=== PATIENT | female | born 1975 | race Hispanic/Latino ===

== ENCOUNTER 2022-11-27 07:48 | Emergency (ER) | payer SELFPAY ==
--- OUTSIDE RECORDS SUMMARY | 2022-11-27 07:53 | XMS REPORT | Clinical Summary ---
:1975 Author Organization [facility] Address [address] [place] [address] Care Team Providers Name Role Phone Unavailable Primary Care Provider Unavailable Allergies Active Allergy Reactions Severity Noted Date Comments Aspirin Rash Low 06/26/2019 Vancomycin Analogues Rash Low 06/26/2019 Medications Medication Sig Dispensed Refills Start Date End Date Status metFORMIN Take 1,000 mg by 0 Act thomas (GLUCOPHAGE) 500 mg mouth daily with tablet breakfast. glipiZIDE (GLUCOTROL) Take 5 mg by mouth 0 Active 5 mg tablet every morning before breakfast. HYDROcodone-acetamino Take 1 tablet by 20 tablet 0 06/26/2019 Active phen (NORCO) 5 mg-325 mouth every 8 mg per (eight) hours as tabletIndications: needed for moderate Pain of breast pain. Active Problems Problem Noted Date Diabetes mellitus Surgical History Surgery Date Site/Laterality Comments ANKLE SURGERY Right with hardware CHOLECYSTECTOMY Laproscopic Medical History Medical History Date Comments Diabetes mellitus Family History Medical History Relation Name Comments Multiple Myeloma Brother Breast cancer Maternal Aunt 1 Breast cancer Maternal Aunt 2 Breast cancer Maternal Grandmother Cervical cancer Paternal Grandmother Relation Name Status Comments Brother Maternal Aunt 1 Maternal Aunt 2 Alive Maternal Grandmother Paternal Grandmother Social History Tobacco Use Types Packs/Day Years Used Date Smoking Tobacco: Every Day Cigarettes 2 1 Smokeless Tobacco: Never Alcohol Use Standard Drinks/Week Comments Never 0 (1 standard drink = 0.6 oz pure alcoho l) Alcohol Habits Answer Date Recorded How often do you have a drink containing alcohol? Never 06/26/2019 How many drinks containing alcohol do you have on a typical Not asked day when you are drinking? How often do you have six or more drinks on one occasion? No t asked Sex Assigned at Date Recorded Not on file Obstetrics History Last Filed Vital Signs Not on file Plan of Treatment Not on file Results Not on fileafter 11/27/2021
--- OUTSIDE RECORDS SUMMARY | 2022-11-27 08:02 | XMS REPORT | Continuity of Care Document ---
:1975 Author Organization [facility] t Address [address] [place] [address] [address] [place] [address] Care Team Providers Name Role Phone Pcp, Patient Does Not Have A Primary Care Physician [id number] MARTÍNEZ LOUIS Attending Clinician Unavailable Martínez Louis DO Attending Clinician KEELY FONTANA Attending Clinician Unavailable Keely Fontana MD Attending Clinician WANG LEYVA Attending Clinician Unavailable Wang Chi Attending Clinician Doctor Unassigned, [place] Attending Clinician Unavailable CARLOTTA GAMEZ Attending Clinician Unavailable Carlotta Gamez DO Attending Clinician VIKKI VINCENT Attending Clinician Unavailable Only, Ang Db Test Attending Clinician Unavailable Vikki Rangel Attending Clinician KODI LYONS Attending Clinician Unavailable Kodi Lyons MD Attending Clinician Devika RIZZO Attending Clinician Unavailable Devika Marshall Attending Clinician Justo CHILDS, Melyssa Casey Attending Clinician Shonda Lang MD Attending Clinician Samira Payne RN Attending Clinician Unavailable Flaco Hoang MD Attending Clinician Ludivina Colunga MD Attending Clinician LUDIVINA COLUNGA Attending Clinician Unavailable [facility] Attending Clinician Unavailable Cezar Alva Attending Clinician KEELY FONTANA Admitting Clinician Unavailable WANG LEYVA Admitting Clinician Unavailable CARLOTTA GAMEZ Admitting Clinician Unavailable Devika RIZZO Admitting Clinician Unavailable Viktor PARHAM, Flaco Admitting Clinician Payers Payer Name Policy Type Policy Number Effective Date Expiration Date Talita velasco [employer] GENERIC [id number] 2021 00:00:00 Problems Condition Condition Condition Status Onset Resolution Last Treating Co mments Source Name Details Category Date Date Treatment Clinician Date Diabetes Diabetes Disease Active Unive rs mellitus mellitus 7-04 ity of 00:00: [place] [facility] Troponin I Troponin I Disease Active U nivers above above 3-01 [place] of [place] [facility] Elevated Elevated Disease Active Unive rs brain brain 3-01 ity of natriureti natriureti 00:00[place] c peptide c peptide 00 [facility] (BNP) (BNP) Branch level level Anemia Anemia Disease Active Univers 3-01 ity of 00:00: [address] Family Family Disease Active Univers history of history of 3- it y of bicuspid bicuspid 00:00: [place] aortic aortic 00 [facility] valve valve Branch Chest pain Chest pain Disease Active U nivers 2-28 ity of 00:00: [address] Branch Obesity Obesity Disease Active Univers (BMI (BMI 9-24 ity of 30-39.9) 30-39.9) 00:00: [place] [facility] Branch Cellulitis Cellulitis Disease Active 2018- U nivers of left of left 9-23 ity of breast breast 00:00: [address] Branch Urinary Urinary Disease Active Univers tract tract 9-21 ity of infection infection 00:00[place] in mother in mother 00 Medi carmen during during Branch , , antepartum antepartum Nausea and Nausea and Disease Active 2017- U nivers vomiting vomiting 9-21 ity of during during 00:00: [place] 00 Medi carmen prior to prior to Branch 22 weeks 22 weeks gestation gestation Pre-existi Pre-existi Disease Active U nivers ng type 2 ng type 2 9-20 ity of diabetes diabetes 00:00: [place] mellitus mellitus 00 Medica l during during Branch in first in first trimester trimester UTI UTI Disease Active Overview: Univer s (urinary (urinary 17 Formatt[place] ity of tract tract 00:00: g of this [place] infection) infection) 00 note Me dical during during might be Branch different from the original. KATIE at next visit Diabetes Diabetes Disease Active Unive rs in in 06-11 [place] of 00:[place] Supervisio Supervisio Disease Active U nivers n of n of 06-11 ity of high-risk high-risk 00:00[place] Med[place] car[place] of elderly of elderly Br anch multigravi multigravi da da AMA AMA Disease Active Univers (advanced (advanced 9-13 ity of maternal maternal 00:00: [place] age) age) 00 Medical multigravi multigravi Br anch da 35+ da 35+ Type 2 Type 2 Disease Active Univers diabetes diabetes 7-12 ity of mellitus mellitus 00:00: [place] without without 00 Medical complicati complicati Br anch on, on, without without long-term long-term current current use of use of insulin insulin Dyslipidem Dyslipidem Disease Active U nivers ia ia 7-12 ity of 00:00: [place] 00 Medical Branch Breast Breast Disease Active Univers mass, mass, 5-17 ity of right right 00:00: [place] [facility] Obesity Obesity Disease Active 2015-09 Univers affecting affecting 1-16 [place] of 00:[place] Allergies, Adverse Reactions, Alerts Allergy Allergy Status Severity Reaction(s) Onset Inactive Treating Comm ents Source Name Type Date Date Clinician Vancomyc Propensi Active Rash Univer s in ty to 06-21 ity of adverse 00:00: [place] reaction 00 Medical s Branch VANCOMYC DRUG Active Rash Univers IN INGREDI 9- ity of 00:00: [place] 00 Medical Branch Aspirin Propensi Active Rash Univers ty to 8-25 ity of adverse 00:00: [place] reaction 00 Medical s to Branch drug ASPIRIN DRUG Active Rash [facility] INGRED 8-25 ity of 00:00: [place] 00 Medical Branch Social History Social Habit Start Date Stop Date Quantity Comments Source History of Current smoker [place] of tobacco use [facility] Exposure to 2022-06-09 2022-06-19 Not sure [facility] SARS-CoV-2 00:00:00 17:00:00 [facility] (event) [place] Alcohol intake 2022-01-05 2022-01-05 Current [facility] 00:00:00 00:00:00 non-drinker of [facility] alcohol (finding) [place] Tobacco use and 2018-06-11 2018-06-11 Smokeless tobacco Un iversity of exposure 00:00:00 00:00:00 non-user [facility] Sex Ass[birth year] [facility] y of 00:00:00 00:00:00 [facility] Smoking Status Start Date Stop Date Source Ex-smoker 2018-06-11 00:00:00 2018-06-11 00:00:00 [facility] Medications Ordered Filled Start Stop Current Ordering Indication Dosage Frequency Signature Comments Components Source Medication Medication Date Date Medication? Clinician (SIG) Name Name cefTRIAXone Yes 500mg 500 mg, Un khloe (ROCEPHIN) 06-20 Intramuscu ity of injection 00:00: [place] Q24H, [place] 500 mg 00 First dose Medical on Fri [place] 06/19/22 at 1900, Until Discontinu ed, DARA
Re ason for Anti-Infec tive: Empiric Therapy for Suspected Infection< br>Empiric Therapy Site: Pelvic
Duration of therapy: 72 hours azithromyci 2021- No 1000mg 1,000 mg, Univers n 06-19 Oral, ity of (ZITHROMAX) 23:00: 23:23 ONCE, 1 [place] tablet 00 :00 dose, On Medical 1,000 mg [facility] 06/19/22 at 1800, DARA
Re ason for Anti-Infec tive: Empiric Therapy for Suspected Infection< br>Empiric Therapy Site: Pelvic
Duration of therapy: 72 hours cefixime 2021- No [id number] 400mg Take 1 U nivers 400 mg 06-19 capsule by ity of capsule 00:00: 04:59 mouth in [place] 00 :00 the Medical morning Branch for 7 days. clindamycin 2021- No [id number] 300mg Take 2 Univers 150 mg 06-19 capsules ity of capsule 00:00: 04:59 by mouth 4 [place] as 00 :00 (four) Medical times Branch daily for 7 days. iopamidol 2021- No [id number] 75mL 75 mL, Univers (ISOVUE 06-07 Intravenou ity o f 370-500 mL) 16:45: 16:45 s, ONCE, 1 [place] injection 00 :00 dose, On Medica l 75 mL Fri06/07/22 Branch at 1145, Routine NaCl 0.9% No 1000mL at 999 Uni vers (NS) bolus 06-07 mL/hr, ity of infusion 16:30: 16:50 1,000 mL, [place] 1,000 mL 00 :00 IV Medical Infusion, Branch ONCE, 1 dose, On Fri06/07/22 at 1130, STAT FENTanyl PF No 25ug 25 mcg, Un khloe (SUBLIMAZE 06-07 Slow IV ity o f (PF)) 15:30: 15:31 Push, [place] injection 00 :00 ONCE, 1 Medical 25 mcg dose, On Branch Fri06/07/22 at 1030, STAT NaCl 0.9% 2021- No 1000mL at 999 Uni vers (NS) bolus 04-01 07-04 mL/hr, ity of infusion 08:00: 07:25 1,000 mL, [place] 1,000 mL 00 :00 IV Medical Infusion, Branch ONCE, 1 dose, On Fri04/01/22 at 0300, DARA NaCl 0.9% 2021- No 1000mL at 999 Uni vers (NS) bolus 7-04 07-04 mL/hr, ity of infusion 05:45: 06:00 1,000 mL, [place] 1,000 mL 00 :00 IV Medical Infusion, Branch ONCE, 1 dose, On Fri04/01/22 at 0045, DARA ondansetron 2021- No 4mg 4 mg, Slow Univers (ZOFRAN 04-01 IV Push, ity of (PF)) 04:45: 04:49 ONCE, 1 [place] injection 4 00 :00 dose, On Medi carmen mg [place] 03/31/22 Branch at 2345, DARA acetaminoph 0 2021- No 1000mg 1,000 mg, Univers en 04-01 Oral, ity of (TYLENOL) 04:45: 04:49 ONCE, 1 [place] tablet 00 :00 dose, On Medical 1,000 mg 03/31/22 Branc h at 2345, DARA ibuprofen 0 2021- No 800mg 800 mg, Uni vers (IBU) 04-01 Oral, ity of tablet 800 04:45: 04:49 ONCE, 1 [place] mg 00 :00 dose, On Medical [place] 03/31/22 Branch at 2345, DARA benzonatate 2021-0 Yes [id number] 100mg Take 1 Univers 100 mg 7-04 capsule by ity of capsule 00:00: mouth 3 [place] 00 (three) Medical times Branch daily as needed for Cough. ondansetron 2021-0 Yes [id number] 4mg Take 1 Univers 4 mg 7-04 tablet by ity of disintegrat 00:00: mouth [place] ing tablet 00 every 8 Medica l (eight) Branch hours as needed for Nausea and Vomiting (N/V). albuterol 2021-0 Yes [id number] 2{puff} Inhale 2 Univers 90 7-04 Puffs ity of mcg/actuati 00:00: every 4 [place] as on inhaler 00 (four) Medical hours as Branch needed for Wheezing or Shortness of Breath. benzonatate 2021-0 Yes [id number] 100mg Take 1 Univers 100 mg 7-04 capsule by ity of capsule 00:00: mouth 3 [place] 00 (three) Medical times Branch daily as needed for Cough. ondansetron 2021-0 Yes [id number] 4mg Take 1 Univers 4 mg 7-04 tablet by ity of disintegrat 00:00: mouth [place] ing tablet 00 every 8 Medica l (eight) Branch hours as needed for Nausea and Vomiting (N/V). albuterol 2021-0 Yes [id number] 2{puff} Inhale 2 Univers 90 7-04 Puffs ity of mcg/actuati 00:00: every 4 [place] on inhaler 00 (four) Medical hours as Branch needed for Wheezing or Shortness of Breath. benzonatate Yes [id number] 100mg Take 1 Univers 100 mg 7-04 capsule by ity of capsule 00:00: mouth 3 [place] 00 (three) Medical times Branch daily as needed for Cough. ondansetron Yes [id number] 4mg Take 1 Univers 4 mg 7-04 tablet by ity of disintegrat 00:00: mouth [place] ing tablet 00 every 8 Medica l (eight) Branch hours as needed for Nausea and Vomiting (N/V). albuterol Yes [id number] 2{puff} Inhale 2 Univers 90 7-04 Puffs ity of mcg/actuati 00:00: every 4 [place] on inhaler 00 (four) Medical hours as Branch needed for Wheezing or Shortness of Breath. amoxicillin 0 2021- No 1{tbl} 1 tablet, Univers -clavulanat 01-05 Oral, ity of e 22:30: 22:00 ONCE, 1 [place] (AUGMENTIN) 00 :00 dose, On Medi carmen 875-125 mg 01/05/22 [facility] per tablet at 1730, 1 tablet Routine
Reason for Anti-Infec tive: Empiric Therapy for Suspected Infection< br>Empiric Therapy Site: Skin / Soft tissue
Duration of therapy: 72 hours FENTanyl PF 2021-0 2021- No 50ug 50 mcg, Un khloe (SUBLIMAZE 01-05- Slow IV ity o f (PF)) 21:15: 20:27 Push, [place] injection 00 :00 ONCE, 1 Medical 50 mcg dose, On Branch 01/05/22 at 1615, Routine metFORMIN 0 Yes 1000mg Take 1,000 Univers 500 mg 4-09 mg by ity of tablet 15:07: mouth 3 [place] 20 (three) Medical times Branch daily. glipiZIDE 5 Yes 10mg Take 10 mg Univers mg tablet -09 by mouth 2 ity of 15:07: (two) [place] 20 times Medical daily Branch before breakfast and dinner. metFORMIN 2021-0 Yes 1000mg Take 1,000 Univers 500 mg 4-09 mg by ity of tablet 15:07: mouth 3 [place] 20 (three) Medical times Branch daily. glipiZIDE 5 2022-0 Yes 10mg Take 10 mg Univers mg tablet 4-09 by mouth 2 ity of 15:07: (two) [place] 20 times Medical daily Branch before breakfast and dinner. metFORMIN 2022-0 Yes 1000mg Take 1,000 Univers 500 mg 4-09 mg by ity of tablet 15:07: mouth 3 [place] 20 (three) Medical times Branch daily. glipiZIDE 5 2022-0 Yes 10mg Take 10 mg Univers mg tablet 4-09 by mouth 2 ity of 15:07: (two) [place] 20 times Medical daily Branch before breakfast and dinner. metFORMIN 2022-0 Yes 1000mg Take 1,000 Univers 500 mg 4-09 mg by ity of tablet 15:07: mouth 3 [place] 20 (three) Medical times Branch daily. glipiZIDE 5 2022-0 Yes 10mg Take 10 mg Univers mg tablet 4-09 by mouth 2 ity of 15:07: (two) [place] 20 times Medical daily Branch before breakfast and dinner. metFORMIN 2022-0 Yes 1000mg Take 1,000 Univers 500 mg 4-09 mg by ity of tablet 15:07: mouth 3 [place] 20 (three) Medical times Branch daily. glipiZIDE 5 2022-0 Yes 10mg Take 10 mg Univers mg tablet 4-09 by mouth 2 ity of 15:07: (two) [place] 20 times Medical daily Branch before breakfast and dinner. amoxicillin 2022-0 Yes [id number] 1{tbl} Take 1 Univers -clavulanat 4-09 [id number] tablet by i ty of e 875-125 00:00: mouth [place] mg per 00 every 12 Medical tablet (twelve) Branch hours. amoxicillin 2022-0 Yes [id number] 1{tbl} Take 1 Univers -clavulanat 4-09 [id number] tablet by i ty of e 875-125 00:00: mouth [place] mg per 00 every 12 Medical tablet (twelve) Branch hours. amoxicillin 2022-0 Yes [id number] 1{tbl} Take 1 Univers -clavulanat 4-09 [id number] tablet by i ty of e 875-125 00:00: mouth [place] mg per 00 every 12 Medical tablet (twelve) Branch hours. amoxicillin 2021-0 Yes [id number] 1{tbl} Take 1 Univers -clavulanat 4-09 [id number] tablet by i ty of e 875-125 00:00: mouth [place] mg per 00 every 12 Medical tablet (twelve) Branch hours. amoxicillin 2021-0 Yes [id number] 1{tbl} Take 1 Univers -clavulanat 4-09 [id number] tablet by i ty of e 875-125 00:00: mouth [place] mg per 00 every 12 Medical tablet (twelve) Branch hours. sulfamethox 2020-09 Yes [id number] 1{tbl} Take 1 Univers azole-trime 2-17 tablet by ity of thoprim 00:00: mouth [place] 800-160 mg 00 every 12 Medic al per tablet (twelve) Branc h hours. ibuprofen 2020-09 Yes [id number] 800mg Take 1 U nivers 800 mg 2-17 tablet by ity of tablet 00:00: mouth [place] 00 every 8 Medical (eight) Branch hours as needed for Pain (scale 4-6) or Temp > 38.5 C. sulfamethox 2020-09 Yes [id number] 1{tbl} Take 1 Univers azole-trime 2-17 tablet by ity of thoprim 00:00: mouth [place] 800-160 mg 00 every 12 Medic al per tablet (twelve) Branc h hours. ibuprofen 2020-09 Yes [id number] 800mg Take 1 U nivers 800 mg 2-17 tablet by ity of tablet 00:00: mouth [place] 00 every 8 Medical (eight) Branch hours as needed for Pain (scale 4-6) or Temp > 38.5 C. sulfamethox 2020-09 Yes [id number] 1{tbl} Take 1 Univers azole-trime 2-17 tablet by ity of thoprim 00:00: mouth [place] 800-160 mg 00 every 12 Medic al per tablet (twelve) Branc h hours. ibuprofen 2020-09 Yes [id number] 800mg Take 1 U nivers 800 mg 2-17 tablet by ity of tablet 00:00: mouth [place] 00 every 8 Medical (eight) Branch hours as needed for Pain (scale 4-6) or Temp > 38.5 C. sulfamethox 2020-09 Yes [id number] 1{tbl} Take 1 Univers azole-trime 2-17 tablet by ity of thoprim 00:00: mouth [place] 800-160 mg 00 every 12 Medic al per tablet (twelve) Branc h hours. ibuprofen 2020-09 Yes [id number] 800mg Take 1 U nivers 800 mg 2-17 tablet by ity of tablet 00:00: mouth [place] 00 every 8 Medical (eight) Branch hours as needed for Pain (scale 4-6) or Temp > 38.5 C. ibuprofen 2020-09 Yes [id number] 800mg Take 1 U nivers 800 mg 2-17 tablet by ity of tablet 00:00: mouth [place] 00 every 8 Medical (eight) Branch hours as needed for Pain (scale 4-6) or Temp > 38.5 C. ibuprofen 2020-09 Yes [id number] 800mg Take 1 U nivers 800 mg 2-17 tablet by ity of tablet 00:00: mouth [place] 00 every 8 Medical (eight) Branch hours as needed for Pain (scale 4-6) or Temp > 38.5 C. ibuprofen 2020-09 Yes [id number] 800mg Take 1 U nivers 800 mg 2-17 tablet by ity of tablet 00:00: mouth [place] 00 every 8 Medical (eight) Branch hours as needed for Pain (scale 4-6) or Temp > 38.5 C. ibuprofen 2020-09 Yes [id number] 800mg Take 1 U nivers 800 mg 2-17 tablet by ity of tablet 00:00: mouth [place] 00 every 8 Medical (eight) Branch hours as needed for Pain (scale 4-6) or Temp > 38.5 C. ibuprofen 2020-09 Yes [id number] 800mg Take 1 U nivers 800 mg 2-17 tablet by ity of tablet 00:00: mouth [place] 00 every 8 Medical (eight) Branch hours as needed for Pain (scale 4-6) or Temp > 38.5 C. sulfamethox 2020-09- No [id number] 1{tbl} Take 1 Univers azole-trime 2-17 - tablet by it y of thoprim 00:00: 00:00 mouth [place] 800-160 mg 00 :00 every 12 Medic al per tablet (twelve) Branc h hours. benzonatate 2020-09- No 100mg 100 mg, U nivers (TESSALON 2-06 12-06 Oral, ity of PERLES) 05:00: 04:01 ONCE, 1 [place] capsule 100 00 :00 dose, On Medi carmen mg [place] 09/02/21 at 2300, DARA magnesium 2020-09- 2g 2 g, IV Univ ers sulfate in 11-04 Piggyback, it y of water 2 03:45: 03:58 ONCE, 1 [place] gram/50 mL 00 :00 dose, On Medic al (4 %) [place] infusion 2 09/02/21 at g 2145, Routine benzonatate 2020-09 Yes [id number] 100mg Take 1 Univers 100 mg 2-05 capsule by ity of capsule 00:00: mouth 3 [place] 00 (three) Medical times Branch daily as needed for Cough. albuterol 2020-09 Yes [id number] 2{puff} Inhale 2 Univers 90 2-05 Puffs ity of mcg/actuati 00:00: every 4 [place] on inhaler 00 (four) Medical hours as Branch needed for Wheezing or Shortness of Breath. ondansetron 2020-09 Yes [id number] 4mg Take 1 Univers (ZOFRAN 2-05 tablet by ity of ODT) 4 mg 00:00: mouth [place] disintegrat 00 every 8 Medic al ing tablet (eight) Branch hours as needed for Nausea and Vomiting (N/V). ibuprofen 2020-09 Yes [id number] 600mg Take 1 Univers 600 mg 2-05 tablet by ity of tablet 00:00: mouth [place] 00 every 6 Medical (six) Branch hours as needed for Pain (scale 4-6). benzonatate 2020-09 Yes [id number] 100mg Take 1 Univers 100 mg 2-05 capsule by ity of capsule 00:00: mouth 3 [place] 00 (three) Medical times Branch daily as needed for Cough. albuterol 2020-09 Yes [id number] 2{puff} Inhale 2 Univers 90 2-05 Puffs ity of mcg/actuati 00:00: every 4 [place] on inhaler 00 (four) Medical hours as Branch needed for Wheezing or Shortness of Breath. ondansetron 2020-09 Yes [id number] 4mg Take 1 Univers (ZOFRAN 2-05 tablet by ity of ODT) 4 mg 00:00: mouth [place] disintegrat 00 every 8 Medic al ing tablet (eight) Branch hours as needed for Nausea and Vomiting (N/V). ibuprofen 2020-09 Yes [id number] 600mg Take 1 Univers 600 mg 2-05 tablet by ity of tablet 00:00: mouth [place] 00 every 6 Medical (six) Branch hours as needed for Pain (scale 4-6). benzonatate 2020-09 Yes [id number] 100mg Take 1 Univers 100 mg 2-05 capsule by ity of capsule 00:00: mouth 3 [place] 00 (three) Medical times Branch daily as needed for Cough. albuterol 2020-09 Yes [id number] 2{puff} Inhale 2 Univers 90 2-05 Puffs ity of mcg/actuati 00:00: every 4 [place] on inhaler 00 (four) Medical hours as Branch needed for Wheezing or Shortness of Breath. ondansetron 2020-09 Yes [id number] 4mg Take 1 Univers (ZOFRAN 2-05 tablet by ity of ODT) 4 mg 00:00: mouth [place] disintegrat 00 every 8 Medic al ing tablet (eight) Branch hours as needed for Nausea and Vomiting (N/V). ibuprofen 2020-09 Yes [id number] 600mg Take 1 Univers 600 mg 2-05 tablet by ity of tablet 00:00: mouth [place] 00 every 6 Medical (six) Branch hours as needed for Pain (scale 4-6). benzonatate 2020-09 Yes [id number] 100mg Take 1 Univers 100 mg 2-05 capsule by ity of capsule 00:00: mouth 3 [place] 00 (three) Medical times Branch daily as needed for Cough. albuterol 2020-09 Yes [id number] 2{puff} Inhale 2 Univers 90 2-05 Puffs ity of mcg/actuati 00:00: every 4 [place] on inhaler 00 (four) Medical hours as Branch needed for Wheezing or Shortness of Breath. ondansetron 2020-09 Yes [id number] 4mg Take 1 Univers (ZOFRAN 2-05 tablet by ity of ODT) 4 mg 00:00: mouth [place] disintegrat 00 every 8 Medic al ing tablet (eight) Branch hours as needed for Nausea and Vomiting (N/V). ibuprofen 2020-09 Yes [id number] 600mg Take 1 Univers 600 mg 2-05 tablet by ity of tablet 00:00: mouth [place] 00 every 6 Medical (six) Branch hours as needed for Pain (scale 4-6). benzonatate 2020-09 Yes [id number] 100mg Take 1 Univers 100 mg 2-05 capsule by ity of capsule 00:00: mouth 3 [place] 00 (three) Medical times Branch daily as needed for Cough. albuterol 2020-09 Yes [id number] 2{puff} Inhale 2 Univers 90 2-05 Puffs ity of mcg/actuati 00:00: every 4 [place] on inhaler 00 (four) Medical hours as Branch needed for Wheezing or Shortness of Breath. ondansetron 2020-09 Yes [id number] 4mg Take 1 Univers (ZOFRAN 2-05 tablet by ity of ODT) 4 mg 00:00: mouth [place] disintegrat 00 every 8 Medic al ing tablet (eight) Branch hours as needed for Nausea and Vomiting (N/V). ibuprofen 2020-09 Yes [id number] 600mg Take 1 Univers 600 mg 2-05 tablet by ity of tablet 00:00: mouth [place] 00 every 6 Medical (six) Branch hours as needed for Pain (scale 4-6). benzonatate 2020-09 Yes [id number] 100mg Take 1 Univers 100 mg 2-05 capsule by ity of capsule 00:00: mouth 3 [place] 00 (three) Medical times Branch daily as needed for Cough. albuterol 2020-09 Yes [id number] 2{puff} Inhale 2 Univers 90 2-05 Puffs ity of mcg/actuati 00:00: every 4 [place] on inhaler 00 (four) Medical hours as Branch needed for Wheezing or Shortness of Breath. ondansetron 2020-09 Yes [id number] 4mg Take 1 Univers (ZOFRAN 2-05 tablet by ity of ODT) 4 mg 00:00: mouth [place] disintegrat 00 every 8 Medic al ing tablet (eight) Branch hours as needed for Nausea and Vomiting (N/V). ibuprofen 2020-09 Yes [id number] 600mg Take 1 Univers 600 mg 2-05 tablet by ity of tablet 00:00: mouth [place] 00 every 6 Medical (six) Branch hours as needed for Pain (scale 4-6). ibuprofen 2020-09 Yes [id number] 600mg Take 1 Univers 600 mg 2-05 tablet by ity of tablet 00:00: mouth [place] 00 every 6 Medical (six) Branch hours as needed for Pain (scale 4-6). ibuprofen 2020-09 Yes [id number] 600mg Take 1 Univers 600 mg 2-05 tablet by ity of tablet 00:00: mouth [place] 00 every 6 Medical (six) Branch hours as needed for Pain (scale 4-6). ibuprofen 2020-09 Yes [id number] 600mg Take 1 Univers 600 mg 2-05 tablet by ity of tablet 00:00: mouth [place] 00 every 6 Medical (six) Branch hours as needed for Pain (scale 4-6). ibuprofen 2020-09 Yes [id number] 600mg Take 1 Univers 600 mg 2-05 tablet by ity of tablet 00:00: mouth [place] 00 every 6 Medical (six) Branch hours as needed for Pain (scale 4-6). ibuprofen 2020-09 Yes [id number] 600mg Take 1 Univers 600 mg 2-05 tablet by ity of tablet 00:00: mouth [place] 00 every 6 Medical (six) Branch hours as needed for Pain (scale 4-6). benzonatate 2020-09- No [id number] 100mg Take 1 Univers 100 mg 2-05 -09 capsule by ity of capsule 00:00: 00:00 mouth 3 [place] 00 :00 (three) Medical times Branch daily as needed for Cough. albuterol 2020-09- No [id number] 2{puff} Inhale 2 Univers 90 2-05 -09 Puffs ity of mcg/actuati 00:00: 00:00 every 4 [place] on inhaler 00 :00 (four) Medical hours as Branch needed for Wheezing or Shortness of Breath. ondansetron 2020-09- No [id number] 4mg Take 1 Univers (ZOFRAN 2-05 04-09 tablet by ity of ODT) 4 mg 00:00: 00:00 mouth [place] disintegrat 00 :00 every 8 Medic al ing tablet (eight) Branch hours as needed for Nausea and Vomiting (N/V). ibuprofen 2020-09- No [id number] 600mg Take 1 Univers 600 mg 2-05 12-05 tablet by ity of tablet 00:00: 00:00 mouth [place] 00 :00 every 6 Medical (six) Branch hours as needed for Pain (scale 4-6). NaCl 0.9% 2020- No 500mL at 999 Univ ers (NS) bolus 03-30 07-02 mL/hr, 500 it y of infusion 01:30: 13:29 mL, IV [place] 500 mL 00 :00 Piggyback, Medical ONCE, 1 Branch dose, [facility] 03/29/21 at 2030, STAT metFORMIN 0 Yes 1000mg Take 1,000 Univers 500 mg 7-02 mg by ity of tablet 01:00: mouth. [address] glipiZIDE 5 Yes 10mg Take 10 mg Univers mg tablet 03-30 by mouth. ity o f 01:00: [address] iopamidol 2020- No [id number] 100mL 100 mL, Univers (ISOVUE 03-29 Intravenou ity o f 370-500 mL) 22:54: 22:56 s, ONCE, 1 [place] injection 00 :00 dose, [facility] Medic al 100 mL 03/29/21 at Branch 1815, Routine ibuprofen 2020- No 600mg 600 mg, Uni vers (IBU) 03-29 Oral, ity of tablet 600 21:15: 21:03 ONCE, 1 [place] as mg 00 :00 dose, [facility] Medical 03/29/21 at Branch 1615, DARA metFORMIN 2020-0 Yes 1000mg Take 1,000 Univers 500 mg 7-01 mg by ity of tablet 20:00: mouth. [address] glipiZIDE 5 2020-0 Yes 10mg Take 10 mg Univers mg tablet 03-29 by mouth. ity o f 20:00: [address] metFORMIN 2020-0 Yes 1000mg Take 1,000 [facility] 500 mg 7-01 mg by ity of tablet 20:00: mouth. [address] glipiZIDE 5 2020-0 Yes 10mg Take 10 mg [facility] mg tablet 03-29 by mouth. ity o f 20:00: [address] metFORMIN 2020-0 Yes 1000mg Take 1,000 [facility] 500 mg 7-01 mg by ity of tablet 20:00: mouth. [address] glipiZIDE 5 Yes 10mg Take 10 mg [facility] mg tablet 7-01 by mouth. ity o f 20:00: [address] metFORMIN Yes 1000mg Take 1,000 [facility] 500 mg 7-01 mg by ity of tablet 20:00: mouth. [address] glipiZIDE 5 Yes 10mg Take 10 mg [facility] mg tablet 7-01 by mouth. ity o f 20:00: [address] metFORMIN Yes 1000mg Take 1,000 [facility] 500 mg 7-01 mg by ity of tablet 20:00: mouth. [address] glipiZIDE 5 Yes 10mg Take 10 mg [facility] mg tablet 7-01 by mouth. ity o f 20:00: [address] metFORMIN Yes 1000mg Take 1,000 [facility] 500 mg 7-01 mg by ity of tablet 20:00: mouth. [address] glipiZIDE 5 Yes 10mg Take 10 mg [facility] mg tablet 7-01 by mouth. ity o f 20:00: [address] ketorolac 2020- No 30mg 30 mg, Unive rs (TORADOL) 01-02 Slow IV ity of injection 15:30: 14:28 Push, [place] 30 mg 00 :00 ONCE, 1 Medical dose, [facility] 01/02/21 at 1030, DARA
Fa culty member approving Restricted medication : SHONDA LANG metoclopram 2020- No 10mg 10 mg, Uni vers belle HCl 01-02 Slow IV ity of (REGLAN) 15:30: 14:27 Push, [place] injection 00 :00 ONCE, 1 Medical 10 mg dose, [facility] 01/02/21 at 1030, DARA morpHINE 2020- No 4mg 4 mg, Slow Un khloe injection 01-02 IV Push, ity of mg 14:30: 13:23 ONCE, 1 [place] 00 :00 dose, [facility] 01/02/21 at Branch 0930, STAT ondansetron 2020- No 4mg 4 mg, Slow Univers (ZOFRAN 01-02 IV Push, ity of (PF)) 14:30: 13:23 ONCE, 1 [place] injection 4 00 :00 dose, Tue Med ical mg 01/02/21 at Branch 0930, DARA metoclopram 2020-0 Yes [id number] 10mg Take 1 [facility] belle HCl 10 4-06 tablet by ity of mg tablet 00:00: mouth [place] 00 every 6 Medical (six) Branch hours. polyethylen 2020-0 Yes [id number] 1{packe Take 1 Univers e glycol 4-06 t} Packet by ity of 3350 00:00: mouth 2 [place] (MIRALAX) 00 (two) Medical 17 gram times Branch powder daily as needed for Constipati on. dicyclomine 2020-0 Yes [id number] 20mg Take 1 [facility] 20 mg 4-06 tablet by ity of tablet 00:00: mouth 4 [place] 00 (four) Medical times Branch daily. metoclopram 2020-0 Yes [id number] 10mg Take 1 [facility] belle HCl 10 4-06 tablet by ity of mg tablet 00:00: mouth [place] 00 every 6 Medical (six) Branch hours. metoclopram 2020-0 2020- No [id number] 10mg Take 1 [facility] belle HCl 10 4- 07-01 tablet by ity of mg tablet 00:00: 00:00 mouth [place] 00 :00 every 6 Medical (six) Branch hours. polyethylen 2020-0 2020- No [id number] 1{packe Take 1 Univers e glycol 4-06 07-01 t} Packet by ity o f 3350 00:00: 00:00 mouth 2 [place] (MIRALAX) 00 :00 (two) Medical 17 gram times Branch powder daily as needed for Constipati on. dicyclomine 2020-0 2020- No [id number] 20mg Take 1 [facility] 20 mg 4-06 07-01 tablet by ity of tablet 00:00: 00:00 mouth 4 [place] 00 :00 (four) Medical times Branch daily. metoclopram 2020-0 2020- No [id number] 10mg Take 1 [facility] belle HCl 10 4-06 07-01 tablet by ity of mg tablet 00:00: 00:00 mouth [place] 00 :00 every 6 Medical (six) Branch hours. maalox:diph 2020-0 2020- No 15mL 15 mL, Uni vers enhydrAMINE 12-17 Oral, ity of :lidocaine 02:45: 01:46 ONCE, 1 [place] as 2 % viscous 00 :00 dose, Sat Med ical 1:1:1 12/16/20 at [place] (FIRST-MOUT 2145, HWASH BLM) Routine oral suspension 15 mL iohexol 2020- No [id number] 80mL 80 mL, Univers (OMNIPAQUE 12-17 86567 Intravenou i ty of 350 01:00: 00:50 s, ONCE, 1 [place] BULK-100 00 :00 dose, Sat Medica l mL) 12/16/20 at [place] injection 1999, 80 mL Routine ondansetron 2020- No 4mg 4 mg, Slow Univers (ZOFRAN 12-17 IV Push, ity of (PF)) 01:00: 00:12 ONCE, 1 [place] injection 4 00 :00 dose, Sat Med ical mg 12/16/20 at [place] 1999, DARA butorphanol 2020- No 1mg 1 mg, IV U nivers (STADOL) 12-17 Push, ity of injection 1 01:00: 00:12 ONCE, 1 [place] mg 00 :00 dose, Sat [facility] 12/16/20 at [place] 1999, Routine ketorolac 2020- No 30mg 30 mg, Unive rs (TORADOL) 12-17 Slow IV ity of injection 01:00: 00:12 Push, [place] 30 mg 00 :00 ONCE, 1 Medical dose, Sat [place] 12/16/20 at 1999, Routine
parole board member approving Restricted medication : MELYSSA PETERS ciprofloxac 2020- No 400mg 400 mg, IV Univers in in 5 % 12-17 Piggyback, ity of dextrose 01:00: 01:15 Administer [place] (CIPRO) 00 :00 over 60 Medical piggyback Minutes, Branch 400 mg ONCE, 1 dose, 12/16/20 at 1999, DARA
Re ason for Anti-Infec tive: Documented Infection< br>Documen wilfredo Infection Site: HEENT
D uration of Therapy: 7 days NaCl 0.9% 2020- No 1000mL at 999 Uni vers (NS) bolus 12-17-21 mL/hr, ity of infusion 00:00: 01:15 1,000 mL, [place] as 1,000 mL 00 :00 IV Medical Infusion, Branch ONCE, 1 dose, 12/16/20 at 1900, DARA ciprofloxac Yes [id number] 500mg Take 1 [facility] in HCl 500 12-16 tablet by ity of mg tablet 00:00: mouth 2 (two) Medical times Branch daily. ciprofloxac Yes [id number] 500mg Take 1 Univers in HCl 500 12-1604 tablet by ity of mg tablet 00:00: mouth 2 (two) Medical times Branch daily. ciprofloxac 2020- No [id number] 500mg Take 1 Univers in HCl 500 12-16 13266 tablet by it y of mg tablet 00:00: 00:00 mouth 2 [place] 00 :[place] (two) Medical times Branch daily. acyclovir 2020- No [id number] 800mg Take 1 Univers 800 mg 12-16 55984 tablet by ity of tablet 00:00: 04:59 mouth 5 [place] 00 :00 (five) Medical times Branch daily for 7 days. traMADoL 50 2020- No [id number] 50mg Take 1 Uni vers mg tablet 12-16 tablet by ity of 00:00: 04:59 mouth [place] 00 :00 every 6 Medical (six) Branch hours as needed for Pain (scale 7-10) for up to 7 days. Indication s: acute pain traMADoL 2020- No 50mg 50 mg, Univer s (ULTRAM) 12-15- Oral, ity of tablet 50 16:45: 16:45 ONCE, 1 [place] mg 00 :00 dose, Fri Medical 12/15/20 at Branch 1145, Routine etodolac 2020- Yes [id number] 300mg Take 1 Univers 300 mg 12-15 capsule by ity of capsule 00:00: mouth 2 [place] 00 (two) Medical times Branch daily with meals. colistin-ne Yes [id number] 5[drp] Place 5 Univers omycin-hc-t 12-15 97741 Drops in ity of honzonium 00:00: right ear Enrique as (CORTISPORI 00 3 (three) Med ical N-TC) times Branch 3.3-3-10-0. daily. 5 mg/mL otic drops etodolac Yes [id number] 300mg Take 1 Univers 300 mg 12-15 32771 capsule by ity of capsule 00:00: mouth 2 [place] 00 (two) Medical times Branch daily with meals. colistin-ne Yes [id number] 5[drp] Place 5 Univers omycin-hc-t 12-15 45849 Drops in ity of honzonium 00:00: right ear [place] as (CORTISPORI 00 3 (three) Med ical N-TC) times Branch 3.3-3-10-0. daily. 5 mg/mL otic drops etodolac 2020- No [id number] 300mg Take 1 Univers 300 mg 12-15 [id number] capsule by ity o f capsule 00:00: 00:00 mouth 2 [place] 00 :00 (two) Medical times Branch daily with meals. colistin-ne 2020-2020- No [id number] 5[drp] Place 5 Univers omycin-hc-t 12-15 51809 Drops in it y of honzonium 00:00: 00:00 right ear [place] (CORTISPORI 00 :00 3 (three) Med ical N-TC) times Branch 3.3-3-10-0. daily. 5 mg/mL otic drops colistin-ne 2020-0 2020- No [id number] 5[drp] Place 5 Univers omycin-hc-t 12-15 11242 Drops in it y of honzonium 00:00: 04:59 right ear [place] (CORTISPORI 00 :00 3 (three) Med ical N-TC) times Branch 3.3-3-10-0. daily for 5 mg/mL 7 days. otic drops etodolac 2020-0 2020- No [id number] 300mg Take 1 Univers 300 mg 12-15 [id number] capsule by ity o f capsule 00:00: 04:59 mouth 2 [place] 00 :00 (two) Medical times Branch daily with meals for 5 days. tc No 42.3mCi 42.3 Univers 99m-tetrofo 11-28 [facility] 19:15: 19:05 , [place] ([facility]) 00 :00 Intravenou Medi carmen injection s, ONCE, 1 Bran ch 42.3 dose, Tue millicurie 11/28/20 at 1315, Routine Regadenoson 2020- No .4mg 0.4 mg, IV Univers (LEXISCAN) 11-28 Push, ity of injection 19:10: 19:10 ONCE, 1 [place] 0.4 mg 00 :00 dose, [facility] 11/28/20 at Branch 1315, Routine
parole board member approving Restricted medication : RENY PRESTON tc 2020- No 15.7mCi 15.7 Univers 99m-tetrofo 11-28 millicurie i ty of smin 17:45: 17:35 , [place] ([facility]) 00 :00 Intravenou Medi carmen injection s, ONCE, 1 Bran ch 15.7 dose, [facility] millicurie 11/28/20 at 1145, Routine hydrOXYzine Yes 10mg 10 mg, Univ ers (ATARAX) 11-28 Oral, ity of tablet 10 01:38: Q6HPRN, [place] mg [address] [facility] 11/27/20 Branch at 1938, Until Discontinu ed, Routine, Anxiety metFORMIN 2020- No [id number] 850mg Take 1 Univers 850 mg 11-28 tablet by ity of tablet 00:00: 04:59 mouth 3 [place] 00 :00 (three) Medical times Branch daily with meals for 30 days. glipiZIDE 2020- No [id number] 10mg Take 1 Univers XL 10 mg 24 11-28 tablet by it y of hr tablet 00:00: 04:59 mouth 2 [place] 00 :00 (two) Medical times Branch daily for 30 days. hydrOXYzine 2020- No [id number] 10mg Take 1 Univers 10 mg 3-11 02-02 tablet by ity of tablet 00:00: 04:59 mouth [place] 00 :00 every 8 Medical (eight) Branch hours as needed for Anxiety for up to 30 days. metFORMIN 2020- No [id number] 850mg Take 1 Univers 850 mg 3-02 04-02 tablet by ity of tablet 00:00: 04:59 mouth 3 [place] 00 :00 (three) Medical times Branch daily with meals for 30 days. glipiZIDE 2020- No [id number] 10mg Take 1 Univers XL 10 mg 24 11-28-02 tablet by it y of hr tablet 00:00: 04:59 mouth 2 [place] 00 :00 (two) Medical times Branch daily for 30 days. hydrOXYzine 2020- No [id number] 10mg Take 1 Univers 10 mg 3-11 02-02 tablet by ity of tablet 00:00: 04:59 mouth [place] 00 :00 every 8 Medical (eight) Branch hours as needed for Anxiety for up to 30 days. metFORMIN 2020- No [id number] 850mg Take 1 Univers 850 mg 3-11 02-02 tablet by ity of tablet 00:00: 04:59 mouth 3 [place] 00 :00 (three) Medical times Branch daily with meals for 30 days. glipiZIDE 2020- No [id number] 10mg Take 1 [facility] XL 10 mg 24 -11 02-02 tablet by it y of hr tablet 00:00: 04:59 mouth 2 [place] 00 :00 (two) Medical times Branch daily for 30 days. hydrOXYzine 2020- No [id number] 10mg Take 1 Univers 10 mg 3-02 04-02 tablet by ity of tablet 00:00: 04:59 mouth [place] 00 :00 every 8 Medical (eight) Branch hours as needed for Anxiety for up to 30 days. metFORMIN 2020- No [id number] 850mg Take 1 [facility] 850 mg 3-02 04-02 tablet by ity of tablet 00:00: 04:59 mouth 3 [place] 00 :00 (three) Medical times Branch daily with meals for 30 days. glipiZIDE 2020- No [id number] 10mg Take 1 [facility] XL 10 mg 24 11-28- tablet by it y of hr tablet 00:00: 04:59 mouth 2 [place] 00 :00 (two) Medical times Branch daily for 30 days. hydrOXYzine 2020- No [id number] 10mg Take 1 Univers 10 mg 11-28-02 tablet by ity of tablet 00:00: 04:59 mouth [place] 00 :00 every 8 Medical (eight) Branch hours as needed for Anxiety for up to 30 days. metFORMIN 2020- No [id number] 850mg Take 1 Univers 850 mg 11-28- tablet by ity of tablet 00:00: 04:59 mouth 3 [place] 00 :00 (three) Medical times Branch daily with meals for 30 days. glipiZIDE 2020- No [id number] 10mg Take 1 [facility] XL 10 mg 24 11-28 tablet by it y of hr tablet 00:00: 04:59 mouth 2 [place] 00 :00 (two) Medical times Branch daily for 30 days. hydrOXYzine 2020- No [id number] 10mg Take 1 Univers 10 mg 11-28 tablet by ity of tablet 00:00: 04:59 mouth [place] 00 :00 every 8 Medical (eight) Branch hours as needed for Anxiety for up to 30 days. KCL Yes 40meq 40 mEq, Univers (KLOR-CON 11-27 Oral, ity of M20) tablet 15:00: DAILY, [place] 40 mEq 00 First dose Medical on Fri11/27/20 at 0900, Until Discontinu ed, Routine glipiZIDE Yes 5mg 5 mg, Univers (GLUCOTROL) 3 Oral, ity of tablet 5 mg 13:30: BIDAC, [place] 00 First dose Medical on Fri11/27/20 at 0730, Until Discontinu ed, Routine Sliding Yes Subcutaneo Univ ers Scale 3- us, AC, ity of Insulin-Reg 13:30: First dose [place] ular + Fsbg 00 (after Medica l Testing last Branch modificati on) on Fri11/27/20 at 0730, Until Discontinu ed, Routine magnesium 2020- No 2000mg 2,000 mg, Univers sulfate 11-27 IV ity of 2,000 mg in 10:30: 10:30 Infusion, [place] D5W 00 :00 ONCE, 1 Medical piggyback dose, Mon Branc h 11/27/20 at 0430, 100 mL magnesium Yes 400mg 400 mg, Univ ers oxide 11-27 Oral, BID, ity of (MAG-OX 09:30: First dose [place] 400) tablet 00 on Mon Medica l 400 mg 11/27/20 at Branch 0330, Until Discontinu ed, Routine Sliding 2020- No Subcutaneo Uni vers Scale 11-27 , AC+HS, ity of Insulin-Reg 03:00: 09:21 First dose [place] ular + Fsbg 00 :58 on [facility]ica l Testing 11/26/20 at Branch 2100, Until Discontinu ed, Routine KCL No 60meq 60 mEq, Univers (KLOR-CON 11-26 Oral, ity of M20) tablet 23:15: 23:39 ONCE, 1 [place] 60 mEq 00 :00 dose, [facility] 11/26/20 at Branch 1715, Routine enoxaparin Yes 40mg 40 mg, Unive rs (LOVENOX) 11-26 Subcutaneo ity of injection 23:00: us, DAILY, [place] 40 mg 00 First dose Medical on [facility] 11/26/20 at 1700, Until Discontinu ed, Routine HYDROcodone 2020- No 1{tbl} 1 tablet, Univers -acetaminop 11-26 Oral, ity of hen (NORCO 22:10: 22:09 Q6HPRN, [place] as 5) 5-325 mg 37 :37 Starting Medi carmen tablet 1 [facility] tablet 11/26/20 at 1610, Until 11/28/20 at 1609, Routine, Pain (scale 4-6) acetaminoph Yes 650mg 650 mg, Un khloe en 11-26 Oral, ity of (TYLENOL) 22:10: Q6HPRN, [place] tablet 650 32 Starting Medic al mg [facility] 11/26/20 at 1610, Until Discontinu ed, Routine, Pain (scale 1-3) iohexol 2020- No 80mL 80 mL, Univers (OMNIPAQUE 11-26 Intravenou it y of 350 21:00: 20:50 s, ONCE, 1 [place] BULK-100 00 :00 dose, [place] [facility] l mL) 11/26/20 at [place] injection 1500, 80 mL Routine HYDROcodone 2020- No 1{tbl} 1 tablet, Univers -acetaminop 11-20 Oral, ONCE i ty of hen (NORCO) 07:45: 06:48 NOW, 1 [place] as 10-325 mg 00 :00 dose, Mon Medic al tablet 1 11/20/20 at [facility] h tablet 0145, Routine dicloxacill Yes [id number] 250mg Take 1 Univers in 250 mg 11-20 [id number] capsule by it y of capsule 00:00: mouth 4 [place] 00 (four) Medical times Branch daily. naproxen Yes [id number] 550mg Take 1 Univers sodium 550 11-20 [id number] tablet by it y of mg tablet 00:00: mouth 2 [place] 00 (two) Medical times Branch daily with meals. dicloxacill Yes [id number] 250mg Take 1 Univers in 250 mg 11-20 [id number] capsule by it y of capsule 00:00: mouth 4 [place] 00 (four) Medical times Branch daily. naproxen Yes [id number] 550mg Take 1 Univers sodium 550 11-20 [id number] tablet by it y of mg tablet 00:00: mouth 2 [place] 00 (two) Medical times Branch daily with meals. dicloxacill 2020- No [id number] 250mg Take 1 Univers in 250 mg 11-20 [id number] capsule by i ty of capsule 00:00: 00:00 mouth 4 [place] 00 :00 (four) Medical times Branch daily. naproxen 2020- No [id number] 550mg Take 1 Univers sodium 550 11-20- 120104 tablet by i ty of mg tablet 00:00: 00:00 mouth 2 [place] 00 :00 (two) Medical times Branch daily with meals. methylPREDN 2019- No 40mg Unive rs ISolone 03-28 ity of acetate 22:15: 17:48 [place] (DEPO-MEDRO 00 :00 Medical L) 80 mg/mL Branch 40 mg, lidocaine 1% (PF) (XYLOCAINE) 3 mL, bupivacaine (preserv free) 0.5% (SENSORCAIN E MPF) 0.5 % (5 mg/mL) 6 mL 9.5 mL injection methylPREDN 2020-0 2020- No 40mg Intra-devin Univers ISolone 03-28 cular, ity of acetate 22:15: 17:48 ONCE, 1 [place] (DEPO-MEDRO 00 :00 dose, Tue Med ical L) 80 mg/mL 03/28/20 at Br anch 40 mg, 1715, 9.5 lidocaine mL 1% (PF) (XYLOCAINE) 3 mL, bupivacaine (preserv free) 0.5% (SENSORCAIN E MPF) 0.5 % (5 mg/mL) 6 mL 9.5 mL injection methylPREDN 2020-0 2020- No 40mg Unive rs ISolone 03-28 ity of acetate 22:15: 18:50 [place] (DEPO-MEDRO 00 :00 Medical L) 80 mg/mL Branch 40 mg, lidocaine 1% (PF) (XYLOCAINE) 3 mL, bupivacaine (preserv free) 0.5% (SENSORCAIN E MPF) 0.5 % (5 mg/mL) 6 mL 9.5 mL injection methylPREDN 2020-0 2020- No 40mg Intra-devin Univers ISolone 03-28 cular, ity of acetate 22:15: 18:50 ONCE, 1 [place] (DEPO-MEDRO 00 :00 dose, Tue Med ical L) 80 mg/mL 03/28/20 at Br anch 40 mg, 1715, 9.5 lidocaine mL 1% (PF) (XYLOCAINE) 3 mL, bupivacaine (preserv free) 0.5% (SENSORCAIN E MPF) 0.5 % (5 mg/mL) 6 mL 9.5 mL injection methylPREDN 2020-0 2020- No 40mg Unive rs ISolone 03-28 ity of acetate 22:15: 18:50 [place] (DEPO-MEDRO 00 :00 Medical L) 80 mg/mL Branch 40 mg, lidocaine 1% (PF) (XYLOCAINE) 3 mL, bupivacaine (preserv free) 0.5% (SENSORCAIN E MPF) 0.5 % (5 mg/mL) 6 mL 9.5 mL injection methylPREDN 2020-0 2020- No 40mg Intra-devin Univers [facility] 03-28 cular, ity of acetate 22:15: 18:50 ONCE, 1 [place] (DEPO-MEDRO 00 :00 dose, Tue Med ical L) 80 mg/mL 03/28/20 at Br anch 40 mg, 1715, 9.5 lidocaine mL 1% (PF) (XYLOCAINE) 3 mL, bupivacaine (preserv free) 0.5% (SENSORCAIN E MPF) 0.5 % (5 mg/mL) 6 mL 9.5 mL injection methylPREDN 2020-0 2020- No 40mg [facility] 03-28 ity of acetate 22:15: 10:14 [place] (DEPO-MEDRO 00 :00 Medical L) 80 mg/mL Branch 40 mg, lidocaine 1% (PF) (XYLOCAINE) 3 mL, bupivacaine (preserv free) 0.5% (SENSORCAIN E MPF) 0.5 % (5 mg/mL) 6 mL 9.5 mL injection methylPREDN 2020-0 2020- No 40mg [facility] 03-28 ity of acetate 22:15: 10:14 [place] (DEPO-MEDRO 00 :00 Medical L) 80 mg/mL Branch 40 mg, lidocaine 1% (PF) (XYLOCAINE) 3 mL, bupivacaine (preserv free) 0.5% (SENSORCAIN E MPF) 0.5 % (5 mg/mL) 6 mL 9.5 mL injection methylPREDN 2020-0 2020- No 40mg [facility] ISolone 03-28 ity of acetate 22:15: 10:14 [place] (DEPO-MEDRO 00 :00 Medical L) 80 mg/mL Branch 40 mg, lidocaine 1% (PF) (XYLOCAINE) 3 mL, bupivacaine (preserv free) 0.5% (SENSORCAIN E MPF) 0.5 % (5 mg/mL) 6 mL 9.5 mL injection methylPREDN 2020-0 2020- No 40mg Unive rs ISolone 03-28 ity of acetate 22:15: 10:14 [place] (DEPO-MEDRO 00 :00 Medical L) 80 mg/mL Branch 40 mg, lidocaine 1% (PF) (XYLOCAINE) 3 mL, bupivacaine (preserv free) 0.5% (SENSORCAIN E MPF) 0.5 % (5 mg/mL) 6 mL 9.5 mL injection methylPREDN 2019- No 40mg Unive rs ISolone 03-28 ity of acetate 22:15: 10:14 [place] (DEPO-MEDRO 00 :00 Medical L) 80 mg/mL Branch 40 mg, lidocaine 1% (PF) (XYLOCAINE) 3 mL, bupivacaine (preserv free) 0.5% (SENSORCAIN E MPF) 0.5 % (5 mg/mL) 6 mL 9.5 mL injection HYDROcodone 2019- No 1{tbl} 1 tablet, Univers -acetaminop 03-28 Oral, ity of hen (NORCO 01:45: 00:52 ONCE, 1 [place] as 5) 5-325 mg 00 :00 dose, [facility] ical tablet 1 03/27/20 at [facility] h tablet 2044, DARA sulfamethox No 1{tbl} 1 tablet, [facility] azole-trime 03-28 Oral, ONCE i ty of thoprim 01:45: 00:52 NOW, 1 [place] (BACTRIM 00 :00 dose, Mon Medica l DS) 800-160 03/27/20 at Br anch mg per 2044, tablet 1 DARA
Re tablet ason for Anti-Infec tive: Documented Infection< br>Documen wilfredo Infection Site: Skin / Soft Tissue
Duration of Therapy: 7 days rifAMPin 2019- No 600mg 600 mg, Univ ers (RIFADIN) 03-28 Oral, ONCE ity of capsule 600 01:45: 00:52 NOW, 1 [place] as mg 00 :00 dose, [facility] Medical 03/27/20 at Branch 2044, DARA
Re ason for Anti-Infec tive: Documented Infection< br>Documen wilfredo Infection Site: Skin / Soft Tissue
Duration of Therapy: 7 days lidocaine 2020-0 2020- No 5mL 5 mL, Univer s 1% 6-30 Infiltrati ity of (XYLOCAINE) 01:00: 01:00 on, ONCE, [place] 10 mg/mL (1 00 :00 1 dose, Medic al %) Lennox Miller injection 5 03/27/20 at mL 2000, DARA rifAMPin 2020-0 2020- No [id number] 600mg Take 2 U nivers 300 mg 6-30 07-15 capsules ity of capsule 00:00: 04:59 by mouth [place] 00 :00 daily for Medical 14 days. Branch rifAMPin 2019-0 2020- No [id number] 600mg Take 2 U nivers 300 mg 6-30 07-15 capsules ity of capsule 00:00: 04:59 by mouth [place] 00 :00 daily for Medical 14 days. Branch rifAMPin 2019-0 2020- No [id number] 600mg Take 2 U nivers 300 mg 6-30 07-15 capsules ity of capsule 00:00: 04:59 by mouth [place] 00 :00 daily for Medical 14 days. Branch rifAMPin 2019-0 2020- No [id number] 600mg Take 2 U nivers 300 mg 6-30 07-15 capsules ity of capsule 00:00: 04:59 by mouth [place] 00 :00 daily for Medical 14 days. Branch rifAMPin 2019-0 2020- No [id number] 600mg Take 2 U nivers 300 mg 6-30 07-15 capsules ity of capsule 00:00: 04:59 by mouth [place] 00 :00 daily for Medical 14 days. Branch rifAMPin 2019-0 2020- No [id number] 600mg Take 2 U nivers 300 mg 6-30 07-15 capsules ity of capsule 00:00: 04:59 by mouth [place] 00 :00 daily for Medical 14 days. Branch rifAMPin 2020-0 2020- No [id number] 600mg Take 2 U nivers 300 mg 6-30 07-15 capsules ity of capsule 00:00: 04:59 by mouth [place] 00 :00 daily for Medical 14 days. Branch rifAMPin 2019-0 2020- No [id number] 600mg Take 2 U nivers 300 mg 6-30 07-15 capsules ity of capsule 00:00: 04:59 by mouth [place] 00 :00 daily for Medical 14 days. Branch rifAMPin 2019-0 2020- No [id number] 600mg Take 2 U nivers 300 mg 6-30 07-15 capsules ity of capsule 00:00: 04:59 by mouth [place] 00 :00 daily for Medical 14 days. [place] rifAMPin 2020-0 2020- No [id number] 600mg Take 2 U nivers 300 mg -30 07-15 capsules ity of capsule 00:00: 04:59 by mouth [place] 00 :00 daily for Medical 14 days. Branch rifAMPin 2020-0 2020- No [id number] 600mg Take 2 U nivers 300 mg 6-30 07-15 capsules ity of capsule 00:00: 04:59 by mouth [place] 00 :00 daily for Medical 14 days. [place] rifAMPin 2019-0 2020- No [id number] 600mg Take 2 U nivers 300 mg 6-30 -15 capsules ity of capsule 00:00: 04:59 by mouth [place] 00 :00 daily for Medical 14 days. [place] rifAMPin 2019-0 2020- No [id number] 600mg Take 2 U nivers 300 mg -27 04-15 capsules ity of capsule 00:00: 04:59 by mouth [place] 00 :00 daily for Medical 14 days. Branch lidocaine-p 2020- No 2.5g Topical, U nivers rilocaine 03-27 ONCE, 1 ity of (EMLA) 23:45: 22:35 dose, Mon [place] 2.5-2.5 % 00 :00 03/27/20 at [facility] carmen cream 2.5 g 1845, DARA Br anch ondansetron 2019- 2020- No 4mg 4 mg, Slow Univers (ZOFRAN 03-27 IV Push, ity of (PF)) 22:30: 21:40 ONCE, 1 [place] injection 4 00 :00 dose, Mon Med ical mg 03/27/20 at Branch 1730, DARA morpHINE 2019- 2020- No 4mg 4 mg, Slow Un khloe injection 4 03-27 IV Push, ity of mg 22:30: 21:42 ONCE, 1 [place] 00 :00 dose, Mon Medical 03/27/20 at Branch 1730, STAT ketorolac 2019- 2020- No 30mg 30 mg, Unive rs (TORADOL) 03-27 Slow IV ity of injection 22:30: 21:41 Push, [place] 30 mg 00 :00 ONCE, 1 Medical dose, Mon Branch 03/27/20 at 1730, DARA
Fa culty member approving Restricted medication : WANG LEYVA piperacilli 2020-0 2020- No 3.375g 3.375 g, Univers n-tazobacta 03-2729 IV ity of m (ZOSYN) 22:30: 22:14 Piggyback, [place] 3.375 00 :00 ONCE, 1 Medical gram/50 mL dose, [facility] Piggyback 03/27/20 at [facility] 3.375 g 1730, 50 mL
Reas on for Anti-Infec tive: Documented Infection< br>Documen wilfredo Infection Site: Skin / Soft Tissue
Duration of Therapy: 7 days NaCl 0.9% 2019-0 2020- No 1000mL at 999 Uni vers (NS) bolus 03-27 06-30 mL/hr, ity of infusion 21:30: 00:00 1,000 mL, Enrique as 1,000 mL 00 :00 IV Medical Infusion, Branch ONCE, 1 dose, [facility] 03/27/20 at 1630, DARA sulfamethox 2020-0 2020- No [id number] 1{tbl} Take 1 Univers azole-trime 03-27-14 tablet by it y of thoprim 00:00: 04:59 mouth [place] 800-160 mg 00 :00 every 12 Medic al per tablet (twelve) Branc h hours for 14 days. sulfamethox 2020-0 2020- No [id number] 1{tbl} Take 1 Univers azole-trime 03-27-14 tablet by it y of thoprim 00:00: 04:59 mouth [place] 800-160 mg 00 :00 every 12 Medic al per tablet (twelve) Branc h hours for 14 days. sulfamethox 2020-0 2020- No [id number] 1{tbl} Take 1 [facility] azole-trime 03-27-14 tablet by [facility] y of thoprim 00:00: 04:59 mouth [place] 800-160 mg 00 :00 every 12 Medic al per tablet (twelve) Branc h hours for 14 days. sulfamethox 2020-0 2020- No [id number] 1{tbl} Take 1 [facility] azole-trime 03-27-14 tablet by [facility] y of thoprim 00:00: 04:59 mouth [place] 800-160 mg 00 :00 every 12 Medic al per tablet (twelve) Branc h hours for 14 days. sulfamethox 2020-0 2020- No [id number] 1{tbl} Take 1 [facility] azole-trime 6-29 07-14 tablet by it y of thoprim 00:00: 04:59 mouth [place] 800-160 mg 00 :00 every 12 Medic al per tablet (twelve) Branc h hours for 14 days. sulfamethox 2020-0 2020- No [id number] 1{tbl} Take 1 [facility] azole-trime 6-29 07-14 tablet by it y of thoprim 00:00: 04:59 mouth [place] 800-160 mg 00 :00 every 12 Medic al per tablet (twelve) Branc h hours for 14 days. sulfamethox 2020-0 2020- No [id number] 1{tbl} Take 1 [facility] azole-trime 6-29 07-14 tablet by it y of thoprim 00:00: 04:59 mouth [place] 800-160 mg 00 :00 every 12 Medic al per tablet (twelve) Branc h hours for 14 days. sulfamethox 2020-0 2020- No [id number] 1{tbl} Take 1 [facility] azole-trime 6-29 07-14 tablet by it y of thoprim 00:00: 04:59 mouth [place] 800-160 mg 00 :00 every 12 Medic al per tablet (twelve) Branc h hours for 14 days. sulfamethox 2020-0 2020- No [id number] 1{tbl} Take 1 [facility] azole-trime 6-29 07-14 tablet by it y of thoprim 00:00: 04:59 mouth [place] 800-160 mg 00 :00 every 12 Medic al per tablet (twelve) Branc h hours for 14 days. sulfamethox 2020-0 2020- No [id number] 1{tbl} Take 1 [facility] azole-trime 6-29 07-14 tablet by it y of thoprim 00:00: 04:59 mouth [place] 800-160 mg 00 :00 every 12 Medic al per tablet (twelve) Branc h hours for 14 days. sulfamethox 2020-0 2020- No [id number] 1{tbl} Take 1 [facility] azole-trime 6-29 07-14 tablet by it y of thoprim 00:00: 04:59 mouth [place] 800-160 mg 00 :00 every 12 Medic al per tablet (twelve) Branc h hours for 14 days. sulfamethox 2019- 2020- No [id number] 1{tbl} Take 1 [facility] azole-trime -26 04-14 tablet by it y of thoprim 00:00: 04:59 mouth [place] 800-160 mg 00 :00 every 12 Medic al per tablet (twelve) Branc h hours for 14 days. sulfamethox 2019-2019- No [id number] 1{tbl} Take 1 [facility] azole-trime 03-27-14 tablet by it y of thoprim 00:00: 04:59 mouth [place] 800-160 mg 00 :00 every 12 Medic al per tablet (twelve) Branc h hours for 14 days. insulin 2019- No 5U 5 Units, Unive rs regular 03-25 Slow IV ity of human 21:30: 20:46 Push, [place] (HUMULIN R) 00 :00 ONCE, 1 Medic al injection 5 dose, Sat Bra nch Units 03/25/20 at 1630, DARA clindamycin 2019- No 600mg 600 mg, IV [facility] in 5 % 03-25 Piggyback, ity of dextrose 20:15: 19:47 ONCE, 1 [place] (CLEOCIN) 00 :00 dose, Sat Medic al 600 mg/50 03/25/20 at Bran ch mL IV 1515, 50 piggyback mL
Reas RTU 600 mg on for Anti-Infec tive: Documented Infection< br>Documen wilfredo Infection Site: Skin / Soft Tissue
Duration of Therapy: 7 days
Re stricted use approved by: ED PROVIDER<b r>Indicati on for Clindamyci n use: breast cellulitis HYDROcodone 2020- No 1{tbl} 1 tablet, [facility] -acetaminop 03-25 Oral, ity of hen (NORCO 20:00: 19:07 ONCE, 1 [place] 5) 5-325 mg 00 :00 dose, Sat Med ical tablet 1 03/25/20 at Branc h tablet 1500, DARA amoxicillin 2019- Yes [id number] 500mg Take 1 [facility] -pot 03-25 tablet by ity of clavulanate 00:00: mouth 3 [place] 500 mg 00 (three) Medical 500-125 mg times Branch tablet daily. clindamycin 2020-0 Yes [id number] 300mg Take 1 [facility] 300 mg 6-27 capsule by ity of capsule 00:00: mouth [place] 00 every 8 Medical (eight) Branch hours. acetaminoph 2020-0 Yes [id number] 1{tbl} Take 1 [facility] en-codeine 6-27 tablet by ity of (TYLENOL-CO 00:00: mouth [place] DEINE #3) 00 every 4 Medical 300-30 mg (four) Branch tablet hours as needed for Pain (scale 7-10). amoxicillin 2020-0 Yes [id number] 500mg Take 1 [facility] -pot 6-27 tablet by ity of clavulanate 00:00: mouth 3 [place] 500 mg 00 (three) Medical 500-125 mg times Branch tablet daily. clindamycin 2020-0 Yes [id number] 300mg Take 1 [facility] 300 mg 6-27 capsule by ity of capsule 00:00: mouth [place] 00 every 8 Medical (eight) Branch hours. acetaminoph 2020-0 Yes [id number] 1{tbl} Take 1 [facility] en-codeine 6-27 tablet by ity of (TYLENOL-CO 00:00: mouth [place] DEINE #3) 00 every 4 Medical 300-30 mg (four) Branch tablet hours as needed for Pain (scale 7-10). amoxicillin 2020-0 Yes [id number] 500mg Take 1 [facility] -pot 6-27 tablet by ity of clavulanate 00:00: mouth 3 [place] 500 mg 00 (three) Medical 500-125 mg times Branch tablet daily. clindamycin 2020-0 Yes [id number] 300mg Take 1 [facility] 300 mg 6-27 capsule by ity of capsule 00:00: mouth [place] 00 every 8 Medical (eight) Branch hours. acetaminoph 2020-0 Yes [id number] 1{tbl} Take 1 [facility] en-codeine 6-27 tablet by ity of (TYLENOL-CO 00:00: mouth [place] DEINE #3) 00 every 4 Medical 300-30 mg (four) Branch tablet hours as needed for Pain (scale 7-10). amoxicillin 2020-0 Yes [id number] 500mg Take 1 [facility] -pot 6-27 tablet by ity of clavulanate 00:00: mouth 3 [place] 500 mg 00 (three) Medical 500-125 mg times Branch tablet daily. clindamycin 2020-0 Yes [id number] 300mg Take 1 [facility] 300 mg 6-27 capsule by ity of capsule 00:00: mouth [place] 00 every 8 Medical (eight) Branch hours. acetaminoph 2020-0 Yes [id number] 1{tbl} Take 1 [facility] en-codeine 6-27 tablet by ity of (TYLENOL-CO 00:00: mouth [place] DEINE #3) 00 every 4 Medical 300-30 mg (four) Branch tablet hours as needed for Pain (scale 7-10). amoxicillin 2020-0 Yes [id number] 500mg Take 1 [facility] -pot 6-27 tablet by ity of clavulanate 00:00: mouth 3 [place] 500 mg 00 (three) Medical 500-125 mg times Branch tablet daily. clindamycin 2020-0 Yes [id number] 300mg Take 1 [facility] 300 mg 6-27 capsule by ity of capsule 00:00: mouth [place] 00 every 8 Medical (eight) Branch hours. acetaminoph 2020-0 Yes [id number] 1{tbl} Take 1 [facility] en-codeine 6-27 tablet by ity of (TYLENOL-CO 00:00: mouth [place] DEINE #3) 00 every 4 Medical 300-30 mg (four) Branch tablet hours as needed for Pain (scale 7-10). amoxicillin 2020-0 Yes [id number] 500mg Take 1 [facility] -pot 6-27 tablet by ity of clavulanate 00:00: mouth 3 [place] 500 mg 00 (three) Medical 500-125 mg times Branch tablet daily. clindamycin 2020-0 Yes [id number] 300mg Take 1 [facility] 300 mg 6-27 capsule by ity of capsule 00:00: mouth [place] 00 every 8 Medical (eight) Branch hours. acetaminoph 2020-0 Yes [id number] 1{tbl} Take 1 [facility] en-codeine 6-27 tablet by ity of (TYLENOL-CO 00:00: mouth [place] DEINE #3) 00 every 4 Medical 300-30 mg (four) Branch tablet hours as needed for Pain (scale 7-10). amoxicillin 2020-0 Yes [id number] 500mg Take 1 [facility] -pot 6-27 tablet by ity of clavulanate 00:00: mouth 3 [place] 500 mg 00 (three) Medical 500-125 mg times Branch tablet daily. clindamycin 2020-0 Yes [id number] 300mg Take 1 [facility] 300 mg 6-27 capsule by ity of capsule 00:00: mouth [place] 00 every 8 Medical (eight) Branch hours. acetaminoph 2020-0 Yes [id number] 1{tbl} Take 1 [facility] en-codeine 6-27 tablet by ity of (TYLENOL-CO 00:00: mouth [place] DEINE #3) 00 every 4 Medical 300-30 mg (four) Branch tablet hours as needed for Pain (scale 7-10). amoxicillin 2020-0 Yes [id number] 500mg Take 1 [facility] -pot 6-27 tablet by ity of clavulanate 00:00: mouth 3 [place] 500 mg 00 (three) Medical 500-125 mg times Branch tablet daily. clindamycin 2020-0 Yes [id number] 300mg Take 1 [facility] 300 mg 6-27 capsule by ity of capsule 00:00: mouth [place] 00 every 8 Medical (eight) Branch hours. acetaminoph 2020-0 Yes [id number] 1{tbl} Take 1 [facility] en-codeine 6-27 tablet by ity of (TYLENOL-CO 00:00: mouth [place] DEINE #3) 00 every 4 Medical 300-30 mg (four) Branch tablet hours as needed for Pain (scale 7-10). amoxicillin 2020-0 Yes [id number] 500mg Take 1 [facility] -pot 6-27 tablet by ity of clavulanate 00:00: mouth 3 [place] 500 mg 00 (three) Medical 500-125 mg times Branch tablet daily. clindamycin 2020-0 Yes [id number] 300mg Take 1 [facility] 300 mg 6-27 capsule by ity of capsule 00:00: mouth [place] 00 every 8 Medical (eight) Branch hours. acetaminoph 2020-0 Yes [id number] 1{tbl} Take 1 [facility] en-codeine 6-27 tablet by ity of (TYLENOL-CO 00:00: mouth [place] DEINE #3) 00 every 4 Medical 300-30 mg (four) Branch tablet hours as needed for Pain (scale 7-10). amoxicillin 2020-0 Yes [id number] 500mg Take 1 [facility] -pot 6-27 tablet by ity of clavulanate 00:00: mouth 3 [place] 500 mg 00 (three) Medical 500-125 mg times Branch tablet daily. clindamycin 2020-0 Yes [id number] 300mg Take 1 [facility] 300 mg 6-27 capsule by ity of capsule 00:00: mouth [place] 00 every 8 Medical (eight) Branch hours. acetaminoph 2020-0 Yes [id number] 1{tbl} Take 1 [facility] en-codeine 6-27 tablet by ity of (TYLENOL-CO 00:00: mouth [place] DEINE #3) 00 every 4 Medical 300-30 mg (four) Branch tablet hours as needed for Pain (scale 7-10). amoxicillin 2020-0 Yes [id number] 500mg Take 1 [facility] -pot 6-27 tablet by ity of clavulanate 00:00: mouth 3 [place] 500 mg 00 (three) Medical 500-125 mg times Branch tablet daily. clindamycin 2020-0 Yes [id number] 300mg Take 1 [facility] 300 mg 6-27 capsule by ity of capsule 00:00: mouth [place] 00 every 8 Medical (eight) Branch hours. acetaminoph 2020-0 Yes [id number] 1{tbl} Take 1 [facility] en-codeine 6-27 tablet by ity of (TYLENOL-CO 00:00: mouth [place] DEINE #3) 00 every 4 Medical 300-30 mg (four) Branch tablet hours as needed for Pain (scale 7-10). amoxicillin 2020-0 Yes [id number] 500mg Take 1 [facility] -pot 6-27 tablet by ity of clavulanate 00:00: mouth 3 [place] 500 mg 00 (three) Medical 500-125 mg times Branch tablet daily. clindamycin 2020-0 Yes [id number] 300mg Take 1 [facility] 300 mg 6-27 capsule by ity of capsule 00:00: mouth [place] 00 every 8 Medical (eight) Branch hours. acetaminoph 2020-0 Yes [id number] 1{tbl} Take 1 [facility] en-codeine 6-27 tablet by ity of (TYLENOL-CO 00:00: mouth [place] DEINE #3) 00 every 4 Medical 300-30 mg (four) Branch tablet hours as needed for Pain (scale 7-10). amoxicillin 2020-0 Yes [id number] 500mg Take 1 [facility] -pot 6-27 tablet by ity of clavulanate 00:00: mouth 3 [place] 500 mg 00 (three) Medical 500-125 mg times Branch tablet daily. clindamycin 2020-0 Yes [id number] 300mg Take 1 [facility] 300 mg 6-27 capsule by ity of capsule 00:00: mouth [place] 00 every 8 Medical (eight) Branch hours. acetaminoph 2020-0 Yes [id number] 1{tbl} Take 1 [facility] en-codeine 6-27 tablet by ity of (TYLENOL-CO 00:00: mouth [place] DEINE #3) 00 every 4 Medical 300-30 mg (four) Branch tablet hours as needed for Pain (scale 7-10). amoxicillin 2020-0 Yes [id number] 500mg Take 1 [facility] -pot 6-27 tablet by ity of clavulanate 00:00: mouth 3 [place] 500 mg 00 (three) Medical 500-125 mg times Branch tablet daily. clindamycin 2020-0 Yes [id number] 300mg Take 1 [facility] 300 mg 6-27 capsule by ity of capsule 00:00: mouth [place] 00 every 8 Medical (eight) Branch hours. acetaminoph 2020-0 Yes [id number] 1{tbl} Take 1 [facility] en-codeine 6-27 tablet by ity of (TYLENOL-CO 00:00: mouth [place] DEINE #3) 00 every 4 Medical 300-30 mg (four) Branch tablet hours as needed for Pain (scale 7-10). amoxicillin 2020-0 Yes [id number] 500mg Take 1 [facility] -pot 6-27 tablet by ity of clavulanate 00:00: mouth 3 [place] 500 mg 00 (three) Medical 500-125 mg times Branch tablet daily. clindamycin 2020-0 Yes [id number] 300mg Take 1 [facility] 300 mg 6-27 capsule by ity of capsule 00:00: mouth [place] 00 every 8 Medical (eight) Branch hours. acetaminoph 2020-0 Yes [id number] 1{tbl} Take 1 [facility] en-codeine 6-27 tablet by ity of (TYLENOL-CO 00:00: mouth [place] DEINE #3) 00 every 4 Medical 300-30 mg (four) Branch tablet hours as needed for Pain (scale 7-10). amoxicillin 2020-0 Yes [id number] 500mg Take 1 [facility] -pot 6-27 tablet by ity of clavulanate 00:00: mouth 3 [place] 500 mg 00 (three) Medical 500-125 mg times Branch tablet daily. clindamycin 2020-0 Yes [id number] 300mg Take 1 [facility] 300 mg 6-27 capsule by ity of capsule 00:00: mouth [place] 00 every 8 Medical (eight) Branch hours. acetaminoph 2020-0 Yes [id number] 1{tbl} Take 1 [facility] en-codeine 6-27 tablet by ity of (TYLENOL-CO 00:00: mouth [place] DEINE #3) 00 every 4 Medical 300-30 mg (four) Branch tablet hours as needed for Pain (scale 7-10). amoxicillin 2020-0 Yes [id number] 500mg Take 1 [facility] -pot 6-27 tablet by ity of clavulanate 00:00: mouth 3 [place] 500 mg 00 (three) Medical 500-125 mg times Branch tablet daily. clindamycin 2020-0 Yes [id number] 300mg Take 1 [facility] 300 mg 6-27 capsule by ity of capsule 00:00: mouth [place] 00 every 8 Medical (eight) Branch hours. acetaminoph 2020-0 Yes [id number] 1{tbl} Take 1 [facility] en-codeine 6-27 tablet by ity of (TYLENOL-CO 00:00: mouth [place] DEINE #3) 00 every 4 Medical 300-30 mg (four) Branch tablet hours as needed for Pain (scale 7-10). amoxicillin 2020-0 Yes [id number] 500mg Take 1 [facility] -pot 6-27 tablet by ity of clavulanate 00:00: mouth 3 [place] 500 mg 00 (three) Medical 500-125 mg times Branch tablet daily. clindamycin 2020-0 Yes [id number] 300mg Take 1 [facility] 300 mg 6-27 capsule by ity of capsule 00:00: mouth [place] 00 every 8 Medical (eight) Branch hours. acetaminoph 2020-0 Yes [id number] 1{tbl} Take 1 [facility] en-codeine 6-27 tablet by ity of (TYLENOL-CO 00:00: mouth [place] DEINE #3) 00 every 4 Medical 300-30 mg (four) Branch tablet hours as needed for Pain (scale 7-10). amoxicillin 2020-0 Yes [id number] 500mg Take 1 [facility] -pot 6-27 tablet by ity of clavulanate 00:00: mouth 3 [place] 500 mg 00 (three) Medical 500-125 mg times Branch tablet daily. clindamycin 2020-0 Yes [id number] 300mg Take 1 [facility] 300 mg 6-27 capsule by ity of capsule 00:00: mouth [place] 00 every 8 Medical (eight) Branch hours. acetaminoph 2020-0 Yes [id number] 1{tbl} Take 1 [facility] en-codeine 6-27 tablet by ity of (TYLENOL-CO 00:00: mouth [place] DEINE #3) 00 every 4 Medical 300-30 mg (four) Branch tablet hours as needed for Pain (scale 7-10). amoxicillin 2020- Yes [id number] 500mg Take 1 [facility] -pot 6-27 tablet by ity of clavulanate 00:00: mouth 3 [place] 500 mg 00 (three) Medical 500-125 mg times Branch tablet daily. clindamycin 2019-0 Yes [id number] 300mg Take 1 [facility] 300 mg 6-27 capsule by ity of capsule 00:00: mouth [place] 00 every 8 Medical (eight) Branch hours. acetaminoph Yes [id number] 1{tbl} Take 1 [facility] en-codeine 6-27 tablet by ity of (TYLENOL-CO 00:00: mouth [place] DEINE #3) 00 every 4 Medical 300-30 mg (four) Branch tablet hours as needed for Pain (scale 7-10). amoxicillin 2020- No [id number] 500mg Take 1 [facility] -pot 6-27 03-02 tablet by ity of clavulanate 00:00: 00:00 mouth 3 [place] 500 mg 00 :00 (three) Medical 500-125 mg times Branch tablet daily. clindamycin 2020- No [id number] 300mg Take 1 [facility] 300 mg 6-27 03-02 capsule by ity of capsule 00:00: 00:00 mouth [place] 00 :00 every 8 Medical (eight) Branch hours. acetaminoph 2020- No [id number] 1{tbl} Take 1 [facility] en-codeine 6-27 03-02 tablet by ity of (TYLENOL-CO 00:00: 00:00 [place] DEINE #3) 00 :00 every 4 Medical 300-30 mg (four) Branch tablet hours as needed for Pain (scale 7-10). traMADol 50 2018- Yes [id number] 50mg Take 1 [facility] mg tablet 2-27 tablet by ity o f 00:00: mouth [place] 00 every 6 Medical (six) Branch hours as needed (pain). proMETHazin 2018- Yes [id number] 25mg Take 1 [facility] e 25 mg 2-27 tablet by ity of tablet 00:00: mouth [place] 00 every 6 Medical (six) Branch hours as needed for Nausea and Vomiting (N/V). silver 2018-09 Yes [id number] Apply to [facility] vers sulfADIAZIN 2-27 area(s) 2 ity of E 1 % cream 00:00: (two) [place] 00 times Medical daily. Branch traMADol 50 2018-09 Yes [id number] 50mg Take 1 [facility] mg tablet 2-27 tablet by ity o f 00:00: mouth [place] 00 every 6 Medical (six) Branch hours as needed (pain). proMETHazin 2018-09 Yes [id number] 25mg Take 1 [facility] e 25 mg 2-27 tablet by ity of tablet 00:00: mouth [place] 00 every 6 Medical (six) Branch hours as needed for Nausea and Vomiting (N/V). silver 2018-09 Yes [id number] Apply to [facility] vers sulfADIAZIN 2-27 area(s) 2 ity of E 1 % cream 00:00: (two) [place] 00 times Medical daily. Branch traMADol 50 2018-09 Yes [id number] 50mg Take 1 [facility] mg tablet 2-27 tablet by ity o f 00:00: mouth [place] 00 every 6 Medical (six) Branch hours as needed (pain). proMETHazin 2018-09 Yes [id number] 25mg Take 1 [facility] e 25 mg 2-27 tablet by ity of tablet 00:00: mouth [place] 00 every 6 Medical (six) Branch hours as needed for Nausea and Vomiting (N/V). silver 2018-09 Yes [id number] Apply to [facility] vers sulfADIAZIN 2-27 area(s) 2 ity of E 1 % cream 00:00: (two) [place] 00 times Medical daily. Branch traMADol 50 2018-09 Yes [id number] 50mg Take 1 [facility] mg tablet 2-27 tablet by ity o f 00:00: mouth [place] 00 every 6 Medical (six) Branch hours as needed (pain). proMETHazin 2018- Yes [id number] 25mg Take 1 [facility] e 25 mg 2-27 tablet by ity of tablet 00:00: mouth [place] 00 every 6 Medical (six) Branch hours as needed for Nausea and Vomiting (N/V). silver 2018-09 Yes [id number] Apply to [facility] vers sulfADIAZIN 2-27 area(s) 2 ity of E 1 % cream 00:00: (two) [place] 00 times Medical daily. Branch traMADol 50 2018-09 Yes [id number] 50mg Take 1 [facility] mg tablet 2-27 tablet by ity o f 00:00: mouth [place] 00 every 6 Medical (six) Branch hours as needed (pain). proMETHazin 2018-09 Yes [id number] 25mg Take 1 [facility] e 25 mg 2-27 tablet by ity of tablet 00:00: mouth [place] 00 every 6 Medical (six) Branch hours as needed for Nausea and Vomiting (N/V). silver 2018-09 Yes [id number] Apply to [facility] vers sulfADIAZIN 2-27 area(s) 2 ity of E 1 % cream 00:00: (two) [place] 00 times Medical daily. Branch traMADol 50 2018-09 Yes [id number] 50mg Take 1 [facility] mg tablet 2-27 tablet by ity o f 00:00: mouth [place] 00 every 6 Medical (six) Branch hours as needed (pain). proMETHazin 2018-09 Yes [id number] 25mg Take 1 [facility] e 25 mg 2-27 tablet by ity of tablet 00:00: mouth [place] 00 every 6 Medical (six) Branch hours as needed for Nausea and Vomiting (N/V). silver 2018-09 Yes [id number] Apply to [facility] vers sulfADIAZIN 2-27 area(s) 2 ity of E 1 % cream 00:00: (two) [place] 00 times Medical daily. Branch traMADol 50 2018-09 Yes [id number] 50mg Take 1 [facility] mg tablet 2-27 tablet by ity o f 00:00: mouth [place] 00 every 6 Medical (six) Branch hours as needed (pain). proMETHazin 2018- Yes [id number] 25mg Take 1 [facility] e 25 mg 2-27 tablet by ity of tablet 00:00: mouth [place] 00 every 6 Medical (six) Branch hours as needed for Nausea and Vomiting (N/V). silver 2018- Yes [id number] Apply to [facility] vers sulfADIAZIN 2-27 area(s) 2 ity of E 1 % cream 00:00: (two) [place] 00 times Medical daily. Branch traMADol 50 2018-09 Yes [id number] 50mg Take 1 [facility] mg tablet 2-27 tablet by ity o f 00:00: mouth [place] 00 every 6 Medical (six) Branch hours as needed (pain). proMETHazin 2018-09 Yes [id number] 25mg Take 1 [facility] e 25 mg 2-27 tablet by ity of tablet 00:00: mouth [place] 00 every 6 Medical (six) Branch hours as needed for Nausea and Vomiting (N/V). silver 2018-09 Yes [id number] Apply to [facility] vers sulfADIAZIN 2-27 area(s) 2 ity of E 1 % cream 00:00: (two) [place] 00 times Medical daily. Branch traMADol 50 2018-09 Yes [id number] 50mg Take 1 [facility] mg tablet 2-27 tablet by ity o f 00:00: mouth [place] 00 every 6 Medical (six) Branch hours as needed (pain). proMETHazin 2018-09 Yes [id number] 25mg Take 1 [facility] e 25 mg 2-27 tablet by ity of tablet 00:00: mouth [place] 00 every 6 Medical (six) Branch hours as needed for Nausea and Vomiting (N/V). silver 2018-09 Yes [id number] Apply to [facility] vers sulfADIAZIN 2-27 area(s) 2 ity of E 1 % cream 00:00: (two) [place] 00 times Medical daily. Branch traMADol 50 2018-09 Yes [id number] 50mg Take 1 [facility] mg tablet 2-27 tablet by ity o f 00:00: mouth [place] 00 every 6 Medical (six) Branch hours as needed (pain). proMETHazin 2018-09 Yes [id number] 25mg Take 1 [facility] e 25 mg 2-27 tablet by ity of tablet 00:00: mouth [place] 00 every 6 Medical (six) Branch hours as needed for Nausea and Vomiting (N/V). silver 2018-09 Yes [id number] Apply to [facility] vers sulfADIAZIN 2-27 area(s) 2 ity of E 1 % cream 00:00: (two) [place] 00 times Medical daily. Branch traMADol 50 2018-09 Yes [id number] 50mg Take 1 [facility] mg tablet 2-27 tablet by ity o f 00:00: mouth [place] 00 every 6 Medical (six) Branch hours as needed (pain). proMETHazin 2019- Yes [id number] 25mg Take 1 [facility] e 25 mg 2-27 tablet by ity of tablet 00:00: mouth [place] 00 every 6 Medical (six) Branch hours as needed for Nausea and Vomiting (N/V). silver 2018-09 Yes [id number] Apply to [facility] vers sulfADIAZIN 2-27 area(s) 2 ity of E 1 % cream 00:00: (two) [place] 00 times Medical daily. Branch traMADol 50 2018-09 Yes [id number] 50mg Take 1 [facility] mg tablet 2-27 tablet by ity o f 00:00: mouth [place] 00 every 6 Medical (six) Branch hours as needed (pain). proMETHazin 2018- Yes [id number] 25mg Take 1 [facility] e 25 mg 2-27 tablet by ity of tablet 00:00: mouth [place] 00 every 6 Medical (six) Branch hours as needed for Nausea and Vomiting (N/V). silver 2018-09 Yes [id number] Apply to [facility] vers sulfADIAZIN 2-27 area(s) 2 ity of E 1 % cream 00:00: (two) [place] 00 times Medical daily. Branch traMADol 50 2018-09 Yes [id number] 50mg Take 1 [facility] mg tablet 2-27 tablet by ity o f 00:00: mouth [place] 00 every 6 Medical (six) Branch hours as needed (pain). proMETHazin 2018-09 Yes [id number] 25mg Take 1 [facility] e 25 mg 2-27 tablet by ity of tablet 00:00: mouth [place] 00 every 6 Medical (six) Branch hours as needed for Nausea and Vomiting (N/V). silver 2018-09 Yes [id number] Apply to [facility] vers sulfADIAZIN 2-27 area(s) 2 ity of E 1 % cream 00:00: (two) [place] 00 times Medical daily. Branch traMADol 50 2018-09 Yes [id number] 50mg Take 1 [facility] mg tablet 2-27 tablet by ity o f 00:00: mouth [place] 00 every 6 Medical (six) Branch hours as needed (pain). proMETHazin 2018- Yes [id number] 25mg Take 1 [facility] e 25 mg 2-27 tablet by ity of tablet 00:00: mouth [place] 00 every 6 Medical (six) Branch hours as needed for Nausea and Vomiting (N/V). silver 2018- Yes [id number] Apply to [facility] vers sulfADIAZIN 2-27 area(s) 2 ity of E 1 % cream 00:00: (two) [place] 00 times Medical daily. Branch traMADol 50 2018-09 Yes [id number] 50mg Take 1 [facility] mg tablet 2-27 tablet by ity o f 00:00: mouth [place] 00 every 6 Medical (six) Branch hours as needed (pain). proMETHazin 2018- Yes [id number] 25mg Take 1 [facility] e 25 mg 2-27 tablet by ity of tablet 00:00: mouth [place] 00 every 6 Medical (six) Branch hours as needed for Nausea and Vomiting (N/V). silver 2018-09 Yes [id number] Apply to [facility] vers sulfADIAZIN 2-27 area(s) 2 ity of E 1 % cream 00:00: (two) [place] 00 times Medical daily. Branch traMADol 50 2018-09 Yes [id number] 50mg Take 1 [facility] mg tablet 2-27 tablet by ity o f 00:00: mouth [place] 00 every 6 Medical (six) Branch hours as needed (pain). proMETHazin 2018- Yes [id number] 25mg Take 1 [facility] e 25 mg 2-27 tablet by ity of tablet 00:00: mouth [place] 00 every 6 Medical (six) Branch hours as needed for Nausea and Vomiting (N/V). silver 2018-09 Yes [id number] Apply to [facility] vers sulfADIAZIN 2-27 area(s) 2 ity of E 1 % cream 00:00: (two) [place] 00 times Medical daily. Branch traMADol 50 2018-09 Yes [id number] 50mg Take 1 [facility] mg tablet 2-27 tablet by ity o f 00:00: mouth [place] 00 every 6 Medical (six) Branch hours as needed (pain). proMETHazin 2018- Yes [id number] 25mg Take 1 [facility] e 25 mg 2-27 tablet by ity of tablet 00:00: mouth [place] 00 every 6 Medical (six) Branch hours as needed for Nausea and Vomiting (N/V). silver 2018- Yes [id number] Apply to [facility] vers sulfADIAZIN 2-27 area(s) 2 ity of E 1 % cream 00:00: (two) [place] 00 times Medical daily. Branch traMADol 50 2018-09 Yes [id number] 50mg Take 1 [facility] mg tablet 2-27 tablet by ity o f 00:00: mouth [place] 00 every 6 Medical (six) Branch hours as needed (pain). proMETHazin 2018- Yes [id number] 25mg Take 1 [facility] e 25 mg 2-27 tablet by ity of tablet 00:00: mouth [place] 00 every 6 Medical (six) Branch hours as needed for Nausea and Vomiting (N/V). silver 2018- Yes [id number] Apply to [facility] vers sulfADIAZIN 2-27 area(s) 2 ity of E 1 % cream 00:00: (two) [place] 00 times Medical daily. Branch traMADol 50 2018-09 Yes [id number] 50mg Take 1 [facility] mg tablet 2-27 [id number] tablet by ity of 00:00: mouth [place] 00 every 6 Medical (six) Branch hours as needed (pain). proMETHazin 2018-09 Yes [id number] 25mg Take 1 [facility] e 25 mg 2-27 [id number] tablet by ity o f tablet 00:00: mouth [place] 00 every 6 Medical (six) Branch hours as needed for Nausea and Vomiting (N/V). silver 2018-09 Yes [id number] Apply to [facility] sulfADIAZIN 2-27 [id number] area(s) 2 i ty of E 1 % cream 00:00: (two) [place] 00 times Medical daily. Branch traMADol 50 2018-09 Yes [id number] 50mg Take 1 [facility] mg tablet 2-27 [id number] tablet by ity of 00:00: mouth [place] 00 every 6 Medical (six) Branch hours as needed (pain). proMETHazin 2018-09 Yes [id number] 25mg Take 1 [facility] e 25 mg 2-27 [id number] tablet by ity o f tablet 00:00: mouth [place] 00 every 6 Medical (six) Branch hours as needed for Nausea and Vomiting (N/V). silver 2018- Yes [id number] Apply to [facility] sulfADIAZIN 2-27 [id number] area(s) 2 i ty of E 1 % cream 00:00: (two) [place] 00 times Medical daily. Branch traMADol 50 2018-09 Yes [id number] 50mg Take 1 [facility] mg tablet 2-27 [id number] tablet by ity of 00:00: mouth [place] 00 every 6 Medical (six) Branch hours as needed (pain). proMETHazin 2018- Yes [id number] 25mg Take 1 [facility] e 25 mg 2-27 [id number] tablet by ity o f tablet 00:00: mouth [place] 00 every 6 Medical (six) Branch hours as needed for Nausea and Vomiting (N/V). silver 2018-09 Yes [id number] Apply to [facility] sulfADIAZIN 2-27 [id number] area(s) 2 i ty of E 1 % cream 00:00: (two) [place] 00 times Medical daily. Branch proMETHazin 2018-09 Yes [id number] 25mg Take 1 [facility] e 25 mg 2-27 [id number] tablet by ity o f tablet 00:00: mouth [place] 00 every 6 Medical (six) Branch hours as needed for Nausea and Vomiting (N/V). proMETHazin 2018-09 Yes [id number] 25mg Take 1 [facility] e 25 mg 2-27 [id number] tablet by ity o f tablet 00:00: mouth [place] 00 every 6 Medical (six) Branch hours as needed for Nausea and Vomiting (N/V). proMETHazin 2018-09 Yes [id number] 25mg Take 1 [facility] e 25 mg 2-27 [id number] tablet by ity o f tablet 00:00: mouth [place] 00 every 6 Medical (six) Branch hours as needed for Nausea and Vomiting (N/V). proMETHazin 2018-09 Yes [id number] 25mg Take 1 [facility] e 25 mg 2-27 [id number] tablet by ity o f tablet 00:00: mouth [place] 00 every 6 Medical (six) Branch hours as needed for Nausea and Vomiting (N/V). proMETHazin 2018-09 Yes [id number] 25mg Take 1 [facility] e 25 mg 2-27 [id number] tablet by ity o f tablet 00:00: mouth [place] 00 every 6 Medical (six) Branch hours as needed for Nausea and Vomiting (N/V). proMETHazin 2018-09 Yes [id number] 25mg Take 1 [facility] e 25 mg 2-27 [id number] tablet by ity o f tablet 00:00: mouth [place] 00 every 6 Medical (six) Branch hours as needed for Nausea and Vomiting (N/V). proMETHazin 2018-09- No [id number] 25mg Take 1 [facility] e 25 mg 2-27 07-01 [id number] tablet by ity of tablet 00:00: 00:00 mouth [place] 00 :00 every 6 Medical (six) Branch hours as needed for Nausea and Vomiting (N/V). traMADol 50 2018-09- No [id number] 50mg Take 1 [facility] mg tablet 11-25 [id number] tablet by it y of 00:00: 00:00 mouth [place] 00 :00 every 6 Medical (six) Branch hours as needed (pain). silver 2018-09- No [id number] Apply to [facility] sulfADIAZIN 11-25 [id number] area(s) 2 ity of E 1 % cream 00:00: 00:[place] (two[place] [facility] daily. Branch [place] 2018-09 Yes [id number] Apply to [facility] vers sulfADIAZIN 2-22 area(s) 2 ity of E 1 % cream 00:00: (two) [place] 00 times Medical daily. Branch traMADol 2018-09 Yes [id number] 50mg Take 1 [facility] vers (ULTRAM) 50 2-22 tablet by ity of mg tablet 00:00: mouth [place] 00 every 8 Medical (eight) Branch hours as needed for Pain (scale 4-6). [place] 2018-09 Yes [id number] Apply to [facility] vers sulfADIAZIN 2-22 area(s) 2 ity of E 1 % cream 00:00: (two) [place] 00 times Medical daily. Branch traMADol 2018-09 Yes [id number] 50mg Take 1 [facility] vers (ULTRAM) 50 2-22 tablet by ity of mg tablet 00:00: mouth [place] 00 every 8 Medical (eight) Branch hours as needed for Pain (scale 4-6). [place] 2018-09 Yes [id number] Apply to [facility] vers sulfADIAZIN 2-22 area(s) 2 ity of E 1 % cream 00:00: (two) [place] 00 times Medical daily. Branch traMADol 2018-09 Yes [id number] 50mg Take 1 [facility] vers (ULTRAM) 50 2-22 tablet by ity of mg tablet 00:00: mouth [place] 00 every 8 Medical (eight) Branch hours as needed for Pain (scale 4-6). [place] 2018-09 Yes [id number] Apply to [facility] vers sulfADIAZIN 2-22 area(s) 2 ity of E 1 % cream 00:00: (two) [place] 00 times Medical daily. [place] traMADol 2018-09 Yes [id number] 50mg Take 1 [facility] vers (ULTRAM) 50 2-22 tablet by ity of mg tablet 00:00: mouth [place] 00 every 8 Medical (eight) Branch hours as needed for Pain (scale 4-6). silver 2018- Yes [id number] Apply to [facility] vers sulfADIAZIN 2-22 area(s) 2 ity of E 1 % cream 00:00: (two) [place] 00 times Medical daily. Branch traMADol 2018-09 Yes [id number] 50mg Take 1 [facility] vers (ULTRAM) 50 2-22 tablet by ity of mg tablet 00:00: mouth [place] 00 every 8 Medical (eight) Branch hours as needed for Pain (scale 4-6). silver 2018-09 Yes [id number] Apply to [facility] vers sulfADIAZIN 2-22 area(s) 2 ity of E 1 % cream 00:00: (two) [place] 00 times Medical daily. Branch traMADol 2018-09 Yes [id number] 50mg Take 1 [facility] vers (ULTRAM) 50 2-22 tablet by ity of mg tablet 00:00: mouth [place] 00 every 8 Medical (eight) Branch hours as needed for Pain (scale 4-6). silver 2018- Yes [id number] Apply to [facility] vers sulfADIAZIN 2-22 area(s) 2 ity of E 1 % cream 00:00: (two) [place] 00 times Medical daily. Branch traMADol 2018-09 Yes [id number] 50mg Take 1 [facility] vers (ULTRAM) 50 2-22 tablet by ity of mg tablet 00:00: mouth [place] 00 every 8 Medical (eight) Branch hours as needed for Pain (scale 4-6). silver 2018- Yes [id number] Apply to [facility] vers sulfADIAZIN 2-22 area(s) 2 ity of E 1 % cream 00:00: (two) [place] 00 times Medical daily. Branch traMADol 2018-09 Yes [id number] 50mg Take 1 [facility] vers (ULTRAM) 50 2-22 tablet by ity of mg tablet 00:00: mouth [place] 00 every 8 Medical (eight) Branch hours as needed for Pain (scale 4-6). silver 2018- Yes [id number] Apply to [facility] vers sulfADIAZIN 2-22 area(s) 2 ity of E 1 % cream 00:00: (two) [place] 00 times Medical daily. Branch traMADol 2018-09 Yes [id number] 50mg Take 1 [facility] vers (ULTRAM) 50 2-22 tablet by ity of mg tablet 00:00: mouth [place] 00 every 8 Medical (eight) Branch hours as needed for Pain (scale 4-6). silver 2018- Yes [id number] Apply to [facility] vers sulfADIAZIN 2-22 area(s) 2 ity of E 1 % cream 00:00: (two) [place] 00 times Medical daily. Branch traMADol 2018-09 Yes [id number] 50mg Take 1 [facility] vers (ULTRAM) 50 2-22 tablet by ity of mg tablet 00:00: mouth [place] 00 every 8 Medical (eight) Branch hours as needed for Pain (scale 4-6). silver 2018-09 Yes [id number] Apply to [facility] vers sulfADIAZIN 2-22 area(s) 2 ity of E 1 % cream 00:00: (two) [place] 00 times Medical daily. Branch traMADol 2018-09 Yes [id number] 50mg Take 1 [facility] vers (ULTRAM) 50 2-22 tablet by ity of mg tablet 00:00: mouth [place] 00 every 8 Medical (eight) Branch hours as needed for Pain (scale 4-6). silver 2018- Yes [id number] Apply to [facility] vers sulfADIAZIN 2-22 area(s) 2 ity of E 1 % cream 00:00: (two) [place] 00 times Medical daily. Branch traMADol 2018-09 Yes [id number] 50mg Take 1 [facility] vers (ULTRAM) 50 2-22 tablet by ity of mg tablet 00:00: mouth [place] 00 every 8 Medical (eight) Branch hours as needed for Pain (scale 4-6). silver 2018- Yes [id number] Apply to [facility] vers sulfADIAZIN 2-22 area(s) 2 ity of E 1 % cream 00:00: (two) [place] 00 times Medical daily. Branch traMADol 2018-09 Yes [id number] 50mg Take 1 [facility] vers (ULTRAM) 50 2-22 tablet by ity of mg tablet 00:00: mouth [place] 00 every 8 Medical (eight) Branch hours as needed for Pain (scale 4-6). silver 2018- Yes [id number] Apply to [facility] vers sulfADIAZIN 2-22 area(s) 2 ity of E 1 % cream 00:00: (two) [place] 00 times Medical daily. Branch traMADol 2018-09 Yes [id number] 50mg Take 1 [facility] vers (ULTRAM) 50 2-22 tablet by ity of mg tablet 00:00: mouth [place] 00 every 8 Medical (eight) Branch hours as needed for Pain (scale 4-6). silver 2018- Yes [id number] Apply to [facility] vers sulfADIAZIN 2-22 area(s) 2 ity of E 1 % cream 00:00: (two) [place] 00 times Medical daily. Branch traMADol 2018-09 Yes [id number] 50mg Take 1 [facility] vers (ULTRAM) 50 2-22 tablet by ity of mg tablet 00:00: mouth [place] 00 every 8 Medical (eight) Branch hours as needed for Pain (scale 4-6). silver 2018-09 Yes [id number] Apply to [facility] vers sulfADIAZIN 2-22 area(s) 2 ity of E 1 % cream 00:00: (two) [place] 00 times Medical daily. Branch traMADol 2018-09 Yes [id number] 50mg Take 1 [facility] vers (ULTRAM) 50 2-22 tablet by ity of mg tablet 00:00: mouth [place] 00 every 8 Medical (eight) Branch hours as needed for Pain (scale 4-6). silver 2018- Yes [id number] Apply to [facility] vers sulfADIAZIN 2-22 area(s) 2 ity of E 1 % cream 00:00: (two) [place] 00 times Medical daily. Branch traMADol 2018-09 Yes [id number] 50mg Take 1 [facility] vers (ULTRAM) 50 2-22 tablet by ity of mg tablet 00:00: mouth [place] 00 every 8 Medical (eight) Branch hours as needed for Pain (scale 4-6). silver 2018- Yes [id number] Apply to [facility] vers sulfADIAZIN 2-22 area(s) 2 ity of E 1 % cream 00:00: (two) [place] 00 times Medical daily. Branch traMADol 2018-09 Yes [id number] 50mg Take 1 [facility] vers (ULTRAM) 50 2-22 tablet by ity of mg tablet 00:00: mouth [place] 00 every 8 Medical (eight) Branch hours as needed for Pain (scale 4-6). silver 2018- Yes [id number] Apply to [facility] vers sulfADIAZIN 2-22 area(s) 2 ity of E 1 % cream 00:00: (two) [place] 00 times Medical daily. Branch traMADol 2018-09 Yes [id number] 50mg Take 1 [facility] vers (ULTRAM) 50 2-22 tablet by ity of mg tablet 00:00: mouth [place] 00 every 8 Medical (eight) Branch hours as needed for Pain (scale 4-6). silver 2018-09 Yes [id number] Apply to [facility] vers sulfADIAZIN 2-22 area(s) 2 ity of E 1 % cream 00:00: (two) [place] 00 times Medical daily. Branch traMADol 2018-09 Yes [id number] 50mg Take 1 [facility] vers (ULTRAM) 50 2-22 tablet by ity of mg tablet 00:00: mouth [place] 00 every 8 Medical (eight) Branch hours as needed for Pain (scale 4-6). silver 2018-09 Yes [id number] Apply to [facility] vers sulfADIAZIN 2-22 area(s) 2 ity of E 1 % cream 00:00: (two) [place] 00 times Medical daily. Branch traMADol 2018-09 Yes [id number] 50mg Take 1 [facility] vers (ULTRAM) 50 2-22 tablet by ity of mg tablet 00:00: mouth [place] 00 every 8 Medical (eight) Branch hours as needed for Pain (scale 4-6). silver 2018-09- No [id number] Apply to [facility] sulfADIAZIN 2-22 03-02 area(s) 2 it y of E 1 % cream 00:00: 00:00 (two) [place] :[place] times Medical daily. Branch traMADol 2018-09- No [id number] 50mg Take 1 [facility] (ULTRAM) 50 2-22 03-02 tablet by it y of mg tablet 00:00: 00:00 mouth [place] 00 :00 every 8 Medical (eight) Branch hours as needed for Pain (scale 4-6). ondansetron 2018-09 Yes [id number] 4mg Take 1 [facility] 4 mg 1-22 tablet by ity of disintegrat 00:00: mouth [place] ing tablet 00 every 8 Medica l (eight) Branch hours as needed for Nausea and Vomiting (N/V). ondansetron 2018-09 Yes [id number] 4mg Take 1 [facility] 4 mg 1-22 tablet by ity of disintegrat 00:00: mouth [place] ing tablet 00 every 8 Medica l (eight) Branch hours as needed for Nausea and Vomiting (N/V). ondansetron 2018-09 Yes [id number] 4mg Take 1 [facility] 4 mg 1-22 tablet by ity of disintegrat 00:00: mouth [place] ing tablet 00 every 8 Medica l (eight) Branch hours as needed for Nausea and Vomiting (N/V). ondansetron 2018-09 Yes [id number] 4mg Take 1 [facility] 4 mg 1-22 tablet by ity of disintegrat 00:00: mouth [place] ing tablet 00 every 8 Medica l (eight) Branch hours as needed for Nausea and Vomiting (N/V). ondansetron 2018-09 Yes [id number] 4mg Take 1 [facility] 4 mg 1-22 tablet by ity of disintegrat 00:00: mouth [place] ing tablet 00 every 8 Medica l (eight) Branch hours as needed for Nausea and Vomiting (N/V). ondansetron 2018-09 Yes [id number] 4mg Take 1 [facility] 4 mg 1-22 tablet by ity of disintegrat 00:00: mouth [place] ing tablet 00 every 8 Medica l (eight) Branch hours as needed for Nausea and Vomiting (N/V). ondansetron 2018-09 Yes [id number] 4mg Take 1 [facility] 4 mg 1-22 tablet by ity of disintegrat 00:00: mouth [place] ing tablet 00 every 8 Medica l (eight) Branch hours as needed for Nausea and Vomiting (N/V). ondansetron 2018-09 Yes [id number] 4mg Take 1 [facility] 4 mg 1-22 tablet by ity of disintegrat 00:00: mouth [place] ing tablet 00 every 8 Medica l (eight) Branch hours as needed for Nausea and Vomiting (N/V). ondansetron 2018-09 Yes [id number] 4mg Take 1 [facility] 4 mg 1-22 tablet by ity of disintegrat 00:00: mouth [place] ing tablet 00 every 8 Medica l (eight) Branch hours as needed for Nausea and Vomiting (N/V). ondansetron 2018-09 Yes [id number] 4mg Take 1 [facility] 4 mg 1-22 tablet by ity of disintegrat 00:00: mouth [place] ing tablet 00 every 8 Medica l (eight) Branch hours as needed for Nausea and Vomiting (N/V). ondansetron 2018-09 Yes [id number] 4mg Take 1 [facility] 4 mg 1-22 tablet by ity of disintegrat 00:00: mouth [place] ing tablet 00 every 8 Medica l (eight) Branch hours as needed for Nausea and Vomiting (N/V). ondansetron 2018-09 Yes [id number] 4mg Take 1 [facility] 4 mg 1-22 tablet by ity of disintegrat 00:00: mouth [place] ing tablet 00 every 8 Medica l (eight) Branch hours as needed for Nausea and Vomiting (N/V). ondansetron 2018-09 Yes [id number] 4mg Take 1 [facility] 4 mg 1-22 tablet by ity of disintegrat 00:00: mouth [place] ing tablet 00 every 8 Medica l (eight) Branch hours as needed for Nausea and Vomiting (N/V). ondansetron 2018-09 Yes [id number] 4mg Take 1 [facility] 4 mg 1-22 tablet by ity of disintegrat 00:00: mouth [place] ing tablet 00 every 8 Medica l (eight) Branch hours as needed for Nausea and Vomiting (N/V). ondansetron 2018-09 Yes [id number] 4mg Take 1 [facility] 4 mg 1-22 tablet by ity of disintegrat 00:00: mouth [place] ing tablet 00 every 8 Medica l (eight) Branch hours as needed for Nausea and Vomiting (N/V). ondansetron 2018-09 Yes [id number] 4mg Take 1 [facility] 4 mg 1-22 tablet by ity of disintegrat 00:00: mouth [place] ing tablet 00 every 8 Medica l (eight) Branch hours as needed for Nausea and Vomiting (N/V). ondansetron 2018-09 Yes [id number] 4mg Take 1 [facility] 4 mg 1-22 tablet by ity of disintegrat 00:00: mouth [place] ing tablet 00 every 8 Medica l (eight) Branch hours as needed for Nausea and Vomiting (N/V). ondansetron 2018-09 Yes [id number] 4mg Take 1 [facility] 4 mg 1-22 tablet by ity of disintegrat 00:00: mouth [place] ing tablet 00 every 8 Medica l (eight) Branch hours as needed for Nausea and Vomiting (N/V). ondansetron 2018-09 Yes [id number] 4mg Take 1 [facility] 4 mg 1-22 tablet by ity of disintegrat 00:00: mouth [place] ing tablet 00 every 8 Medica l (eight) Branch hours as needed for Nausea and Vomiting (N/V). ondansetron 2018-09 Yes [id number] 4mg Take 1 [facility] 4 mg 1-22 tablet by ity of disintegrat 00:00: mouth [place] ing tablet 00 every 8 Medica l (eight) Branch hours as needed for Nausea and Vomiting (N/V). acetaminoph 2018-09 Yes [id number] 1{tbl} Take 1 [facility] en-codeine 1-22 tablet by ity of (TYLENOL-CO 00:00: mouth [place] DEINE #3) 00 every 4 Medical 300-30 mg (four) Branch tablet hours as needed for Pain (scale 7-10). ondansetron 2018-09 Yes [id number] 4mg Take 1 [facility] 4 mg 1-22 tablet by ity of disintegrat 00:00: mouth [place] ing tablet 00 every 8 Medica l (eight) Branch hours as needed for Nausea and Vomiting (N/V). ondansetron 2018-09- No [id number] 4mg Take 1 [facility] 4 mg 1-22 03-02 tablet by ity of disintegrat 00:00: 00:00 mouth [place] tablet 00 :00 every 8 Medica l (eight) Branch hours as needed for Nausea and Vomiting (N/V). acetaminoph 2018-09 2020- No [id number] 1{tbl} Take 1 [facility] en-codeine 1-22 06-27 tablet by ity of (TYLENOL-CO 00:00: 00:00 mouth [place] DEINE #3[place] 00 :00 every 4 Medical 300-30 mg (four) Branch tablet hours as needed for Pain (scale 7-10). lactobacill Yes [id number] 1{tbl} Take 1 [facility] us 9-27 tablet by ity of acidophilus 00:00: mouth [place] 25 million 00 daily. Medical cell -100 Branch mg captab lactobacill 2018- Yes [id number] 1{tbl} Take 1 [facility] us 9-27 tablet by ity of acidophilus 00:00: mouth [place] 25 million 00 daily. Medical cell -100 Branch mg captab lactobacill 2019- Yes [id number] 1{tbl} Take 1 [facility] us 9-27 tablet by ity of acidophilus 00:00: mouth [place] 25 million 00 daily. Medical cell -100 Branch mg captab lactobacill 2018- Yes [id number] 1{tbl} Take 1 [facility] us 9-27 tablet by ity of acidophilus 00:00: mouth [place] 25 million 00 daily. Medical cell -100 Branch mg captab lactobacill Yes [id number] 1{tbl} Take 1 [facility] us 9-27 tablet by ity of acidophilus 00:00: mouth [place] 25 million 00 daily. Medical cell -100 Branch mg captab lactobacill 2019- Yes [id number] 1{tbl} Take 1 [facility] us 9-27 tablet by ity of acidophilus 00:00: mouth [place] 25 million 00 daily. Medical cell -100 Branch mg captab lactobacill 2019- Yes [id number] 1{tbl} Take 1 [facility] us 9-27 tablet by ity of acidophilus 00:00: mouth [place] 25 million 00 daily. Medical cell -100 Branch mg captab lactobacill 2018- Yes [id number] 1{tbl} Take 1 [facility] us 9-27 tablet by ity of acidophilus 00:00: mouth [place] 25 million 00 daily. Medical cell -100 Branch mg captab lactobacill 2018- Yes [id number] 1{tbl} Take 1 [facility] us 9-27 tablet by ity of acidophilus 00:00: mouth [place] 25 million 00 daily. Medical cell -100 Branch mg captab lactobacill 2018- Yes [id number] 1{tbl} Take 1 [facility] us 9-27 tablet by ity of acidophilus 00:00: mouth [place] 25 million 00 daily. Medical cell -100 Branch mg captab lactobacill 2018- Yes [id number] 1{tbl} Take 1 [facility] us 9-27 tablet by ity of acidophilus 00:00: mouth [place] 25 million 00 daily. Medical cell -100 Branch mg captab lactobacill 2019-0 Yes [id number] 1{tbl} Take 1 [facility] us 9-27 tablet by ity of acidophilus 00:00: mouth [place] 25 million 00 daily. Medical cell -100 Branch mg captab lactobacill 2019- Yes [id number] 1{tbl} Take 1 [facility] us 9-27 tablet by ity of acidophilus 00:00: mouth [place] 25 million 00 daily. Medical cell -100 Branch mg captab lactobacill 2019- Yes [id number] 1{tbl} Take 1 [facility] us 9-27 tablet by ity of acidophilus 00:00: mouth [place] 25 million 00 daily. Medical cell -100 Branch mg captab lactobacill 2019-0 Yes [id number] 1{tbl} Take 1 [facility] us 9-27 tablet by ity of acidophilus 00:00: mouth [place] 25 million 00 daily. Medical cell -100 Branch mg captab lactobacill 2019-0 Yes [id number] 1{tbl} Take 1 [facility] us 9-27 tablet by ity of acidophilus 00:00: mouth [place] 25 million 00 daily. Medical cell -100 Branch mg captab lactobacill 2018-0 Yes [id number] 1{tbl} Take 1 [facility] us 9-27 tablet by ity of acidophilus 00:00: mouth [place] 25 million 00 daily. Medical cell -100 Branch mg captab lactobacill 2018-0 Yes [id number] 1{tbl} Take 1 [facility] us 9-27 tablet by ity of acidophilus 00:00: mouth [place] 25 million 00 daily. Medical cell -100 Branch mg captab lactobacill 2018- Yes [id number] 1{tbl} Take 1 [facility] us 9-27 tablet by ity of acidophilus 00:00: mouth [place] 25 million 00 daily. Medical cell -100 Branch mg captab lactobacill 2018- Yes [id number] 1{tbl} Take 1 [facility] us 9-27 tablet by ity of acidophilus 00:00: mouth [place] 25 million 00 daily. Medical cell -100 Branch mg captab lactobacill 2018-0 Yes [id number] 1{tbl} Take 1 [facility] us 9-27 tablet by ity of acidophilus 00:00: mouth [place] 25 million 00 daily. Medical cell -100 Branch mg captab lactobacill 2018-1- No [id number] 1{tbl} Take 1 [facility] us 9-27 03-02 tablet by ity of acidophilus 00:00: 00:00 mouth [place] 25 [place] 00 :00 daily. Medical cell -100 Branch mg captab clindamycin 2018- Yes [id number] 300mg Take 1 [facility] 300 mg 9-26 capsule by ity of capsule 00:00: mouth [place] 00 every 8 Medical (eight) Branch hours. amoxicillin 2018-0 Yes [id number] 500mg Take 1 [facility] -pot 9-26 tablet by ity of clavulanate 00:00: mouth 3 [place] as 500 mg 00 (three) Medical 500-125 mg times Branch tablet daily. famotidine 2018- Yes [id number] 20mg Take 1 [facility] n[facility] 20 mg 9-26 tablet by ity of tablet 00:00: mouth (two) Medical times Branch daily. ondansetron 2019-0 Yes [id number] 4mg Take 1 [facility] (ZOFRAN) 4 9-26 tablet by ity of mg tablet 00:00: mouth [place] 00 every 8 Medical (eight) Branch hours as needed for Nausea and Vomiting (N/V). famotidine 2019-0 Yes [id number] 20mg Take 1 [facility] nivers 20 mg 9-26 tablet by ity of tablet 00:00: mouth (two) Medical times Branch daily. ondansetron 2019-0 Yes [id number] 4mg Take 1 [facility] (ZOFRAN) 4 9-26 tablet by ity of mg tablet 00:00: mouth [place] 00 every 8 Medical (eight) Branch hours as needed for Nausea and Vomiting (N/V). famotidine 2019-0 Yes [id number] 20mg Take 1 [facility] nivers 20 mg 9-26 tablet by ity of tablet 00:00: mouth (two) Medical times Branch daily. ondansetron 2019-0 Yes [id number] 4mg Take 1 [facility] (ZOFRAN) 4 9-26 tablet by ity of mg tablet 00:00: mouth [place] 00 every 8 Medical (eight) Branch hours as needed for Nausea and Vomiting (N/V). famotidine 2019-0 Yes [id number] 20mg Take 1 [facility] nivers 20 mg 9-26 tablet by ity of tablet 00:00: mouth (two) Medical times Branch daily. ondansetron 2019-0 Yes [id number] 4mg Take 1 [facility] (ZOFRAN) 4 9-26 tablet by ity of mg tablet 00:00: mouth [place] 00 every 8 Medical (eight) Branch hours as needed for Nausea and Vomiting (N/V). famotidine 2019-0 Yes [id number] 20mg Take 1 [facility] nivers 20 mg 9-26 tablet by ity of tablet 00:00: mouth (two) Medical times Branch daily. ondansetron 2019-0 Yes [id number] 4mg Take 1 [facility] (ZOFRAN) 4 9-26 tablet by ity of mg tablet 00:00: mouth [place] 00 every 8 Medical (eight) Branch hours as needed for Nausea and Vomiting (N/V). famotidine 2019-0 Yes [id number] 20mg Take 1 [facility] nivers 20 mg 9-26 tablet by ity of tablet 00:00: mouth 2 (two) Medical times Branch daily. ondansetron 2019-0 Yes [id number] 4mg Take 1 [facility] (ZOFRAN) 4 9-26 tablet by ity of mg tablet 00:00: mouth [place] 00 every 8 Medical (eight) Branch hours as needed for Nausea and Vomiting (N/V). famotidine 2019-0 Yes [id number] 20mg Take 1 [facility] nivers 20 mg 9-26 tablet by ity of tablet 00:00: mouth (two) Medical times Branch daily. ondansetron 2019-0 Yes [id number] 4mg Take 1 [facility] (ZOFRAN) 4 9-26 tablet by ity of mg tablet 00:00: mouth [place] 00 every 8 Medical (eight) Branch hours as needed for Nausea and Vomiting (N/V). famotidine 2019-0 Yes [id number] 20mg Take 1 [facility] nivers 20 mg 9-26 tablet by ity of tablet 00:00: mouth (two) Medical times Branch daily. ondansetron 2019-0 Yes [id number] 4mg Take 1 [facility] (ZOFRAN) 4 9-26 tablet by ity of mg tablet 00:00: mouth [place] 00 every 8 Medical (eight) Branch hours as needed for Nausea and Vomiting (N/V). famotidine 2019-0 Yes [id number] 20mg Take 1 [facility] nivers 20 mg 9-26 tablet by ity of tablet 00:00: mouth (two) Medical times Branch daily. ondansetron 2019-0 Yes [id number] 4mg Take 1 [facility] (ZOFRAN) 4 9-26 tablet by ity of mg tablet 00:00: mouth [place] 00 every 8 Medical (eight) Branch hours as needed for Nausea and Vomiting (N/V). famotidine 2019-0 Yes [id number] 20mg Take 1 [facility] nivers 20 mg 9-26 tablet by ity of tablet 00:00: mouth 2 (two) Medical times Branch daily. ondansetron 2019-0 Yes [id number] 4mg Take 1 [facility] (ZOFRAN) 4 9-26 tablet by ity of mg tablet 00:00: mouth [place] 00 every 8 Medical (eight) Branch hours as needed for Nausea and Vomiting (N/V). famotidine 2019-0 Yes [id number] 20mg Take 1 [facility] nivers 20 mg 9-26 tablet by ity of tablet 00:00: mouth 2 (two) Medical times Branch daily. ondansetron 2019-0 Yes [id number] 4mg Take 1 [facility] (ZOFRAN) 4 9-26 tablet by ity of mg tablet 00:00: mouth [place] 00 every 8 Medical (eight) Branch hours as needed for Nausea and Vomiting (N/V). famotidine 2019-0 Yes [id number] 20mg Take 1 [facility] nivers 20 mg 9-26 tablet by ity of tablet 00:00: mouth (two) Medical times Branch daily. ondansetron 2019-0 Yes [id number] 4mg Take 1 [facility] (ZOFRAN) 4 9-26 tablet by ity of mg tablet 00:00: mouth 00 every 8 Medical (eight) Branch hours as needed for Nausea and Vomiting (N/V). famotidine 2019-0 Yes [id number] 20mg Take 1 [facility] nivers 20 mg 9-26 tablet by ity of tablet 00:00: mouth (two) Medical times Branch daily. ondansetron 2019-0 Yes [id number] 4mg Take 1 [facility] (ZOFRAN) 4 9-26 tablet by ity of mg tablet 00:00: mouth [place] 00 every 8 Medical (eight) Branch hours as needed for Nausea and Vomiting (N/V). famotidine 2019-0 Yes [id number] 20mg Take 1 [facility] nivers 20 mg 9-26 tablet by ity of tablet 00:00: mouth (two) Medical times Branch daily. ondansetron 2019-0 Yes [id number] 4mg Take 1 [facility] (ZOFRAN) 4 9-26 tablet by ity of mg tablet 00:00: mouth [place] 00 every 8 Medical (eight) Branch hours as needed for Nausea and Vomiting (N/V). famotidine 2019-0 Yes [id number] 20mg Take 1 [facility] nivers 20 mg 9-26 tablet by ity of tablet 00:00: mouth 2 (two) Medical times Branch daily. ondansetron 2019-0 Yes [id number] 4mg Take 1 [facility] (ZOFRAN) 4 9-26 tablet by ity of mg tablet 00:00: mouth [place] 00 every 8 Medical (eight) Branch hours as needed for Nausea and Vomiting (N/V). famotidine 2019-0 Yes [id number] 20mg Take 1 [facility] nivers 20 mg 9-26 tablet by ity of tablet 00:00: mouth 2 [place] 00 (two) Medical times Branch daily. ondansetron 2019-0 Yes [id number] 4mg Take 1 [facility] (ZOFRAN) 4 9-26 tablet by ity of mg tablet 00:00: mouth [place] 00 every 8 Medical (eight) Branch hours as needed for Nausea and Vomiting (N/V). famotidine 2019-0 Yes [id number] 20mg Take 1 [facility] nivers 20 mg 9-26 tablet by ity of tablet 00:00: mouth 2 (two) Medical times Branch daily. ondansetron 2019-0 Yes [id number] 4mg Take 1 Univers (ZOFRAN) 4 9-26 tablet by ity of mg tablet 00:00: mouth [place] 00 every 8 Medical (eight) Branch hours as needed for Nausea and Vomiting (N/V). famotidine 2019-0 Yes [id number] 20mg Take 1 U nivers 20 mg 9-26 tablet by ity of tablet 00:00: mouth (two) Medical times Branch daily. ondansetron 2019-0 Yes [id number] 4mg Take 1 [facility] (ZOFRAN) 4 9-26 tablet by ity of mg tablet 00:00: mouth [place] 00 every 8 Medical (eight) Branch hours as needed for Nausea and Vomiting (N/V). famotidine 2019-0 Yes [id number] 20mg Take 1 U nivers 20 mg 9-26 tablet by ity of tablet 00:00: mouth 2 00 (two) Medical times Branch daily. ondansetron 2019-0 Yes [id number] 4mg Take 1 [facility] (ZOFRAN) 4 9-26 tablet by ity of mg tablet 00:00: mouth [place] 00 every 8 Medical (eight) Branch hours as needed for Nausea and Vomiting (N/V). famotidine 2019-0 Yes [id number] 20mg Take 1 U nivers 20 mg 9-26 tablet by ity of tablet 00:00: mouth 2 [place] 00 (two) Medical times Branch daily. ondansetron Yes [id number] 4mg Take 1 [facility] (ZOFRAN) 4 - tablet by ity of mg tablet 00:00: mouth [place] 00 every 8 Medical (eight) Branch hours as needed for Nausea and Vomiting (N/V). famotidine Yes [id number] 20mg Take 1 U nivers 20 mg 9- tablet by ity of tablet 00:00: mouth 2 [place] 00 (two) Medical times Branch daily. ondansetron Yes [id number] 4mg Take 1 [facility] (ZOFRAN) 4 9- tablet by ity of mg tablet 00:00: mouth [place] 00 every 8 Medical (eight) Branch hours as needed for Nausea and Vomiting (N/V). famotidine 2020- No [id number] 20mg Take 1 [facility] 20 mg 06-24 03- tablet by ity of tablet 00:00: 00:00 mouth 2 [place] 00 :00 (two) Medical times Branch daily. ondansetron 2020- No [id number] 4mg Take 1 [facility] (ZOFRAN) 4 - 03- tablet by ity of mg tablet 00:00: 00:00 mouth [place] 00 :00 every 8 Medical (eight) Branch hours as needed for Nausea and Vomiting (N/V). clindamycin 2019- No [id number] 300mg Take 1 [facility] 300 mg 06-24 capsule by ity of capsule 00:00: 00:00 mouth [place] 00 :00 every 8 Medical (eight) Branch hours. amoxicillin 2020- No [id number] 500mg Take 1 [facility] -pot 06-24 tablet by ity of clavulanate 00:00: 00:00 mouth 3 [place] 500 mg 00 :00 (three) Medical 500-125 mg times Branch tablet daily. ibuprofen Yes [id number] 600mg Take 1 U nivers 600 mg 9-21 tablet by ity of tablet 00:00: mouth [place] 00 every 6 Medical (six) Branch hours as needed for Pain (scale 4-6). ibuprofen Yes [id number] 600mg Take 1 U nivers 600 mg 9-21 tablet by ity of tablet 00:00: mouth [place] 00 every 6 Medical (six) Branch hours as needed for Pain (scale 4-6). ibuprofen 2019-0 Yes [id number] 600mg Take 1 U nivers 600 mg 9-21 tablet by ity of tablet 00:00: mouth [place] 00 every 6 Medical (six) Branch hours as needed for Pain (scale 4-6). ibuprofen 2019-0 Yes [id number] 600mg Take 1 U nivers 600 mg 9-21 tablet by ity of tablet 00:00: mouth [place] 00 every 6 Medical (six) Branch hours as needed for Pain (scale 4-6). ibuprofen 2019-0 Yes [id number] 600mg Take 1 U nivers 600 mg 9-21 tablet by ity of tablet 00:00: mouth [place] 00 every 6 Medical (six) Branch hours as needed for Pain (scale 4-6). ibuprofen 2019-0 Yes [id number] 600mg Take 1 [facility] nivers 600 mg 9-21 tablet by ity of tablet 00:00: mouth [place] 00 every 6 Medical (six) Branch hours as needed for Pain (scale 4-6). ibuprofen 2019-0 Yes [id number] 600mg Take 1 U nivers 600 mg 9-21 tablet by ity of tablet 00:00: mouth [place] 00 every 6 Medical (six) Branch hours as needed for Pain (scale 4-6). ibuprofen 2019-0 Yes [id number] 600mg Take 1 U nivers 600 mg 9-21 tablet by ity of tablet 00:00: mouth [place] 00 every 6 Medical (six) Branch hours as needed for Pain (scale 4-6). ibuprofen 2019-0 Yes [id number] 600mg Take 1 U nivers 600 mg 9-21 tablet by ity of tablet 00:00: mouth [place] 00 every 6 Medical (six) Branch hours as needed for Pain (scale 4-6). ibuprofen 2019-0 Yes [id number] 600mg Take 1 U nivers 600 mg 9-21 tablet by ity of tablet 00:00: mouth [place] 00 every 6 Medical (six) Branch hours as needed for Pain (scale 4-6). ibuprofen 2019-0 Yes [id number] 600mg Take 1 U nivers 600 mg 9-21 tablet by ity of tablet 00:00: mouth [place] 00 every 6 Medical (six) Branch hours as needed for Pain (scale 4-6). ibuprofen 2019-0 Yes [id number] 600mg Take 1 U nivers 600 mg 9-21 tablet by ity of tablet 00:00: mouth [place] 00 every 6 Medical (six) Branch hours as needed for Pain (scale 4-6). ibuprofen 2019-0 Yes [id number] 600mg Take 1 U nivers 600 mg 9-21 tablet by ity of tablet 00:00: mouth [place] 00 every 6 Medical (six) Branch hours as needed for Pain (scale 4-6). ibuprofen 2019-0 Yes [id number] 600mg Take 1 U nivers 600 mg 9-21 tablet by ity of tablet 00:00: mouth [place] 00 every 6 Medical (six) Branch hours as needed for Pain (scale 4-6). ibuprofen 2019-0 Yes [id number] 600mg Take 1 U nivers 600 mg 9-21 tablet by ity of tablet 00:00: mouth [place] 00 every 6 Medical (six) Branch hours as needed for Pain (scale 4-6). ibuprofen 2019-0 Yes [id number] 600mg Take 1 U nivers 600 mg 9-21 tablet by ity of tablet 00:00: mouth [place] 00 every 6 Medical (six) Branch hours as needed for Pain (scale 4-6). ibuprofen 2019-0 Yes [id number] 600mg Take 1 U nivers 600 mg 9-21 tablet by ity of tablet 00:00: mouth [place] 00 every 6 Medical (six) Branch hours as needed for Pain (scale 4-6). ibuprofen 2019-0 Yes [id number] 600mg Take 1 U nivers 600 mg 9-21 tablet by ity of tablet 00:00: mouth [place] 00 every 6 Medical (six) Branch hours as needed for Pain (scale 4-6). ibuprofen 2019-0 Yes [id number] 600mg Take 1 U nivers 600 mg 9-21 tablet by ity of tablet 00:00: mouth [place] 00 every 6 Medical (six) Branch hours as needed for Pain (scale 4-6). ibuprofen 2019-0 Yes [id number] 600mg Take 1 U nivers 600 mg 9-21 tablet by ity of tablet 00:00: mouth [place] 00 every 6 Medical (six) Branch hours as needed for Pain (scale 4-6). ibuprofen 2019-0 Yes [id number] 600mg Take 1 U nivers 600 mg 9-21 tablet by ity of tablet 00:00: mouth [place] 00 every 6 Medical (six) Branch hours as needed for Pain (scale 4-6). ibuprofen 2019-0 Yes [id number] 600mg Take 1 U nivers 600 mg 9-21 tablet by ity of tablet 00:00: mouth [place] 00 every 6 Medical (six) Branch hours as needed for Pain (scale 4-6). ibuprofen 2019-0 Yes [id number] 600mg Take 1 U nivers 600 mg 9-21 tablet by ity of tablet 00:00: mouth [place] 00 every 6 Medical (six) Branch hours as needed for Pain (scale 4-6). ibuprofen 2019-0 Yes [id number] 600mg Take 1 U nivers 600 mg 9-21 tablet by ity of tablet 00:00: mouth [place] 00 every 6 Medical (six) Branch hours as needed for Pain (scale 4-6). ibuprofen 2018-0 Yes [id number] 600mg Take 1 U nivers 600 mg 9-21 tablet by ity of tablet 00:00: mouth [place] 00 every 6 Medical (six) Branch hours as needed for Pain (scale 4-6). ibuprofen 2018-0 Yes [id number] 600mg Take 1 U nivers 600 mg 9-21 tablet by ity of tablet 00:00: mouth [place] 00 every 6 Medical (six) Branch hours as needed for Pain (scale 4-6). ibuprofen 2018-0 Yes [id number] 600mg Take 1 U nivers 600 mg 9-21 tablet by ity of tablet 00:00: mouth [place] 00 every 6 Medical (six) Branch hours as needed for Pain (scale 4-6). ibuprofen 2018-2020- No [id number] 600mg Take 1 [facility] 600 mg 9-21 - tablet by ity of tablet 00:00: 00:00 mouth [place] 00 :00 every 6 Medical (six) Branch hours as needed for Pain (scale 4-6). metFORMIN 2018-0 Yes [id number] 850mg Take 1 [facility] 850 mg 9-20 tablet by ity of tablet 00:00: mouth 3 [place] 00 (three) Medical times Branch daily with meals. metFORMIN 2018-0 Yes [id number] 850mg Take 1 [facility] 850 mg 9-20 tablet by ity of tablet 00:00: mouth 3 [place] 00 (three) Medical times Branch daily with meals. metFORMIN 2017-0 Yes [id number] 850mg Take 1 [facility] 850 mg 9-20 tablet by ity of tablet 00:00: mouth () Medical times Branch daily with meals. metFORMIN 2018-0 Yes [id number] 850mg Take 1 [facility] 850 mg 9-20 tablet by ity of tablet 00:00: mouth () Medical times Branch daily with meals. metFORMIN 2018-0 Yes [id number] 850mg Take 1 [facility] 850 mg 9-20 tablet by ity of tablet 00:00: mouth () Medical times Branch daily with meals. metFORMIN 2018-0 Yes [id number] 850mg Take 1 [facility] 850 mg 9-20 tablet by ity of tablet 00:00: mouth () Medical times Branch daily with meals. metFORMIN 2018-0 Yes [id number] 850mg Take 1 [facility] 850 mg 9-20 tablet by ity of tablet 00:00: mouth () Medical times Branch daily with meals. metFORMIN 2018-0 Yes [id number] 850mg Take 1 [facility] 850 mg 9-20 tablet by ity of tablet 00:00: mouth () Medical times Branch daily with meals. metFORMIN 2018-0 Yes [id number] 850mg Take 1 [facility] 850 mg 9-20 tablet by ity of tablet 00:00: mouth () Medical times Branch daily with meals. metFORMIN 2018-0 Yes [id number] 850mg Take 1 [facility] 850 mg 9-20 tablet by ity of tablet 00:00: mouth () Medical times Branch daily with meals. metFORMIN 2018-0 Yes [id number] 850mg Take 1 [facility] 850 mg 9-20 tablet by ity of tablet 00:00: mouth () Medical times Branch daily with meals. metFORMIN 2018-0 Yes [id number] 850mg Take 1 [facility] 850 mg 9-20 tablet by ity of tablet 00:00: mouth () Medical times Branch daily with meals. metFORMIN 2018-0 Yes [id number] 850mg Take 1 [facility] 850 mg 9-20 tablet by ity of tablet 00:00: mouth () Medical times Branch daily with meals. metFORMIN 2018-0 Yes [id number] 850mg Take 1 [facility] 850 mg 9-20 tablet by ity of tablet 00:00: mouth (three) Medical times Branch daily with meals. metFORMIN 2018-0 Yes [id number] 850mg Take 1 [facility] 850 mg 9-20 tablet by ity of tablet 00:00: mouth (three) Medical times Branch daily with meals. metFORMIN 2018-0 Yes [id number] 850mg Take 1 [facility] 850 mg 9-20 tablet by ity of tablet 00:00: mouth (three) Medical times Branch daily with meals. metFORMIN 2017-0 Yes [id number] 850mg Take 1 [facility] 850 mg 9-20 tablet by ity of tablet 00:00: mouth (three) Medical times Branch daily with meals. metFORMIN 2017-0 Yes [id number] 850mg Take 1 [facility] 850 mg 9-20 tablet by ity of tablet 00:00: [facility] (three) Medical times Branch daily with meals. metFORMIN 2017-0 Yes [id number] 850mg Take 1 [facility] 850 mg 9-20 tablet by ity of tablet 00:00: mouth (three) Medical times Branch daily with meals. metFORMIN 2017-0 Yes [id number] 850mg Take 1 [facility] 850 mg 9-20 tablet by ity of tablet 00:00: mouth (three) Medical times Branch daily with meals. metFORMIN 2017-0 Yes [id number] 850mg Take 1 [facility] 850 mg 9-20 tablet by ity of tablet 00:00: [facility] (three) Medical times Branch daily with meals. metFORMIN 2017-2020- No [id number] 850mg Take 1 [facility] 850 mg 9-20 03-02 tablet by ity of tablet 00:00: 00:00 [facility] 3 [place] 00 :00 (three) Medical times Branch daily with meals. glipiZIDE 2017- Yes [id number] 10mg Take 1 U nivers XL 10 mg 24 9-19 tablet by ity of hr tablet 00:00: mouth 2 (two) Medical times Branch daily. glipiZIDE 2018-0 Yes [id number] 10mg Take 1 U nivers XL 10 mg 24 9-19 tablet by ity of hr tablet 00:00: mouth 2 00 (two) Medical times Branch daily. glipiZIDE 2017-0 Yes [id number] 10mg Take 1 U nivers XL 10 mg 24 9-19 tablet by ity of hr tablet 00:00: mouth (two) Medical times Branch daily. glipiZIDE 2018-0 Yes [id number] 10mg Take 1 U nivers XL 10 mg 24 9-19 tablet by ity of hr tablet 00:00: mouth (two) Medical times Branch daily. glipiZIDE 2018-0 Yes [id number] 10mg Take 1 U nivers XL 10 mg 24 9-19 tablet by ity of hr tablet 00:00: mouth (two) Medical times Branch daily. glipiZIDE 2018-0 Yes [id number] 10mg Take 1 U nivers XL 10 mg 24 9-19 tablet by ity of hr tablet 00:00: mouth (two) Medical times Branch daily. glipiZIDE 2018-0 Yes [id number] 10mg Take 1 U nivers XL 10 mg 24 9-19 tablet by ity of hr tablet 00:00: mouth (two) Medical times Branch daily. glipiZIDE 2017-0 Yes [id number] 10mg Take 1 U nivers XL 10 mg 24 9-19 tablet by ity of hr tablet 00:00: mouth (two) Medical times Branch daily. glipiZIDE 2017-0 Yes [id number] 10mg Take 1 U nivers XL 10 mg 24 9-19 tablet by ity of hr tablet 00:00: mouth (two) Medical times Branch daily. glipiZIDE 2017-0 Yes [id number] 10mg Take 1 U nivers XL 10 mg 24 9-19 tablet by ity of hr tablet 00:00: mouth (two) Medical times Branch daily. glipiZIDE 2018-0 Yes [id number] 10mg Take 1 U nivers XL 10 mg 24 9-19 tablet by ity of hr tablet 00:00: mouth (two) Medical times Branch daily. glipiZIDE 2018-0 Yes [id number] 10mg Take 1 U nivers XL 10 mg 24 9-19 tablet by ity of hr tablet 00:00: mouth (two) Medical times Branch daily. glipiZIDE 2018-0 Yes [id number] 10mg Take 1 U nivers XL 10 mg 24 9-19 tablet by ity of hr tablet 00:00: mouth (two) Medical times Branch daily. glipiZIDE 2017- Yes [id number] 10mg Take 1 U nivers XL 10 mg 24 9-19 tablet by ity of hr tablet 00:00: mouth (two) Medical times Branch daily. glipiZIDE 2017- Yes [id number] 10mg Take 1 U nivers XL 10 mg 24 9-19 tablet by ity of hr tablet 00:00: mouth (two) Medical times Branch daily. glipiZIDE 2017- Yes [id number] 10mg Take 1 U nivers XL 10 mg 24 9-19 tablet by ity of hr tablet 00:00: mouth (two) Medical times Branch daily. glipiZIDE 2017- Yes [id number] 10mg Take 1 U nivers XL 10 mg 24 9-19 tablet by ity of hr tablet 00:00: mouth (two) Medical times Branch daily. glipiZIDE 2017- Yes [id number] 10mg Take 1 U nivers XL 10 mg 24 9-19 tablet by ity of hr tablet 00:00: mouth (two) Medical times Branch daily. glipiZIDE Yes [id number] 10mg Take 1 U nivers XL 10 mg 24 9-19 tablet by ity of hr tablet 00:00: mouth (two) Medical times Branch daily. glipiZIDE 2017- Yes [id number] 10mg Take 1 U nivers XL 10 mg 24 9-19 tablet by ity of hr tablet 00:00: mouth [place] (two) Medical times Branch daily. glipiZIDE Yes [id number] 10mg Take 1 U nivers XL 10 mg 24 9-19 tablet by ity of hr tablet 00:00: mouth (two) Medical times Branch daily. glipiZIDE 2020- No [id number] 10mg Take 1 [facility] XL 10 mg 24 9-19 03-02 tablet by it y of hr tablet 00:00: 00:00 mouth 2 [place] 00 :00 (two) Medical times Branch daily. Vital Signs Vital Name Observation Time Observation Value Comments Source Systolic blood 2022-06-19 22:02:00 127 mm[Hg] [facility] sity of pressure [place] [facility] Diastolic blood 2022-06-19 22:02:00 66 mm[Hg] Unive rsity of pressure [place] [facility] Heart rate 2022-06-19 22:02:00 100 /min [facility] [place] [facility] Body temperature 2022-06-19 22:02:00 37.83 [facility] [place] [facility] Respiratory rate 2022-06-19 22:02:00 20 /min [facility] [place] [facility] Body height 2022-06-19 22:02:00 149.9 cm [facility] [place] [facility] Body weight 2022-06-19 22:02:00 68.04 kg [facility] [place] [facility] BMI 2022-06-19 22:02:00 30.30 kg/m2 [facility] [place] [facility] Oxygen saturation in 2022-06-19 22:02:00 99 /min [facility] of Arterial blood by [place] [employer] Pulse oximetry Branch Systolic blood 2022-06-07 15:13:32 117 mm[Hg] Univer sity of pressure [place] [facility] Diastolic blood 2022-06-07 15:13:32 79 mm[Hg] Unive rsity of pressure [place] [facility] Heart rate 2022-06-07 15:13:32 78 /min [facility] [place] [facility] Respiratory rate 2022-06-07 15:13:32 16 /min [facility] ers[facility] [place] [facility] Oxygen saturation in 2022-06-07 15:13:32 99 /min [facility] of Arterial blood by [place] [employer] Pulse oximetry Branch Body temperature 2022-06-07 12:37:00 37 [facility] [place] [facility] Body weight 2022-06-07 12:37:00 68.04 kg [facility] [place] [facility] BMI 2022-06-07 12:37:00 30.30 kg/m2 [facility] [place] [facility] Systolic blood 2022-04-01 07:00:00 101 mm[Hg] [facility] sity of pressure [place] [facility] Diastolic blood 2022-04-01 07:00:00 61 mm[Hg] Unive rsity of pressure [place] [facility] Heart rate 2022-04-01 07:00:00 83 /min [facility] [place] [facility] Respiratory rate 2022-04-01 07:00:00 21 /min [facility] [place] [facility] Oxygen saturation in 2022-04-01 07:00:00 100 /min [facility] of Arterial blood by [facility] Pulse oximetry Branch Body temperature 2022-04-01 05:44:00 38 Shahana [facility] [place] [facility] Body height 2022-04-01 04:37:00 149.9 cm [facility] [place] [facility] Body weight 2022-04-01 04:37:00 68.04 kg [facility] [place] [facility] BMI 2022-04-01 04:37:00 30.30 kg/m2 [facility] [place] [facility] Systolic blood 2022-01-05 22:00:00 106 mm[Hg] Univer sity of pressure [place] [facility] Diastolic blood 2022-01-05 22:00:00 62 mm[Hg] Unive rsity of pressure [place] [facility] Heart rate 2022-01-05 22:00:00 77 /min [facility] [place] [facility] Respiratory rate 2022-01-05 22:00:00 16 /min [facility] [place] [facility] Oxygen saturation in 2022-01-05 22:00:00 99 /min [facility] of Arterial blood by [facility] Pulse oximetry Branch Body temperature 2022-01-05 20:01:00 37.39 Shahana [facility] [place] [facility] Body weight 2022-01-05 20:01:00 74.844 kg [facility] [place] [facility] BMI 2022-01-05 20:01:00 33.33 kg/m2 [facility] [place] [facility] Systolic blood 2021-09-14 21:00:00 122 mm[Hg] [facility] sity of pressure [place] [facility] Diastolic blood 2021-09-14 21:00:00 74 mm[Hg] Unive rsity of pressure [place] [facility] Heart rate 2021-09-14 21:00:00 98 /min [facility] [place] [facility] Body temperature 2021-09-14 21:00:00 37.61 [facility] [place] [facility] Respiratory rate 2021-09-14 21:00:00 21 /min [facility] [place] [facility] Oxygen saturation in 2021-09-14 21:00:00 97 /min [facility] Arterial blood by [facility] Pulse oximetry Branch Body weight 2021-09-14 17:11:00 66.679 kg [facility] [place] [facility] BMI 2021-09-14 17:11:00 29.69 kg/m2 [facility] [place] [facility] Systolic blood 2021-09-03 03:55:00 111 mm[Hg] Univer sity of pressure [place] [facility] Diastolic blood 2021-09-03 03:55:00 72 mm[Hg] Unive rsity of pressure [place] [facility] Heart rate 2021-09-03 03:55:00 81 /min [facility] [place] [facility] Respiratory rate 2021-09-03 03:55:00 17 /min [facility] [place] [facility] Oxygen saturation in 2021-09-03 03:55:00 98 /min [facility] of Arterial blood by [employer] Pulse oximetry Branch Body temperature 2021-09-03 02:09:20 37.22 Shahana [facility] [place] [facility] Body height 2021-09-02 23:49:00 149.9 cm [facility] [place] [facility] Body weight 2021-09-02 23:49:00 66.679 kg [facility] [place] [facility] BMI 2021-09-02 23:49:00 29.69 kg/m2 [facility] [place] [facility] Systolic blood 2021-03-30 01:00:00 121 mm[Hg] Univer sity of pressure [place] [facility] Diastolic blood 2021-03-30 01:00:00 73 mm[Hg] Unive rsity of pressure [place] [facility] Heart rate 2021-03-30 01:00:00 77 /min [facility] [place] [facility] Respiratory rate 2021-03-30 00:00:00 24 /min [facility] [place] [facility] Oxygen saturation in 2021-03-30 00:00:00 100 /min [facility] of Arterial blood by [employer] Pulse oximetry Branch Body temperature 2021-03-29 19:12:00 37.56 Shahana [facility] [place] [facility] Body height 2021-03-29 19:12:00 149.9 cm [facility] [place] [facility] Body weight 2021-03-29 19:12:00 61.236 kg [facility] [place] [facility] BMI 2021-03-29 19:12:00 27.27 kg/m2 [facility] [place] [facility] Systolic blood 2021-01-02 14:30:00 119 mm[Hg] Univer sity of pressure [place] [facility] Diastolic blood 2021-01-02 14:30:00 63 mm[Hg] Unive rsity of pressure [place] [facility] Heart rate 2021-01-02 14:30:00 79 /min [facility] [place] [facility] Respiratory rate 2021-01-02 14:30:00 17 /min [facility] ers[facility] [place] [facility] Oxygen saturation in 2021-01-02 14:30:00 98 /min [facility] of Arterial blood by [facility] carmen Pulse oximetry Branch Body temperature 2021-01-02 13:12:00 36.44 Shahana [facility] [place] [facility] Body height 2021-01-02 13:12:00 149.9 cm [facility] [place] [facility] Body weight 2021-01-02 13:12:00 64.411 kg [facility] [place] [facility] BMI 2021-01-02 13:12:00 28.68 kg/m2 [facility] [place] [facility] Systolic blood 2020-12-17 01:35:00 107 mm[Hg] Univer sity of pressure [place] [facility] Diastolic blood 2020-12-17 01:35:00 67 mm[Hg] Unive rsity of pressure [place] [facility] Heart rate 2020-12-17 01:35:00 89 /min [facility] [place] [facility] Respiratory rate 2020-12-17 01:35:00 16 /min [facility] [place] [facility] Oxygen saturation in 2020-12-17 01:35:00 100 /min [facility] of Arterial blood by [facility] Pulse oximetry Branch Body temperature 2020-12-16 23:22:01 37.72 Shahana [facility] [place] [facility] Body height 2020-12-16 23:19:00 149.9 cm [facility] [place] [facility] Body weight 2020-12-16 23:19:00 65.772 kg [facility] [place] [facility] BMI 2020-12-16 23:19:00 29.29 kg/m2 [facility] [place] [facility] Systolic blood 2020-12-15 15:11:00 129 mm[Hg] Univer sity of pressure [place] [facility] Diastolic blood 2020-12-15 15:11:00 62 mm[Hg] Unive rsity of pressure [place] [facility] Heart rate 2020-12-15 15:11:00 83 /min [facility] [place] [facility] Body temperature 2020-12-15 15:11:00 36.56 [facility] [place] [facility] Respiratory rate 2020-12-15 15:11:00 18 /min [facility] [place] [facility] Body weight 2020-12-15 15:11:00 66.225 kg [facility] [place] [facility] BMI 2020-12-15 15:11:00 29.49 kg/m2 [facility] [place] [facility] Oxygen saturation in 2020-12-15 15:11:00 100 /min [facility] Arterial blood by [facility] Pulse oximetry Branch Systolic blood 2020-11-28 22:47:00 102 mm[Hg] Univer sity of pressure [place] [facility] Diastolic blood 2020-11-28 22:47:00 85 mm[Hg] Unive rsity of pressure [place] [facility] Heart rate 2020-11-28 22:47:00 77 /min [facility] [place] [facility] Body temperature 2020-11-28 22:47:00 37.11 [facility] [place] [facility] Respiratory rate 2020-11-28 22:47:00 18 /min [facility] [place] [facility] Oxygen saturation in 2020-11-28 22:47:00 100 /min [facility] Arterial blood by [place] [employer] [facility] Pulse oximetry Branch Body weight 2020-11-27 09:27:00 66.497 kg [facility] [place] [facility] BMI 2020-11-27 09:27:00 29.61 kg/m2 [facility] [place] [facility] Body height 2020-11-27 00:19:00 149.9 cm [facility] [place] [facility] Systolic blood 2020-11-20 06:00:00 133 mm[Hg] Univer sity of pressure [place] [facility] Diastolic blood 2020-11-20 06:00:00 88 mm[Hg] Unive rsity of pressure [place] [facility] Heart rate 2020-11-20 06:00:00 85 /min [facility] [place] [facility] Respiratory rate 2020-11-20 06:00:00 17 /min [facility] [place] [facility] Oxygen saturation in 2020-11-20 06:00:00 100 /min [facility] Arterial blood by [facility] Pulse oximetry Branch Body temperature 2020-11-20 05:18:00 37.28 Shahana [facility] ersity of [facility] Body height 2020-11-20 05:18:00 149.9 cm [facility] [place] [facility] Body weight 2020-11-20 05:18:00 68.04 kg [facility] [place] [facility] BMI 2020-11-20 05:18:00 30.30 kg/m2 [facility] ty of [facility] Systolic blood 2020-03-28 18:20:00 106 mm[Hg] Univer sity of pressure [place] [facility] Diastolic blood 2020-03-28 18:20:00 64 mm[Hg] Unive rsity of pressure [facility] Heart rate 2020-03-28 18:20:00 83 /min Universi ty of [facility] Body temperature 2020-03-28 18:20:00 36.56 Shahana [facility] ersity of [facility] Respiratory rate 2020-03-28 18:20:00 18 /min Univ ersity of [facility] Body weight 2020-03-28 18:20:00 67.223 kg [facility]i [facility] of [facility] BMI 2020-03-28 18:20:00 29.93 kg/m2 [facility] [place] [facility] Systolic blood 2020-03-28 00:00:00 103 mm[Hg] [facility] [facility] Diastolic blood 2020-03-28 00:00:00 75 mm[Hg] Unive rsity of pressure [facility] Heart rate 2020-03-28 00:00:00 67 /min Universi ty of [facility] Oxygen saturation in 2020-03-28 00:00:00 100 /min University Arterial blood by [facility] Pulse oximetry Branch Respiratory rate 2020-03-27 22:00:00 18 /min Univ ersity of [facility] Body temperature 2020-03-27 20:22:00 37.5 Shahana Univ ersity of [facility] Body weight 2020-03-27 20:22:00 65.772 kg [facility] BMI 2020-03-27 20:22:00 29.29 kg/m2 Universi ty of [facility] Systolic blood 2020-03-25 20:00:00 109 mm[Hg] Univer sity of pressure [facility] Diastolic blood 2020-03-25 20:00:00 65 mm[Hg] Unive rsity of pressure [facility] Heart rate 2020-03-25 20:00:00 75 /min [facility] Respiratory rate 2020-03-25 20:00:00 18 /min [facility] Oxygen saturation in 2020-03-25 20:00:00 99 /min [facility] Arterial blood by [facility] Pulse oximetry Branch Body temperature 2020-03-25 18:38:00 37.39 Shahana [facility] Body height 2020-03-25 18:38:00 149.9 cm [facility] Body weight 2020-03-25 18:38:00 68.04 kg [facility] BMI 2020-03-25 18:38:00 30.30 kg/m2 [facility] Procedures Procedure Date / Time Performing Clinician Source Performed [place] I&D BARTHOLIN GLAND 2022-06-19 23:09:13 Martínez Louis [facility] CONSENT/REFUSAL FOR 2022-06-19 21:55:57 Doctor Unajimbo, [facility] DIAGNOSIS AND TREATMENT [facility] ABDOMEN PELVIS W 2022-06-07 15:47:47 Keely Fontana [facility] CONTRAST [facility] Branch LIPASE 2022-06-07 14:19:00 Keely Fontana [facility] HEPATIC FUNCTION PANEL 2022-06-07 14:19:00 Keely Fontana [facility] ([id number]) (ALB,T.PRO,BILI Medical Branch T,BU/BC,ALT,AST,ALK PHOS) BASIC METABOLIC PANEL 2022-06-07 14:19:00 Keely Fontana [facility] (NA, K, CL, CO2, GLUCOSE, Medica l Branch BUN, CREATININE, CA) CBC WITH DIFF 2022-06-07 14:19:00 Keely Fontana [facility] URINALYSIS 2022-06-07 14:19:00 Keely Fontana [facility] POCT TEST 2022-06-07 14:19:00 Keely Fontana [facility] CONSENT/REFUSAL FOR 2022-06-07 12:34:29 Doctor Unajimbo [facility] DIAGNOSIS AND TREAT[facility] E[facility]-12 LEAD 2022-04-01 07:27:37 Wang Leyva [facility] RAPID INFLUENZA A/B 2022-04-01 05:47:00 Wang Leyva [facility] XR CHEST 1 VW 2022-04-01 04:59:17 Wang Leyva [facility] TROPONIN I 2022-04-01 04:50:00 Wnag Leyva [facility] COMP. METABOLIC PANEL 2022-04-01 04:50:00 Wang Leyva [facility] ([id number]) [facility] CBC WITH DIFF 2022-04-01 04:50:00 [facility]INALYSIS 2022-04-01 04:50:00 [facility] N-TERMINAL PRO-BNP 2022-04-01 04:50:00 Wang Leyva [facility] COVID-19 (ID NOW RAPID 2022-04-01 04:50:00 Wang Leyva [facility] TESTING) [facility] CONSENT/REFUSAL FOR 2022-04-01 04:25:39 Doctor Leticia [facility] DIAGNOSIS AND TREATMENT [facility] INSURANCE CORRESPONDENCE 2022-01-21 05:01:00 Doctor Leticia, [facility] XR FOOT <3 VW LEFT 2022-01-05 20:28:03 Carlotta Gamez [facility] POCT GLUCOSE (AUTOMATED) 2022-01-05 20:28:00 Carlotta Gamez [facility] COMP. METABOLIC PANEL 2022-01-05 20:21:00 Carlotta Gamez [facility] ([id number]) [facility] SEDIMENTATION RATE 2022-01-05 20:21:00 Carlotta Gamez [facility] CBC WITH DIFF 2022-01-05 20:21:00 Carlotta Gamez [facility] CONSENT/REFUSAL FOR 2022-01-05 19:52:57 Doctor Leticia [facility] DIAGNOSIS AND TREATMENT [facility] URINALYSIS 2021-09-14 18:21:00 Kodi Lyons [facility] POCT TEST 2021-09-14 18:21:00 Kodi Lyons [facility] CONSENT/REFUSAL FOR 2021-09-14 17:00:07 Doctor Leticia [facility] DIAGNOSIS AND TREATMENT [facility] XR CHEST 1 VW 2021-09-03 03:31:22 Devika Rizzo Gudelia [facility] POCT TEST 2021-09-03 02:11:00 Devika Rizzo [facility] [place] LIPASE 2021-09-03 01:51:00 Devika iRzzo Gudelia [facility] MAGNESIUM 2021-09-03 01:51:00 Devika Rizzo [facility] TROPONIN I 2021-09-03 01:51:00 Devika Rizzo [facility] COMP. METABOLIC PANEL 2021-09-03 01:51:00 Devika Rizzo [facility] ([id number]) Medical Branch CBC WITH DIFF 2021-09-03 01:51:00 Devika Rizzo [facility] COVID-19 (ID NOW RAPID 2021-09-03 01:51:00 Devika Rizzo [facility] TESTING) Medical Branch URINALYSIS 2021-09-03 01:50:00 Devika Rizzo [facility] NOTICE OF PRIVACY 2021-09-02 23:35:44 Doctor Leticia [facility] CONSENT/REFUSAL FOR 2021-09-02 23:35:29 Doctor Leticia [facility] DIAGNOSIS AND TREATMENT [facility] CHEST PULMONARY 2021-03-29 23:01:57 Melyssa Peters [facility] ANGIOGRAM Medical Branch LIPASE 2021-03-29 21:06:00 Melyssa Peters [facility] TROPONIN I 2021-03-29 21:06:00 Melyssa Peters [facility] HEPATIC FUNCTION PANEL 2021-03-29 21:06:00 Melyssa Peters [facility] ([id number]) (ALB,T.PRO,BILI Medical Branch T,BU/BC,ALT,AST,ALK PHOS) BASIC METABOLIC PANEL 2021-03-29 21:06:00 Melyssa Peters [facility] (NA, K, CL, CO2, GLUCOSE, Medica l Branch BUN, CREATININE, CA) CBC WITH DIFF 2021-03-29 21:06:00 Melyssa Peters [facility] D-DIMER 2021-03-29 21:06:00 Melyssa Peters [facility] XR CHEST 2 VW 2021-03-29 20:54:38 Melyssa Peters [facility] POCT TEST 2021-03-29 20:19:00 Melyssa Peters [facility] HB ECG ROUTINE & RHYTHM 2021-03-29 19:32:20 Shonda Lang [facility] CONSENT/REFUSAL FOR 2021-03-29 19:05:27 Doctor Unajimbo, [facility] DIAGNOSIS AND TREATMENT [facility] US OVARY TORSION 2021-01-02 15:20:44 Shonda Lang [facility] CT ABDOMEN PELVIS WO 2021-01-02 14:03:26 Shonda Lang [facility] CONTRAST Medical Branch LIPASE 2021-01-02 13:18:00 Rickey Shonda [facility] COMP. METABOLIC PANEL 2021-01-02 13:18:00 Shonda Lang [facility] ([id number]) Medical Branch CBC WITH DIFF 2021-01-02 13:18:00 Shonda Lang [facility] URINALYSIS 2021-01-02 13:18:00 Shonda Lang [facility] POCT TEST 2021-01-02 13:17:00 Shonda Lang [facility] NOTICE OF PRIVACY 2021-01-02 13:01:00 Doctor Leticia [facility] CONSENT/REFUSAL FOR 2021-01-02 13:00:45 Doctor Leticia [facility] DIAGNOSIS AND TREATMENT [facility] TEMPORAL BONES W 2020-12-17 00:56:58 Melyssa Peters [facility] CONTRAST [facility] HEPATIC FUNCTION PANEL 2020-12-17 00:01:00 Melyssa Peters [facility] ([id number]) (ALB,T.PRO,BILI Medical Branch T,BU/BC,ALT,AST,ALK PHOS) BASIC METABOLIC PANEL 2020-12-17 00:01:00 Melyssa Peters [facility] (NA, K, CL, CO2, GLUCOSE, Medica l Branch BUN, CREATININE, CA) SEDIMENTATION RATE 2020-12-17 00:01:00 Melyssa Peters [facility] CBC WITH DIFF 2020-12-17 00:01:00 Melyssa Peters [facility] CONSENT/REFUSAL FOR 2020-12-16 23:16:15 Doctor Unassigned, [facility] DIAGNOSIS AND TREATMENT [facility] CONSENT/REFUSAL FOR 2020-12-15 15:06:54 Doctor Unassigned, [facility] DIAGNOSIS AND TREATMENT [facility] POCT GLUCOSE (AUTOMATED) 2020-11-28 22:46:00 Flaco Hoang [facility] NM MYOCARDIUM PERFUSION 2020-11-28 20:03:49 Preston Kerns [facility] STRESS AND REST [facility] POCT GLUCOSE (AUTOMATED) 2020-11-28 17:40:00 Flaco Hoang [facility] POCT GLUCOSE (AUTOMATED) 2020-11-28 13:36:00 Flaco Hoang [facility] POCT GLUCOSE (AUTOMATED) 2020-11-27 22:20:00 Flaco Hoang [facility] POCT GLUCOSE (AUTOMATED) 2020-11-27 17:31:00 Flaco Hoang [facility] ECHO ROUTINE W/DOPPLER 2020-11-27 16:58:05 [facility] COLOR [facility] POCT GLUCOSE (AUTOMATED) 2020-11-27 13:29:00 Flaco Hoang [facility] MAGNESIUM 2020-11-27 09:33:00 Israel Nino [place] [facility] TROPONIN I 2020-11-27 09:33:00 Trung mariel [facility] BASIC METABOLIC PANEL 2020-11-27 09:33:00 Flaco Hoang [facility] (NA, K, CL, CO2, GLUCOSE, Medica l Branch BUN, CREATININE, CA) CBC WITH DIFF 2020-11-27 09:33:00 Viktor [facility] N-TERMINAL PRO-BNP 2020-11-27 09:33:00 Trung [facility] TROPONIN I 2020-11-27 04:27:00 Viktor [facility] THYROID STIMULATING 2020-11-27 04:27:00 Trung [facility] HORMONE [facility] LIPID PANEL ([id number])(TOTAL 2020-11-27 04:27:00 Israel Nino [facility] CHOLESTEROL, [facility] TRIGLYCERIDES, HDL) GLYCOSYLATED HEMOGLOBIN 2020-11-27 04:27:00 Prem Agosto [facility] (A1C) [facility] POCT GLUCOSE (AUTOMATED) 2020-11-27 02:09:00 Flaco Hoang [facility] TROPONIN I 2020-11-27 00:06:00 Viktor [facility] CT CHEST PULMONARY 2020-11-26 20:59:00 Rickey Shonda [facility] ANGIOGRAM [facility] XR NECK SOFT TISSUE 2020-11-26 20:33:05 Rickey Shonda [facility] POCT TEST 2020-11-26 19:51:00 Shonda Lang [facility] PHOSPHORUS 2020-11-26 19:44:00 [facility] 2020-11-26 19:44:00 Viktor [facility] TROPONIN I 2020-11-26 19:44:00 Rickey [facility] HEPATIC FUNCTION PANEL 2020-11-26 19:44:00 Shonda Lang [facility] ([id number]) (ALB,T.PRO,BILI Medical Branch T,BU/BC,ALT,AST,ALK PHOS) BASIC METABOLIC PANEL 2020-11-26 19:44:00 Shonda Lang [facility] (NA, K, CL, CO2, GLUCOSE, Medica l Branch BUN, CREATININE, CA) CBC WITH DIFF 2020-11-26 19:44:00 Shonda Lang [facility] PROTHROMBIN TIME / INR 2020-11-26 19:44:00 Shonda Lang [facility] D-DIMER 2020-11-26 19:44:00 Shonda Lang [facility] ACTIVATED PARTIAL 2020-11-26 19:44:00 [facility] TH[facility] CAM [facility] N-TERMINAL PRO-BNP 2020-11-26 19:44:00 Shonda Lang [facility] COVID-19 (ID NOW RAPID 2020-11-26 19:44:00 Shonda Lang [facility] TESTING) Medical Branch HB ECG ROUTINE & RHYTHM 2020-11-26 19:23:27 Shonda Lang [facility] STRIP [facility] NOTICE OF PRIVACY 2020-11-26 19:15:00 Doctor Unabhavya, [facility] CONSENT/REFUSAL FOR 2020-11-26 19:10:31 Doctor Anjanacounts include [facility] beds [facility] DIAGNOSIS AND TREATMENT [facility] POCT TEST 2020-11-20 05:40:00 Kodi Lyons [facility] NOTICE OF PRIVACY 2020-11-20 05:04:44 Doctor Anjanabhavya [facility] CONSENT/REFUSAL FOR 2020-11-20 05:04:30 Doctor Leticia [facility] DIAGNOSIS AND TREATMENT [facility] BI ULTRASOUND BREAST 2020-04-18 14:38:[address] [facility] LEFT Medical Branch BI DIAGNOSTIC MAMMOGRAM 2020-04-18 14:10:00 Ludivina Colunga [facility] BILATERAL Medical Branch BI ULTRASOUND BREAST 2020-03-27 21:42:26 Wang Leyva [facility] LEFT Medical Branch XR CHEST 2 VW 2020-03-27 21:15:38 Wang Leyva [facility] POCT TEST 2020-03-27 20:58:00 Wang Leyva [facility] BLOOD CULTURE SCREEN 2020-03-27 20:57:00 Wang Leyva [facility] COVID-19 (ID NOW RAPID 2020-03-27 20:56:00 Wang Leyva [facility] TESTING) [facility] [place] URINALYSIS 2020-03-27 20:54:00 Wang Leyva [facility] TROPONIN I 2020-03-27 20:53:00 [facility]. METABOLIC PANEL 2020-03-27 20:53:00 Wang Leyva [facility] ([id number]) [facility] N-TERMINAL PRO-BNP 2020-03-27 20:53:00 Wang Leyva [facility] BLOOD CULTURE SCREEN 2020-03-27 20:51:00 Wang Leyva [facility] CBC WITH DIFFERENTIAL 2020-03-27 20:50:00 Wang Leyva [facility] LACTIC ACID WHOLE BLOOD 2020-03-27 20:49:00 Wang Leyva [facility] BASIC METABOLIC PANEL 2020-03-25 19:12:00 Cezar Tovar [facility] (NA, K, CL, CO2, GLUCOSE, Medica l Branch BUN, CREATININE, CA) CBC WITH DIFFERENTIAL 2020-03-25 19:12:00 Cezar Tovar [facility] NOTICE OF PRIVACY 2020-03-25 18:19:19 Doctor Unajimbo, [facility] [place] [facility] CONSENT/REFUSAL FOR 2020-03-25 18:19:02 Doctor Unajimbo, [facility] DIAGNOSIS AND TREATMENT [place] [facility] Encounters Start End Encounter Admission Attending Care Care Encounter Source Date/Time Date/Time Type Type Clinicians Facility Department ID 2021-07-30 Emergency [facility] [id number] Univers 05:23:34 [facility] 2021-07-29 Emergency [facility] [id number] Univers 10:54:29 [facility] 2021-07-29 Emergency [facility] [id number] Univers 07:21:50 ity of [facility] 2021-07-29 Emergency [facility] [id number] Univers 07:07:25 ity of [facility] 2021-07-29 Emergency [facility] [id number] Univers 01:56:02 ity of [facility] 2021-07-29 Emergency [facility] [id number] Univers 00:20:57 ity of [facility] 2021-07-27 Emergency [facility] [id number] Univers 03:31:32 ity of [facility] 2021-07-27 Emergency [facility] [id number] Univers 03:15:24 ity of [facility] 2022-06-19 2022-06-19 Emergency X [facility] ERT [id number] Univers 17:03:00 18:34:[address] [facility] 2022-06-19 2022-06-19 Emergency [facility] [id number] Univers 17:03:00 18:34:00 Martínez BLANK [id number] i ty of [place] [id number] [facility] [id number] [place] 038[place] 2022-06-07 2022-06-07 Emergency X [facility] ERT [id number] Univers 07:39:00 11:51:[address] [facility] 2022-06-07 2022-06-07 Emergency [facility] [id number] Univers 07:39:00 11:51:00 Keely BLANK [id number] i ty of [place] [id number] [facility] [id number] [facility] 084 Branch 2022-03-31 2022-04-01 Emergency [facility] [id number] Univers 23:43:00 02:34:[address] [facility] 2022-03-31 2022-04-01 Emergency [facility] [id number] Univers 23:43:00 02:34:00 Wang BLANK [id number] i ty of [place] [id number] [facility] [id number] [address] 2022-01-21 2022-01-21 Orders Doctor KYRA 1.2.840.114 [id number] Univers 00:00:00 00:00:00 Only Unassigned, LONNIE [id number] ity of [place] [facility] 4.2.7.2.686 Enrique as [id number] [address] 2022-01-05 2022-01-05 Emergency X [facility] ERT [id number] Univers 15:09:00 17:27:[address] [facility] 2022-01-05 2022-01-05 Emergency [facility] 1.2.840.114 [id number] Univers 15:09:00 17:27:00 Carlotta BLANK [id number] ity of [place] 4.2.7.2.686 [id number] [address] 2022-01-05 2022-01-05 Orders Doctor KYRA 1.2.840.114 [id number] Univers 00:00:00 00:00:00 Only Unassigned, LONNIE [id number] ity of [place] [facility] 4.2.7.2.686 Enrique as [id number] [address] 2021-09-28 2021-09-28 Outpatient R RAMON [facility] [id number] Univers 10:30:00 11:36:[address] [facility] 2021-09-28 2021-09-28 Laboratory Only, Ang Db Test [facility] 1.2.8 [id number] Univers 10:30:00 10:45:00 Only Ramon [facility] [id number] ity of [place] 4.2.7.2.686 Enrique as EMELYN?BLEA [phone] [address] MEDICAL OFFICE BUILDING 2021-09-28 2021-09-28 Letter Doctor KYRA 1.2.840.114 [id number] Univers 00:00:00 00:00:00 (Out) Unassigned, LONNIE [id number] ity of [place] [facility] 4.2.7.2.686 Enrique as [phone] [facility] 044 Branch 2021-09-14 2021-09-14 Emergency X ASHLEY, [facility] ERT [id number] Univers 11:13:00 15:21:00 WAKILI ity of [facility] 2021-09-14 2021-09-14 Emergency [facility] [id number] Univers 11:13:00 15:21:00 Kodi Sanon ROSAMARIA [id number] ity of [place] 4.2.7.2.686 [facility] [id number] [facility] 084 Branch 2021-09-14 2021-09-14 Orders Doctor KYRA 1.2.840.114 [id number] Univers 00:00:00 00:00:00 Only Unassigned, LONNIE [id number] ity of [place] [facility] 4.2.7.2.686 Enrique as [id number] [facility] 009 Branch 2021-09-02 2021-09-02 Emergency X SO, K [facility] ERT [id number] Univers 17:52:00 22:13:00 ity of [facility] 2021-09-02 2021-09-02 Emergency Devika Rizzo [facility] 1.2.840.114 [id number] Univers 17:52:00 22:13:00 Gudelia BLANK [id number] i ty of [facility] 4.2.7.2.686 [facility] [id number] [facility] 084 Branch 2021-03-29 2021-03-29 Emergency [facility] [id number] Univers 14:53:00 20:06:00 Melyssa Blank [id number] ity of [place] 4.2.7.2.686 [facility] [id number] [facility] 084 Branch 2021-01-02 2021-01-02 Emergency [facility] [id number] Univers 08:04:00 11:04:00 Shonda Blank [id number] i ty of [place] 4.2.7.2.686 [facility] [id number] [facility] 084 Branch 2020-12-16 2020-12-16 Emergency [facility] [id number] Univers 18:20:00 21:05:00 Melyssa Blank [id number] ity of [place] 4.2.7.2.686 [facility] [id number] [place] [address] Branch 2020-12-15 2020-12-15 Emergency [facility] [id number] [id number] Univers 10:13:00 10:45:00 Melyssa Blank [id number] ity of [place] 4.2.7.2.686 [facility] [id number] [place] [address]38[address] Branch 2020-12-15 2020-12-15 Orders Doctor RAE 1.2.840.114 [id number] Univers 00:00:00 00:00:00 Only Unassigned, LONNIE 350.1.13.10 ity of [place] [facility] 4.2.7.2.686 Enrique as [phone] [facility] 009 Branch 2020-12-08 2020-12-08 Nurse KYRA Payne 1.2.840.114 [id number] Univers 00:00:00 00:00:00 Triage Samira FLEMING 350.1.13.10 i ty of HOSPITAL 4.2.7.2.686 Enrique as [id number] [facility] 019 Branch 2020-11-26 2020-11-28 Emergency Shonda Lang [facility] 1.2.840. 114 [id number] Univers 13:22:00 18:14:00 Flaco Hoang 350.1.13.10 ity of [place] 4.2.7.2.686 [facility] [id number] [facility] 081 Branch 2020-11-26 2020-11-26 Orders Doctor RAE 1.2.840.114 [id number] Univers 00:00:00 00:00:00 Only Unassigned, LONNIE 350.1.13.10 ity of [place] [facility] 4.2.7.2.686 Enrique as [phone] [facility] 009 [place] 2020-11-19 2020-11-20 Emergency [facility] [id number] Univers 23:22:00 01:48:00 Kodi Blank [id number] ity of [place] [address].[address] [id number] [facility] 084 [place] 2020-11-19 2020-11-19 Orders Doctor KYRA 1.2.840.114 [id number] Univers 00:00:00 00:00:00 Only Unassigned, LONNIE 350.1.13.10 ity of [place] [facility] 4.2.7.2.686 Enrique as [id number] [facility] 009 [place] 2020-03-28 2020-05-15 Office [facility] 1.2.350.238 [id number] Univers 13:15:03 12:49:17 Visit Ludivina Blank 350.1.13.10 i ty of [place] 4.2.7.2.686 [facility] Professio [id number] Tn dical [facility] [address] [facility] 2020-04-25 2020-04-25 Outpatient [facility] [id number] Univers 14:30:00 14:30:00 LUDIVINA ity of [facility] 2020-04-18 2020-04-18 [facility] 1.2.840.114 [id number] Univers 07:58:00 23:59:00 Encounter Ludivina Blank 350.1.13.10 ity of [place] 4.2.7.2.686 [facility] [address] [id number] [facility] 806 [place] 2020-04-18 2020-04-18 [facility] 1.2.840.114 [id number] Univers 07:56:00 07:57:00 Encounter Ludivina Blank 350.1.13.10 ity of [place] [address]7.2.[address] [phone] [facility] 800 [place] 2020-04-18 2020-04-18 Outpatient R [facility] [id number] Univers 00:00:00 00:00:[address] [facility] 2020-04-13 2020-04-13 Telephone Cristine [facility] 1.2.840.114 [id number] Univers 00:00:00 00:00:00 Ludivina Blank 350.1.13.10 i ty [place] [phone] [facility] [address] [facility] 2020-04-06 2020-04-06 Telephone Pob1, Acute [facility] 1.2.840.114 [id number] Univers 00:00:00 00:00:00 [facility] [id number] ity of [place] 4.2.7.2.686 Enrique as Professio [phone] [facility] 044 [facility] 2020-04-04 2020-04-04 Telephone Pob1, Acute [facility] 1.2.840.114 [id number] Univers 00:00:00 00:00:00 [facility] [id number] ity of [place] 4.2.7.2.686 Enrique as Professio [phone] [facility] 044 [facility] 2020-03-28 2020-03-28 Outpatient R [facility] [id number] Univers 13:00:00 13:00:00 LUDIVINA [facility] 2020-03-27 2020-03-27 Emergency Leyva, [facility] 1.2.840.114 [id number] Univers 15:24:34 20:17:00 Wang Blank 350.1.13.10 i ty of [place] 4.2.7.2.686 [facility] [facility] [id number] [address] 2020-03-25 2020-03-25 Emergency [place], [facility] [id number] Univers 13:39:44 16:05:00 Cezar Blank 350.1.13.10 i ty of [place] 4.2.7.2.686 [place] [facility] [phone] [address] 2020-03-25 2020-03-25 Orders Doctor RAE [id number] Univers 00:00:00 00:00:00 Only Unassigned, LONNIE 350.1.13.10 ity of [place] [facility] 4.2.7.2.686 Enrique as [phone] [address] Results Test Description Test Time Test Comments Results Result Comments Source HEPATIC FUNCTION PANEL (64029) (ALB,T.PRO,BILI 2022-06-07 14 :47:26 T,BU/BC,ALT,AST,ALK PHOS) Test Item Value Reference Range Interpretation Comme nts TOTAL BILI (test code = 2874824225) 0.5 mg/dL 0.1-1.1 BILI UNCON (test code = 8563509376) 0.4 mg/dL 0.1-1.1 BILI CONJ (test code = 1481695615) 0.0 mg/dL 0-0.3 T PROTEIN (test code = 3962508471) 7.7 g/dL 6.3-8.2 ALBUMIN (test code = 9897372559) 4.8 g/dL 3.5-5 ALK PHOS (test code = 3316234434) 81 U/L 34-122 ALTv (test code = 1742-6) 16 U/L 5-35 AST(SGOT) (test code = 3223103008) 22 U/L 13-40 Lab Interpretation (test code = 02907-9) Normal [facility] (NA, K, CL, CO2, GLUCOSE, BUN, CREATININE, CA)2022-06-07 14:47:06 Test Item Value Reference Range Interpretation Comments NA (test code = 137 mmol/L 135-145 4170012914) K (test code = 4.4 mmol/L 3.5-5 1694040073) CL (test code = 104 mmol/L 98-108 9551465873) CO2 TOTAL (test code = 25 mmol/L 23-31 8850561362) AGAP (test code = 2-16 0804504122) BUN (test code = 11 mg/dL 7-23 5462991450) GLUCOSE (test code = 312 mg/dL 70-110 H 5404462408) CREATININE (test code = 0.58 mg/dL 0.5-1.04 9631340396) CALCIUM (test code = 9.1 mg/dL 8.6-10.6 8482326981) eGFR (test code = mL/min/1.73m2 3519168267) MARLIN (test code = MARLIN) Association of Glomerular Filtration Rate (GFR) and Staging of Kidney Disease* + --+ --+ ------+| GFR (mL/min/1.73 m2) ?| With Kidney Damage ?| ?Without Kidney Damage+ --------+ --------+ +| ?>90 ?| ?Stage one ?| ? Normal ?+ ---+ ---+ -------+| ?60-89 ?| ?Stage two ?| ? Decreased GFR ? + --+ --+ ------+| ?30-59 ?| ?Stage three ?| ? Stage three ? + --+ --+ ------+| ?15-29 ?| ?Stage four ? | ? Stage four ?+ ---+ ---+ -------+| ?<15 (or dialysis) ? ?| ?Stage five ? | ? Stage five ?+ ---+ ---+ -------+ *Each stage assumes the associated GFR level has been in effect for at least three months. ?Stages 1 to 5, with or without kidney disease, indicate chronic kidney disease. Notes: Determination of stages one and two (with eGFR >59mL/min/1.73 m2) requires estimation of kidney damage for at least three months as defined by structural or functional abnormalities of the kidney, manifested by either:Pathological abnormalities or Markers of kidney damage (including abnormalities in the composition of the blood or urine or abnormalities in imaging tests). Lab Interpretation Abnormal (test code = 26453-4) [facility] 14:47:06 Test Item Value Reference Range Interpretation Comments LIPASE (test code = 5305115507) 117 U/L 0-220 Lab Interpretation (test code = Normal 31505-4) [facility] WITH [id number] 14:31:02 Test Item Value Reference Range Interpretation Comments WBC (test code = See_Comment [Automated 3311-2) message] The sy stem which generated this result transmitted reference range : 4.30 - 11.10 10*3/?L. The reference range was not used to interpret this result as normal/abnormal . RBC (test code = See_Comment [Automated 789-8) message] The sy stem which generated this result transmitted reference range : 3.93 - 5.25 10*6/?L. The reference range was not used to interpret this result as normal/abnormal . HGB (test code = 12.7 g/dL 11.6-15 718-7) HCT (test code = 39.5 % 35.7-45.2 4544-3) MCV (test code = 84.9 fL 80.6-95.5 787-2) MCH (test code = 27.3 pg 25.9-32.8 785-6) MCHC (test code = 32.2 g/dL 31.6-35.1 786-4) RDW-SD (test code = 45.3 fL 39-49.9 13157-9) RDW-CV (test code = 14.8 % 12-15.5 788-0) PLT (test code = See_Comment L [Automated 777-3) message] The sy stem which generated this result transmitted reference range : 166 - 358 10*3/ ?L. The reference r charity was not used to interpret this result as normal/abnormal . MPV (test code = 11.9 fL 9.5-12.9 85212-6) NRBC/100 WBC (test See_Comment [Automat ed code = 0752412390) message] The system which generated this result transmitted reference range : 0.0 - 10.0 /100 WBCs. The refer ence range was not u sed to interpret th is result as normal/abnormal . NRBC x10^3 (test code See_Comment [Auto mated = 4654621055) message] The s ystem which generated this result transmitted reference range : 10*3/?L. The reference range was not used to interpret this result as normal/abnormal . GRAN MAT (NEUT) % 84.9 % (test code = 770-8) IMM GRAN % (test code 0.40 % = 8885593179) LYMPH % (test code = 12.1 % 736-9) MONO % (test code = 2.2 % 5905-5) EOS % (test code = 0.0 % 713-8) BASO % (test code = 0.4 % 706-2) GRAN MAT x10^3(ANC) 6.65 10*3/uL 1.88-7.09 (test code = 7839794572) IMM GRAN x10^3 (test 0.03 10*3/uL 0-0.06 code = 3242346918) LYMPH x10^3 (test code 0.95 10*3/uL 1.32-3.29 L = 731-0) MONO x10^3 (test code 0.17 10*3/uL 0.33-0.92 L = 742-7) EOS x10^3 (test code = 0.03-0.39 L 711-2) BASO x10^3 (test code 0.03 10*3/uL 0.01-0.07 = 704-7) Lab Interpretation Abnormal (test code = 61271-8) [facility] [id number] 14:19:00 Test Item Value Reference Range Interpretation Comments POCT PREG (test code = 1605) negative On board controls acceptable with present C Line (test code = 3574) POCT PREG LOT # (test code = 3575) [id number] POCT PREG TEST DATE (test code = 3576) Lab Interpretation (test code = Normal 30793-3) [facility] [id number] 05:28:05 Test Item Value Reference Interpretation Comments Range TROPONIN I (test 0.023 ng/mL See_Comment [Automated code = 3128737791) message] The system which generated this result transmitted reference range : <=0.034. The reference range was not used to interpret this result as normal/abnormal . MARLIN (test code = Reference (Normal) MARLIN) Range (defined by the 99th percentile reference limit): <= 0.034 ng/mL Note: Cardiac troponin begins to rise 3-4 hours after the onset of ischemia. Repeat in 4-6 hours if the sample was drawn within 3-4 hours of the onset of the symptom and found normal. Diagnosis of myocardial injury is made with acute changes in cTn concentrations with at least one serial sample above the 99th percentile upper reference limit (URL), taken together with the patient's clinical presentation. Biotin has been reported to cause a negative bias, interpret results relative to patient's use of biotin. Lab Interpretation Normal (test code = 74328-2) [facility]-TERMINAL [id number] 05:25:04 Test Item Value Reference Range Interpretation Comments NT-proBNP (test code 36 pg/mL See_Comment [Autom ated = 6254535667) message] The system which generated this result transmitted reference range : <=125. The reference range was not used to interpret this result as normal/abnormal . MARLIN (test code = MARLIN) Biotin has been reported to cause a negative bias, interpret results relative to patient's use of biotin. Lab Interpretation Normal (test code = 57715-6) [facility]. METABOLIC PANEL (25469)2022-04-01 05:16:43 Test Item Value Reference Range Interpretation Comments NA (test code = 137 mmol/L 135-145 5482638610) K (test code = 3.7 mmol/L 3.5-5.0 2073888626) CL (test code = 104 mmol/L 98-108 9048140014) CO2 TOTAL (test code = 19 mmol/L 23-31 L 5140165626) AGAP (test code = 2-16 8504457716) BUN (test code = 8 mg/dL 7-23 2258095755) GLUCOSE (test code = 308 mg/dL 70-110 H 4005633804) CREATININE (test code = 0.54 mg/dL 0.50-1.04 8300138244) TOTAL BILI (test code = 0.8 mg/dL 0.1-1.0 9877884583) CALCIUM (test code = 9.0 mg/dL 8.6-10.6 0701154804) T PROTEIN (test code = 7.5 g/dL 6.3-8.2 3734965137) ALBUMIN (test code = 4.4 g/dL 3.5-5.0 7602849526) ALK PHOS (test code = 78 U/L 34-122 3875080667) ALTv (test code = 10 U/L 5-35 1742-6) AST(SGOT) (test code = 14 U/L 13-40 3432912199) eGFR (test code = mL/min/1.73m2 9231057310) MARLIN (test code = MARLIN) Association of Glomerular Filtration Rate (GFR) and Staging of Kidney Disease* + --+ --+ ------+| GFR (mL/min/1.73 m2) ?| With Kidney Damage ?| ?Without Kidney Damage+ --------+ --------+ +| ?>90 ?| ?Stage one ?| ? Normal ?+ ---+ ---+ -------+| ?60-89 ?| ?Stage two ?| ? Decreased GFR ? + --+ --+ ------+| ?30-59 ?| ?Stage three ?| ? Stage three ? + --+ --+ ------+| ?15-29 ?| ?Stage four ? | ? Stage four ?+ ---+ ---+ -------+| ?<15 (or dialysis) ? ?| ?Stage five ? | ? Stage five ?+ ---+ ---+ -------+ *Each stage assumes the associated GFR level has been in effect for at least three months. ?Stages 1 to 5, with or without kidney disease, indicate chronic kidney disease. Notes: Determination of stages one and two (with eGFR >59mL/min/1.73 m2) requires estimation of kidney damage for at least three months as defined by structural or functional abnormalities of the kidney, manifested by either:Pathological abnormalities or Markers of kidney damage (including abnormalities in the composition of the blood or urine or abnormalities in imaging tests). Lab Interpretation Abnormal (test code = 33926-2) [facility] acute [facility] WITH [id number] 05:07:57 Test Item Value Reference Range Interpretation Comments WBC (test code = See_Comment [Automated 6272-2) message] The sy stem which generated this result transmitted reference range : 4.30 - 11.10 10*3/?L. The reference range was not used to interpret this result as normal/abnormal . RBC (test code = See_Comment [Automated 841-8) message] The sy stem which generated this result transmitted reference range : 3.93 - 5.25 10*6/?L. The reference range was not used to interpret this result as normal/abnormal . HGB (test code = 11.2 g/dL 11.6-15.0 L 718-7) HCT (test code = 34.8 % 35.7-45.2 L 4544-3) MCV (test code = 83.7 fL 80.6-95.5 787-2) MCH (test code = 26.9 pg 25.9-32.8 785-6) MCHC (test code = 32.2 g/dL 31.6-35.1 786-4) RDW-SD (test code = 52.1 fL 39.0-49.9 H 40720-3) RDW-CV (test code = 17.1 % 12.0-15.5 H 788-0) PLT (test code = See_Comment L [Automated 777-3) message] The sy stem which generated this result transmitted reference range : 166 - 358 10*3/ ?L. The reference r charity was not used to interpret this result as normal/abnormal . MPV (test code = 13.1 fL 9.5-12.9 H 34962-1) IPF % (test code = 10.5 % 1.3-7.7 H Platelet count 3544390006) measured by fluorescence method. NRBC/100 WBC (test See_Comment [Automat ed code = 6548252925) message] The system which generated this result transmitted reference range : 0.0 - 10.0 /100 WBCs. The refer ence range was not u sed to interpret th is result as normal/abnormal . NRBC x10^3 (test code <0.01 See_Comment [Auto mated = 6523965343) message] The s ystem which generated this result transmitted reference range : 10*3/?L. The reference range was not used to interpret this result as normal/abnormal . GRAN MAT (NEUT) % 81.8 % (test code = 770-8) IMM GRAN % (test code 0.40 % = 7958140454) LYMPH % (test code = 10.4 % 736-9) MONO % (test code = 7.1 % 5905-5) EOS % (test code = 0.1 % 713-8) BASO % (test code = 0.2 % 706-2) GRAN MAT x10^3(ANC) 7.88 10*3/uL 1.88-7.09 H (test code = 9543255864) IMM GRAN x10^3 (test 0.04 10*3/uL 0.00-0.06 code = 6844584446) LYMPH x10^3 (test code 1.00 10*3/uL 1.32-3.29 L = 731-0) MONO x10^3 (test code 0.68 10*3/uL 0.33-0.92 = 742-7) EOS x10^3 (test code = <0.03 0.03-0.39 L 711-2) BASO x10^3 (test code <0.03 0.01-0.07 = 704-7) Lab Interpretation Abnormal (test code = 73413-6) [facility]ED[facility] [id number] 21:28:36 Test Item Value Reference Range Interpretation Comments ESR (test code = See_Comment H [Automated message] 7349759042) The system [employer] generated this result transmitted ref erence range: 0 - 20 m m/HR. The reference r charity was not used to interpret this result as normal/abnor mal. Lab Interpretation (test Abnormal code = 72304-3) [facility]. METABOLIC PANEL (30386)2022-01-05 20:59:10 Test Item Value Reference Range Interpretation Comments NA (test code = 139 mmol/L 135-145 3365229639) K (test code = 3.6 mmol/L 3.5-5.0 1713652999) CL (test code = 105 mmol/L 98-108 0300773162) CO2 TOTAL (test code = 21 mmol/L 23-31 L 7902778866) AGAP (test code = 2-16 4363553116) BUN (test code = 9 mg/dL 7-23 2963136344) GLUCOSE (test code = 247 mg/dL 70-110 H 4429884757) CREATININE (test code = 0.47 mg/dL 0.50-1.04 L 5037931315) TOTAL BILI (test code = 0.6 mg/dL 0.1-1.0 3401525499) CALCIUM (test code = 9.1 mg/dL 8.6-10.6 6667583890) T PROTEIN (test code = 8.0 g/dL 6.3-8.2 4205238603) ALBUMIN (test code = 4.7 g/dL 3.5-5.0 4075771674) ALK PHOS (test code = 79 U/L 34-122 2133752396) ALTv (test code = 10 U/L 5-35 1742-6) AST(SGOT) (test code = 17 U/L 13-40 0733568050) eGFR (test code = mL/min/1.73m2 4295312154) MARLIN (test code = MARLIN) Association of Glomerular Filtration Rate (GFR) and Staging of Kidney Disease* + --+ --+ ------+| GFR (mL/min/1.73 m2) ?| With Kidney Damage ?| ?Without Kidney Damage+ --------+ --------+ +| ?>90 ?| ?Stage one ?| ? Normal ?+ ---+ ---+ -------+| ?60-89 ?| ?Stage two ?| ? Decreased GFR ? + --+ --+ ------+| ?30-59 ?| ?Stage three ?| ? Stage three ? + --+ --+ ------+| ?15-29 ?| ?Stage four ? | ? Stage four ?+ ---+ ---+ -------+| ?<15 (or dialysis) ? ?| ?Stage five ? | ? Stage five ?+ ---+ ---+ -------+ *Each stage assumes the associated GFR level has been in effect for at least three months. ?Stages 1 to 5, with or without kidney disease, indicate chronic kidney disease. Notes: Determination of stages one and two (with eGFR >59mL/min/1.73 m2) requires estimation of kidney damage for at least three months as defined by structural or functional abnormalities of the kidney, manifested by either:Pathological abnormalities or Markers of kidney damage (including abnormalities in the composition of the blood or urine or abnormalities in imaging tests). Lab Interpretation Abnormal (test code = 49349-6) [facility] acute hospital WITH [id number] 20:52:29 Test Item Value Reference Range Interpretation Comments WBC (test code = See_Comment [Automated 6986-2) message] The sy stem which generated this result transmitted reference range : 4.30 - 11.10 10*3/?L. The reference range was not used to interpret this result as normal/abnormal . RBC (test code = See_Comment [Automated 385-8) message] The sy stem which generated this result transmitted reference range : 3.93 - 5.25 10*6/?L. The reference range was not used to interpret this result as normal/abnormal . HGB (test code = 11.4 g/dL 11.6-15.0 L 718-7) HCT (test code = 36.4 % 35.7-45.2 4544-3) MCV (test code = 80.2 fL 80.6-95.5 L 787-2) MCH (test code = 25.1 pg 25.9-32.8 L 785-6) MCHC (test code = 31.3 g/dL 31.6-35.1 L 786-4) RDW-SD (test code = 45.4 fL 39.0-49.9 29402-7) RDW-CV (test code = 15.9 % 12.0-15.5 H 788-0) PLT (test code = See_Comment L [Automated 777-3) message] The sy stem which generated this result transmitted reference range : 166 - 358 10*3/ ?L. The reference r charity was not used to interpret this result as normal/abnormal . MPV (test code = 12.5 fL 9.5-12.9 97198-0) NRBC/100 WBC (test See_Comment [Automat ed code = 8778914184) message] The system which generated this result transmitted reference range : 0.0 - 10.0 /100 WBCs. The refer ence range was not u sed to interpret th is result as normal/abnormal . NRBC x10^3 (test code <0.01 See_Comment [Auto mated = 1238565529) message] The s ystem which generated this result transmitted reference range : 10*3/?L. The reference range was not used to interpret this result as normal/abnormal . GRAN MAT (NEUT) % 63.8 % (test code = 770-8) IMM GRAN % (test code 0.30 % = 6464300754) LYMPH % (test code = 28.1 % 736-9) MONO % (test code = 6.5 % 5905-5) EOS % (test code = 0.8 % 713-8) BASO % (test code = 0.5 % 706-2) GRAN MAT x10^3(ANC) 4.11 10*3/uL 1.88-7.09 (test code = 0758782494) IMM GRAN x10^3 (test <0.03 0.00-0.06 code = 6981792150) LYMPH x10^3 (test code 1.81 10*3/uL 1.32-3.29 = 731-0) MONO x10^3 (test code 0.42 10*3/uL 0.33-0.92 = 742-7) EOS x10^3 (test code = 0.05 10*3/uL 0.03-0.39 711-2) BASO x10^3 (test code 0.03 10*3/uL 0.01-0.07 = 704-7) Lab Interpretation Abnormal (test code = 50824-2) [facility] GLUCOSE (AUTOMATED)2022-01-05 20:33:46 Test Item Value Reference Range Interpretation Comments POCT GLU (test code = 6519471647) 250 mg/dL 70-110 H Lab Interpretation (test code = Abnormal 80280-0) [facility] [id number] 18:21:00 Test Item Value Reference Range Interpretation Comments POCT PREG (test code = 1605) negative On board controls acceptable with present C Line (test code = 3574) POCT PREG LOT # (test code = 3575) [id number] POCT PREG TEST DATE (test code = 3576) Lab Interpretation (test code = Normal 68767-3) [facility] [id number] 02:31:10 Test Item Value Reference Interpretation Comments Range TROPONIN I (test 0.048 ng/mL See_Comment H [Automated code = 2044354144) message] The system which generated this result transmitted reference range : <=0.034. The reference range was not used to interpret this result as normal/abnormal . MARLIN (test code = Reference (Normal) MARLIN) Range (defined by the 99th percentile reference limit): <= 0.034 ng/mL Note: Cardiac troponin begins to rise 3-4 hours after the onset of ischemia. Repeat in 4-6 hours if the sample was drawn within 3-4 hours of the onset of the symptom and found normal. Diagnosis of myocardial injury is made with acute changes in cTn concentrations with at least one serial sample above the 99th percentile upper reference limit (URL), taken together with the patient's clinical presentation. Biotin has been reported to cause a negative bias, interpret results relative to patient's use of biotin. Lab Interpretation Abnormal (test code = 07961-5) [facility] acute hospital WITH [id number] 02:21:47 Test Item Value Reference Range Interpretation Comments WBC (test code = See_Comment L [Automated 6690-2) message] The sy stem which generated this result transmitted reference range : 4.30 - 11.10 10*3/?L. The reference range was not used to interpret this result as normal/abnormal . RBC (test code = See_Comment [Automated 789-8) message] The sy stem which generated this result transmitted reference range : 3.93 - 5.25 10*6/?L. The reference range was not used to interpret this result as normal/abnormal . HGB (test code = 10.2 g/dL 11.6-15.0 L 718-7) HCT (test code = 34.3 % 35.7-45.2 L 4544-3) MCV (test code = 77.8 fL 80.6-95.5 L 787-2) MCH (test code = 23.1 pg 25.9-32.8 L 785-6) MCHC (test code = 29.7 g/dL 31.6-35.1 L 786-4) RDW-SD (test code = 45.1 fL 39.0-49.9 83368-1) RDW-CV (test code = 15.9 % 12.0-15.5 H 788-0) PLT (test code = See_Comment L [Automated 777-3) message] The sy stem which generated this result transmitted reference range : 166 - 358 10*3/ ?L. The reference r charity was not used to interpret this result as normal/abnormal . MPV (test code = 13.3 fL 9.5-12.9 H 51988-9) NRBC/100 WBC (test See_Comment [Automat ed code = 1031770998) message] The system which generated this result transmitted reference range : 0.0 - 10.0 /100 WBCs. The refer ence range was not u sed to interpret th is result as normal/abnormal . NRBC x10^3 (test code <0.01 See_Comment [Auto mated = 8502234124) message] The s ystem which generated this result transmitted reference range : 10*3/?L. The reference range was not used to interpret this result as normal/abnormal . GRAN MAT (NEUT) % 40.9 % (test code = 770-8) IMM GRAN % (test code 0.30 % = 6897617293) LYMPH % (test code = 47.0 % 736-9) MONO % (test code = 10.5 % 5905-5) EOS % (test code = 1.0 % 713-8) BASO % (test code = 0.3 % 706-2) GRAN MAT x10^3(ANC) 1.29 10*3/uL 1.88-7.09 L (test code = 0120331949) IMM GRAN x10^3 (test <0.03 0.00-0.06 code = 1238372897) LYMPH x10^3 (test code 1.48 10*3/uL 1.32-3.29 = 731-0) MONO x10^3 (test code 0.33 10*3/uL 0.33-0.92 = 742-7) EOS x10^3 (test code = 0.03 10*3/uL 0.03-0.39 711-2) BASO x10^3 (test code <0.03 0.01-0.07 = 704-7) Lab Interpretation Abnormal (test code = 93170-3) [facility]21[facility] 02:20:06 Test Item Value Reference Range Interpretation Comments MAGNESIUM (test code = 4028469227) 1.5 mg/dL 1.7-2.4 L Lab Interpretation (test code = Abnormal 64228-7) [facility] METABOLIC PANEL (16866)2021-09-03 02:19:46 Test Item Value Reference Range Interpretation Comments NA (test code = 136 mmol/L 135-145 6768668844) K (test code = 3.6 mmol/L 3.5-5.0 6293784646) CL (test code = 101 mmol/L 98-108 8881374833) CO2 TOTAL (test code = 25 mmol/L 23-31 8955266973) AGAP (test code = 2-16 5780231161) BUN (test code = 7 mg/dL 7-23 1025895629) GLUCOSE (test code = 241 mg/dL 70-110 H 9495095403) CREATININE (test code = 0.51 mg/dL 0.50-1.04 5522980733) TOTAL BILI (test code = 0.2 mg/dL 0.1-1.6 2762165342) CALCIUM (test code = 9.1 mg/dL 8.6-10.6 9747531826) T PROTEIN (test code = 7.3 g/dL 6.3-8.2 1346669977) ALBUMIN (test code = 4.1 g/dL 3.5-5.0 2358429472) ALK PHOS (test code = 82 U/L 34-122 1670155366) ALTv (test code = 13 U/L 5-35 2-6) AST(SGOT) (test code = 20 U/L 13-40 0651447303) eGFR (test code = mL/min/1.73m2 3001190358) MARLIN (test code = MARLIN) Association of Glomerular Filtration Rate (GFR) and Staging of Kidney Disease* + --+ --+ ------+| GFR (mL/min/1.73 m2) ?| With Kidney Damage ?| ?Without Kidney Damage+ --------+ --------+ +| ?>90 ?| ?Stage one ?| ? Normal ?+ ---+ ---+ -------+| ?60-89 ?| ?Stage two ?| ? Decreased GFR ? + --+ --+ ------+| ?30-59 ?| ?Stage three ?| ? Stage three ? + --+ --+ ------+| ?15-29 ?| ?Stage four ? | ? Stage four ?+ ---+ ---+ -------+| ?<15 (or dialysis) ? ?| ?Stage five ? | ? Stage five ?+ ---+ ---+ -------+ *Each stage assumes the associated GFR level has been in effect for at least three months. ?Stages 1 to 5, with or without kidney disease, indicate chronic kidney disease. Notes: Determination of stages one and two (with eGFR >59mL/min/1.73 m2) requires estimation of kidney damage for at least three months as defined by structural or functional abnormalities of the kidney, manifested by either:Pathological abnormalities or Markers of kidney damage (including abnormalities in the composition of the blood or urine or abnormalities in imaging tests). Lab Interpretation Abnormal (test code = 66612-7) [facility] 02:19:46 Test Item Value Reference Range Interpretation Comments LIPASE (test code = 6723269900) 80 U/L 0-220 Lab Interpretation (test code = Normal 59313-6) [facility] [id number] 02:11:00 Test Item Value Reference Range Interpretation Comments POCT PREG (test code = 1605) negative On board controls acceptable with yes C Line (test code = 3574) POCT PREG LOT # (test code = 3575) [id number] POCT PREG TEST DATE (test 10/29/2022 code = 3576) Lab Interpretation (test code = Normal 19841-3) [facility] CHE[facility] PULMON[facility] [id number] 23:58:06Impression: 1. No acute abnormalities evident. Specifically, negative for pulmonaryembolus.2. Small pulmonary nodules are stable from a October study. Per [facility] guidelines, no follow-up isrequired if this patient is at low riskfor malignancy. If the patient is at high risk for malignancy, considerfollow-up CT in 12 months.3. Cholecystectomy. RL: 460 End of Report Ordering Physician: EMLYSSA PETERS Clinical history: Pulmonary embolus suspected, with high pretestprobability. Technique: CT angiography of the chest was performed with intravenouscontrast. Axial source images, MPRS, and MIPS were reviewed. Thisexamination was performed according to ALARA principles. Technical quality: Adequate Comparison: November 26, 2020 Findings: No filling defects are seen within the pulmonary arterial tree to suggestpulmonary embolus. There is no thoracic aortic aneurysm or dissection.Heart size is normal. No pericardial effusion is evident. Subsegmental atelectasis is seen within the dependent portions of bothlungs. A small noncalcified nodule within the right upper lobe on [id number], image 29 is unchanged. An additional small nodulewithin the left upperlobe on image 46 is unchanged as well. No pleural effusions are present. Nointrathoracic lymphadenopathy is noted. The patient is status post cholecystectomy. There are calcified granulomasof the spleen. No acute abnormalities are seen within the included upperabdomen. There are degenerative changes of the spine. No acute bonyabnormalities are evident. [facility], Radiant Results Inft User - 03/29/2021 6:59 PM CDT Ordering Physician: MELYSSA Garrettinical history: Pulmonary embolus suspected, with high pretestprobability.Technique: CT angiography of the chest was performed with intravenouscontrast. Axial source images, MPRS, and MIPS were reviewed. Thisexamination was performed according to ALARA principles.Technical quality: AdequateComparison: November 26, 2020Findings:No filling defects are seen within the pulmonary arterial tree to suggestpulmonary embolus. There is no thoracic aortic aneurysm or dissection.Heart size is normal. No pericardial effusion is evident.Subsegmental atelectasis is seen within the dependent portions of bothlungs. A small noncalcified nodule within the right upper lobe on [id number], image 29 is unchanged. An additional small nodule within the left upperlobe on image 46 is unchanged as well. No pleural effusions are present. Nointrathoracic lymphadenopathy is noted.The patient is status post cholecystectomy. There are calcified granulomasof the spleen. No acute abnormalities are seen within the included upperabdomen. There are degenerative changes of the spine. No acute bonyabnormalities are evident.IMPRESSIONImpression:1. No acute abnormalities evident. Specifically, negative for pulmonaryembolus.2. Small pulmonary nodules are stable from a October study. [facility] guidelines, no follow-up is required if this patient is at low riskfor malignancy. If the patient is at high risk for malignancy, considerfollow-up CT in 12 months.3. Cholecystectomy.RL: 460End of Report UnCH[facility]D-[id number] 22:29:07 Test Item Value Reference Interpretation Comments Range D-DIMER (test code = See_Comment H [Autom ated 0459460342) message] The system which generated this result transmitted reference range : <0.41 ?g/mL (FEU). The reference range was not used to interpret this result as normal/abnormal . MARLIN (test code = This test may be MARLIN) used in conjunction with a clinical pretest probability (PTP) assessment model to exclude venous thromboembolism (VTE) in patients suspected of deep venous thrombosis (DVT) and pulmonary embolism (PE) A D-Dimer value less than 0.50 ?g/ml (FEU) has a negative predicative value of 96 to 100% (95% CI)and 97 to 100% (95% CI) as an aid in the diagnosis of deep vein thrombosis (DVT) and pulmonary embolism when there is low or moderate pretest probability of PE or DVT. D-Dimer values are expressed in initial fibrinogen equivalent units (FEU)" The assay results should be used with other information, including the clinical context, in forming a diagnosis. Lab Interpretation Abnormal (test code = 69470-4) [facility] acute hospital with Ldfvbehqmcbk1797-36-46 22:16:28 Test Item Value Reference Range Interpretation Comments WBC (test code = See_Comment [Automated 1622-2) message] The sy stem which generated this result transmitted reference range : 4.30 - 11.10 10*3/?L. The reference range was not used to interpret this result as normal/abnormal . RBC (test code = See_Comment [Automated 329-8) message] The sy stem which generated this result transmitted reference range : 3.93 - 5.25 10*6/?L. The reference range was not used to interpret this result as normal/abnormal . HGB (test code = 11.9 g/dL 11.6-15.0 718-7) HCT (test code = 38.2 % 35.7-45.2 4544-3) MCV (test code = 80.9 fL 80.6-95.5 787-2) MCH (test code = 25.2 pg 25.9-32.8 L 785-6) MCHC (test code = 31.2 g/dL 31.6-35.1 L 786-4) RDW-SD (test code = 46.3 fL 39.0-49.9 37758-4) RDW-CV (test code = 15.9 % 12.0-15.5 H 788-0) PLT (test code = See_Comment L [Automated 777-3) message] The sy stem which generated this result transmitted reference range : 166 - 358 10*3/ ?L. The reference r charity was not used to interpret this result as normal/abnormal . MPV (test code = 13.5 fL 9.5-12.9 H 10096-4) IPF % (test code = 10.4 % 1.3-7.7 H Platelet count 4300767407) measured by fluorescence method. NRBC/100 WBC (test See_Comment [Automat ed code = 6489473917) message] The system which generated this result transmitted reference range : 0.0 - 10.0 /100 WBCs. The refer ence range was not u sed to interpret th is result as normal/abnormal . NRBC x10^3 (test code <0.01 See_Comment [Auto mated = 1119831945) message] The s ystem which generated this result transmitted reference range : 10*3/?L. The reference range was not used to interpret this result as normal/abnormal . GRAN MAT (NEUT) % 64.7 % (test code = 770-8) IMM GRAN % (test code 0.20 % = 9525712644) LYMPH % (test code = 27.1 % 736-9) MONO % (test code = 6.3 % 5905-5) EOS % (test code = 1.1 % 713-8) BASO % (test code = 0.6 % 706-2) GRAN MAT x10^3(ANC) 5.20 10*3/uL 1.88-7.09 (test code = 0563437018) IMM GRAN x10^3 (test <0.03 0.00-0.06 code = 6170865544) LYMPH x10^3 (test code 2.18 10*3/uL 1.32-3.29 = 731-0) MONO x10^3 (test code 0.51 10*3/uL 0.33-0.92 = 742-7) EOS x10^3 (test code = 0.09 10*3/uL 0.03-0.39 711-2) BASO x10^3 (test code 0.05 10*3/uL 0.01-0.07 = 704-7) Lab Interpretation Abnormal (test code = 90508-6) [id number] 21:48:40 Test Item Value Reference Interpretation Comments Range TROPONIN I (test 0.026 ng/mL See_Comment [Automated code = 5112274733) message] The system which generated this result transmitted reference range : <=0.034. The reference range was not used to interpret this result as normal/abnormal . MARLIN (test code = Reference (Normal) MARLIN) Range (defined by the 99th percentile reference limit): <= 0.034 ng/mL Note: Cardiac troponin begins to rise 3-4 hours after the onset of ischemia. Repeat in 4-6 hours if the sample was drawn within 3-4 hours of the onset of the symptom and found normal. Diagnosis of myocardial injury is made with acute changes in cTn concentrations with at least one serial sample above the 99th percentile upper reference limit (URL), taken together with the patient's clinical presentation. Biotin has been reported to cause a negative bias, interpret results relative to patient's use of biotin. Lab Interpretation Normal (test code = 09954-7) [facility] 2 [id number] 21:39:28 No acute cardiopulmonary process. Preliminary Report Dictated by Resident: Sammy Ortiz MD., have reviewed this study and agree with the abovereport.EXAM: XR CHEST 2 VW COMPARISON: Chest radiograph dated 03/27/2020. HISTORY: chest pain ? TECHNIQUE: PA and lateral views of the chest were obtained. FINDINGS: No focal consolidation is identified. No pleural effusion or pneumothoraxis seen. The cardiomediastinal silhouette is unremarkable.No acute osseous abnormality. [facility], Radiant Results Inft User - 03/29/2021 4:40 PM CDT EXAM: XR CHEST 2 VWCOMPARISON: Chest radiograph dated 03/27/2020.HISTORY: chest pain TECHNIQUE: PA and lateral views of the chest were obtained.FINDINGS:No focal consolidation is identified. No pleural effusion or pneumothoraxis seen. The cardiomediastinal silhouette is unremarkable.No acute osseous abnormality.IMPRESSIONNo acute cardiopulmonary process.Preliminary Report Dictated by Resident: Sammy Aguilar MD., have reviewed this study and agree with the abovereport.[facility] Met[facility] Panel (NA, K, CL, CO2, GLUCOSE, BUN, CREATININE, CA)2021-03-29 21:37:37 Test Item Value Reference Range Interpretation Comments NA (test code = 136 mmol/L 135-145 1384576503) K (test code = 3.7 mmol/L 3.5-5.0 8305929959) CL (test code = 103 mmol/L 98-108 1875390820) CO2 TOTAL (test code = 20 mmol/L 23-31 L 8481772321) AGAP (test code = 2-16 8331143371) BUN (test code = 12 mg/dL 7-23 2605574810) GLUCOSE (test code = 283 mg/dL 70-110 H 5691106720) CREATININE (test code = 0.59 mg/dL 0.50-1.04 3694422179) CALCIUM (test code = 9.7 mg/dL 8.6-10.6 2892719708) eGFR (test code = mL/min/1.73m2 2012650023) MARLIN (test code = MARLIN) Association of Glomerular Filtration Rate (GFR) and Staging of Kidney Disease* + --+ --+ ------+| GFR (mL/min/1.73 m2) ?| With Kidney Damage ?| ?Without Kidney Damage+ --------+ --------+ +| ?>90 ?| ?Stage one ?| ? Normal ?+ ---+ ---+ -------+| ?60-89 ?| ?Stage two ?| ? Decreased GFR ? + --+ --+ ------+| ?30-59 ?| ?Stage three ?| ? Stage three ? + --+ --+ ------+| ?15-29 ?| ?Stage four ? | ? Stage four ?+ ---+ ---+ -------+| ?<15 (or dialysis) ? ?| ?Stage five ? | ? Stage five ?+ ---+ ---+ -------+ *Each stage assumes the associated GFR level has been in effect for at least three months. ?Stages 1 to 5, with or without kidney disease, indicate chronic kidney disease. Notes: Determination of stages one and two (with eGFR >59mL/min/1.73 m2) requires estimation of kidney damage for at least three months as defined by structural or functional abnormalities of the kidney, manifested by either:Pathological abnormalities or Markers of kidney damage (including abnormalities in the composition of the blood or urine or abnormalities in imaging tests). Lab Interpretation Abnormal (test code = 29805-7) [facility]line[facility] Function Panel (ALB, T.PRO, BILI T, BU/BC, ALT, AST, ALK PHOS)2021-03-29 21:37:37 Test Item Value Reference Range Interpretation Comments TOTAL BILI (test code = 4643102170) 0.5 mg/dL 0.1-1.1 BILI UNCON (test code = 3510672399) 0.3 mg/dL 0.1-1.1 BILI CONJ (test code = 4514600888) 0.0 mg/dL 0.0-0.3 T PROTEIN (test code = 0229891534) 8.8 g/dL 6.3-8.2 H ALBUMIN (test code = 5526408762) 4.9 g/dL 3.5-5.0 ALK PHOS (test code = 5681801864) 88 U/L 34-122 ALTv (test code = 1742-6) 16 U/L 5-35 AST(SGOT) (test code = 2231092026) 20 U/L 13-40 Lab Interpretation (test code = Abnormal 39604-1) [facility]lineLipase [id number] 21:37:17 Test Item Value Reference Range Interpretation Comments LIPASE (test code = 3890606984) 125 U/L 0-220 Lab Interpretation (test code = Normal 27187-0) [facility]linePOCT [id number] 20:19:00 Test Item Value Reference Range Interpretation Comments POCT PREG (test code = 1605) negative On board controls acceptable with present C Line (test code = 3574) POCT PREG LOT # (test code = 3575) [id number] POCT PREG TEST DATE (test 09/28/2022 code = 3576) Lab Interpretation (test code = Normal 52448-7) [facility]lineUS OVARY [id number] 15:39:00HISTORY: Rule out ovarian torsion. TECHNIQUE: Both transabdominal and transvaginal pelvic ultrasoundstudieswere completed by the technologist. FINDINGS: Comparison has been made with CT studies done today as well aswith ultrasound study of 06/06/2018. Uterus is enlarged, lying in the retroflexed position in the pelvis,measures approximately 11.9 x 4.2 x 6.0 cm in size with homogeneous echotexture of the myometrium. Endometrial cavity is distended with fluid.Endometrium is 4.4 mm in thickness and inside the distended uterine cavity,several echogenic densities are seen, ranging from 13 x 4 mm or smaller insize, concerning for endometrial polyps. Minimal free fluid noted in oatwrj-im-egb. Right ovary is 2.2 x 2.6 x 1.0 cm (3.07 ml) and left ovary is 3.4 x 2.8 x2.4 cm (12.23 ml). Multiple anechoic lesions are detected in the leftovary, largest is 18 mm in size, consistent with simple ovarian cyst. Nos onographic evidence of ovarian torsion detected. CONCLUSIONS: 1. Enlarged uterus without any focal myometrial lesions.2. No endometrial hyperplasia. However, endometrial cavity is fluiddistended which could be due to cervical ostial stricture. In addition,small endometrial polyps suspected within the endometrial lining.3. Multiple left ovarian simple cyst. No sonographic evidence of ovariantorsion. [facility], Radiant Results Inft User - 01/02/2021 10:40 AM CDTHISTORY: Rule out ovarian torsion.TECHNIQUE: Both transabdominal and transvaginal pelvic ultrasound studieswere completed by the technologist.FINDI NGS: Comparison has been made with CT studies done today as well aswith ultrasound study of 06/06/2018.Uterus is enlarged, lying in the retroflexed position in the pelvis,measures approximately 11.9 x 4.2 x 6.0 cm in size with homogeneous echotexture of the myometrium. Endometrial cavity is distended with fluid.Endometrium is 4.4 mm in thickness and inside the distended uterine cavity,several echogenicdensities are seen, ranging from 13 x 4 mm or smaller insize, concerning for endometrial polyps. Minimal free fluid noted in leoiad-ud-tqu. Right ovary is 2.2 x 2.6 x 1.0 cm (3.07 ml) and left ovary is3.4 x 2.8 x2.4 cm (12.23 ml). Multiple anechoic lesions are detected in the leftovary, largest is 18mm in size, consistent with simple ovarian cyst. Nosonographic evidence of ovarian torsion detected.CONCLUSIONS: 1. Enlarged uterus without any focal myometrial lesions.2. No endometrial hyperplasia. Ho wever, endometrial cavity is fluiddistended which could be due to cervical ostial stricture. In addition,small endometrial polyps suspected within the endometrial lining.3. Multiple left ovarian simplecyst. No sonographic evidence of ovariantorsion.[facility]lineCT ABDOMEN PELVIS WO [id number] 14:10:58CT Abdomen and Pelvis without contrast. CLINICAL HISTORY: ?FLANK PAIN. R/O RENAL STONES. TECHNIQUE: Multidetector helical CT acquisition was obtained from the lungbases to the greater trochanters without oral and IV contrast. ?The imageswere reviewed in lung, bone, and soft tissue windows. FINDINGS: ?Absence of intravenous contrast limits evaluation of the solidorgans. Evaluation of the bowel is alsolimited by lack of oral contrast.Comparison is made with 02/07/2019 CT studies. Lower lungs: Clear. No pleural effusion or pericardial effusion. Nodefinite signs of hiatal hernia. Liver, Gallbladder andSpleen: S/P cholecystectomy. Grossly unremarkableunenhanced images of the liver and spleen, except for calcified granulomasnoted in the spleen. Biliary ducts and the pancreatic duct appear of normalsize. Peritoneum: ?No free air or free fluid. No lymphadenopathy. Pancreas and Adrenals: ?Unremarkable pancreas and right adrenal gland. Mildhypertrophy of the left adrenal gland noted. Kidneys and Ureters: ?No visible calculi in the renal collecting systems. No hydroureter or hydronephrosis. Several calci fications are seen in theboth sides of the pelvis, mostly phleboliths, however, a small 2 mmnonobstructing stone is difficult to exclude on the left side. Vessels: Unremarkable. Retroperitoneum: No abnormal fluid or lymphadenopathy. Bowel: No acute findings. Normal appendix is visualized. Mild constipationnoted. Bladder ?and Reproductive Organs: Uterus is anteflexed with possible scartissue between the anterior uterus and abdominal wall. Bilaterallow-density lesions in the ovaries, more on the left side, largest of 21 mmsize causing mild enlargement of the left ovary. Grossly unremarkable underdistended urinary bladder. Bones: Mild lumbar levoscoliosis, prominent bulging disc with diffusebulging disc as well as possible small broad-based right posterior discherniation at L5-S1. Soft tissues: Unremarkable. CONCLUSION:1. No kidney stones or hydronephrosis. Several calcifications are seen inboth sides of the pelvis, likely phleboliths but it is difficult to excludea small 2 mm nonobstructing stonein the ureters, particularly on the leftside. Please correlate with clinical evaluation.2. Enlarged left ovary due to multiple cystic lesions.3. Constipation. [facility], Radiant Results Inft User - 01/02/2021 9:12 AM CDTCT Abdomen and Pelvis without contrast.CLINICAL HISTORY: FLANK PAIN. R/O RENAL STONES.TECHNIQUE: Multidetector helical CT acquisition was obtained from the lungbases to the greater trochanters without oral and IV contrast. The imageswere reviewed in lung, bone, and soft tissue windows.FINDINGS: Absence of intravenous contrast limits evaluation of the solidorgans. Evaluation of the bowel is also limited by lack of oral contrast.Comparison is made with 02/07/2019 CT studies. Lower lungs: Clear. No pleural effusion or pericardial effusion. Nodefinite signs of hiatal hernia.Liver, Gallbladder and Spleen: S/P cholecystectomy. Grossly unremarkableunenhanced images of the liver and spleen, except for calcified granulomasnoted in the spleen. Biliary ducts and the pancreatic duct appear of normalsize.Peritoneum: No free air or free fluid. No lymphadenopathy.Pancreas and Adrenals: Unremarkablepancreas and right adrenal gland. Mildhypertrophy of the left adrenal gland noted.Kidneys and Ureters: No visible calculi in the renal collecting systems. No hydroureter or hydronephrosis. Several calcifications are seen in theboth sides of the pelvis, mostly phleboliths, however, a small 2 mmnonobstructing stone is difficult to exclude on the left side.Vessels: Unremarkable.Retroperitoneum: No abnormal fluid or lymphadenopathy.Bowel: No acute findings. Normal appendix is visualized. Mild constipationnoted.Bladder and Reproductive Organs: Uterus is anteflexed with possible scartissue between the anterior uterus and abdominal wall. Bilaterallow-density lesions in the ovaries, more on the left side,largest of 21 mmsize causing mild enlargement of the left ovary. Grossly unremarkable underdistendedurinary bladder. Bones: Mild lumbar levoscoliosis, prominent bulging disc with diffusebulging disc as well as possible small broad-based right posterior discherniation at L5-S1.Soft tissues: Unremarkable.CONCLUSION:1. No kidney stones or hydronephrosis. Several calcifications are seen inboth sides of the pelvis, likely phleboliths but it is difficult to excludea small 2 mm nonobstructing stone in theureters, particularly on the leftside. Please correlate with clinical evaluation.2. Enlarged left ovary due to multiple cystic lesions.3. Constipation.[facility] ShorelineUrinalysis2021-04-06 13:41:55 Test Item Value Reference Range Interpretation Comments APPEARANCE (test code = Hazy Clear A 7686765622) COLOR (test code = Yellow Yellow 8184421079) PH (test code = 4.8-8.0 9728296101) SP GRAVITY (test code = 1.003-1.030 4304260287) GLU U QUAL (test code = Normal Normal 9807057919) BLOOD (test code = Negative Negative 9176194787) KETONES (test code = Negative Negative 0537296288) PROTEIN (test code = Negative Negative 2887-8) UROBILIN (test code = Normal Normal 0708334597) BILIRUBIN (test code = Negative Negative 1915175008) NITRITE (test code = Negative Negative 5375943782) LEUK NESTOR (test code = Negative Negative 1371074764) RBC/HPF (test code = See_Comment H [Autom ated message] 8880885810) The system [employer] generated this result transmitted ref erence range: 0 - 3 HP F. The reference range was not used to int erpret this result as normal/abnormal . WBC/HPF (test code = See_Comment [Autom ated message] 2673659983) The system [employer] generated this result transmitted ref erence range: 0 - 5 HP F. The reference range was not used to int erpret this result as normal/abnormal . BACTERIA (test code = Few Negative A 6121410940) MUCOUS (test code = Slight Negative LPF A 1307341336) SQ EPITH (test code = HPF 0602399320) Lab Interpretation (test Abnormal code = 65722-8) [facility]lineComced[facility] Metabolic [id number] 13:40:24 Test Item Value Reference Range Interpretation Comments NA (test code = 139 mmol/L 135-145 2347790160) K (test code = 3.9 mmol/L 3.5-5.0 4902980391) CL (test code = 107 mmol/L 98-108 6629729134) CO2 TOTAL (test code = 24 mmol/L 23-31 2281787870) AGAP (test code = 2-16 7007157816) BUN (test code = 9 mg/dL 7-23 2621685611) GLUCOSE (test code = 120 mg/dL 70-110 H 3483945926) CREATININE (test code = 0.50 mg/dL 0.50-1.04 4977228873) TOTAL BILI (test code = 0.4 mg/dL 0.1-1.7 7643216454) CALCIUM (test code = 9.2 mg/dL 8.6-10.6 2075547587) T PROTEIN (test code = 7.4 g/dL 6.3-8.2 7629644032) ALBUMIN (test code = 4.4 g/dL 3.5-5.0 8250095264) ALK PHOS (test code = 61 U/L 34-122 4134053144) ALTv (test code = 10 U/L 5-35 1742-6) AST(SGOT) (test code = 19 U/L 13-40 7100913002) eGFR (test code = mL/min/1.73m2 8420319851) MARLIN (test code = MARLIN) Association of Glomerular Filtration Rate (GFR) and Staging of Kidney Disease* + --+ --+ ------+| GFR (mL/min/1.73 m2) ?| With Kidney Damage ?| ?Without Kidney Damage+ --------+ --------+ +| ?>90 ?| ?Stage one ?| ? Normal ?+ ---+ ---+ -------+| ?60-89 ?| ?Stage two ?| ? Decreased GFR ? + --+ --+ ------+| ?30-59 ?| ?Stage three ?| ? Stage three ? + --+ --+ ------+| ?15-29 ?| ?Stage four ? | ? Stage four ?+ ---+ ---+ -------+| ?<15 (or dialysis) ? ?| ?Stage five ? | ? Stage five ?+ ---+ ---+ -------+ *Each stage assumes the associated GFR level has been in effect for at least three months. ?Stages 1 to 5, with or without kidney disease, indicate chronic kidney disease. Notes: Determination of stages one and two (with eGFR >59mL/min/1.73 m2) requires estimation of kidney damage for at least three months as defined by structural or functional abnormalities of the kidney, manifested by either:Pathological abnormalities or Markers of kidney damage (including abnormalities in the composition of the blood or urine or abnormalities in imaging tests). Lab Interpretation Abnormal (test code = 03399-4) [facility]lineLipase, [id number] 13:40:04 Test Item Value Reference Range Interpretation Comments LIPASE (test code = 5644597972) 171 U/L 0-220 Lab Interpretation (test code = Normal 99404-5) [facility] ShorelineCB with [id number] 13:31:02 Test Item Value Reference Range Interpretation Comments WBC (test code = See_Comment [Automated 7690-2) message] The sy stem which generated this result transmitted reference range : 4.30 - 11.10 10*3/?L. The reference range was not used to interpret this result as normal/abnormal . RBC (test code = See_Comment [Automated 589-8) message] The sy stem which generated this result transmitted reference range : 3.93 - 5.25 10*6/?L. The reference range was not used to interpret this result as normal/abnormal . HGB (test code = 10.2 g/dL 11.6-15.0 L 718-7) HCT (test code = 33.4 % 35.7-45.2 L 4544-3) MCV (test code = 79.7 fL 80.6-95.5 L 787-2) MCH (test code = 24.3 pg 25.9-32.8 L 785-6) MCHC (test code = 30.5 g/dL 31.6-35.1 L 786-4) RDW-SD (test code = 52.9 fL 39.0-49.9 H 19073-3) RDW-CV (test code = 18.2 % 12.0-15.5 H 788-0) PLT (test code = See_Comment [Automated 777-3) message] The sy stem which generated this result transmitted reference range : 166 - 358 10*3/ ?L. The reference r charity was not used to interpret this result as normal/abnormal . MPV (test code = 12.3 fL 9.5-12.9 75446-7) NRBC/100 WBC (test See_Comment [Automat ed code = 1450704272) message] The system which generated this result transmitted reference range : 0.0 - 10.0 /100 WBCs. The refer ence range was not u sed to interpret th is result as normal/abnormal . NRBC x10^3 (test code <0.01 See_Comment [Auto mated = 1440676948) message] The s ystem which generated this result transmitted reference range : 10*3/?L. The reference range was not used to interpret this result as normal/abnormal . GRAN MAT (NEUT) % 53.9 % (test code = 770-8) IMM GRAN % (test code 0.30 % = 9655346206) LYMPH % (test code = 36.7 % 736-9) MONO % (test code = 6.6 % 5905-5) EOS % (test code = 1.6 % 713-8) BASO % (test code = 0.9 % 706-2) GRAN MAT x10^3(ANC) 3.12 10*3/uL 1.88-7.09 (test code = 3591003631) IMM GRAN x10^3 (test <0.03 0.00-0.06 code = 4012272206) LYMPH x10^3 (test code 2.12 10*3/uL 1.32-3.29 = 731-0) MONO x10^3 (test code 0.38 10*3/uL 0.33-0.92 = 742-7) EOS x10^3 (test code = 0.09 10*3/uL 0.03-0.39 711-2) BASO x10^3 (test code 0.05 10*3/uL 0.01-0.07 = 704-7) Lab Interpretation Abnormal (test code = 44692-2) [facility] [id number] 13:17:00 Test Item Value Reference Range Interpretation Comments POCT PREG (test code = 1605) negative On board controls acceptable with C present Line (test code = 3574) Lab Interpretation (test code = Normal 02236-3) [facility] TEMPORAL BONES W [id number] 01:50:01 Soft tissue thickening is noted along the cartilaginous and externalauditory canal with associated thickening and retraction of the tympanicmembrane suggestive of otitis externa. Erosion of the anterior inferiorwall of the external auditory canal communicating with the righttemporomandibular joint noted. Mild soft tissue thickening at the left cartilaginous external auditorycanal. The middle ear cavities and mastoid air cells are unremarkable. Preliminary Report Dictated by Resident: Elaina Hardwick I, Mike Ames MD., have reviewed this study and agree with the abovereport.CT TEMPORAL BONES W CONTRAST HISTORY: 45-year-old female with right ear pain, rule out mastoiditis. COMPARISON: ?None TECHNIQUE: ?Thin slice axial CT of the temporal bones was obtained withmultiplanar reformats of the administration of 80 mL Omnipaque IV contrastmaterial. FINDINGS: RIGHT TEMPORAL BONE: Circumferential soft tissue thickening is noted along the cartilaginous andosseous external auditory canal and retraction of the tympanic membraneresulting in moderate canal stenosis. Erosion of the anterior and inferiorwallof the external auditory canal communicating with thetemporomandibular joints noted. The ossicular chain is unremarkable. The scutum is intact. The tympaniccavity is clear including the epitympanum, Prussak space, sinus tympani,round window niche and facial nerve recess. The cochlea demonstrates a normal 2.5 turns. The vestibule and semicircularcanals are unremarkable. No evidence of superior semicircular canaldehiscence. The vestibular aqueduct is not dilated. The fissula antefenestrum is unremarkable. No abnormalities along the course of the facialnerve canal. The IAC is unremarkable. The mastoidair cells are clear. The jugular fossa and carotid canal are unremarkable. LEFT TEMPORAL BONE: Soft tissue thickening of the cartilaginous external auditory canal. Theosseous external auditory canal is clear. The tympanic membrane is faintlyvisualized. The ossicular chain is unremarkable. ?The scutum is intact. The tympaniccavity is clear including the epitympanum, Prussak space, sinus tympani,round window niche and facial nerve recess. The cochlea demonstrates a normal 2.5 turns. The vestibule and s emicircularcanals are unremarkable. No evidence of superior semicircular canaldehiscence. The vestibular aqueduct is not dilated. The fissula antefenestrum is unremarkable. No abnormalities along the course of the facial nerve canal. The IAC is unremarkable.Under pneumatization of right mastoid air cells noted. The mastoid aircells are clear.The jugular fossa and carotid canal are unremarkable. Atlantoaxial fusion is noted. Retention cysts are noted in the leftmaxillary sinus. [facility], Radiant Results Inft User - 12/16/2020 8:51 PM CDTCT TEMPORAL BONES W CONTRASTHISTORY: 45-year-old female with right ear pain, rule out mastoiditis.COMPARISON: NoneTECHNIQUE: Thin slice axial CT of the temporal bones was obtained withmultiplanar reformats of the administration of 80 mL Omnipaque IV contrastmaterial.FINDINGS:RIGHT TEMPORAL BONE:Circumferential soft tissue thickening is noted along the cartilaginous andosseous external auditory canal and retraction of the tympanic membraneresulting in moderate canal st enosis. Erosion of the anterior and inferiorwall of the external auditory canal communicating with thetemporomandibular joints noted.The ossicular chain is unremarkable. The scutum is intact. The tympaniccavity is clear including the epitympanum, Prussak space, sinus tympani,round window niche and facial nerve recess.The cochlea demonstrates a normal 2.5 turns. The vestibule and semicircularcanals are unremarkable. No evidence of superior semicircular canaldehiscence. The vestibular aqueduct is not dilated. The fissula antefenestrum is unremarkable. No abnormalities along the course of the facialnerve canal.The IAC is unremarkable. The mastoid air cells are clear. The jugular fossa and carotid canal are unremarkable.LEFT TEMPORAL BONE:Soft tissue thickening of the cartilaginous external auditory canal. Theosseous external auditory canal is clear. The tympanic membrane is faintlyvisualized.The oss icular chain is unremarkable. The scutum is intact. The tympaniccavity is clear including the epitympanum, Prussak space, sinus tympani,round window niche and facial nerve recess.The cochlea demonstrates a normal 2.5 turns. The vestibule and semicircularcanals are unremarkable. No evidence of superiorsemicircular canaldehiscence. The vestibular aqueduct is not dilated. The fissula antefenestrum is unremarkable. No abnormalities along the course of the facial nerve canal.The IAC is unremarkable.Under pneumatization of right mastoid air cells noted. The mastoid aircells are clear.The jugular fossa and carotid canal are unremarkable. Atlantoaxial fusion is noted. Retention cysts are noted in the leftmaxillary sinus.IMPRESSIONSoft tissue thickening is noted along the cartilaginous and externalauditory canal with associated thickening and retraction of the tympanicmembrane suggestive of otitis externa. Erosion of the anterior inferiorwall of the external auditory canal communicating with the righttemporomandibular joint noted.Mild soft tissue thickening at the left cartilaginous external auditorycanal.The middle ear cavities and mastoid air cells are unremarkable. Preliminary Report Dictated by Resident: Mike Leonard MD., have reviewed this study and agree with the abovereport. [facility]lineSEDIMENTATION [id number] 01:14:15 Test Item Value Reference Range Interpretation Comments ESR (test code = See_Comment H [Automated message] [id number]) The system [employer] generated this result transmitted ref erence range: 0 - 20 m m/HR. The reference r charity was not used to interpret this result as normal/abnor mal. Lab Interpretation (test Abnormal code = 59583-8) [facility] (NA, K, CL, CO2, GLUCOSE, BUN, CREATININE, CA)2020-12-17 00:32:58 Test Item Value Reference Range Interpretation Comments NA (test code = 136 mmol/L 135-145 4061781039) K (test code = 4.3 mmol/L 3.5-5.0 9980878314) CL (test code = 103 mmol/L 98-108 6294056261) CO2 TOTAL (test code = 23 mmol/L 23-31 2758241145) AGAP (test code = 2-16 7249608392) BUN (test code = 12 mg/dL 7-23 6331850569) GLUCOSE (test code = 210 mg/dL 70-110 H 3254871877) CREATININE (test code = 0.56 mg/dL 0.50-1.04 9456413468) CALCIUM (test code = 8.8 mg/dL 8.6-10.6 4857222990) eGFR Calculation mL/min/1.73m2 (Non-) (test code = 6141307276) eGFR Calculation mL/min/1.73m2 () (test code = 7884330055) MARLIN (test code = MARLIN) Association of Glomerular Filtration Rate (GFR) and Staging of Kidney Disease* + --+ --+ ------+| GFR (mL/min/1.73 m2) ?| With Kidney Damage ?| ?Without Kidney Damage+ --------+ --------+ +| ?>90 ?| ?Stage one ?| ? Normal ?+ ---+ ---+ -------+| ?60-89 ?| ?Stage two ?| ? Decreased GFR ? + --+ --+ ------+| ?30-59 ?| ?Stage three ?| ? Stage three ? + --+ --+ ------+| ?15-29 ?| ?Stage four ? | ? Stage four ?+ ---+ ---+ -------+| ?<15 (or dialysis) ? ?| ?Stage five ? | ? Stage five ?+ ---+ ---+ -------+ *Each stage assumes the associated GFR level has been in effect for at least three months. ?Stages 1 to 5, with or without kidney disease, indicate chronic kidney disease. Notes: Determination of stages one and two (with eGFR >59mL/min/1.73 m2) requires estimation of kidney damage for at least three months as defined by structural or functional abnormalities of the kidney, manifested by either:Pathological abnormalities or Markers of kidney damage (including abnormalities in the composition of the blood or urine or abnormalities in imaging tests). Lab Interpretation Abnormal (test code = 77898-8) [facility] Function Panel (ALB, T.PRO, BILI T, BU/BC, ALT, AST, ALK PHOS)2020-12-17 00:32:38 Test Item Value Reference Range Interpretation Comments TOTAL BILI (test code = 5980046069) 0.6 mg/dL 0.1-1.1 BILI UNCON (test code = 4074560950) 0.5 mg/dL 0.1-1.1 BILI CONJ (test code = 8278944249) 0.0 mg/dL 0.0-0.3 T PROTEIN (test code = 9961263340) 7.8 g/dL 6.3-8.2 ALBUMIN (test code = 3920301503) 4.6 g/dL 3.5-5.0 ALK PHOS (test code = 2105894783) 75 U/L 34-122 ALTv (test code = 1742-6) 11 U/L 5-35 AST(SGOT) (test code = 0981015260) 20 U/L 13-40 Lab Interpretation (test code = Normal 83128-2) [facility] with [id number] 00:31:43 Test Item Value Reference Range Interpretation Comments WBC (test code = See_Comment [Automated 5390-2) message] The sy stem which generated this result transmitted reference range : 4.30 - 11.10 10*3/?L. The reference range was not used to interpret this result as normal/abnormal . RBC (test code = See_Comment [Automated 879-8) message] The sy stem which generated this result transmitted reference range : 3.93 - 5.25 10*6/?L. The reference range was not used to interpret this result as normal/abnormal . HGB (test code = 11.3 g/dL 11.6-15.0 L 718-7) HCT (test code = 37.1 % 35.7-45.2 4544-3) MCV (test code = 80.8 fL 80.6-95.5 787-2) MCH (test code = 24.6 pg 25.9-32.8 L 785-6) MCHC (test code = 30.5 g/dL 31.6-35.1 L 786-4) RDW-SD (test code = 57.0 fL 39.0-49.9 H 96280-1) RDW-CV (test code = 19.5 % 12.0-15.5 H 788-0) PLT (test code = See_Comment L [Automated 777-3) message] The sy stem which generated this result transmitted reference range : 166 - 358 10*3/ ?L. The reference r charity was not used to interpret this result as normal/abnormal . MPV (test code = 13.0 fL 9.5-12.9 H 71055-6) NRBC/100 WBC (test See_Comment [Automat ed code = 9472382862) message] The system which generated this result transmitted reference range : 0.0 - 10.0 /100 WBCs. The refer ence range was not u sed to interpret th is result as normal/abnormal . NRBC x10^3 (test code <0.01 See_Comment [Auto mated = 0981450149) message] The s ystem which generated this result transmitted reference range : 10*3/?L. The reference range was not used to interpret this result as normal/abnormal . GRAN MAT (NEUT) % 87.6 % (test code = 770-8) IMM GRAN % (test code 0.20 % = 6632104890) LYMPH % (test code = 6.7 % 736-9) MONO % (test code = 4.9 % 5905-5) EOS % (test code = 0.4 % 713-8) BASO % (test code = 0.2 % 706-2) GRAN MAT x10^3(ANC) 7.11 10*3/uL 1.88-7.09 H (test code = 7980869944) IMM GRAN x10^3 (test <0.03 0.00-0.06 code = 6699597273) LYMPH x10^3 (test code 0.54 10*3/uL 1.32-3.29 L = 731-0) MONO x10^3 (test code 0.40 10*3/uL 0.33-0.92 = 742-7) EOS x10^3 (test code = 0.03 10*3/uL 0.03-0.39 711-2) BASO x10^3 (test code <0.03 0.01-0.07 = 704-7) Lab Interpretation Abnormal (test code = 68981-9) [facility] MYOCARDIUM PERFUSION STRESS AND REST 2020-11-28 23:21:47Impression: Normal myocardial perfusion scan with preserved ejection fraction andnormal wall thickening. TID ratio 1.05.I was present for the stress procedure.Exercise stress myocardial perfusion imaging report Type: Technetium 99 labeled Myoview rest/stress single isotope SPECTimaging with exercise stress and gated SPECT imaging. Indication: chest pain Clinical history: diabetes, troponin elevation Procedure: Exercise stress test was performed with Hiren protocol. Gated myocardialperfusion imaging was performed at rest following the injection of 15.7millicuries of technetium labeled Myoview and post stress following theinjection of 42.3 millicuries of technetium labeled tetrofosmin. Findings: Theoverall quality of the study was good. Stress EKG revealed no inducible ischemia, reported separately. SPECT images demonstrate homogeneous tracer distribution throughout themyocardium. Gated SPECT images demonstrate normal wall motion and myocardialthickening. Stress Values: ?EDV = 53 mL; ESV = 16 mL; EF = 69%.Rest Values: ?EDV = 53 mL; ESV = 17 mL; EF = 68%. [facility], Radiant Results Inft User - 11/28/2020 5:22 PM CSTExercise stress myocardial perfusion imaging reportType: Technetium 99 labeled Myoview rest/stress single isotope SPECTimaging with exercise stress and gated SPECT imaging.Indication: chest painClinical history: diabetes, troponin elevationProcedure:Exercise stress test was performed with Hiren protocol. Gated myocardialperfusion imaging was performed at rest following the injection of 15.7millicuries of technetium labeled Myoview and post stress following theinjection of 42.3 millicuries of technetium labeled tetrofosmin.Findings:The overall quality of the study was good.Stress EKG revealed no inducible ischemia, reported separately. SPECT images demonstrate homogeneous tracer distribution throughout themyocardium.Gated SPECT images demonstrate normal wall motion and myocardialthickening.Stress Values: EDV = 53 mL; ESV = 16 mL; EF = 69%.Rest Values: EDV = 53 mL; ESV = 17 mL; EF =68%.IMPRESSIONImpression: Normal myocardial perfusion scan with preserved ejection fraction andnormal wall thickening. TID ratio 1.05.I was present for the stress procedure.[facility] GLUCOSE (AUTOMATED)2020-11-28 23:04:00 Test Item Value Reference Range Interpretation Comments POCT GLU (test code = 4357305774) 292 mg/dL 70-110 H Lab Interpretation (test code = Abnormal 70239-2) [facility] GLUCOSE (AUTOMATED)2020-11-28 17:44:00 Test Item Value Reference Range Interpretation Comments POCT GLU (test code = 5993847155) 182 mg/dL 70-110 H Lab Interpretation (test code = Abnormal 82411-0) [facility] GLUCOSE (AUTOMATED)2020-11-28 13:40:00 Test Item Value Reference Range Interpretation Comments POCT GLU (test code = 5312170688) 131 mg/dL 70-110 H Lab Interpretation (test code = Abnormal 37806-6) [facility] GLUCOSE (AUTOMATED)2020-11-27 23:04:00 Test Item Value Reference Range Interpretation Comments POCT GLU (test code = 2294169370) 123 mg/dL 70-110 H Lab Interpretation (test code = Abnormal 98208-0) [facility] GLUCOSE (AUTOMATED)2020-11-27 17:42:00 Test Item Value Reference Range Interpretation Comments POCT GLU (test code = 0304032514) 97 mg/dL 70-110 Lab Interpretation (test code = Normal 89747-6) [facility] GLUCOSE (AUTOMATED)2020-11-27 13:51:00 Test Item Value Reference Range Interpretation Comments POCT GLU (test code = 0630209075) 233 mg/dL 70-110 H Lab Interpretation (test code = Abnormal 17795-8) [facility] GLUCOSE (AUTOMATED)2020-11-27 13:51:00 Test Item Value Reference Range Interpretation Comments POCT GLU (test code = 5767897186) 197 mg/dL 70-110 H Lab Interpretation (test code = Abnormal 71698-3) [facility]lineTROP[facility]IN [id number] 12:35:00 Test Item Value Reference Range Interpretation Comments TROPONIN I (test 0.042 ng/mL See_Comment H [Automated code = 7492467573) message] The system which generated this result transmitted reference range : <=0.034. The reference range was not used to interpret this result as normal/abnormal . MARLIN (test code = Equal or Less than MARLIN) 0.034 ng/ml---Normal ?Note: Cardiac troponin begins to rise 3-4 hours after the onset of ischemia. Repeat in 4-6 hours if the sample was drawn within 3-4 hours of the onset of the symptom and found normal. Between 0.035 and 0.120 ng/mL--- Borderline. Questionable myocardial injury or necrosis ? ?Note: Serial measurement may be necessary to confirm or exclude the diagnosis of myocardial injury or necrosis; Clinical correlation (symptoms, EKGs, imaging studies, and others) required; Repeat in 4-6 hours if clinically indicated. ? Equal or Higher than 0.121 ng/mL---Abnormal. Myocardial Injury or Necrosis Likely ? Biotin has been reported to cause a negative bias, interpret results relative to patient's use of biotin. ? Lab Interpretation Abnormal (test code = 99701-7) General acute hospital with [id number] 12:31:00 Test Item Value Reference Range Interpretation Comments WBC (test code = See_Comment [Automated 2490-2) message] The sy stem which generated this result transmitted reference range : 4.30 - 11.10 10*3/?L. The reference range was not used to interpret this result as normal/abnormal . RBC (test code = See_Comment [Automated 019-8) message] The sy stem which generated this result transmitted reference range : 3.93 - 5.25 10*6/?L. The reference range was not used to interpret this result as normal/abnormal . HGB (test code = 9.6 g/dL 11.6-15 L 718-7) HCT (test code = 32.1 % 35.7-45.2 L 4544-3) MCV (test code = 78.1 fL 80.6-95.5 L 787-2) MCH (test code = 23.4 pg 25.9-32.8 L 785-6) MCHC (test code = 29.9 g/dL 31.6-35.1 L 786-4) RDW-SD (test code = 50.5 fL 39-49.9 H 33874-0) RDW-CV (test code = 18.2 % 12-15.5 H 788-0) PLT (test code = See_Comment L [Automated 777-3) message] The sy stem which generated this result transmitted reference range : 166 - 358 10*3/ ?L. The reference r charity was not used to interpret this result as normal/abnormal . MPV (test code = Not Measure d 73408-5) NRBC/100 WBC (test See_Comment [Automat ed code = 9994354610) message] The system which generated this result transmitted reference range : 0.0 - 10.0 /100 WBCs. The refer ence range was not u sed to interpret th is result as normal/abnormal . NRBC x10^3 (test code <0.01 See_Comment [Auto mated = 0408394468) message] The s ystem which generated this result transmitted reference range : 10*3/?L. The reference range was not used to interpret this result as normal/abnormal . GRAN MAT (NEUT) % 40.9 % (test code = 770-8) IMM GRAN % (test code 0.20 % = 5478264421) LYMPH % (test code = 49.8 % 736-9) MONO % (test code = 6.1 % 5905-5) EOS % (test code = 2.4 % 713-8) BASO % (test code = 0.6 % 706-2) GRAN MAT x10^3(ANC) 2.09 10*3/uL 1.88-7.09 (test code = 4144190545) IMM GRAN x10^3 (test <0.03 0-0.06 code = 9023077400) LYMPH x10^3 (test code 2.54 10*3/uL 1.32-3.29 = 731-0) MONO x10^3 (test code 0.31 10*3/uL 0.33-0.92 L = 742-7) EOS x10^3 (test code = 0.12 10*3/uL 0.03-0.39 711-2) BASO x10^3 (test code 0.03 10*3/uL 0.01-0.07 = 704-7) Lab Interpretation Abnormal (test code = 02401-8) [facility]line[facility]-TERMINAL [id number] 12:31:00 Test Item Value Reference Range Interpretation Comments NT-proBNP (test code 127 pg/mL See_Comment H [Autom ated = 0691330510) message] The system which generated this result transmitted reference range : <=125. The reference range was not used to interpret this result as normal/abnormal . MARLIN (test code = MARLIN) Biotin has been reported to cause a negative bias, interpret results relative to patient's use of biotin. Lab Interpretation Abnormal (test code = 26003-9) [facility]lineMAGNESIUM2021-03-01 12:23:00 Test Item Value Reference Range Interpretation Comments MAGNESIUM (test code = 5442922287) 1.4 mg/dL 1.7-2.4 L Lab Interpretation (test code = Abnormal 13800-8) [facility] Metabolic Panel (NA, K, CL, CO2, GLUCOSE, BUN, CREATININE, CA)2020-11-27 12:22:00 Test Item Value Reference Range Interpretation Comments NA (test code = 135 mmol/L 135-145 8405001657) K (test code = 3.8 mmol/L 3.5-5 9402881115) CL (test code = 105 mmol/L 98-108 5827921191) CO2 TOTAL (test code = 24 mmol/L 23-31 2497234785) AGAP (test code = 2-16 9433121808) BUN (test code = 9 mg/dL 7-23 9772084074) GLUCOSE (test code = 169 mg/dL 70-110 H 4428062080) CREATININE (test code = 0.46 mg/dL 0.5-1.04 L 2003655709) CALCIUM (test code = 8.5 mg/dL 8.6-10.6 L 1682913287) eGFR Calculation mL/min/1.73m2 (Non-) (test code = 6298682543) eGFR Calculation mL/min/1.73m2 () (test code = 2315370948) MARLIN (test code = MARLIN) Association of Glomerular Filtration Rate (GFR) and Staging of Kidney Disease* + --+ --+ ------+| GFR (mL/min/1.73 m2) ?| With Kidney Damage ?| ?Without Kidney Damage+ --------+ --------+ +| ?>90 ?| ?Stage one ?| ? Normal ?+ ---+ ---+ -------+| ?60-89 ?| ?Stage two ?| ? Decreased GFR ? + --+ --+ ------+| ?30-59 ?| ?Stage three ?| ? Stage three ? + --+ --+ ------+| ?15-29 ?| ?Stage four ? | ? Stage four ?+ ---+ ---+ -------+| ?<15 (or dialysis) ? ?| ?Stage five ? | ? Stage five ?+ ---+ ---+ -------+ *Each stage assumes the associated GFR level has been in effect for at least three months. ?Stages 1 to 5, with or without kidney disease, indicate chronic kidney disease. Notes: Determination of stages one and two (with eGFR >59mL/min/1.73 m2) requires estimation of kidney damage for at least three months as defined by structural or functional abnormalities of the kidney, manifested by either:Pathological abnormalities or Markers of kidney damage (including abnormalities in the composition of the blood or urine or abnormalities in imaging tests). Lab Interpretation Abnormal (test code = 62291-5) [facility]lineTHYROID STIMULATING [id number] 10:32:00 Test Item Value Reference Range Interpretation Comments TSH (test code = See_Comment [Automated message] 3688199069) The system [employer] generated this result transmitted ref erence range: 0.45 - 4 .70 mIU/L. The refe rence range was not u sed to interpret this result as normal/abnor mal. Lab Interpretation (test Normal code = 45465-4) [facility] ShorelineLIPID PANEL (15225)(TOTAL CHOLESTEROL, TRIGLYCERIDES, HDL)2020-11-27 10:00:00 Test Item Value Reference Range Interpretation Comments CHOL (test code = 128 mg/dL 120-200 3839189525) HDL (test code = 34 mg/dL >50 L 9892472526) HDLC RATIO (test code = See_Comment [Au tomated message] 7443562779) The system [employer] generated this result transmit wilfredo reference range : <=4.5. The refe rence range was not u sed to interpret th is result as normal/abnormal . TRIG (test code = 154 mg/dL 30-170 3567022300) LDL CHOL (test code = 63 mg/dL See_Comment [Auto mated message] 16942-8) The system [employer] generated this result transmit wilfredo reference range : <=160. The refe rence range was not u sed to interpret th is result as normal/abnormal . VLDL (test code = 31 mg/dL 5-60 0109080243) Lab Interpretation (test Abnormal code = 18044-3) [facility]lineTROPONIN [id number] 04:59:00 Test Item Value Reference Range Interpretation Comments TROPONIN I (test 0.044 ng/mL See_Comment H [Automated code = 5642600981) message] The system which generated this result transmitted reference range : <=0.034. The reference range was not used to interpret this result as normal/abnormal . MARLIN (test code = Equal or Less than MARLIN) 0.034 ng/ml---Normal ?Note: Cardiac troponin begins to rise 3-4 hours after the onset of ischemia. Repeat in 4-6 hours if the sample was drawn within 3-4 hours of the onset of the symptom and found normal. Between 0.035 and 0.120 ng/mL--- Borderline. Questionable myocardial injury or necrosis ? ?Note: Serial measurement may be necessary to confirm or exclude the diagnosis of myocardial injury or necrosis; Clinical correlation (symptoms, EKGs, imaging studies, and others) required; Repeat in 4-6 hours if clinically indicated. ? Equal or Higher than 0.121 ng/mL---Abnormal. Myocardial Injury or Necrosis Likely ? Biotin has been reported to cause a negative bias, interpret results relative to patient's use of biotin. ? Lab Interpretation Abnormal (test code = 73069-2) [facility]YCOSYL[facility] HEMOGLOBIN (A1C)2020-11-27 04:44:00 Test Item Value Reference Range Interpretation Comments HGB A1C (test code = 8.9 % 4-6 H 4548-4) MARLIN (test code = MARLNI) %A1C (NGSP) Interpretation (ADA)4.8-5.6 ? ? Normal or (Non-Diabetic Range)5.7-6.4 ? ? Increased Risk (Pre-Diabetic)>6.5 ?Diabetes Indicated Lab Interpretation Abnormal (test code = 13329-0) [facility]lineTRKRISTINEN [id number] 00:43:00 Test Item Value Reference Range Interpretation Comments TROPONIN I (test 0.039 ng/mL See_Comment H [Automated code = 4516873753) message] The system which generated this result transmitted reference range : <=0.034. The reference range was not used to interpret this result as normal/abnormal . MARLIN (test code = Equal or Less than MARLIN) 0.034 ng/ml---Normal ?Note: Cardiac troponin begins to rise 3-4 hours after the onset of ischemia. Repeat in 4-6 hours if the sample was drawn within 3-4 hours of the onset of the symptom and found normal. Between 0.035 and 0.120 ng/mL--- Borderline. Questionable myocardial injury or necrosis ? ?Note: Serial measurement may be necessary to confirm or exclude the diagnosis of myocardial injury or necrosis; Clinical correlation (symptoms, EKGs, imaging studies, and others) required; Repeat in 4-6 hours if clinically indicated. ? Equal or Higher than 0.121 ng/mL---Abnormal. Myocardial Injury or Necrosis Likely ? Biotin has been reported to cause a negative bias, interpret results relative to patient's use of biotin. ? Lab Interpretation Abnormal (test code = 23823-7) [facility] PULMON[facility] [id number] 23:41:15 1. ?No pulmonary embolism to the level of the subsegmental branches. 2. ?Left breast skin thickening, increased attenuation and prominentasymmetric subareolar soft tissue density with a smaller right subareolarsoft tissue masslike density. Prominent left axillary lymph nodes,indeterminate. Findings ca n be seen with inflammatory process such asmastitis however, evaluation with diagnostic mammogram isessential toexclude underlying malignancy. Preliminary Report Dictated by Resident: Elias Burns MD., have reviewed this study and agree withthe above report.CT ANGIO CHEST WITH CONTRAST - PE PROTOCOL CLINICAL INDICATION: PE suspected, intermediate prob, neg D-dimer COMPARISON: 03/27/2020 D-dimer: 0.47 TECHNIQUE: Contrast enhanced spiral CT of the chest was performed withmultiplanar reformatted images provided for review per pulmonary angiogramprotocol. FINDINGS: PULMONARY ARTERIES:Enhancement is adequate, and there is no acute or chronic pulmonaryembolism. Normal caliber main pulmonary trunk CHEST:Lower neck/thyroid: Unremarkable. Lungs: Mild atelectatic changes. Central airway: Unremarkable. Pleura: No pleural effusion, thickening or pneumothorax. Thoracic aorta and great vessels: Normal in diameter. Conventionalthree-vessel aortic arch. Heart and pericardium: No detectable coronary artery calcifications.Unremarkable cardiac morphology and pericardium. Lymph nodes: Left axillary lymph node measures 2.6 x 1.1 cm (5:31). Mediastinum: Unremarkable. Thoracic spine and chest wall: No concerning lytic or sclerotic osseouslesions.Left breast skin thickening measures up to with underlyingsubareolar soft tissue density mass slightly asymmetrical compared to theright that measures 1.6 x 4.3 cm (5:52). Nodular subareolar soft tissue density measures 1.5 cm (5:54). Visualized upper abdomen: Unremarkable. [facility], Radiant Results Inft User - 11/26/2020 5:42 PM CSTCT ANGIO CHEST WITH CONTRAST - PE PROTOCOLCLINICAL INDICATION: PE suspected, intermediate prob, neg D-dimer COMPARISON: 03/27/2020D- dimer: 0.47TECHNIQUE: Contrast enhanced spiral CT of the chest was performed withmultiplanar reformatted images provided for review per pulmonary angiogramprotocol.FINDINGS:PULMONARY ARTERIES:Enhancement is adequate, and there is no acute or chronic pulmonaryembolism. Normal caliber main pulmonary trunkCHEST:Lowerneck/thyroid: Unremarkable.Lungs: Mild atelectatic changes.Central airway: Unremarkable.Pleura: No pleural effusion, thickening or pneumothorax.Thoracic aorta and great vessels: Normal in diameter. Conv entionalthree-vessel aortic arch.Heart and pericardium: No detectable coronary artery calcifications.Unremarkable cardiac morphology and pericardium.Lymph nodes: Left axillary lymph node measures 2.6 x1.1 cm (5:31).Mediastinum: Unremarkable.Thoracic spine and chest wall: No concerning lytic or sclerotic osseouslesions. Left breast skin thickening measures up to with underlyingsubareolar soft tissue density mass slightly asymmetrical compared to theright that measures 1.6 x 4.3 cm (5:52). Nodular subareolar soft tissuedensity measures 1.5 cm (5:54).Visualized upper abdomen: Unremarkable. IMPRESSION1. No pulmonary embolism to the level of the subsegmental branches.2. Left breast skin thickening, increased attenuation and prominentasymmetric subareolar soft tissue density with a smaller right subareolarsoft tissue masslike density. Prominent left axillary lymph nodes,indeterminate. Findings can be seen with inflammatory process such asmastitis however, evaluation with diagnostic mammogram is essential toexclude underlying malignancy. Pre liminary Report Dictated by Resident: Liza Wayne, Elias Bundy MD., have reviewed this study and agree withthe above report.[facility]lineMAGNESIUM2021-02-28 22:24:00 Test Item Value Reference Range Interpretation Comments MAGNESIUM (test code = 3070270187) 1.4 mg/dL 1.7-2.4 L Lab Interpretation (test code = Abnormal 39933-3) [facility]linePHOSPHORUS2021-02-28 22:24:00 Test Item Value Reference Range Interpretation Comments PHOSPHORUS (test code = 3642841229) 3.1 mg/dL 2.5-5 Lab Interpretation (test code = Normal 36261-7) [facility] with [id number] 21:05:00 Test Item Value Reference Range Interpretation Comments WBC (test code = See_Comment [Automated 6690-2) message] The sy stem which generated this result transmitted reference range : 4.30 - 11.10 10*3/?L. The reference range was not used to interpret this result as normal/abnormal . RBC (test code = See_Comment [Automated 789-8) message] The sy stem which generated this result transmitted reference range : 3.93 - 5.25 10*6/?L. The reference range was not used to interpret this result as normal/abnormal . HGB (test code = 10.6 g/dL 11.6-15 L 718-7) HCT (test code = 35.1 % 35.7-45.2 L 4544-3) MCV (test code = 77.3 fL 80.6-95.5 L 787-2) MCH (test code = 23.3 pg 25.9-32.8 L 785-6) MCHC (test code = 30.2 g/dL 31.6-35.1 L 786-4) RDW-SD (test code = 49.7 fL 39-49.9 78332-5) RDW-CV (test code = 18.3 % 12-15.5 H 788-0) PLT (test code = See_Comment L [Automated 777-3) message] The sy stem which generated this result transmitted reference range : 166 - 358 10*3/ ?L. The reference r charity was not used to interpret this result as normal/abnormal . MPV (test code = 12.2 fL 9.5-12.9 79465-4) NRBC/100 WBC (test See_Comment [Automat ed code = 0496833220) message] The system which generated this result transmitted reference range : 0.0 - 10.0 /100 WBCs. The refer ence range was not u sed to interpret th is result as normal/abnormal . NRBC x10^3 (test code <0.01 See_Comment [Auto mated = 6467420879) message] The s ystem which generated this result transmitted reference range : 10*3/?L. The reference range was not used to interpret this result as normal/abnormal . GRAN MAT (NEUT) % 49.5 % (test code = 770-8) IMM GRAN % (test code 0.50 % = 4460051422) LYMPH % (test code = 41.9 % 736-9) MONO % (test code = 5.1 % 5905-5) EOS % (test code = 2.1 % 713-8) BASO % (test code = 0.9 % 706-2) GRAN MAT x10^3(ANC) 2.13 10*3/uL 1.88-7.09 (test code = 7817218226) IMM GRAN x10^3 (test <0.03 0-0.06 code = 4417161459) LYMPH x10^3 (test code 1.80 10*3/uL 1.32-3.29 = 731-0) MONO x10^3 (test code 0.22 10*3/uL 0.33-0.92 L = 742-7) EOS x10^3 (test code = 0.09 10*3/uL 0.03-0.39 711-2) BASO x10^3 (test code 0.04 10*3/uL 0.01-0.07 = 704-7) Lab Interpretation Abnormal (test code = 35410-1) [facility]lineD-[id number] 21:01:00 Test Item Value Reference Interpretation Comments Range D-DIMER (test code = See_Comment H [Autom ated 6805701085) message] The system which generated this result transmitted reference range : <0.41 ?g/mL (FEU). The reference range was not used to interpret this result as normal/abnormal . MARLIN (test code = This test may be MARLIN) used in conjunction with a clinical pretest probability (PTP) assessment model to exclude venous thromboembolism (VTE) in patients suspected of deep venous thrombosis (DVT) and pulmonary embolism (PE) A D-Dimer value less than 0.50 ?g/ml (FEU) has a negative predicative value of 96 to 100% (95% CI)and 97 to 100% (95% CI) as an aid in the diagnosis of deep vein thrombosis (DVT) and pulmonary embolism when there is low or moderate pretest probability of PE or DVT. D-Dimer values are expressed in initial fibrinogen equivalent units (FEU)" The assay results should be used with other information, including the clinical context, in forming a diagnosis. Lab Interpretation Abnormal (test code = 89039-9) [facility] ShorelineaPTT2021-02-28 20:54:00 Test Item Value Reference Range Interpretation Comments APTT Patient (test See_Comment [Automat ed code = 3173-2) message] The system which generated this result transmitted reference range : 23 - 38 Seconds . The reference range was not used to interpr et this result as normal/abnormal . MARLIN (test code = MARLIN) The [facility] patient population mean normal value for aPTT is 30 seconds. Lab Interpretation Normal (test code = 79767-7) [facility]lineTroponin [id number] 20:53:00 Test Item Value Reference Range Interpretation Comments TROPONIN I (test 0.038 ng/mL See_Comment H [Automated code = 0715970492) message] The system which generated this result transmitted reference range : <=0.034. The reference range was not used to interpret this result as normal/abnormal . MARLIN (test code = Equal or Less than MARLIN) 0.034 ng/ml---Normal ?Note: Cardiac troponin begins to rise 3-4 hours after the onset of ischemia. Repeat in 4-6 hours if the sample was drawn within 3-4 hours of the onset of the symptom and found normal. Between 0.035 and 0.120 ng/mL--- Borderline. Questionable myocardial injury or necrosis ? ?Note: Serial measurement may be necessary to confirm or exclude the diagnosis of myocardial injury or necrosis; Clinical correlation (symptoms, EKGs, imaging studies, and others) required; Repeat in 4-6 hours if clinically indicated. ? Equal or Higher than 0.121 ng/mL---Abnormal. Myocardial Injury or Necrosis Likely ? Biotin has been reported to cause a negative bias, interpret results relative to patient's use of biotin. ? Lab Interpretation Abnormal (test code = 90983-5) [facility]lineProthrombin Time (PT) / [id number] 20:52:00 Test Item Value Reference Range Interpretation Comments PROTIME PATIENT (test See_Comment [Auto mated message] code = 5964-2) The system wh ich generated this result transmitted ref erence range: 12.0 - 1 4.7 Seconds. The re ference range was not u sed to interpret this result as normal/abnor mal. INR (test code = 6301-6) Nor mal INR <1.1; Warfarin Therap eutic range 2.0 to 3. 0 or 2.5 to 3.5, dep ending upon the indica tions. Lab Interpretation (test Normal code = 58214-1) [facility] ShorelineN-TERMINAL [id number] 20:50:00 Test Item Value Reference Range Interpretation Comments NT-proBNP (test code 163 pg/mL See_Comment H [Autom ated = 6917163059) message] The system which generated this result transmitted reference range : <=125. The reference range was not used to interpret this result as normal/abnormal . MARLIN (test code = MARLIN) Biotin has been reported to cause a negative bias, interpret results relative to patient's use of biotin. Lab Interpretation Abnormal (test code = 01164-5) [facility]lineXR NECK SOFT [id number] 20:48:14 Normal cervical soft tissues.. The upper airway as visualized isunremarkable.PROCEDURE: XR NECK SOFT TISSUE CLINICAL INDICATION: dysphagia COMPARISON: None FINDINGS: Bone structures of the skull base,facial bones and cervical spine areunremarkable.Prevertebral soft tissues are normal. The epiglottisand larynx isvisualized are unremarkable. Lung apex is partial seen are normal. [facility], Radiant Results Inft User - 11/26/2020 2:49 PM CSTPROCEDURE: XR NECK SOFT TISSUECLINICAL INDICATION: dysphagia COMPARISON: NoneFINDINGS:Bone structures of the skull base, facial bones and cervical spine areunremarkable.Prevertebral soft tissues are normal. The epiglottis and larynx isvisualized are unremarkable. Lung apex is partial seen are normal.IMPRESSIONNormal cervical soft tissues.. The upper airway as visualized isunremarkable.[facility]lineCOVID-19 (ID NOW RAPID TESTING)2020-11-26 20:43:00 Test Item Value Reference Range Interpretation Comments SARS-CoV-2 Rapid ID NOW Not Detected Not Detected (test code = 14345-8) MARLIN (test code = AMRLIN) ID NOW COVID-19 Assay is an isothermal nucleic acid amplification test intended for the qualitative detection of nucleic acid from SARS-CoV-2 viral RNA in nasopharyngeal ([employer]) specimens. It is used under Emergency Use Authorization (EUA) by FDA. The limit of detection (LOD) of the assay is 125 Genome Equivalents/mL. A positive result is indicative of the presence of SARS-CoV-2 RNA. ?Clinical correlation with patient history and other diagnostic information is necessary to determine patient infection status. A negative (Not Detected) result does not preclude SARS-CoV-2 infection. In patients with clinical symptoms and other tests that are consistent with SARS-CoV-2 infection, negative results should be treated as presumptive negative and a new specimen should be tested with alternative PCR molecular test. Invalid: Please collect a new specimen for repeat patient testing if clinically indicated. Lab Interpretation Normal (test code = 83050-0) [facility] Metabolic Panel (NA, K, CL, CO2, GLUCOSE, BUN, CREATININE, CA)2020-11-26 20:41:00 Test Item Value Reference Range Interpretation Comments NA (test code = 140 mmol/L 135-145 5535075062) K (test code = 3.3 mmol/L 3.5-5 L 5996519699) CL (test code = 106 mmol/L 98-108 9781043144) CO2 TOTAL (test code = 24 mmol/L 23-31 6535500815) AGAP (test code = 2-16 6707869147) BUN (test code = 9 mg/dL 7-23 4219715776) GLUCOSE (test code = 291 mg/dL 70-110 H 4859027655) CREATININE (test code = 0.54 mg/dL 0.5-1.04 8085338429) CALCIUM (test code = 9.1 mg/dL 8.6-10.6 2971648815) eGFR Calculation mL/min/1.73m2 (Non-) (test code = 8062252079) eGFR Calculation mL/min/1.73m2 () (test code = 3145455566) MARLIN (test code = MARLIN) Association of Glomerular Filtration Rate (GFR) and Staging of Kidney Disease* + --+ --+ ------+| GFR (mL/min/1.73 m2) ?| With Kidney Damage ?| ?Without Kidney Damage+ --------+ --------+ +| ?>90 ?| ?Stage one ?| ? Normal ?+ ---+ ---+ -------+| ?60-89 ?| ?Stage two ?| ? Decreased GFR ? + --+ --+ ------+| ?30-59 ?| ?Stage three ?| ? Stage three ? + --+ --+ ------+| ?15-29 ?| ?Stage four ? | ? Stage four ?+ ---+ ---+ -------+| ?<15 (or dialysis) ? ?| ?Stage five ? | ? Stage five ?+ ---+ ---+ -------+ *Each stage assumes the associated GFR level has been in effect for at least three months. ?Stages 1 to 5, with or without kidney disease, indicate chronic kidney disease. Notes: Determination of stages one and two (with eGFR >59mL/min/1.73 m2) requires estimation of kidney damage for at least three months as defined by structural or functional abnormalities of the kidney, manifested by either:Pathological abnormalities or Markers of kidney damage (including abnormalities in the composition of the blood or urine or abnormalities in imaging tests). Lab Interpretation Abnormal (test code = 76865-4) [facility]lineHepatic Function Panel (ALB, T.PRO, BILI T, BU/BC, ALT, AST, ALK PHOS)2020-11-26 20:41:00 Test Item Value Reference Range Interpretation Comments TOTAL BILI (test code = 6239083885) 0.4 mg/dL 0.1-1.1 BILI UNCON (test code = 7784694255) 0.3 mg/dL 0.1-1.1 BILI CONJ (test code = 2876837384) 0.0 mg/dL 0-0.3 T PROTEIN (test code = 8320967163) 7.2 g/dL 6.3-8.2 ALBUMIN (test code = 9775027888) 4.3 g/dL 3.5-5 ALK PHOS (test code = 7426825908) 75 U/L 34-122 ALTv (test code = 1742-6) 10 U/L 5-35 AST(SGOT) (test code = 3708243006) 17 U/L 13-40 Lab Interpretation (test code = Normal 59158-0) [facility]linePOCT [id number] 19:51:00 Test Item Value Reference Range Interpretation Comments POCT PREG (test code = 1605) negative POCT PREG LOT # (test code = 3575) [id number] POCT PREG TEST DATE (test 06/28/2022 code = 3576) Lab Interpretation (test code = Normal 48892-4) [facility]linePOCT [id number] 05:40:00 Test Item Value Reference Range Interpretation Comments POCT PREG (test code = 1605) negative On board controls acceptable with present C Line (test code = 3574) POCT PREG LOT # (test code = 3575) [id number] POCT PREG TEST DATE (test 05/29/22 code = 3576) Lab Interpretation (test code = Normal 26488-6) [facility] DIAGNOSTIC MAMMOGRAM [id number] 16:55:29Examination:BI DIAGNOSTIC MAMMOGRAM BILATERAL History:Patient is 44 year old and is seen for: ?Left breast mass. Computer-aided detection (CAD) utilized. Comparisons: 02/27/2017 DIGITAL DIAGNOSTIC MAMMOGRAM Findings:The breasts are heterogeneously dense, which may obscure small masses. LeftThere are 2similar equal density, irregularly shaped masses with circumscribed margins seen in the upper outer quadrant of the left breast in the middle depth. RightThere is no evidence of suspicious masses, calcifications, or other abnormal findings in the right breast. Impression:Possible two small masses in upper outer LEFT breast. We will proceed with ultrasound study today. Recommendation:Annual mammographic follow-up - RightUltrasound - Left BI-RADS Category: Left: 0 - Incomplete: Needs Additional Imaging EvaluationRight: 2 - BenignOverall: 0 - Incomplete: Needs Additional Imaging EvaluationUnKearney [facility] ULTR[facility] BREAST LIMITED [id number] 14:42:00Examination:BI ULTRASOUND BREAST LIMITED LEFT History:Patient is 44 year old and is seen for: ?Left breast mass. ? Comparisons: 02/27/2017 DIGITAL DIAGNOSTIC MAMMOGRAM HISTORY: ?Abnormal mammogram. Palpable mass in the left breast. TECHNIQUE: Upper-outer quadrant of the left breast was evaluated in radial/antiradial/sagittal/coronal planes both by the technologist and by me. Female technologist was present in the room during all imaging evaluations. FINDINGS: Dense fibroglandular breast tissue is detected throughout. Patient complained of a palpable mass in the retroareolar region at 12-1:00 location. No abnormality was seen in this region. 3.9 x 2.2 mm hypoechoic lesion was seen at 12:00 in the upper breast with benign features. CONCLUSIONS: No worrisome solid masses detected. Annual bilateral mammography evaluation is appropriate. ACR classification: Category II. Recommendation:Annual mammographic follow-up - Left ? BI-RADS Category: Left 2 - BenignUnWest [facility] 2 [id number] 00:55:46 No acute cardiopulmonary process. Preliminary Report Dictated by Resident: Nilay Presley MD., have reviewed this study and agree with the abovereport.EXAM: XR CHEST 2 VW COMPARISON: Chest x-ray 01/22/2017 HISTORY: 44-year-old female complaining of chest pressure ? TECHNIQUE: PA and lateral views of the chest were obtained. FINDINGS: Lungs/pleura: ?The lungs are clear. No focal consolidation identified. Nopleural effusion or pneumothorax is identified. Heart/Mediastinum: The cardiac silhouette is normal in size. No acute osseous abnormality. Right upper quadrant cholecystectomy clipsare noted [facility], Radiant Results Inft User - 03/27/2020 7:56 PM CDTEXAM: XR CHEST 2 VWCOMPARISON: Chest x-ray 01/22/2017HISTORY: 44-year-old female complaining of chest pressure TECHNIQUE: PA and lateralviews of the chest were obtained.FINDINGS:Lungs/pleura: The lungs are clear. No focal consolidation i dentified. Nopleural effusion or pneumothorax is identified.Heart/Mediastinum: The cardiac silhouette is normal in size.No acute osseous abnormality. Right upper quadrant cholecystectomy clipsare notedIMPRESSIONNo acute cardiopulmonary process.Preliminary Report Dictated by Resident: Nilay Leonard MD., have reviewed this study and agree with the abovereport.[facility] ULTRASOUND BREAST LIMITED [id number] 21:48:28Complex fluid collection within the left breast, likely abscess in theappropriate clinical setting. This study was performed for the emergent evaluation for abscess in thebreast. If there is concern for neoplasm, follow-up evaluation should beperformed at a dedicated women's Center. ICAL HISTORY:Breast pain. Swelling. COMPARISON:None TECHNIQUE:Ultrasound of the left breast performed. ?Images were acquired forpermanent storage in the patient's medical record. FINDINGS:Heterogeneous collection within the left breast at the 12:00 position,which could represent underlying abscess. There is some peripheral bloodflow. This measures approximat genaro 29 x 31 mm. [facility], Radiant Results Inft User - 03/27/2020 4:49 PM CDTCLINICAL HISTORY:Breast pain. Swelling.COMPARISON:NoneTECHNIQUE:Ultrasound of the left breast performed. Images were acquired forpermanent storage in the patient's medical record.FINDINGS:Heterogeneous collection within the left breast at the 12:00 position,which could represent underlying abscess. There is some peripheral bloodflow. This measures approximately 29 x 31 mm.IMPRESSIONComplex fluid collection within the left breast, likely abscess in theappropriate clinical setting.This study was performed for the emergent evaluation for abscess in thebreast. If there is concern for neoplasm, follow-up evaluation should beperformed at a dedicated women's Center. UnCH[facility]Trbaptist hospitalkimn I 2020-03-27 21:35:00 Test Item Value Reference Range Interpretation Comments TROPONIN I (test 0.016 ng/mL See_Comment [Automated code = 4602311642) message] The system which generated this result transmitted reference range : <=0.034. The reference range was not used to interpret this result as normal/abnormal . MARLIN (test code = Equal or Less than MARLIN) 0.034 ng/ml---Normal ?Note: Cardiac troponin begins to rise 3-4 hours after the onset of ischemia. Repeat in 4-6 hours if the sample was drawn within 3-4 hours of the onset of the symptom and found normal. Between 0.035 and 0.120 ng/mL--- Borderline. Questionable myocardial injury or necrosis ? ?Note: Serial measurement may be necessary to confirm or exclude the diagnosis of myocardial injury or necrosis; Clinical correlation (symptoms, EKGs, imaging studies, and others) required; Repeat in 4-6 hours if clinically indicated. ? Equal or Higher than 0.121 ng/mL---Abnormal. Myocardial Injury or Necrosis Likely ? Biotin has been reported to cause a negative bias, interpret results relative to patient's use of biotin. ? Lab Interpretation Normal (test code = 40995-4) [facility]lineN-TERMINAL [id number] 21:32:00 Test Item Value Reference Range Interpretation Comments NT-proBNP (test code 33 pg/mL See_Comment [Autom ated = [id number]) message] The system which generated this result transmitted reference range : <=125. The reference range was not used to interpret this result as normal/abnormal . MARLIN (test code = MARLIN) Biotin has been reported to cause a negative bias, interpret results relative to patient's use of biotin. Lab Interpretation Normal (test code = 16129-8) [facility] NOW RAPID TESTING)2020-03-27 21:25:00 Test Item Value Reference Range Interpretation Comments SARS-CoV-2 Rapid ID NOW Not Detected Not Detected (test code = 41409-8) MARLIN (test code = MARLIN) ID NOW COVID-19 Assay is an isothermal nucleic acid amplification test intended for the qualitative detection of nucleic acid from SARS-CoV-2 viral RNA in nasopharyngeal ([employer]) specimens. It is used under Emergency Use Authorization (EUA) by FDA. The limit of detection (LOD) of the assay is 125 Genome Equivalents/mL. A positive result is indicative of the presence of SARS-CoV-2 RNA. ?Clinical correlation with patient history and other diagnostic information is necessary to determine patient infection status. A negative (Not Detected) result does not preclude SARS-CoV-2 infection. In patients with clinical symptoms and other tests that are consistent with SARS-CoV-2 infection, negative results should be treated as presumptive negative and a new specimen should be tested with alternative PCR molecular test. Invalid: Please collect a new specimen for repeat patient testing if clinically indicated. Lab Interpretation Normal (test code = 71528-5) [facility]. METABOLIC PANEL (95596)2020-03-27 21:23:00 Test Item Value Reference Range Interpretation Comments NA (test code = 135 mmol/L 135-145 7101296942) K (test code = 3.5 mmol/L 3.5-5 9631623516) CL (test code = 103 mmol/L 98-108 1567621964) CO2 TOTAL (test code = 23 mmol/L 23-31 5168830144) AGAP (test code = 2-16 8326359190) BUN (test code = 8 mg/dL 7-23 2958806713) GLUCOSE (test code = 288 mg/dL 70-110 H 8171074659) CREATININE (test code = 0.53 mg/dL 0.5-1.04 2438557717) TOTAL BILI (test code = 0.5 mg/dL 0.1-1.0 6084163840) CALCIUM (test code = 9.2 mg/dL 8.6-10.6 2800808304) T PROTEIN (test code = 8.4 g/dL 6.3-8.2 H 4991237611) ALBUMIN (test code = 4.6 g/dL 3.5-5 4063430412) ALK PHOS (test code = 76 U/L 34-122 7517639549) ALTv (test code = 11 U/L 5-35 1742-6) AST(SGOT) (test code = 20 U/L 13-40 7414246989) eGFR Calculation mL/min/1.73m2 (Non-) (test code = 8158227436) eGFR Calculation mL/min/1.73m2 () (test code = 3728972279) MARLIN (test code = MARLIN) Association of Glomerular Filtration Rate (GFR) and Staging of Kidney Disease* + --+ --+ ------+| GFR (mL/min/1.73 m2) ?| With Kidney Damage ?| ?Without Kidney Damage+ --------+ --------+ +| ?>90 ?| ?Stage one ?| ? Normal ?+ ---+ ---+ -------+| ?60-89 ?| ?Stage two ?| ? Decreased GFR ? + --+ --+ ------+| ?30-59 ?| ?Stage three ?| ? Stage three ? + --+ --+ ------+| ?15-29 ?| ?Stage four ? | ? Stage four ?+ ---+ ---+ -------+| ?<15 (or dialysis) ? ?| ?Stage five ? | ? Stage five ?+ ---+ ---+ -------+ *Each stage assumes the associated GFR level has been in effect for at least three months. ?Stages 1 to 5, with or without kidney disease, indicate chronic kidney disease. Notes: Determination of stages one and two (with eGFR >59mL/min/1.73 m2) requires estimation of kidney damage for at least three months as defined by structural or functional abnormalities of the kidney, manifested by either:Pathological abnormalities or Markers of kidney damage (including abnormalities in the composition of the blood or urine or abnormalities in imaging tests). Lab Interpretation Abnormal (test code = 38135-5) [facility]2020[facility]29 21:20:00 Test Item Value Reference Range Interpretation Comments APPEARANCE (test code = Hazy Clear A 9014971900) COLOR (test code = Yellow Yellow 3079789190) PH (test code = 4.8-8.0 3477756384) SP GRAVITY (test code = 1.003-1.030 1599804849) GLU U QUAL (test code = 500 mg/dL Normal A 5410587030) BLOOD (test code = 1+ Negative A 6916348705) KETONES (test code = 80 mg/dL Negative A 2878469475) PROTEIN (test code = Negative Negative 2887-8) UROBILIN (test code = Normal Normal 0103618536) BILIRUBIN (test code = Negative Negative 0834232424) NITRITE (test code = Negative Negative 3799770846) LEUK NESTOR (test code = Negative Negative 2927043544) RBC/HPF (test code = See_Comment H [Autom ated message] 8198666868) The system [employer] generated this result transmit wilfredo reference range : 0 - 3 HPF. The refe rence range was not u sed to interpret th is result as normal/abnormal . WBC/HPF (test code = See_Comment [Autom ated message] 2542281146) The system whic h generated this result transmit wilfredo reference range : 0 - 5 HPF. The refe rence range was not u sed to interpret th is result as normal/abnormal . BACTERIA (test code = Few Negative A 2663940205) MUCOUS (test code = Slight Negative LPF A 3858893536) SQ EPITH (test code = HPF 7330703053) Lab Interpretation (test Abnormal code = 17826-8) [facility] WITH [id number] 21:13:00 Test Item Value Reference Range Interpretation Comments WBC (test code = See_Comment [Automated 6690-2) message] The sy stem which generated this result transmitted reference range : 4.30 - 11.10 10*3/?L. The reference range was not used to interpret this result as normal/abnormal . RBC (test code = See_Comment [Automated 789-8) message] The sy stem which generated this result transmitted reference range : 3.93 - 5.25 10*6/?L. The reference range was not used to interpret this result as normal/abnormal . HGB (test code = 9.2 g/dL 11.6-15 L 718-7) HCT (test code = 31.9 % 35.7-45.2 L 4544-3) MCV (test code = 73.3 fL 80.6-95.5 L 787-2) MCH (test code = 21.1 pg 25.9-32.8 L 785-6) MCHC (test code = 28.8 g/dL 31.6-35.1 L 786-4) RDW-SD (test code = 47.1 fL 39-49.9 76472-6) RDW-CV (test code = 17.8 % 12-15.5 H 788-0) PLT (test code = See_Comment [Automated 777-3) message] The sy stem which generated this result transmitted reference range : 166 - 358 10*3/ ?L. The reference r charity was not used to interpret this result as normal/abnormal . MPV (test code = 12.0 fL 9.5-12.9 11023-7) NRBC/100 WBC (test See_Comment [Automat ed code = 6058516655) message] The system which generated this result transmitted reference range : 0.0 - 10.0 /100 WBCs. The refer ence range was not u sed to interpret th is result as normal/abnormal . NRBC x10^3 (test code <0.01 See_Comment [Auto mated = 7984298114) message] The s ystem which generated this result transmitted reference range : 10*3/?L. The reference range was not used to interpret this result as normal/abnormal . GRAN MAT (NEUT) % 67.3 % (test code = 770-8) IMM GRAN % (test code 0.40 % = 2713380861) LYMPH % (test code = 25.0 % 736-9) MONO % (test code = 5.8 % 5905-5) EOS % (test code = 1.1 % 713-8) BASO % (test code = 0.4 % 706-2) GRAN MAT x10^3(ANC) 3.12 10*3/uL 1.88-7.09 (test code = 1095418812) IMM GRAN x10^3 (test <0.03 0-0.06 code = 0709718382) LYMPH x10^3 (test code 1.16 10*3/uL 1.32-3.29 L = 731-0) MONO x10^3 (test code 0.27 10*3/uL 0.33-0.92 L = 742-7) EOS x10^3 (test code = 0.05 10*3/uL 0.03-0.39 711-2) BASO x10^3 (test code <0.03 0.01-0.07 = 704-7) Lab Interpretation Abnormal (test code = 92173-1) [facility] [id number] 20:58:00 Test Item Value Reference Range Interpretation Comments POCT PREG (test code = 1605) negative On board controls acceptable with present C Line (test code = 3574) POCT PREG LOT # (test code = 3575) [id number] POCT PREG TEST DATE (test 04/28/2021 code = 3576) Lab Interpretation (test code = Normal 84361-8) [facility]lineLatxic Acid Whole [id number] 20:54:00 Test Item Value Reference Range Interpretation Comments LACTIC ACID (test code = 1.37 mmol/L 0.3-2.6 7846688265) General acute hospital WITH [id number] 20:02:00 Test Item Value Reference Range Interpretation Comments WBC (test code = See_Comment [Automated 6690-2) message] The sy stem which generated this result transmitted reference range : 4.30 - 11.10 10*3/?L. The reference range was not used to interpret this result as normal/abnormal . RBC (test code = See_Comment [Automated 789-8) message] The sy stem which generated this result transmitted reference range : 3.93 - 5.25 10*6/?L. The reference range was not used to interpret this result as normal/abnormal . HGB (test code = 9.5 g/dL 11.6-15 L 718-7) HCT (test code = 32.7 % 35.7-45.2 L 4544-3) MCV (test code = 74.0 fL 80.6-95.5 L 787-2) MCH (test code = 21.5 pg 25.9-32.8 L 785-6) MCHC (test code = 29.1 g/dL 31.6-35.1 L 786-4) RDW-SD (test code = 47.7 fL 39-49.9 62013-2) RDW-CV (test code = 18.0 % 12-15.5 H 788-0) PLT (test code = See_Comment [Automated 777-3) message] The sy stem which generated this result transmitted reference range : 166 - 358 10*3/ ?L. The reference r charity was not used to interpret this result as normal/abnormal . MPV (test code = Not Measure d 56092-4) NRBC/100 WBC (test See_Comment [Automat ed code = 7620185335) message] The system which generated this result transmitted reference range : 0.0 - 10.0 /100 WBCs. The refer ence range was not u sed to interpret th is result as normal/abnormal . NRBC x10^3 (test code <0.01 See_Comment [Auto mated = 5454841992) message] The s ystem which generated this result transmitted reference range : 10*3/?L. The reference range was not used to interpret this result as normal/abnormal . GRAN MAT (NEUT) % 75.7 % (test code = 770-8) IMM GRAN % (test code 0.30 % = 5855734613) LYMPH % (test code = 17.7 % 736-9) MONO % (test code = 5.0 % 5905-5) EOS % (test code = 0.9 % 713-8) BASO % (test code = 0.4 % 706-2) GRAN MAT x10^3(ANC) 5.30 10*3/uL 1.88-7.09 (test code = 9578695782) IMM GRAN x10^3 (test <0.03 0-0.06 code = 3047634235) LYMPH x10^3 (test code 1.24 10*3/uL 1.32-3.29 L = 731-0) MONO x10^3 (test code 0.35 10*3/uL 0.33-0.92 = 742-7) EOS x10^3 (test code = 0.06 10*3/uL 0.03-0.39 711-2) BASO x10^3 (test code 0.03 10*3/uL 0.01-0.07 = 704-7) Lab Interpretation Abnormal (test code = 61618-9) [facility] METABOLIC PANEL (NA, K, CL, CO2, GLUCOSE, BUN, CREATININE, CA)2020-03-25 19:56:00 Test Item Value Reference Range Interpretation Comments NA (test code = 137 mmol/L 135-145 6365529419) K (test code = 3.7 mmol/L 3.5-5 2237550044) CL (test code = 104 mmol/L 98-108 9659239289) CO2 TOTAL (test code = 24 mmol/L 23-31 0884474205) AGAP (test code = 2-16 6237520686) BUN (test code = 9 mg/dL 7-23 1450102134) GLUCOSE (test code = 329 mg/dL 70-110 H 1396185683) CREATININE (test code = 0.52 mg/dL 0.5-1.04 1181622328) CALCIUM (test code = 9.1 mg/dL 8.6-10.6 8907490987) eGFR Calculation mL/min/1.73m2 (Non-) (test code = 2154710903) eGFR Calculation mL/min/1.73m2 () (test code = 5534585250) MARLIN (test code = MARLIN) Association of Glomerular Filtration Rate (GFR) and Staging of Kidney Disease* + --+ --+ ------+| GFR (mL/min/1.73 m2) ?| With Kidney Damage ?| ?Without Kidney Damage+ --------+ --------+ +| ?>90 ?| ?Stage one ?| ? Normal ?+ ---+ ---+ -------+| ?60-89 ?| ?Stage two ?| ? Decreased GFR ? + --+ --+ ------+| ?30-59 ?| ?Stage three ?| ? Stage three ? + --+ --+ ------+| ?15-29 ?| ?Stage four ? | ? Stage four ?+ ---+ ---+ -------+| ?<15 (or dialysis) ? ?| ?Stage five ? | ? Stage five ?+ ---+ ---+ -------+ *Each stage assumes the associated GFR level has been in effect for at least three months. ?Stages 1 to 5, with or without kidney disease, indicate chronic kidney disease. Notes: Determination of stages one and two (with eGFR >59mL/min/1.73 m2) requires estimation of kidney damage for at least three months as defined by structural or functional abnormalities of the kidney, manifested by either:Pathological abnormalities or Markers of kidney damage (including abnormalities in the composition of the blood or urine or abnormalities in imaging tests). Lab Interpretation Abnormal (test code = 19203-1) [facility]
[2022-11-27] MEDS ORDERED: KETOROLAC 30 MG/ML INJ ONE (08:37)
[2022-11-27] MEDS ORDERED: NA CHLORIDE 0.9% 1,000 ML ONE (08:37)
[2022-11-27 09:07] LABS: Absolute Lymphocytes (CBC) 1.4 K/uL (0.7-4.9); Hematocrit 33.8 % (36.0-45.0); MCV 85.7 fL (80-100); MPV 10.5 fL (7.6-11.3); RBC Red Blood Cell Count 3.94 M/uL (3.86-4.86)
[2022-11-27 09:40] LABS: Magnesium 1.6 mg/dL (1.6-2.4); Potassium 3.9 mmol/L (3.5-5.1); Troponin High Sensitivity 28.4 pg/mL (<58.9)
--- NOTE | 2022-11-27 09:40 | RAD REPORT ---
EXAM DESCRIPTION: [facility] Single View11/27/2022 9:16 am CLINICAL HISTORY: Chest pain COMPARISON: none FINDINGS: The lungs appear clear of acute infiltrate. The heart is normal size IMPRESSION: No acute abnormalities displayed
[2022-11-27] MEDS ORDERED: CYCLOBENZAPRINE 10 MG TAB ONE (09:58)
--- NOTE | 2022-11-27 10:07 | ER ---
Nurse's Notes [facility] Name: Heavenly Villar Age: 47 yrs Sex: Female : 1975 Arrival Date: 11/27/2022 Time: 08:01 Bed 18 Private MD: Diagnosis: Costochondritis;Acute bronchitis, unspecified Presentation: 11/27 08:20 Chief complaint: EMS states: Pt c/o R sided chest pain x "a few weeks", became worse ph today, pain is reproducible w/ movement, deep breathing and cough, VSS, pt denies dizziness or nausea. 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 Coronavirus screen: Vaccine status: Patient reports being unvaccinated. Ebola Screen: No symptoms or risks identified at this time. Initial Sepsis Screen: Does the patient meet any 2 criteria? No. Patient's initial sepsis screen is negative. Does the patient have a suspected source of infection? No. Patient's initial sepsis screen is negative. Risk Assessment: Do you want to hurt yourself or someone else? Patient reports no desire to harm self or others. Onset of symptoms was November 27, 2022. 08:20 Method Of Arrival: EMS: [facility] 08:20 Acuity: AYAKA 3 ph Triage Assessment: 08:23 General: Appears in no apparent distress. uncomfortable, Behavior is cooperative, ph appropriate for age, anxious, Denies fever. Pain: Complains of pain in anterior aspect of right upper chest Pain radiates to right lateral anterior chest Quality of pain is described as sharp. Neuro: Level of Consciousness is awake, alert, obeys commands, Oriented to person, place, time, situation. Cardiovascular: Reports chest pain, shortness of breath, Denies lightheadedness, nausea, palpitations, vomiting. Respiratory: Reports shortness of breath pain with cough pain with movement pain with respiration Airway is patent Respiratory effort is even, unlabored, Respiratory pattern is regular, symmetrical. GI: No signs and/or symptoms were reported involving the gastrointestinal system. Derm: Skin is healthy with good turgor, Skin is pink, warm \\T\\ dry. Musculoskeletal: Circulation, motion, and sensation intact. Range of motion: intact in all extremities. Historical: - Allergies: 08:22 Aspirin; ph - Home Meds: 08:22 Metformin Oral [Active]; Glipizide Oral [Active]; ph - Immunization history:: Adult Immunizations unknown. - Social history:: Smoking status: Patient denies any tobacco usage or history of. Screenin:24 [facility] ED Fall Risk Assessment (Adult) History of falling in the last 3 months, ph including since admission No falls in past 3 months (0 pts) Confusion or Disorientation No (0 pts) Intoxicated or Sedated No (0 pts) Impaired Gait No (0 pts) Mobility Assist Device Used No (0 pt) Altered Elimination No (0 pt) Score/Fall Risk Level 0 - 2 = Low Risk Oriented to surroundings, Maintained a safe environment, Hourly rounding (assess needs \\T\\ fall precautionary measures) done. Abuse screen: Denies threats or abuse. Denies injuries from another. Nutritional screening: No deficits noted. Tuberculosis screening: No symptoms or risk factors identified. Vital Signs: 08:20 BP 121 / 52; Pulse 73; Resp 18; Temp 97.8; Pulse Ox 100% on R/A; Weight 63.5 kg; Height ph 5 ft. 2 in. (157.48 cm); 09:14 BP 107 / 66; Pulse 66; Resp 18; Pulse Ox 100% on R/A; ap3 10:37 BP 120 / 65; Pulse 68; Resp 18; Temp 97.7; Pulse Ox 98% on R/A; ph 08:20 Body Mass Index 25.61 (63.50 kg, 157.48 cm) ph ED Course: 08:01 Patient arrived in ED. 7 08:01 [facility] Saul [facility] 08:01 Mehrdad Wolff MD is Attending Physician. jh7 08:22 Triage completed. ph 08:24 Arm band placed on Patient placed in an exam room, on a stretcher, on bus monitor, ph on pulse oximetry. 08:25 Patient has correct armband on for positive identification. Placed in gown. Bed in low ph position. Call light in reach. Side rails up X 1. Client placed on continuous cardiac and pulse oximetry monitoring. NIBP monitoring applied. Door closed. Noise minimized. Warm blanket given. 08:28 Madeleine Goss RN is Primary Nurse. ap3 08:45 Maintain EMS IV. Dressing intact. Good blood return noted. Site clean \\T\\ dry. Gauge \\T\\ ph site: 20 G L wrist. 09:18 XRAY Chest (1 view) In Process Unspecified. EDMS 10:38 No provider procedures requiring assistance completed. IV discontinued, intact, ph bleeding controlled, No redness/swelling at site. Pressure dressing applied. Administered Medications: 09:02 Drug: Ketorolac 30 mg Route: IVP; Site: left wrist; ap3 10:05 Follow up: Response: No adverse reaction; Pain is decreased ap3 09:02 Drug: NS 0.9% 1000 ml Route: IV; Rate: 1 bolus; Site: left wrist; ap3 10:39 Follow up: Response: No adverse reaction; IV Status: Completed infusion; IV Intake: ph 1000ml 10:05 Drug: Flexeril (cyclobenzaprine) 10 mg Route: PO; ap3 10:39 Follow up: Response: No adverse reaction ph Medication: 08:25 VIS not applicable for this client. ph Intake: 10:39 IV: 1000ml; Total: 1000ml. ph Outcome: 10:06 Discharge ordered by MD. koch 10:38 Discharged to home ambulatory, with family. ph 10:38 Condition: good 10:38 Discharge instructions given to patient, Instructed on discharge instructions, follow up and referral plans. medication usage, Demonstrated understanding of instructions, follow-up care, medications, Prescriptions given X 4. 10:39 Patient left the ED. ph Signatures: Dispatcher [employer] EDMS Sil Laguerre RN Madeleine Bella ph, RN RN ap3 Hadash, Jennifer, FNP FNP Ch[place]
--- NOTE | 2022-11-27 10:07 | EDPHYS ---
Physician Documentation [facility] Name: Heavenly Villar Age: 47 yrs Sex: Female : 1975 Arrival Date: 11/27/2022 Time: 08:01 Bed 18 Private MD: ED Physician Mehrdad Wolff HPI: 11/27 07:55 This 47 yrs old Female presents to ER via Unassigned with complaints of chest jh7 pain. 07:55 The patient or guardian reports chest pain that is located primarily in the anterior jh7 aspect of right upper chest. Onset: acutely. The pain radiates to the right arm. Associated signs and symptoms: Pertinent positives: cough, shortness of breath, Pertinent negatives: palpitations, syncope, vomiting. The chest pain is described as sharp. Duration: The patient or guardian reports a single episode, that is still ongoing. Severity of pain: At its worst the pain was severe a 10 / 10. EMS care prior to arrival includes: IV fluids. pt reports sharp chest pain radiating to RUE, worsening upon inspiration. FSBG 347. EMS reports normal sinus rhythm en route. VSS.. Historical: - Allergies: 08:22 Aspirin; ph - Home Meds: 08:22 Metformin Oral [Active]; Glipizide Oral [Active]; ph - Immunization history:: Adult Immunizations unknown. - Social history:: Smoking status: Patient denies any tobacco usage or history of. ROS: 07:55 Constitutional: Negative for fever, chills, and weight loss, Eyes: Negative for injury, jh7 pain, redness, and discharge, ENT: Negative for injury, pain, and discharge, Neck: Negative for injury, pain, and swelling, Abdomen/GI: Negative for abdominal pain, nausea, vomiting, diarrhea, and constipation, Back: Negative for injury and pain, MS/Extremity: Negative for injury and deformity, Skin: Negative for injury, rash, and discoloration, Neuro: Negative for headache, weakness, numbness, tingling, and seizure. 07:55 Cardiovascular: Positive for chest pain, with cough, of the anterior aspect of right upper chest. 07:55 Respiratory: Positive for cough, shortness of breath, Negative for wheezing. 07:55 All other systems are negative. Exam: 07:55 Head/Face: Normocephalic, atraumatic. Eyes: Pupils equal round and reactive to light, jh7 extra-ocular motions intact. Lids and lashes normal. Conjunctiva and sclera are non-icteric and not injected. Cornea within normal limits. Periorbital areas with no swelling, redness, or edema. ENT: Nares patent. No nasal discharge, no septal abnormalities noted. Tympanic membranes are normal and external auditory canals are clear. Oropharynx with no redness, swelling, or masses, exudates, or evidence of obstruction, uvula midline. Mucous membranes moist. Neck: Trachea midline, no thyromegaly or masses palpated, and no cervical lymphadenopathy. Supple, full range of motion without nuchal rigidity, or vertebral point tenderness. No Meningismus. Cardiovascular: Regular rate and rhythm with a normal S1 and S2. No gallops, murmurs, or rubs. Normal PMI, no JVD. No pulse deficits. Respiratory: Lungs have equal breath sounds bilaterally, clear to auscultation and percussion. No rales, rhonchi or wheezes noted. No increased work of breathing, no retractions or nasal flaring. Abdomen/GI: Soft, non-tender, with normal bowel sounds. No distension or tympany. No guarding or rebound. No evidence of tenderness throughout. Back: No spinal tenderness. No costovertebral tenderness. Full range of motion. Skin: Warm, dry with normal turgor. Normal color with no rashes, no lesions, and no evidence of cellulitis. MS/ Extremity: Pulses equal, no cyanosis. Neurovascular intact. Full, normal range of motion. Neuro: Awake and alert, GCS 15, oriented to person, place, time, and situation. Motor strength 5/5 in all extremities. Sensory grossly intact. Normal gait. 07:55 Constitutional: The patient appears alert, awake, in obvious pain. 07:55 Chest/axilla: Inspection: normal, Palpation: tenderness, that is moderate, of the anterior aspect of right upper chest. Vital Signs: 08:20 BP 121 / 52; Pulse 73; Resp 18; Temp 97.8; Pulse Ox 100% on R/A; Weight 63.5 kg; Height ph 5 ft. 2 in. (157.48 cm); 09:14 BP 107 / 66; Pulse 66; Resp 18; Pulse Ox 100% on R/A; ap3 10:37 BP 120 / 65; Pulse 68; Resp 18; Temp 97.7; Pulse Ox 98% on R/A; ph 08:20 Body Mass Index 25.61 (63.50 kg, 157.48 cm) ph MDM: 08:01 Patient medically screened. [facility] 10:10 Differential diagnosis: anxiety, chest wall pain, costochondritis, pericarditis, jh7 pleurisy, pneumonia, pneumothorax, pulmonary embolus. Data reviewed: vital signs, nurses notes, lab test result(s), EKG, radiologic studies, plain films. I considered the following discharge prescriptions or medication management in the emergency department Medications were administered in the Emergency Department. See MAR. Independent interpretation of the following test(s) in the Emergency Department EKG: See my EKG interpretation above. Test considered but Not performed: CT: PERC 0, D-dimer negative. Care significantly affected by the following chronic conditions: Diabetes. Scoring Tools HEART Score: Age: Risk Factors: 1 or 2 risk factors (1). Counseling: I had a detailed discussion with the patient and/or guardian regarding: the historical points, exam findings, and any diagnostic results supporting the discharge/admit diagnosis, to return to the emergency department if symptoms worsen or persist or if there are any questions or concerns that arise at home. Medication response: Toradol markedly relieved the patient's pain. Response to treatment: the patient's symptoms have markedly improved after treatment. ED course: 47-year-old female presents with reproducible right-sided chest pain that worsened with movement, palpation, and coughing. Her symptoms significantly improved after medication administration. Reviewed all labs and imaging with the patient and informed her that there were no acute findings. Blood sugar decreased after IV fluid administration. Advised the patient that if she develops a return of symptoms or any new concerning symptoms, she may return to the ER for further eval.. 11/27 08:02 Order name: Basic Metabolic Panel; Complete Time: 09:41 [facility] 11/27 08:02 Order name: CBC with Diff; Complete Time: 09:41 [facility] 11/27 08:02 Order name: D-Dimer; Complete Time: 09:41 [facility] 11/27 08:02 Order name: Magnesium; Complete Time: 09:41 [facility] 11/27 08:02 Order name: NT PRO-BNP; Complete Time: 09:41 [facility] 11/27 08:02 Order name: Troponin HS; Complete Time: 09:41 [facility] 11/27 08:02 Order name: XRAY Chest (1 view); Complete Time: 09:41 [facility] 11/27 08:02 Order name: EKG; Complete Time: 08:52 [facility] 11/27 08:02 Order name: Cardiac monitoring; Complete Time: 08:25 [facility] 11/27 08:02 Order name: EKG - Nurse/Tech; Complete Time: 09:03 [facility] 11/27 08:02 Order name: IV Saline Lock; Complete Time: 08:25 [facility] 11/27 08:02 Order name: Labs collected and sent; Complete Time: 09:03 [facility] 11/27 08:02 Order name: O2 Per Protocol; Complete Time: 08:25 [facility] 11/27 08:02 Order name: O2 Sat Monitoring; Complete Time: 08:25 [facility] 11/27 09:42 Order name: Recheck Blood Sugar; Complete Time: 10:05 [facility] 11/27 10:22 Order name: Glucose, Ancillary Testing; Complete Time: 10:22 EDMS EC:58 Rate is 69 beats/min. Rhythm is regular. QRS [place] is Normal. ID interval is normal at [facility] 138 msec. QRS interval is normal at 80 msec. QT interval is normal at 404 msec. No Q waves. T waves are Normal. No ST changes noted. Clinical impression: Normal ECG. Administered Medications: 09:02 Drug: Ketorolac 30 mg Route: IVP; Site: left wrist; ap3 10:05 Follow up: Response: No adverse reaction; Pain is decreased ap3 09:02 Drug: NS 0.9% 1000 ml Route: IV; Rate: 1 bolus; Site: left wrist; ap3 10:39 Follow up: Response: No adverse reaction; IV Status: Completed infusion; IV Intake: ph 1000ml 10:05 Drug: Flexeril (cyclobenzaprine) 10 mg Route: PO; ap3 10:39 Follow up: Response: No adverse reaction ph Disposition Summary: 11/27/22 10:06 Discharge Ordered Location: Home [facility] Problem: new [facility] Symptoms: have improved [facility] Condition: Stable [facility] Diagnosis - Costochondritis 7 - Acute bronchitis, unspecified 7 Followup: [facility] - With: Private Physician - When: 2 - 3 days - Reason: Recheck today's complaints Discharge Instructions: - Discharge Summary Sheet 7 - Acute Bronchitis, Adult 7 - Costochondritis [facility] Forms: - Work release form ph - Medication Reconciliation Form [facility] - Thank You Letter [facility] Prescriptions: - ProAir HFA 90 mcg/actuation Inhalation HFA aerosol inhaler - inhale 2 puff by INHALATION route every 4-6 hours As needed; 1 Inhaler; [facility] Refills: 0, Product Selection Permitted - Naprosyn 500 mg Oral Tablet - take 1 tablet by ORAL route 2 times per day take with food; 30 tablet; Refills: jh 0, Product Selection Permitted - Zanaflex 4 mg Oral Tablet - take 1 tablet by ORAL route every 8 hours As needed; 20 tablet; Refills: 0, [facility] Product Selection Permitted - Tessalon Perles 100 mg Oral Capsule - take 1 capsule by ORAL route every 8 hours As needed; 15 capsule; Refills: 0, [facility] Product Selection Permitted Signatures: Dispatcher [employer] Sil Doyle RN RN Madeliene Goss RN RN ap3 Liza Saul, MEDICAL CODING INSTRUCTOR MEDICAL CODING INSTRUCTOR [facility] Corrections: (The following items were deleted from the chart) 08:17 07:55 pt reports sharp chest pain radiating to RUE, worsening upon inspiration. FSBG 7 [id number]. [facility]
--- NOTE | 2022-11-27 11:14 | EKG ---
Test Date: 2022-11-27 Test Time: 08:56:11 [employer] Driver: ALP MEASUREMENT RESULTS: Intervals: Rate: 65 WV: 100 QRSD: 80 QT: 398 QTc: 413 [place]: P: 91 WV: 100 QRS: 149 T: 178 INTERPRETIVE STATEMENTS: Suspect arm lead reversal, interpretation assumes no reversal Undetermined rhythm Lateral infarct, age undetermined T wave abnormality, consider inferior ischemia Abnormal ECG Compared to ECG 01/17/2017 22:06:42 Myocardial infarct finding now present Possible ischemia now present Sinus rhythm no longer present T-wave abnormality still present Electronically Signed On 11-27-22 11:13:28 TITLE I PARAPROFESSIONAL by Bonifacio Goode
--- NOTE | 2022-11-27 17:29 | EKG ---
Test Date: 2022-11-27 Test Time: 08:58:23 Circulation Assistant: ALP MEASUREMENT RESULTS: Intervals: Rate: 69 WV: 138 QRSD: 80 QT: 404 QTc: 432 [place]: P: 48 WV: 138 QRS: 56 T: 49 INTERPRETIVE STATEMENTS: Normal sinus rhythm Normal ECG Compared to ECG 11/27/2022 08:56:11 Myocardial infarct finding no longer present T-wave abnormality no longer present Possible ischemia no longer present Electronically Signed On 11-27-22 17:28:32 NUCLEAR ENGINEER by Bonifacio Goode
== END 2022-11-27 10:39 | disposition home or self-care (01) ==
LOC: ER 07:48
DX: M94.0 Chondrocostal junction syndrome [Tietze] (principal); J20.9 Acute bronchitis, unspecified; Z88.6 Allergy status to analgesic agent
CPT/HCPCS: 36415; 71045; 80048; 82947; 83735; 83880; 84484; 85025; 85379; 93005; J7030

== ENCOUNTER 2023-05-15 14:36 | Emergency (ER) | payer OTHER, SELFPAY ==
--- OUTSIDE RECORDS SUMMARY | 2023-05-15 14:39 | XMS REPORT | Clinical Summary ---
:1975 Author Organization [facility] Address [address] [place] [address] Care Team Providers Name Role Phone Unavailable [...] Not on file Results Not on fileafter 05/15/2022
--- OUTSIDE RECORDS SUMMARY | 2023-05-15 14:47 | XMS REPORT | Continuity of Care Document ---
:1975 Author Organization [facility] t Address [address] [place] [address] [address] [place] [address] Care Team Providers Name Role Phone PCP, PATIENT DOES NOT HAVE A Primary Care Physician Unavaila MERCEDEZ Negron Attending Clinician Unavailable Mercedez Manuel DO Attending Clinician MARTÍNEZ LOUIS Attending Clinician Unavailable Martínez Louis DO Attending Clinician KEELY FONTANA Attending Clinician Unavailable Keely Fontana MD Attending Clinician WANG LEYVA Attending Clinician Unavailable Wang Chi Attending Clinician Doctor Unassigned, [place] Attending Clinician Unavailable CARLOTTA GAMEZ Attending Clinician Unavailable Carlotta Gamez DO Attending Clinician VIKKI VINCENT Attending Clinician Unavailable Only, Ang Db Test Attending Clinician Unavailable Vikki Rangel Attending Clinician KODI LYONS Attending Clinician Unavailable Kodi Lyons MD Attending Clinician Devika RIZZO Attending Clinician Unavailable Devika Marshall Attending Clinician Justo CHILDS, Melyssa Casey Attending Clinician Shonda Lang MD Attending Clinician Elmer CASTELLANO, Samira Cordova Attending Clinician Unavailable Flaco Hoang MD Attending Clinician Ludivina Colunga MD Attending Clinician LUDIIVNA COLUNGA Attending Clinician Unavailable [facility] Attending Clinician Unavailable Tovar RADHA Cezar Attending Clinician KEELY FONTANA Admitting Clinician Unavailable WANG LEYVA Admitting Clinician Unavailable CARLOTTA GAMEZ Admitting Clinician Unavailable Devika RIZZO Admitting Clinician Unavailable Flaco Hoang MD Admitting Clinician Payers Payer Name Policy Type Policy Number Effective Date Expiration Date Pete velasco [employer] GENERIC [id number] 2021 00:00:00 Problems Condition Condition Condition Status Onset Resolution Last Treating Co mments Source Name Details Category Date Date Treatment Clinician Date Troponin I Troponin I Disease Active U nivers above above 3-01 [place] 00 [place] Elevated Elevated Disease Active Unive rs brain brain 3-01 ity of natriureti natriureti 00:[place] c peptide c peptide 00 Medi carmen (BNP) (BNP) Branch level level Anemia Anemia Disease Active Univers 3-01 ity of 00:00: [place] [facility] Family Family Disease Active Univers history of history of 3-01 it y of bicuspid bicuspid 00:00: [place] aortic aortic 00 Medical valve valve Branch Chest pain Chest pain Disease Active U nivers 2-28 ity of 00:00: [place] [facility] Obesity Obesity Disease Active Univers (BMI (BMI 9-24 ity of 30-39.9) 30-39.9) 00:00: [place] [facility] Cellulitis Cellulitis Disease Active U nivers of left of left 9-23 ity of breast breast 00:00: [place] [facility] Urinary Urinary Disease Active Univers tract tract 9-21 ity of infection [place] 00:[place] in mother in mother 00 Medi carmen during during Branch , , antepartum antepartum Nausea and Nausea and Disease Active U nivers vomiting vomiting 9-21 ity of during during 00:00: [place] 00 Medi acrmen prior to prior to Branch 22 weeks 22 weeks gestation gestation Pre-existi Pre-existi Disease Active U nivers ng type 2 ng type 2 9-20 ity of diabetes diabetes 00:00: [place] mellitus mellitus 00 Medica l during during Branch in first in first trimester trimester UTI UTI Disease Active Overview: Univer s (urinary (urinary 06-15 Formattin ity of tract tract 00:00: g of this [place] infection) infection) 00 note Me dical during during might be Branch different from the original. KATIE at next visit Diabetes Diabetes Disease Active Unive rs in in 06-11 [place] of 00[place] Supervisio Supervisio Disease Active U alfonso n of n of 06-11 ity of high-risk high-risk 00:[place] Medi carmen of elderly of elderly Br anch multigravi multigravi da da AMA AMA Disease Active Univers (advanced (advanced 06-11 ity of maternal maternal 00:00: [place] age) [...] 5-17 ity of right right 00:00: [place] 00 Medical Branch Obesity Obesity Disease Active 2015-09 Univers affecting affecting 1-16 [place] of 00[place] 00 [facility] Diabetes Diabetes Disease Active Unive rs mellitus mellitus ity of [place] [facility] Allergies, Adverse Reactions, Alerts Allergy Allergy Status Severity Reaction(s) Onset Inactive Treating Comm ents Source Name Type Date Date Clinician Aspirin Drug Active Rash Univers Allergy 06-26 ity of 00:00: [place] 00 [facility] Vancomyc Propensi Active Rash Univer s in ty to 06-26 ity of Analogue adverse 00:00: [place] reaction 00 [facility] Vancomyc Propensi Active Rash Univer s in ty to 06-21 ity of adverse 00:00: [place] reaction 00 Medical s Branch VANCOMYC DRUG Active Rash Univers IN INGREDI 06-21 ity of 00:00: [place] 00 Medical Branch Aspirin Propensi Active Rash Univers ty to 05-23 ity of adverse 00:00: [place] reaction Medical s to Branch drug ASPIRIN DRUG Active Rash Univers INGREDI 05-23 ity of 00:00: [place] 00 [facility] Family History Family Member Diagnosis Comments Start Date Stop Date Source Natural brother Multiple Myeloma Uni [facility] [place] [facility] Maternal aunt Breast cancer [facility] [place] [facility] Maternal grandmother Breast cancer [facility] [place] [facility] Paternal grandmother Cervical cancer [facility] Social History Social Habit Start Date Stop Date Quantity Comments Source Gender identity Universit y of [facility] Sexual orientation Univer sity of [facility] History SDOH University o f Alcohol Std Drinks [facility] History SDMD University o f Alcohol Binge [place] [facility] History of tobacco Smokes tobacco Un iversity of use daily [place] [facility] Exposure to 2022-06-09 2022-06-19 Not sure University of SARS-CoV-2 (event) 00:00:00 17:00:00 [facility] History of Social 2020-03-28 2020-03-28 Univers ity of function 00:00:00 00:00:00 [facility] Alcohol intake 2019-06-26 2019-06-26 Lifetime University of 00:00:00 00:00:00 non-drinker [facility] History SDOH 2019-06-26 2019-06-26 1 University o f Alcohol Frequency 00:00:00 00:00:00 [facility] Cigarettes smoked 2019-06-26 2019-06-26 Univers ity of current (pack per 00:00:00 00:00:00 [facility] day) - Reported Cancer Ce nter Cigarette 2019-06-26 2019-06-26 University of pack-years 00:00:00 00:00:00 [place] [facility] Tobacco use and 2018-06-11 2018-06-11 Smokeless Universit y of exposure 00:00:00 00:00:00 tobacco non-user [facility] Sex Ass[birth year] At [birth year] Universit y of 00:00:00 00:00:00 [place] [facility] Smoking Status Start Date Stop Date Source Smokes tobacco daily 2019-06-26 00:00:00 [facility] 2018-06-11 00:00:00 2018-06-11 00:00:00 [facility] Medications Ordered Filled Start Stop Current Ordering Indication Dosage Frequency Signature Comments Components Source Medication Medication Date Date Medication? Clinician (SIG) Name Name ondansetron Yes [id number] 4mg Take 1 Univers 4 mg 05-07 tablet by ity of disintegrat 00:00: mouth [place] ing tablet 00 every 8 Medica l (eight) Branch hours as needed for Nausea and Vomiting (N/V). benzonatate Yes [id number] 100mg Take 1 Univers 100 mg 05-07 capsule by ity of capsule 00:00: mouth 3 [place] 00 (three) Medical times Branch daily as needed for Cough. cefTRIAXone Yes 500mg 500 mg, Un khloe (ROCEPHIN) 06-20 Intramuscu ity of injection 00:00: [place], Q24H, [place] 500 mg 00 First dose Medical on Fri Branch 06/19/22 at 1900, Until Discontinu ed, DARA
Re ason for Anti-Infec tive: Empiric Therapy for Suspected Infection< br>Empiric Therapy Site: Pelvic
Duration of therapy: 72 hours azithromyci 0 2021- No 1000mg 1,000 mg, Univers n 06-19 Oral, ity of (ZITHROMAX) 23:00: 23:23 ONCE, 1 [place] tablet 00 :00 dose, On Medical 1,000 mg Fri Branch 06/19/22 at 1800, DARA
Re ason for Anti-Infec tive: Empiric Therapy for Suspected Infection< br>Empiric Therapy Site: Pelvic
Duration of therapy: 72 hours cefixime 2021- No [id number] 400mg Take 1 U nivers 400 mg 06-19 capsule by ity of capsule 00:00: 04:59 mouth in [place] 00 :00 the Medical morning Branch for 7 days. clindamycin 2021- No [id number] 300mg Take 2 Univers 150 mg 06-19 capsules ity of capsule 00:00: 04:59 by mouth 4 En[place] as 00 :00 (four) Medical times Branch daily for 7 days. iopamidol 2021- No [id number] 75mL 75 mL, Univers (ISOVUE 06-07 Intravenou ity o f 370-500 mL) 16:45: 16:45 s, ONCE, 1 [place] injection 00 :00 dose, On Medica l 75 mL Fri06/07/22 Branch at 1145, Routine NaCl 0.9% 2021- No 1000mL at 999 [...] bolus 04-01 07-04 mL/hr, ity of infusion 05:45: 06:00 1,000 mL, [place] as 1,000 mL 00 :00 IV Medical Infusion, Branch ONCE, 1 dose, On Fri04/01/22 at 0045, DARA ondansetron 2021- No 4mg 4 mg, Slow Univers (ZOFRAN 04-01 IV Push, ity of (PF)) 04:45: 04:49 ONCE, 1 [place] injection 4 00 :00 dose, On Medi carmen mg 03/31/22 Branch at 2345, DARA acetaminoph No 1000mg 1,000 mg, Univers en 04-01 Oral, ity of (TYLENOL) 04:45: 04:49 ONCE, 1 [place] tablet 00 :00 dose, On Medical 1,000 mg Fri03/31/22 Branc h at 2345, DARA ibuprofen 2021- No 800mg 800 mg, Uni vers (IBU) 04-01 Oral, ity of tablet 800 04:45: 04:49 ONCE, 1 [place] mg 00 :00 dose, On Medical 03/31/22 Branch at 2345, DARA benzonatate 2021-0 Yes [id number] 100mg Take 1 Univers 100 mg 7-04 capsule by ity of capsule 00:00: mouth 3 [place] 00 (three) Medical times Branch daily as needed for Cough. ondansetron 2021-0 Yes [id number] 4mg Take 1 Univers 4 mg 7-04 tablet by ity of disintegrat 00:00: mouth [place] ing tablet 00 every 8 Medica l (eight) Branch hours as needed for Nausea and Vomiting (N/V). albuterol 2021-0 Yes [id number] 2{puff} Inhale 2 Univers 90 7-04 Puffs ity of mcg/actuati 00:00: every 4 [place] as on inhaler 00 (four) Medical hours as Branch needed for Wheezing or Shortness of Breath. benzonatate 2021-0 Yes [id number] 100mg Take 1 Univers 100 mg 7-04 capsule by ity of capsule 00:00: mouth 3 [place] 00 (three) Medical times Branch daily as needed for Cough. ondansetron 2021-0 Yes [id number] 4mg Take 1 Univers 4 mg 7-04 tablet by ity of disintegrat 00:00: mouth [place] ing tablet 00 every 8 Medica l (eight) Branch hours as needed for Nausea and Vomiting (N/V). albuterol Yes [id number] 2{puff} Inhale 2 Univers 90 7-04 Puffs ity of mcg/actuati 00:00: every 4 [place] as on inhaler 00 (four) Medical hours as Branch needed for Wheezing or Shortness of Breath. benzonatate Yes [id number] 100mg Take 1 Univers 100 mg 7-04 capsule by ity of capsule 00:00: mouth 3 [place] 00 (three) Medical times Branch daily as needed for Cough. ondansetron 0 Yes [id number] 4mg Take 1 Univers 4 mg 7-04 tablet by ity of disintegrat 00:00: mouth [place] ing tablet 00 every 8 Medica l (eight) Branch hours as needed for Nausea and Vomiting (N/V). albuterol Yes [id number] 2{puff} Inhale 2 Univers 90 7-04 Puffs ity of mcg/actuati 00:00: every 4 [place] on inhaler 00 (four) Medical hours as Branch needed for Wheezing or Shortness of Breath. benzonatate Yes [id number] 100mg Take 1 Univers 100 mg 7-04 capsule by ity of capsule 00:00: mouth 3 [place] 00 (three) Medical times Branch daily as needed for Cough. ondansetron 0 Yes [id number] 4mg Take 1 Univers 4 mg 7-04 tablet by ity of disintegrat 00:00: mouth [place] ing tablet 00 every 8 Medica l (eight) Branch hours as needed for Nausea and Vomiting (N/V). albuterol Yes [id number] 2{puff} Inhale 2 Univers 90 7-04 Puffs ity of mcg/actuati 00:00: every 4 [place] on inhaler 00 (four) Medical hours as Branch needed for Wheezing or Shortness of Breath. amoxicillin 2021- No 1{tbl} 1 tablet, Univers -clavulanat 01-05- Oral, ity of e 22:30: 22:00 ONCE, 1 [place] (AUGMENTIN) 00 :00 dose, On Medi carmen 875-125 mg 01/05/22 [facility] per tablet at 1730, 1 tablet Routine
Reason for Anti-Infec tive: Empiric Therapy for Suspected Infection< br>Empiric Therapy Site: Skin / Soft tissue
Duration of therapy: 72 hours FENTanyl PF 2021-0 202- No 50ug 50 mcg, Un khloe (SUBLIMAZE 01-05- Slow IV ity o f (PF)) 21:15: 20:27 Push, [place] injection 00 :00 ONCE, 1 Medical 50 mcg dose, On Branch 01/05/22 at 1615, Routine metFORMIN 2-0 Yes 1000mg Take 1,000 Univers 500 mg 4-09 mg by ity of tablet 15:07: mouth 3 [place] 20 (three) Medical times Branch daily. glipiZIDE 5 2021-0 Yes 10mg Take 10 mg Univers mg tablet 4-09 by mouth 2 ity of 15:07: (two) [place] 20 times Medical daily Branch before breakfast and dinner. metFORMIN 2021-0 Yes 1000mg Take 1,000 Univers 500 mg 4-09 mg by ity of tablet 15:07: mouth 3 [place] 20 (three) Medical times Branch daily. glipiZIDE 5 2021-0 Yes 10mg Take 10 mg Univers mg tablet 4-09 by mouth 2 ity of 15:07: (two) [place] 20 times Medical daily Branch before breakfast and dinner. metFORMIN 2-0 Yes 1000mg Take 1,000 Univers 500 mg 4-09 mg by ity of tablet 15:07: mouth 3 [place] 20 (three) Medical times Branch daily. glipiZIDE 5 2021-0 Yes 10mg Take 10 mg Univers mg tablet 4-09 by mouth 2 ity of 15:07: (two) [place] 20 times Medical daily Branch before breakfast and dinner. metFORMIN 2-0 Yes 1000mg Take 1,000 Univers 500 mg 4-09 mg by ity of tablet 15:07: mouth 3 [place] 20 (three) Medical times Branch daily. glipiZIDE 5 2-0 Yes 10mg Take 10 mg Univers mg tablet 4-09 by mouth 2 ity of 15:07: (two) [place] 20 times Medical daily Branch before breakfast and dinner. metFORMIN 2022-0 Yes 1000mg Take 1,000 Univers 500 mg 4-09 mg by ity of tablet 15:07: mouth 3 [place] 20 (three) Medical times Branch daily. glipiZIDE 5 2-0 Yes 10mg Take 10 mg Univers mg tablet 4-09 by mouth 2 ity of 15:07: (two) [place] 20 times Medical daily Branch before breakfast and dinner. metFORMIN 2021-0 Yes 1000mg Take 1,000 Univers 500 mg 4-09 mg by ity of tablet 15:07: mouth 3 [place] 20 (three) Medical times Branch daily. glipiZIDE 5 2021-0 Yes 10mg Take 10 mg Univers mg tablet 4-09 by mouth 2 ity of 15:07: (two) [place] 20 times Medical daily Branch before breakfast and dinner. amoxicillin 2021-0 Yes [id number] 1{tbl} Take 1 Univers -clavulanat 4-09 [id number] tablet by i ty of e 875-125 00:00: mouth [place] mg per 00 every 12 Medical tablet (twelve) Branch hours. amoxicillin 2021-0 Yes [id number] 1{tbl} Take 1 Univers -clavulanat 4-09 [id number] tablet by i ty of e 875-125 00:00: mouth [place] mg per 00 every 12 Medical tablet (twelve) Branch hours. amoxicillin 2021-0 Yes [id number] 1{tbl} Take 1 Univers -clavulanat 4-09 [id number] tablet by i ty of e 875-125 00:00: mouth [place] mg per 00 every 12 Medical tablet (twelve) Branch hours. amoxicillin 2021-0 Yes [id number] 1{tbl} Take 1 Univers -clavulanat 4-09 [id number] tablet by i ty of e 875-125 00:00: mouth [place] mg per 00 every 12 Medical tablet (twelve) Branch hours. amoxicillin 2021-0 Yes [id number] 1{tbl} Take 1 Univers -clavulanat 4-09 [id number] tablet by i ty of e 875-125 00:00: mouth [place] mg per 00 every 12 Medical tablet (twelve) Branch hours. amoxicillin 2021-0 Yes [id number] 1{tbl} Take 1 Univers -clavulanat 4-09 [id number] tablet by i ty of e 875-125 00:00: mouth [place] mg per 00 every 12 Medical tablet (twelve) Branch hours. sulfamethox 2020-1 Yes [id number] 1{tbl} Take 1 Univers azole-trime 2-17 tablet by ity of thoprim 00:00: mouth [place] 800-160 mg 00 every 12 Medic al per tablet (twelve) Branc h hours. ibuprofen 2020-09 Yes [id number] 800mg Take 1 U nivers 800 mg 2-17 tablet by ity of tablet 00:00: mouth [place] 00 every 8 Medical (eight) Branch hours as needed for Pain (scale 4-6) or Temp > 38.5 C. sulfamethox 2020-09 Yes [id number] 1{tbl} Take 1 Univers azole-trime 2-17 tablet by ity of thoprim 00:00: mouth [place] 800-160 mg 00 every 12 Medic al per tablet (twelve) Branc h hours. ibuprofen 2020-09 Yes [id number] 800mg Take 1 U nivers 800 mg 2-17 tablet by ity of tablet 00:00: mouth [place] 00 every 8 Medical (eight) Branch hours as needed for Pain (scale 4-6) or Temp > 38.5 C. sulfamethox 2020-09 Yes [id number] 1{tbl} Take 1 Univers azole-trime 2-17 tablet by ity of thoprim 00:00: mouth [place] 800-160 mg 00 every 12 Medic al per tablet (twelve) Branc h hours. ibuprofen 2020-09 Yes [id number] 800mg Take 1 U nivers 800 mg 2-17 tablet by ity of tablet 00:00: mouth [place] 00 every 8 Medical (eight) Branch hours as needed for Pain (scale 4-6) or Temp > 38.5 C. sulfamethox 2020-09 Yes [id number] 1{tbl} Take 1 Univers azole-trime 2-17 tablet by ity of thoprim 00:00: mouth [place] 800-160 mg 00 every 12 Medic al per tablet (twelve) Branc h hours. ibuprofen 2020-09 Yes [id number] 800mg Take 1 U nivers 800 mg 2-17 tablet by ity of tablet 00:00: mouth [place] 00 every 8 Medical (eight) Branch hours as needed for Pain (scale 4-6) or Temp > 38.5 C. ibuprofen 2020-09 Yes [id number] 800mg Take 1 U nivers 800 mg 2-17 tablet by ity of tablet 00:00: mouth [place] 00 every 8 Medical (eight) Branch hours as needed for Pain (scale 4-6) or Temp > 38.5 C. ibuprofen 2020-09 Yes [id number] 800mg Take 1 U nivers 800 mg 2-17 tablet by ity of tablet 00:00: mouth [place] 00 every 8 Medical (eight) Branch hours as needed for Pain (scale 4-6) or Temp > 38.5 C. ibuprofen 2020-09 Yes [id number] 800mg Take 1 U nivers 800 mg 2-17 tablet by ity of tablet 00:00: mouth [place] 00 every 8 Medical (eight) Branch hours as needed for Pain (scale 4-6) or Temp > 38.5 C. ibuprofen 2020-09 Yes [id number] 800mg Take 1 U nivers 800 mg 2-17 tablet by ity of tablet 00:00: mouth [place] 00 every 8 Medical (eight) Branch hours as needed for Pain (scale 4-6) or Temp > 38.5 C. ibuprofen 2020-09 Yes [id number] 800mg Take 1 U nivers 800 mg 2-17 tablet by ity of tablet 00:00: mouth [place] 00 every 8 Medical (eight) Branch hours as needed for Pain (scale 4-6) or Temp > 38.5 C. ibuprofen 2020-09 Yes [id number] 800mg Take 1 Univers 800 mg 2-17 tablet by ity of tablet 00:00: mouth [place] 00 every 8 Medical (eight) Branch hours as needed for Pain (scale 4-6) or Temp > 38.5 C. sulfamethox 2020-09- No [id number] 1{tbl} Take 1 Univers azole-trime 2-17 04-09 tablet by it y of thoprim 00:00: 00:00 mouth [place] 800-160 mg 00 :00 every 12 Medic al per tablet (twelve) Branc h hours. benzonatate 2020-09- No 100mg 100 mg, U nivers (TESSALON 11-04 Oral, ity of PERLES) 05:00: 04:01 ONCE, 1 [place] capsule 100 00 :00 dose, On Medi carmen mg [place] Branch 09/02/21 at 2300, DARA magnesium 2020-09- No 2g 2 g, IV Univ ers sulfate in 11-04 12- Piggyback, it y of water 2 03:45: 03:58 ONCE, 1 [place] gram/50 mL 00 :00 dose, On Medic al (4 %) [place] infusion 2 12/5/21 at g 2145, Routine benzonatate 2020-09 Yes [id number] 100mg Take 1 Univers 100 mg 2-05 capsule by ity of capsule 00:00: mouth 3 [place] 00 (three) Medical times Branch daily as needed for Cough. albuterol 2020-09 Yes [id number] 2{puff} Inhale 2 Univers 90 2-05 Puffs ity of mcg/actuati 00:00: every 4 [place] as on inhaler 00 (four) Medical hours as Branch needed for Wheezing or Shortness of Breath. ondansetron 2020-09 Yes [id number] 4mg Take 1 Univers (ZOFRAN 2-05 tablet by ity of ODT) 4 mg 00:00: mouth [place] disintegrat 00 every 8 Medic al ing tablet (eight) Branch hours as needed for Nausea and Vomiting (N/V). ibuprofen 2020-09 Yes [id number] 600mg Take 1 Univers 600 mg 2-05 tablet by ity of tablet 00:00: mouth [place] 00 every 6 Medical (six) Branch hours as needed for Pain (scale 4-6). benzonatate 2020-09 Yes [id number] 100mg Take 1 Univers 100 mg 2-05 capsule by ity of capsule 00:00: mouth 3 [place] 00 (three) Medical times Branch daily as needed for Cough. albuterol 2020-09 Yes [id number] 2{puff} Inhale 2 Univers 90 2-05 Puffs ity of mcg/actuati 00:00: every 4 [place] as on inhaler 00 (four) Medical hours as Branch needed for Wheezing or Shortness of Breath. ondansetron 2020-09 Yes [id number] 4mg Take 1 Univers (ZOFRAN 2-05 tablet by ity of ODT) 4 mg 00:00: mouth [place] disintegrat 00 every 8 Medic al ing tablet (eight) Branch hours as needed for Nausea and Vomiting (N/V). ibuprofen 2020-09 Yes [id number] 600mg Take 1 Univers 600 mg 2-05 tablet by ity of tablet 00:00: mouth [place] 00 every 6 Medical (six) Branch hours as needed for Pain (scale 4-6). benzonatate 2020-09 Yes [id number] 100mg Take 1 Univers 100 mg 2-05 capsule by ity of capsule 00:00: mouth 3 [place] 00 (three) Medical times Branch daily as needed for Cough. albuterol 2020-09 Yes [id number] 2{puff} Inhale 2 Univers 90 2-05 Puffs ity of mcg/actuati 00:00: every 4 [place] as on inhaler 00 (four) Medical hours as Branch needed for Wheezing or Shortness of Breath. ondansetron 2020-09 Yes [id number] 4mg Take 1 Univers (ZOFRAN 2-05 tablet by ity of ODT) 4 mg 00:00: mouth [place] disintegrat 00 every 8 Medic al ing tablet (eight) Branch hours as needed for Nausea and Vomiting (N/V). ibuprofen 2020-09 Yes [id number] 600mg Take 1 Univers 600 mg 2-05 tablet by ity of tablet 00:00: mouth [place] 00 every 6 Medical (six) Branch hours as needed for Pain (scale 4-6). benzonatate 2020-09 Yes [id number] 100mg Take 1 Univers 100 mg 2-05 capsule by ity of capsule 00:00: mouth 3 [place] 00 (three) Medical times Branch daily as needed for Cough. albuterol 2020-09 Yes [id number] 2{puff} Inhale 2 Univers 90 2-05 Puffs ity of mcg/actuati 00:00: every 4 [place] as on inhaler 00 (four) Medical hours as Branch needed for Wheezing or Shortness of Breath. ondansetron 2020-09 Yes [id number] 4mg Take 1 Univers (ZOFRAN 2-05 tablet by ity of ODT) 4 mg 00:00: mouth [place] disintegrat 00 every 8 Medic al ing tablet (eight) Branch hours as needed for Nausea and Vomiting (N/V). ibuprofen 2020-09 Yes [id number] 600mg Take 1 Univers 600 mg 2-05 tablet by ity of tablet 00:00: mouth [place] 00 every 6 Medical (six) Branch hours as needed for Pain (scale 4-6). benzonatate 2020-09 Yes [id number] 100mg Take 1 Univers 100 mg 2-05 capsule by ity of capsule 00:00: mouth 3 [place] 00 (three) Medical times Branch daily as needed for Cough. albuterol 2020-09 Yes [id number] 2{puff} Inhale 2 Univers 90 2-05 Puffs ity of mcg/actuati 00:00: every 4 [place] as on inhaler 00 (four) Medical hours as Branch needed for Wheezing or Shortness of Breath. ondansetron 2020-09 Yes [id number] 4mg Take 1 Univers (ZOFRAN 2-05 tablet by ity of ODT) 4 mg 00:00: mouth [place] disintegrat 00 every 8 Medic al ing tablet (eight) Branch hours as needed for Nausea and Vomiting (N/V). ibuprofen 2020-09 Yes [id number] 600mg Take 1 Univers 600 mg 2-05 tablet by ity of tablet 00:00: mouth [place] 00 every 6 Medical (six) Branch hours as needed for Pain (scale 4-6). benzonatate 2020-09 Yes [id number] 100mg Take 1 Univers 100 mg 2-05 capsule by ity of capsule 00:00: mouth 3 [place] 00 (three) Medical times Branch daily as needed for Cough. albuterol 2020-09 Yes [id number] 2{puff} Inhale 2 Univers 90 2-05 Puffs ity of mcg/actuati 00:00: every 4 [place] as on inhaler 00 (four) Medical hours as Branch needed for Wheezing or Shortness of Breath. ondansetron 2020-09 Yes [id number] 4mg Take 1 Univers (ZOFRAN 2-05 tablet by ity of ODT) 4 mg 00:00: mouth [place] disintegrat 00 every 8 Medic al ing tablet (eight) Branch hours as needed for Nausea and Vomiting (N/V). ibuprofen 2020-09 Yes [id number] 600mg Take 1 Univers 600 mg 2-05 tablet by ity of tablet 00:00: mouth [place] 00 every 6 Medical (six) Branch hours as needed for Pain (scale 4-6). ibuprofen 2020-09 Yes [id number] 600mg Take 1 Univers 600 mg 2-05 tablet by ity of tablet 00:00: mouth [place] 00 every 6 Medical (six) Branch hours as needed for Pain (scale 4-6). ibuprofen 2020-09 Yes [id number] 600mg Take 1 Univers 600 mg 2-05 tablet by ity of tablet 00:00: mouth [place] 00 every 6 Medical (six) Branch hours as needed for Pain (scale 4-6). ibuprofen 2020-09 Yes [id number] 600mg Take 1 Univers 600 mg 2-05 tablet by ity of tablet 00:00: mouth [place] 00 every 6 Medical (six) Branch hours as needed for Pain (scale 4-6). ibuprofen 2020-09 Yes [id number] 600mg Take 1 [facility] 600 mg 2-05 tablet by ity of tablet 00:00: mouth [place] 00 every 6 Medical (six) Branch hours as needed for Pain (scale 4-6). ibuprofen 2020-09 Yes [id number] 600mg Take 1 [facility] 600 mg 2-05 tablet by ity of tablet 00:00: mouth [place] 00 every 6 Medical (six) Branch hours as needed for Pain (scale 4-6). ibuprofen 2020-09 Yes [id number] 600mg Take 1 [facility] 600 mg 2-05 tablet by ity of tablet 00:00: mouth [place] 00 every 6 Medical (six) Branch hours as needed for Pain (scale 4-6). benzonatate 2020-09 No [id number] 100mg Take 1 [facility] 100 mg -01 30- capsule by ity of capsule 00:00: 00:00 mouth 3 [place] 00 :00 (three) Medical times Branch daily as needed for Cough. albuterol 2020-09- No [id number] 2{puff} Inhale 2 Univers 90 2-05 -09 Puffs ity of mcg/actuati 00:00: 00:00 every 4 [place] on inhaler 00 :00 (four) Medical hours as Branch needed for Wheezing or Shortness of Breath. ondansetron 2020-09- No [id number] 4mg Take 1 Univers (ZOFRAN 2-05 -09 tablet by ity of ODT) 4 mg 00:00: 00:00 mouth [place] disintegrat 00 :00 every 8 Medic al ing tablet (eight) Branch hours as needed for Nausea and Vomiting (N/V). ibuprofen 2020-09- No [id number] 600mg Take 1 [facility] 600 mg 2-05 [...] :00 Piggyback, Medical ONCE, 1 Branch dose, [facility] 03/29/21 at 2030, STAT metFORMIN 2020-0 Yes 1000mg Take 1,000 [facility] 500 mg 7-02 mg by ity of tablet 01:00: mouth. [address] glipiZIDE 5 Yes 10mg Take 10 mg Univers mg tablet 03-30 by mouth. ity o f 01:00: [address] iopamidol 2020- No [id number] 100mL 100 mL, Univers (ISOVUE 03-29 Intravenou ity o f 370-500 mL) 22:54: 22:56 s, ONCE, 1 [place] injection 00 :00 dose, [facility] Medic al 100 mL 03/29/21 at Branch 1815, Routine ibuprofen 2020- No 600mg 600 mg, Uni vers (IBU) 03-29 Oral, ity of tablet 600 21:15: 21:03 ONCE, 1 [place] mg 00 :00 dose, [facility] Medical 03/29/21 at Branch 1615, DARA metFORMIN 2020- Yes 1000mg Take 1,000 [facility] 500 mg 7-01 mg by ity of tablet 20:00: mouth. [address] glipiZIDE 5 Yes 10mg Take 10 mg Univers mg tablet 7-01 by mouth. ity o f 20:00: [address] metFORMIN 2020-0 Yes 1000mg Take 1,000 [facility] 500 mg 7-01 mg by ity of tablet 20:00: mouth. [address] glipiZIDE 5 0 Yes 10mg Take 10 mg Univers mg tablet 7-01 by mouth. ity o f 20:00: [address] metFORMIN 2020-0 Yes 1000mg Take 1,000 [facility] 500 mg 7-01 mg by ity of tablet 20:00: mouth. [address] glipiZIDE 5 Yes 10mg Take 10 mg Univers mg tablet 7-01 by mouth. ity o f 20:00: [address] metFORMIN 2020-0 Yes 1000mg Take 1,000 [facility] 500 mg 7-01 mg by ity of tablet 20:00: mouth. [address] glipiZIDE 5 Yes 10mg Take 10 mg Univers mg tablet 7-01 by mouth. ity o f 20:00: [address] metFORMIN Yes 1000mg Take 1,000 [facility] 500 mg 7-01 mg by ity of tablet 20:00: mouth. [address] glipiZIDE 5 Yes 10mg Take 10 mg Univers mg tablet 7-01 by mouth. ity o f 20:00: [address] metFORMIN Yes 1000mg Take 1,000 [facility] 500 mg 7-01 mg by ity of tablet 20:00: mouth. [address] glipiZIDE 5 Yes 10mg Take 10 mg Univers mg tablet 7-01 by mouth. ity o f 20:00: [address] ketorolac 2020- No 30mg 30 mg, Unive rs (TORADOL) 01-02 Slow IV ity of injection 15:30: 14:28 Push, [place] 30 mg 00 :00 ONCE, 1 Medical dose, [facility] 01/02/21 at 1030, DARA
Fa culty member approving Restricted medication : SHONDA LANG metoclopram 2020- No 10mg 10 mg, Uni vers belle HCl 01-02 Slow IV ity of (REGLAN) 15:30: 14:27 Push, [place] injection 00 :00 ONCE, 1 Medical 10 mg dose, [facility] 01/02/21 at 1030, DARA morpHINE 2020- No 4mg 4 mg, Slow Un khloe injection 4 01-02 IV Push, ity of mg 14:30: 13:23 ONCE, 1 [place] 00 :00 dose, [facility] Medical 01/02/21 at Branch 0930, STAT ondansetron 2020- No 4mg 4 mg, Slow Univers (ZOFRAN 01-02 IV Push, ity of (PF)) 14:30: 13:23 ONCE, 1 [place] injection 4 00 :00 dose, [facility] Med ical mg 01/02/21 at Branch 0930, DARA metoclopram Yes [id number] 10mg Take 1 [facility] belle HCl 10 4-06 tablet by ity of mg tablet 00:00: mouth [place] 00 every 6 Medical (six) Branch hours. polyethylen 2020-0 Yes [id number] 1{packe Take 1 Univers e glycol 4-06 t} Packet by ity of 3350 00:00: mouth 2 [place] (MIRALAX) 00 (two) Medical 17 gram times [place] powder daily as needed for Constipati on. dicyclomine 0 Yes [id number] 20mg Take 1 [facility] 20 mg 4-06 tablet by ity of tablet 00:00: mouth 4 [place] 00 (four) Medical times Branch daily. metoclopram 0 Yes [id number] 10mg Take 1 [facility] belle HCl 10 4-06 tablet by ity of mg tablet 00:00: mouth [place] 00 every 6 Medical (six) Branch hours. metoclopram 0 2020- No [id number] 10mg Take 1 [facility] belle HCl 10 - 07-01 tablet by ity of mg tablet 00:00: 00:00 mouth [place] 00 :00 every 6 Medical (six) Branch hours. polyethylen 2020- No [id number] 1{packe Take 1 Univers e glycol 4-06 07-01 t} Packet by ity o f 3350 00:00: 00:00 mouth 2 [place] (MIRALAX) 00 :00 (two) Medical 17 gram times [place] powder daily as needed for Constipati on. dicyclomine 2020- No [id number] 20mg Take 1 Univers 20 mg - 07-01 tablet by ity of tablet 00:00: 00:00 mouth 4 [place] 00 :00 (four) Medical times Branch daily. metoclopram 0 2020- No [id number] 10mg Take 1 [facility] belle HCl 10 4- 07-01 tablet by ity of mg tablet 00:00: 00:00 mouth [place] 00 :00 every 6 Medical (six) Branch hours. maalox:diph 2020-0 2020- No 15mL 15 mL, Uni vers enhydrAMINE 12-17 Oral, ity of :lidocaine 02:45: 01:46 ONCE, 1 [place] as 2 % viscous 00 :00 dose, Sat Med ical 1:1:1 12/16/20 at [place] ([facility] 2145, [facility]) Routine oral suspension 15 mL iohexol 2020- No [id number] 80mL 80 mL, Univers (OMNIPAQUE 12-17 [id number] Intravenou i ty of 350 01:00: 00:50 s, ONCE, 1 [place] BULK-100 00 :00 dose, Sat Medica l mL) 12/16/20 at [place] injection 1999, 80 mL Routine ondansetron 2020- No 4mg 4 mg, Slow Univers (ZOFRAN 12-17 IV Push, ity of (PF)) 01:00: 00:12 ONCE, 1 [place] injection 4 00 :00 dose, Sat Med ical mg 12/16/20 at [place] 1999, DARA butorphanol 2020- No 1mg 1 mg, IV U nivers (STADOL) 12-17 Push, ity of injection 1 01:00: 00:12 ONCE, 1 [place] mg 00 :00 dose, [facility] 12/16/20 at [place] 1999, Routine ketorolac No 30mg 30 mg, Unive rs (TORADOL) 12-17 Slow IV ity of injection 01:00: 00:12 Push, [place] 30 mg 00 :00 ONCE, 1 Medical dose, [facility] 12/16/20 at 1999, Routine
retail team member approving Restricted medication : MELYSSA PETERS ciprofloxac 2020- No 400mg 400 mg, IV Univers in in 5 % 12-17 Piggyback, ity of dextrose 01:00: 01:15 Administer [place] (CIPRO) 00 :00 over 60 Medical piggyback Minutes, [place] 400 mg ONCE, 1 dose, [facility] 12/16/20 at 1999, DARA
Re ason for Anti-Infec tive: Documented Infection< br>Documen wilfredo Infection Site: HEENT
D uration of Therapy: 7 days NaCl 0.9% 2020- No 1000mL at 999 Uni vers (NS) bolus 12-17 mL/hr, ity of infusion 00:00: 01:15 1,000 mL, [place] as 1,000 mL 00 :00 IV Medical Infusion, Branch ONCE, 1 dose, 12/16/20 at 1900, DARA ciprofloxac Yes [id number] 500mg Take 1 Univers in HCl 500 12-16 tablet by ity of mg tablet 00:00: mouth 2 [place] 00 (two) Medical times Branch daily. ciprofloxac 0 Yes [id number] 500mg Take 1 Univers in HCl 500 12-16 tablet by ity of mg tablet 00:00: mouth 2 [place] 00 (two) Medical times Branch daily. ciprofloxac 2020- No [id number] 500mg Take 1 [facility] in HCl 500 12-16 [id number] tablet by it y of mg tablet 00:00: 00:00 mouth 2 [place] 00 :00 (two) Medical times Branch daily. acyclovir 2020- No [id number] 800mg Take 1 [facility] 800 mg 12-16 tablet by ity of tablet 00:00: 04:59 [...] No 50mg 50 mg, Univer s (ULTRAM) 12-15 Oral, ity of tablet 50 16:45: 16:45 ONCE, 1 [place] mg 00 :00 dose, Fri Medical 12/15/20 at Branch 1145, Routine etodolac Yes [id number] 300mg Take 1 [facility] 300 mg 12-15 capsule by ity of capsule 00:00: mouth 2 [place] 00 (two) Medical times Branch daily with meals. colistin-ne 0 Yes [id number] 5[drp] Place 5 Univers omycin-hc-t 12-15 Drops in ity of honzonium 00:00: right ear [place] as (CORTISPORI 00 3 (three) Med ical N-TC) times Branch 3.3-3-10-0. daily. 5 mg/mL otic drops etodolac 2020-0 Yes [id number] 300mg Take 1 [facility] 300 mg 12-1504 capsule by ity of capsule 00:00: mouth 2 [place] 00 (two) Medical times Branch daily with meals. colistin-ne 2020-0 Yes [id number] 5[drp] Place 5 Univers omycin-hc-t 12-15 [id number] Drops in ity of honzonium 00:00: right ear [place] (CORTISPORI 00 3 (three) Med ical N-TC) times Branch 3.3-3-10-0. daily. 5 mg/mL otic drops etodolac 2020-2020- No [id number] 300mg Take 1 [facility] 300 mg 12-15 [id number] capsule by ity o f capsule 00:00: 00:00 mouth 2 [place] 00 :00 (two) Medical times Branch daily with meals. colistin-ne 2020-2020- No [id number] 5[drp] Place 5 Univers omycin-hc-t 12-15 [id number] Drops in it y of honzonium 00:00: 00:00 right ear [place] (CORTISPORI 00 :00 3 (three) Med ical N-TC) times Branch 3.3-3-10-0. daily. 5 mg/mL otic drops colistin-ne 2020-2020- No [id number] 5[drp] Place 5 Univers omycin-hc-t 12-15 11698 Drops in it y of honzonium 00:00: 04:59 right ear [place] (CORTISPORI 00 :00 3 (three) Med ical N-TC) times Branch 3.3-3-10-0. daily for 5 mg/mL 7 days. otic drops etodolac 2020-2020- No [id number] 300mg Take 1 Univers 300 mg 12-15 [id number] capsule by ity o f capsule 00:00: 04:59 mouth 2 [place] 00 :00 (two) Medical times Branch daily with meals for 5 days. tc 20202020- No 42.3mCi 42.3 Univers 99m-tetrofo 11-28 millicurie i ty of smin 19:15: 19:05 , [place] ([facility]) 00 :00 Intravenou Medi carmen injection s, ONCE, 1 Bran ch 42.3 dose, Tue millicurie 11/28/20 at 1315, Routine Regadenoson 2020- No .4mg 0.4 mg, IV Univers (LEXISCAN) 11-28 03 Push, ity of injection 19:10: 19:10 ONCE, 1 [place] 0.4 mg 00 :00 dose, [facility] Medical 11/28/20 at Branch 1315, Routine
retail team member approving Restricted medication : RENYARIADNESHERRIE tc 2020- No 15.7mCi 15.7 Univers 99m-tetrofo 11-28 millicurie i ty of smin 17:45: 17:35 , [place] ([facility]) 00 :00 Intravenou Medi carmen injection s, ONCE, 1 Bran ch 15.7 dose, [facility] millicurie 11/28/20 at 1145, Routine hydrOXYzine Yes 10mg 10 mg, Univ ers (ATARAX) 11-28 Oral, ity of tablet 10 01:38: Q6HPRN, [place] mg 27 Starting Medical 11/27/20 Branch at 1938, Until Discontinu ed, Routine, Anxiety metFORMIN 2020- No [id number] 850mg Take 1 Univers 850 mg 11-28 tablet by ity of tablet 00:00: 04:59 mouth 3 [place] 00 :00 (three) Medical times Branch daily with meals for 30 days. glipiZIDE 2020- No [id number] 10mg Take 1 [facility] XL 10 mg 24 11-28- tablet by it y of hr tablet 00:00: 04:59 mouth 2 [place] 00 :00 (two) Medical times Branch daily for 30 days. hydrOXYzine 2020- No [id number] 10mg Take 1 Univers 10 mg 11-28- tablet by ity of tablet 00:00: 04:59 mouth [place] 00 :00 every 8 Medical (eight) Branch hours as needed for Anxiety for up to 30 days. metFORMIN 2020- No [id number] 850mg Take 1 [facility] 850 mg 3- 04-02 tablet by ity of tablet 00:00: 04:59 mouth 3 [place] 00 :00 (three) Medical times Branch daily with meals for 30 days. glipiZIDE 2020- No [id number] 10mg Take 1 [facility] XL 10 mg 24 3-11 02-02 tablet by it y of hr tablet 00:00: 04:59 mouth 2 [place] 00 :00 (two) Medical times Branch daily for 30 days. hydrOXYzine 2020- No [id number] 10mg Take 1 [facility] 10 mg 3-11 02-02 tablet by ity of tablet 00:00: 04:59 mouth [place] 00 :00 every 8 Medical (eight) Branch hours as needed for Anxiety for up to 30 days. metFORMIN 2020- No [id number] 850mg Take 1 Univers 850 mg 3-11 02- tablet by ity of tablet 00:00: 04:59 mouth 3 [place] 00 :00 (three) Medical times Branch daily with meals for 30 days. glipiZIDE 2020- No [id number] 10mg Take 1 [facility] XL 10 mg 24 11-28-02 tablet by it y of hr tablet 00:00: 04:59 mouth 2 [place] 00 :00 (two) Medical times Branch daily for 30 days. hydrOXYzine 2020- No [id number] 10mg Take 1 [facility] 10 mg 3-11 02-02 tablet by ity of tablet 00:00: 04:59 mouth [place] 00 :00 every 8 Medical (eight) Branch hours as needed for Anxiety for up to 30 days. metFORMIN 2020- No [id number] 850mg Take 1 [facility] 850 mg 3-02 04-02 tablet by ity of tablet 00:00: 04:59 mouth 3 [place] 00 :00 (three) Medical times Branch daily with meals for 30 days. glipiZIDE 2020- No [id number] 10mg Take 1 [facility] XL 10 mg 24 3- 04-02 tablet by it y of hr tablet 00:00: 04:59 mouth 2 [place] 00 :00 (two) Medical times Branch daily for 30 days. hydrOXYzine 2020- No [id number] 10mg Take 1 [facility] 10 mg 11-28 tablet by ity of tablet 00:00: 04:59 mouth [place] 00 :00 every 8 Medical (eight) Branch hours as needed for Anxiety for up to 30 days. metFORMIN 2020- No [id number] 850mg Take 1 [facility] 850 mg 11-28 tablet by ity of tablet 00:00: 04:59 mouth 3 [place] 00 :00 (three) Medical times Branch daily with meals for 30 days. glipiZIDE 2020- No [id number] 10mg Take 1 [facility] XL 10 mg 24 11-28 tablet by it y of hr tablet 00:00: 04:59 mouth 2 [place] 00 :00 (two) Medical times Branch daily for 30 days. hydrOXYzine 2020- No [id number] 10mg Take 1 Univers 10 mg 11-28 [...] 2020- No 2000mg 2,000 mg, Univers sulfate 3 03- IV ity of 2,000 mg in 10:30: 10:30 Infusion, [place] D5W 00 :00 ONCE, 1 [facility]30, 100 mL magnesium Yes 400mg 400 mg, Univ ers oxide 11-27 Oral, BID, ity of (MAG-OX 09:30: First dose [place] 400) tablet 00 on Mon Medica l 400 mg 11/27/20 at Branch 0330, Until Discontinu ed, Routine Sliding 2020- No Subcutaneo Uni vers Scale 3-11-27 us, AC+HS, ity of Insulin-Reg 03:00: 09:21 First dose [place] ular + Fsbg 00 :58 on [place] [facility] 11/26/20 at Branch 2100, Until Discontinu ed, Routine KCL 2020- No 60meq 60 mEq, Univers (KLOR-CON 11-26 Oral, ity of M20) tablet 23:15: 23:39 ONCE, 1 [place] 60 mEq 00 :00 dose, [facility] 11/26/20 at Branch 1715, Routine enoxaparin Yes 40mg 40 mg, Unive rs (LOVENOX) 11-26 Subcutaneo ity of injection 23:00: us, DAILY, [place] 40 mg 00 First dose Medical on [facility] 11/26/20 at 1700, Until Discontinu ed, Routine HYDROcodone 2020- No 1{tbl} 1 tablet, Univers -acetaminop 11-26 0302 Oral, ity of hen (NORCO 22:10: 22:09 Q6HPRN, [place] as 5) 5-325 mg 37 :37 Starting Medi carmen tablet 1 [facility] tablet 11/26/20 at 1610, Until 11/28/20 at 1609, Routine, Pain (scale 4-6) acetaminoph Yes 650mg 650 mg, Un khloe en 11-26 Oral, ity of (TYLENOL) 22:10: Q6HPRN, [place] tablet 650 32 Starting Medic al mg [facility] 11/26/20 at 1610, Until Discontinu ed, Routine, Pain (scale 1-3) iohexol 2020- No 80mL 80 mL, Univers (OMNIPAQUE 11-26 Intravenou it y of 350 21:00: 20:50 s, ONCE, 1 [place] BULK-100 00 :00 dose, [facility] mL) 11/26/20 at Branch injection 1500, 80 mL Routine HYDROcodone 2020- No 1{tbl} 1 tablet, Univers -acetaminop 11-20 Oral, ONCE i ty of hen (NORCO) 07:45: 06:48 NOW, 1 [place] as 10-325 mg 00 :00 dose, Mon Medic al tablet 1 11/20/20 at [facility] tablet 0145, Routine dicloxacill Yes [id number] 250mg Take 1 Univers in 250 mg 11-20 [id number] capsule by it y of capsule 00:00: mouth 4 [place] 00 (four) Medical times Branch daily. naproxen Yes [id number] 550mg Take 1 Univers sodium 550 11-20 [id number] tablet by it y of mg tablet 00:00: mouth 2 [place] 00 (two) Medical times Branch daily with meals. dicloxacill Yes [id number] 250mg Take 1 Univers in 250 mg 11-20 [id number] capsule by it y of capsule 00:00: mouth 4 [place] 00 (four) Medical times Branch daily. naproxen Yes [id number] 550mg Take 1 [facility] sodium 550 11-20 [id number] tablet by it y of mg tablet 00:00: mouth 2 [place] 00 (two) Medical times Branch daily with meals. dicloxacill 2020- No [id number] 250mg Take 1 Univers in 250 mg 11-20 [id number] capsule by i ty of capsule 00:00: 00:00 mouth 4 [place] 00 :00 (four) Medical times Branch daily. naproxen 2020- No [id number] 550mg Take 1 Univers sodium 550 11-20 [id number] tablet by i ty of mg tablet 00:00: 00:00 mouth 2 [place] 00 :00 (two) Medical times Branch daily with meals. methylPREDN 2019- No 40mg Unive rs ISolone 03-28 ity of acetate 22:15: 17:48 [place] (DEPO-MEDRO 00 :00 Medical L) 80 mg/mL Branch 40 mg, lidocaine 1% (PF) (XYLOCAINE) 3 mL, bupivacaine (preserv free) 0.5% (SENSORCAIN E MPF) 0.5 % (5 mg/mL) 6 mL 9.5 mL injection methylPREDN 2020-0 2020- No 40mg Intra-devin [facility] 03-28 08-17 cular, ity of acetate 22:15: 17:48 ONCE, 1 [place] (DEPO-MEDRO 00 :00 dose, Tue Med ical L) 80 mg/mL 03/28/20 at Br anch 40 mg, 1715, 9.5 lidocaine mL 1% (PF) (XYLOCAINE) 3 mL, bupivacaine (preserv free) 0.5% (SENSORCAIN E MPF) 0.5 % (5 mg/mL) 6 mL 9.5 mL injection methylPREDN 2020-0 2020- No 40mg [facility] 03-28 ity of acetate 22:15: 18:50 [place] (DEPO-MEDRO 00 :00 Medical L) 80 mg/mL Branch 40 mg, lidocaine 1% (PF) (XYLOCAINE) 3 mL, bupivacaine (preserv free) 0.5% (SENSORCAIN E MPF) 0.5 % (5 mg/mL) 6 mL 9.5 mL injection methylPREDN 2020-0 2020- No 40mg Intra-devin [facility] 03-28 cular, ity of acetate 22:15: 18:50 ONCE, 1 [place] (DEPO-MEDRO 00 :00 dose, Tue Med ical L) 80 mg/mL 03/28/20 at Br anch 40 mg, 1715, 9.5 lidocaine mL 1% (PF) (XYLOCAINE) 3 mL, bupivacaine (preserv free) 0.5% (SENSORCAIN E MPF) 0.5 % (5 mg/mL) 6 mL 9.5 mL injection methylPREDN 2020-0 2020- No 40mg [facility] 03-28 ity of acetate 22:15: 18:50 [place] (DEPO-MEDRO 00 :00 Medical L) 80 mg/mL Branch 40 mg, lidocaine 1% (PF) (XYLOCAINE) 3 mL, bupivacaine (preserv free) 0.5% (SENSORCAIN E MPF) 0.5 % (5 mg/mL) 6 mL 9.5 mL injection methylPREDN 2020-0 2020- No 40mg Intra-devin Univers ISolone 03-28 cular, ity of acetate 22:15: 18:50 ONCE, 1 [place] (DEPO-MEDRO 00 :00 dose, Tue Med ical L) 80 mg/mL 03/28/20 at Br anch 40 mg, 1715, 9.5 lidocaine mL 1% (PF) (XYLOCAINE) 3 mL, bupivacaine (preserv free) 0.5% (SENSORCAIN E MPF) 0.5 % (5 mg/mL) 6 mL 9.5 mL injection methylPREDN 2020-0 2020- No 40mg Unive rs ISolone 03-28 ity of acetate 22:15: 10:14 [place] (DEPO-MEDRO 00 :00 Medical L) 80 mg/mL Branch 40 mg, lidocaine 1% (PF) (XYLOCAINE) 3 mL, bupivacaine (preserv free) 0.5% (SENSORCAIN E MPF) 0.5 % (5 mg/mL) 6 mL 9.5 mL injection methylPREDN 2020-0 2020- No 40mg Unive rs ISolone 03-28 ity of acetate 22:15: 10:14 [place] (DEPO-MEDRO 00 :00 Medical L) 80 mg/mL Branch 40 mg, lidocaine 1% (PF) (XYLOCAINE) 3 mL, bupivacaine (preserv free) 0.5% (SENSORCAIN E MPF) 0.5 % (5 mg/mL) 6 mL 9.5 mL injection methylPREDN 2020-0 2020- No 40mg Unive ISolone 03-28 ity of acetate 22:15: 10:14 [place] (DEPO-MEDRO 00 :00 Medical L) 80 mg/mL Branch 40 mg, lidocaine 1% (PF) (XYLOCAINE) 3 mL, bupivacaine (preserv free) 0.5% (SENSORCAIN E MPF) 0.5 % (5 mg/mL) 6 mL 9.5 mL injection methylPREDN 2020-0 2020- No 40mg Unive rs ISolone 03-28 ity of acetate 22:15: 10:14 [place] (DEPO-MEDRO 00 :00 Medical L) 80 mg/mL Branch 40 mg, lidocaine 1% (PF) (XYLOCAINE) 3 mL, bupivacaine (preserv free) 0.5% (SENSORCAIN E MPF) 0.5 % (5 mg/mL) 6 mL 9.5 mL injection methylPREDN No 40mg Unive rs ISolone 03-28 ity of acetate 22:15: 10:14 [place] (DEPO-MEDRO 00 :00 Medical L) 80 mg/mL Branch 40 mg, lidocaine 1% (PF) (XYLOCAINE) 3 mL, bupivacaine (preserv free) 0.5% (SENSORCAIN E MPF) 0.5 % (5 mg/mL) 6 mL 9.5 mL injection HYDROcodone 2019- No 1{tbl} 1 tablet, Univers -acetaminop 03-28 Oral, ity of hen (NORCO 01:45: 00:52 ONCE, 1 [place] as 5) 5-325 mg 00 :00 dose, [facility] Med ical tablet 1 03/27/20 at [facility] h tablet 2044, DARA sulfamethox No 1{tbl} 1 tablet, [facility] azole-trime 03-28 Oral, ONCE i ty of thoprim 01:45: 00:52 NOW, 1 [place] (BACTRIM 00 :00 dose, [facility] Medica l DS) [id number] 03/27/20 at Br anch mg per 2044, tablet 1 DARA
Re tablet ason for Anti-Infec tive: Documented Infection< br>Documen wilfredo Infection Site: Skin / Soft Tissue
Duration of Therapy: 7 days rifAMPin No 600mg 600 mg, Univ ers (RIFADIN) 03-28 Oral, ONCE ity of capsule 600 01:45: 00:52 NOW, 1 [place] as mg 00 :00 dose, [facility] Medical 03/27/20 at Branch 2044, DARA
Re ason for Anti-Infec tive: Documented Infection< br>Documen wilfredo Infection Site: Skin / Soft Tissue
Duration of Therapy: 7 days lidocaine 2019- No 5mL 5 mL, Univer s 1% 03-28 Infiltrati ity of (XYLOCAINE) 01:00: 01:00 on, ONCE, [place] 10 mg/mL (1 00 :00 1 dose, Medic al %) Mon Branch injection 5 03/27/20 at mL 2000, DARA rifAMPin 2020-0 2020- No [id number] 600mg Take 2 U nivers 300 mg 6-30 07-15 capsules ity of capsule 00:00: 04:59 by mouth [place] 00 :00 daily for Medical 14 days. Branch rifAMPin 2020-0 2020- No [id number] 600mg Take 2 U nivers 300 mg 6-30 07-15 capsules ity of capsule 00:00: 04:59 by mouth [place] 00 :00 daily for Medical 14 days. Branch rifAMPin 2019-0 2020- No [id number] 600mg Take 2 U nivers 300 mg 6-30 07-15 capsules ity of capsule 00:00: 04:59 by mouth [place] 00 :00 daily for Medical 14 days. Branch rifAMPin 2020-0 2020- No [id number] 600mg Take 2 U nivers 300 mg 6-30 07-15 capsules ity of capsule 00:00: 04:59 by mouth [place] 00 :00 daily for Medical 14 days. Branch rifAMPin 2019-0 2020- No [id number] 600mg Take 2 U nivers 300 mg 6-30 07-15 capsules ity of capsule 00:00: 04:59 by mouth [place] 00 :00 daily for Medical 14 days. Branch rifAMPin 2019-0 2020- No [id number] 600mg Take 2 U nivers 300 mg 6-30 07-15 capsules ity of capsule 00:00: 04:59 by mouth [place] 00 :00 daily for Medical 14 days. Branch rifAMPin 2019-0 2020- No [id number] 600mg Take 2 U nivers 300 mg 6-30 07-15 capsules ity of capsule 00:00: 04:59 by mouth [place] 00 :00 daily for Medical 14 days. Branch rifAMPin 2020-0 2020- No [id number] 600mg Take 2 U nivers 300 mg 6-30 07-15 capsules ity of capsule 00:00: 04:59 by mouth [place] 00 :00 daily for Medical 14 days. Branch rifAMPin 2020-0 2020- No [id number] 600mg Take 2 U nivers 300 mg 6-30 07-15 capsules ity of capsule 00:00: 04:59 by mouth [place] 00 :00 daily for Medical 14 days. Branch rifAMPin 2020-0 2020- No [id number] 600mg Take 2 U nivers 300 mg 6-30 07-15 capsules ity of capsule 00:00: 04:59 by mouth [place] 00 :00 daily for Medical 14 days. Branch rifAMPin 2019- 2020- No [id number] 600mg Take 2 U nivers 300 mg -30 07-15 capsules ity of capsule 00:00: 04:59 by mouth [place] 00 :00 daily for Medical 14 days. Branch rifAMPin 2019- 2020- No [id number] 600mg Take 2 U nivers 300 mg -30 07-15 capsules ity of capsule 00:00: 04:59 by mouth [place] 00 :00 daily for Medical 14 days. Branch rifAMPin 2019- 2020- No [id number] 600mg Take 2 U nivers 300 mg 6-30 07-15 capsules ity of capsule 00:00: 04:59 by mouth [place] 00 :00 daily for Medical 14 days. [place] lidocaine-p 2019- No 2.5g Topical, U nivers rilocaine 03-27 ONCE, 1 ity of (EMLA) 23:45: 22:35 dose, Mon [place] 2.5-2.5 % 00 :00 03/27/20 at [facility] carmen cream 2.5 g 1845, DARA Br anch ondansetron 2019- No 4mg 4 mg, Slow Univers (ZOFRAN 03-27 IV Push, ity of (PF)) 22:30: 21:40 ONCE, 1 [place] injection 4 00 :00 dose, Mon Med ical mg 03/27/20 at Branch 1730, DARA morpHINE 2019- No 4mg 4 mg, Slow Un khloe injection 4 03-27 IV Push, ity of mg 22:30: 21:42 ONCE, 1 [place] 00 :00 dose, Mon Medical 03/27/20 at Branch 1730, STAT ketorolac 2019- No 30mg 30 mg, Unive rs (TORADOL) 03-27 Slow IV ity of injection 22:30: 21:41 Push, [place] 30 mg 00 :00 ONCE, 1 Medical dose, [facility] 03/27/20 at 1730, DARA
Fa culty member approving Restricted medication : WANG LEYVA piperacilli 2019- No 3.375g 3.375 g, Univers n-tazobacta 03-27 IV ity of m (ZOSYN) 22:30: 22:14 Piggyback, [place] 3.375 00 :00 ONCE, 1 Medical gram/50 mL dose, Mon Bran ch Piggyback 03/27/20 at [facility] 3.375 g 1730, [...] IV Medical Infusion, Branch ONCE, 1 dose, 03/27/20 at 1630, DARA sulfamethox 2020-0 2020- No [id number] 1{tbl} Take 1 [facility] azole-trime 03-27- tablet by it y of thoprim 00:00: 04:59 mouth [place] 800-160 mg 00 :00 every 12 Medic al per tablet (twelve) Branc h hours for 14 days. sulfamethox 2020-0 2020- No [id number] 1{tbl} Take 1 [facility] azole-trime 03-27-14 tablet by it y of thoprim 00:00: 04:59 mouth [place] 800-160 mg 00 :00 every 12 Medic al per tablet (twelve) Branc h hours for 14 days. sulfamethox 2020-0 2020- No [id number] 1{tbl} Take 1 [facility] azole-trime 03-27-14 tablet by it y of thoprim 00:00: 04:59 mouth [place] 800-160 mg 00 :00 every 12 Medic al per tablet (twelve) Branc h hours for 14 days. sulfamethox 2020-0 2020- No [id number] 1{tbl} Take 1 [facility] azole-trime -26 04-14 tablet by it y of thoprim 00:00: 04:59 mouth [place] 800-160 mg 00 :00 every 12 Medic al per tablet (twelve) Branc h hours for 14 days. sulfamethox 2020-0 2020- No [id number] 1{tbl} Take 1 [facility] azole-trime 6-29 07-14 tablet by it y of thoprim 00:00: 04:59 mouth [place] 800-160 mg 00 :00 every 12 Medic al per tablet (twelve) Branc h hours for 14 days. sulfamethox 2020-0 2020- No [id number] 1{tbl} Take 1 [facility] azole-trime 6-29 07-14 tablet by it y of thoprim 00:00: 04:59 mouth [place] 800-160 mg 00 :00 every 12 Medic al per tablet (twelve) Branc h hours for 14 days. sulfamethox 2020-0 2020- No [id number] 1{tbl} Take 1 [facility] azole-trime 6-29 07-14 tablet by it y of thoprim 00:00: 04:59 mouth [place] 800-160 mg 00 :00 every 12 Medic al per tablet (twelve) Branc h hours for 14 days. sulfamethox 2020-0 2020- No [id number] 1{tbl} Take 1 [facility] azole-trime 6-29 07-14 tablet by it y of thoprim 00:00: 04:59 mouth [place] 800-160 mg 00 :00 every 12 Medic al per tablet (twelve) Branc h hours for 14 days. sulfamethox 2020-0 2020- No [id number] 1{tbl} Take 1 [facility] azole-trime 6-29 07-14 tablet by it y of thoprim 00:00: 04:59 mouth [place] 800-160 mg 00 :00 every 12 Medic al per tablet (twelve) Branc h hours for 14 days. sulfamethox 2020-0 2020- No [id number] 1{tbl} Take 1 [facility] azole-trime 6-29 07-14 tablet by it y of thoprim 00:00: 04:59 mouth [place] 800-160 mg 00 :00 every 12 Medic al per tablet (twelve) Branc h hours for 14 days. sulfamethox 2020-0 2020- No [id number] 1{tbl} Take 1 [facility] azole-trime 6-29 07-14 tablet by it y of thoprim 00:00: 04:59 mouth [place] 800-160 mg 00 :00 every 12 Medic al per tablet (twelve) Branc h hours for 14 days. sulfamethox 2020-0 2020- No [id number] 1{tbl} Take 1 [facility] azole-trime 6-29 07-14 tablet by it y of thoprim 00:00: 04:59 mouth [place] 800-160 mg 00 :00 every 12 Medic al per tablet (twelve) Branc h hours for 14 days. sulfamethox 2019- No [id number] 1{tbl} Take 1 [facility] azole-trime 03-27 tablet by it y of thoprim 00:00: 04:59 mouth [place] 800-160 mg 00 :00 every 12 Medic al per tablet (twelve) Branc h hours for 14 days. insulin 2019- No 5U 5 Units, Unive rs regular 03-25 Slow IV ity of human 21:30: 20:46 Push, [place] (HUMULIN R) 00 :00 ONCE, 1 Medic al injection 5 dose, Sat [facility] 03/25/20 at 1630, DARA clindamycin 2019- No 600mg 600 mg, IV [facility] in 5 % 03-25 Piggyback, ity of dextrose 20:15: 19:47 ONCE, 1 [place] (CLEOCIN) 00 :00 dose, Sat Medic al 600 mg/50 03/25/20 at Bran ch mL IV 1515, 50 piggyback mL
Reas RTU 600 mg on for Anti-Infec tive: Documented Infection< br>Documen wilfredo Infection Site: Skin / Soft Tissue
Duration of Therapy: 7 days
Re stricted use approved by: ED PROVIDER<b r>Indicati on for Clindamyci n use: breast cellulitis HYDROcodone 2019- No 1{tbl} 1 tablet, [facility] -acetaminop 03-25 Oral, ity of hen (NORCO 20:00: 19:07 ONCE, 1 [place] 5) 5-325 mg 00 :00 dose, Sat Med ical tablet 1 03/25/20 at Branc h tablet 1500, DARA amoxicillin 2019-0 Yes [id number] 500mg Take 1 [facility] -pot 6-27 tablet by ity of clavulanate 00:00: mouth 3 [place] 500 mg 00 (three) Medical 500-125 mg times Branch tablet daily. clindamycin 2019-0 Yes [id number] 300mg Take 1 [facility] 300 mg -27 capsule by ity of capsule 00:00: mouth [place] 00 every 8 Medical (eight) Branch hours. acetaminoph 2020-0 Yes [id number] 1{tbl} Take 1 [facility] en-codeine 6-27 tablet by ity of (TYLENOL-CO 00:00: mouth [place] DEINE #3) 00 every 4 Medical 300-30 mg (four) Branch tablet hours as needed for Pain (scale 7-10). amoxicillin 2020-0 Yes [id number] 500mg Take 1 [facility] -pot 6-27 tablet by ity of clavulanate 00:00: mouth 3 [place] 500 mg 00 (three) Medical 500-125 mg times Branch tablet daily. clindamycin 2020-0 Yes [id number] 300mg Take 1 [facility] 300 mg 6-27 capsule by ity of capsule 00:00: mouth [place] 00 every 8 Medical (eight) Branch hours. acetaminoph 2020-0 Yes [id number] 1{tbl} Take 1 [facility] en-codeine 6-27 tablet by ity of (TYLENOL-CO 00:00: mouth [place] DEINE #3) 00 every 4 Medical 300-30 mg (four) Branch tablet hours as needed for Pain (scale 7-10). amoxicillin 2020-0 Yes [id number] 500mg Take 1 [facility] -pot 6-27 tablet by ity of clavulanate 00:00: mouth 3 [place] 500 mg 00 (three) Medical 500-125 mg times Branch tablet daily. clindamycin 2020-0 Yes [id number] 300mg Take 1 [facility] 300 mg 6-27 capsule by ity of capsule 00:00: mouth [place] 00 every 8 Medical (eight) Branch hours. acetaminoph 2020-0 Yes [id number] 1{tbl} Take 1 [facility] en-codeine 6-27 tablet by ity of (TYLENOL-CO 00:00: mouth [place] DEINE #3) 00 every 4 Medical 300-30 mg (four) Branch tablet hours as needed for Pain (scale 7-10). amoxicillin 2020-0 Yes [id number] 500mg Take 1 [facility] -pot 6-27 tablet by ity of clavulanate 00:00: mouth 3 [place] 500 mg 00 (three) Medical 500-125 mg times Branch tablet daily. clindamycin 2020-0 Yes [id number] 300mg Take 1 [facility] 300 mg 6-27 capsule by ity of capsule 00:00: mouth [place] 00 every 8 Medical (eight) Branch hours. acetaminoph 2020-0 Yes [id number] 1{tbl} Take 1 [facility] en-codeine 6-27 tablet by ity of (TYLENOL-CO 00:00: mouth [place] DEINE #3) 00 every 4 Medical 300-30 mg (four) Branch tablet hours as needed for Pain (scale 7-10). amoxicillin 2020-0 Yes [id number] 500mg Take 1 [facility] -pot 6-27 tablet by ity of clavulanate 00:00: mouth 3 [place] 500 mg 00 (three) Medical 500-125 mg times Branch tablet daily. clindamycin 2020-0 Yes [id number] 300mg Take 1 [facility] 300 mg 6-27 capsule by ity of capsule 00:00: mouth [place] 00 every 8 Medical (eight) Branch hours. acetaminoph 2020-0 Yes [id number] 1{tbl} Take 1 [facility] en-codeine 6-27 tablet by ity of (TYLENOL-CO 00:00: mouth [place] DEINE #3) 00 every 4 Medical 300-30 mg (four) Branch tablet hours as needed for Pain (scale 7-10). amoxicillin 2020-0 Yes [id number] 500mg Take 1 [facility] -pot 6-27 tablet by ity of clavulanate 00:00: mouth 3 [place] 500 mg 00 (three) Medical 500-125 mg times Branch tablet daily. clindamycin 2020-0 Yes [id number] 300mg Take 1 [facility] 300 mg 6-27 capsule by ity of capsule 00:00: mouth [place] 00 every 8 Medical (eight) Branch hours. acetaminoph 2020-0 Yes [id number] 1{tbl} Take 1 [facility] en-codeine 6-27 tablet by ity of (TYLENOL-CO 00:00: mouth [place] DEINE #3) 00 every 4 Medical 300-30 mg (four) Branch tablet hours as needed for Pain (scale 7-10). amoxicillin 2020-0 Yes [id number] 500mg Take 1 [facility] -pot 6-27 tablet by ity of clavulanate 00:00: mouth 3 [place] 500 mg 00 (three) Medical 500-125 mg times Branch tablet daily. clindamycin 2020-0 Yes [id number] 300mg Take 1 [facility] 300 mg 6-27 capsule by ity of capsule 00:00: mouth [place] 00 every 8 Medical (eight) Branch hours. acetaminoph 2020-0 Yes [id number] 1{tbl} Take 1 [facility] en-codeine 6-27 tablet by ity of (TYLENOL-CO 00:00: mouth [place] DEINE #3) 00 every 4 Medical 300-30 mg (four) Branch tablet hours as needed for Pain (scale 7-10). amoxicillin 2020-0 Yes [id number] 500mg Take 1 [facility] -pot 6-27 tablet by ity of clavulanate 00:00: mouth 3 [place] 500 mg 00 (three) Medical 500-125 mg times Branch tablet daily. clindamycin 2020-0 Yes [id number] 300mg Take 1 [facility] 300 mg 6-27 capsule by ity of capsule 00:00: mouth [place] 00 every 8 Medical (eight) Branch hours. acetaminoph 2020-0 Yes [id number] 1{tbl} Take 1 [facility] en-codeine 6-27 tablet by ity of (TYLENOL-CO 00:00: mouth [place] DEINE #3) 00 every 4 Medical 300-30 mg (four) Branch tablet hours as needed for Pain (scale 7-10). amoxicillin 2020-0 Yes [id number] 500mg Take 1 [facility] -pot 6-27 tablet by ity of clavulanate 00:00: mouth 3 [place] 500 mg 00 (three) Medical 500-125 mg times Branch tablet daily. clindamycin 2020-0 Yes [id number] 300mg Take 1 [facility] 300 mg 6-27 capsule by ity of capsule 00:00: mouth [place] 00 every 8 Medical (eight) Branch hours. acetaminoph 2020-0 Yes [id number] 1{tbl} Take 1 [facility] en-codeine 6-27 tablet by ity of (TYLENOL-CO 00:00: mouth [place] DEINE #3) 00 every 4 Medical 300-30 mg (four) Branch tablet hours as needed for Pain (scale 7-10). amoxicillin 2020-0 Yes [id number] 500mg Take 1 [facility] -pot 6-27 tablet by ity of clavulanate 00:00: mouth 3 [place] 500 mg 00 (three) Medical 500-125 mg times Branch tablet daily. clindamycin 2020-0 Yes [id number] 300mg Take 1 [facility] 300 mg 6-27 capsule by ity of capsule 00:00: mouth [place] 00 every 8 Medical (eight) Branch hours. acetaminoph 2020-0 Yes [id number] 1{tbl} Take 1 [facility] en-codeine 6-27 tablet by ity of (TYLENOL-CO 00:00: mouth [place] DEINE #3) 00 every 4 Medical 300-30 mg (four) Branch tablet hours as needed for Pain (scale 7-10). amoxicillin 2020-0 Yes [id number] 500mg Take 1 [facility] -pot 6-27 tablet by ity of clavulanate 00:00: mouth 3 [place] 500 mg 00 (three) Medical 500-125 mg times Branch tablet daily. clindamycin 2020-0 Yes [id number] 300mg Take 1 [facility] 300 mg 6-27 capsule by ity of capsule 00:00: mouth [place] 00 every 8 Medical (eight) Branch hours. acetaminoph 2020-0 Yes [id number] 1{tbl} Take 1 [facility] en-codeine 6-27 tablet by ity of (TYLENOL-CO 00:00: mouth [place] DEINE #3) 00 every 4 Medical 300-30 mg (four) Branch tablet hours as needed for Pain (scale 7-10). amoxicillin 2020-0 Yes [id number] 500mg Take 1 [facility] -pot 6-27 tablet by ity of clavulanate 00:00: mouth 3 [place] 500 mg 00 (three) Medical 500-125 mg times Branch tablet daily. clindamycin 2020-0 Yes [id number] 300mg Take 1 [facility] 300 mg 6-27 capsule by ity of capsule 00:00: mouth [place] 00 every 8 Medical (eight) Branch hours. acetaminoph 2020-0 Yes [id number] 1{tbl} Take 1 [facility] en-codeine 6-27 tablet by ity of (TYLENOL-CO 00:00: mouth [place] DEINE #3) 00 every 4 Medical 300-30 mg (four) Branch tablet hours as needed for Pain (scale 7-10). amoxicillin 2020-0 Yes [id number] 500mg Take 1 [facility] -pot 6-27 tablet by ity of clavulanate 00:00: mouth 3 [place] 500 mg 00 (three) Medical 500-125 mg times Branch tablet daily. clindamycin 2020-0 Yes [id number] 300mg Take 1 [facility] 300 mg 6-27 capsule by ity of capsule 00:00: mouth [place] 00 every 8 Medical (eight) Branch hours. acetaminoph 2020-0 Yes [id number] 1{tbl} Take 1 [facility] en-codeine 6-27 tablet by ity of (TYLENOL-CO 00:00: mouth [place] DEINE #3) 00 every 4 Medical 300-30 mg (four) Branch tablet hours as needed for Pain (scale 7-10). amoxicillin 2020-0 Yes [id number] 500mg Take 1 [facility] -pot 6-27 tablet by ity of clavulanate 00:00: mouth 3 [place] 500 mg 00 (three) Medical 500-125 mg times Branch tablet daily. clindamycin 2020-0 Yes [id number] 300mg Take 1 [facility] 300 mg 6-27 capsule by ity of capsule 00:00: mouth [place] 00 every 8 Medical (eight) Branch hours. acetaminoph 2020-0 Yes [id number] 1{tbl} Take 1 [facility] en-codeine 6-27 tablet by ity of (TYLENOL-CO 00:00: mouth [place] DEINE #3) 00 every 4 Medical 300-30 mg (four) Branch tablet hours as needed for Pain (scale 7-10). amoxicillin 2020-0 Yes [id number] 500mg Take 1 [facility] -pot 6-27 tablet by ity of clavulanate 00:00: mouth 3 [place] 500 mg 00 (three) Medical 500-125 mg times Branch tablet daily. clindamycin 2020-0 Yes [id number] 300mg Take 1 [facility] 300 mg 6-27 capsule by ity of capsule 00:00: mouth [place] 00 every 8 Medical (eight) Branch hours. acetaminoph 2020-0 Yes [id number] 1{tbl} Take 1 [facility] en-codeine 6-27 tablet by ity of (TYLENOL-CO 00:00: mouth [place] DEINE #3) 00 every 4 Medical 300-30 mg (four) Branch tablet hours as needed for Pain (scale 7-10). amoxicillin 2020-0 Yes [id number] 500mg Take 1 [facility] -pot 6-27 tablet by ity of clavulanate 00:00: mouth 3 [place] 500 mg 00 (three) Medical 500-125 mg times Branch tablet daily. clindamycin 2020-0 Yes [id number] 300mg Take 1 [facility] 300 mg 6-27 capsule by ity of capsule 00:00: mouth [place] 00 every 8 Medical (eight) Branch hours. acetaminoph 2020-0 Yes [id number] 1{tbl} Take 1 [facility] en-codeine 6-27 tablet by ity of (TYLENOL-CO 00:00: mouth [place] DEINE #3) 00 every 4 Medical 300-30 mg (four) Branch tablet hours as needed for Pain (scale 7-10). amoxicillin 2020-0 Yes [id number] 500mg Take 1 [facility] -pot 6-27 tablet by ity of clavulanate 00:00: mouth 3 [place] 500 mg 00 (three) Medical 500-125 mg times Branch tablet daily. clindamycin 2020-0 Yes [id number] 300mg Take 1 [facility] 300 mg 6-27 capsule by ity of capsule 00:00: mouth [place] 00 every 8 Medical (eight) Branch hours. acetaminoph 2020-0 Yes [id number] 1{tbl} Take 1 [facility] en-codeine 6-27 tablet by ity of (TYLENOL-CO 00:00: mouth [place] DEINE #3) 00 every 4 Medical 300-30 mg (four) Branch tablet hours as needed for Pain (scale 7-10). amoxicillin 2020-0 Yes [id number] 500mg Take 1 [facility] -pot 6-27 tablet by ity of clavulanate 00:00: mouth 3 [place] 500 mg 00 (three) Medical 500-125 mg times Branch tablet daily. clindamycin 2020-0 Yes [id number] 300mg Take 1 [facility] 300 mg 6-27 capsule by ity of capsule 00:00: mouth [place] 00 every 8 Medical (eight) Branch hours. acetaminoph 2020-0 Yes [id number] 1{tbl} Take 1 [facility] en-codeine 6-27 tablet by ity of (TYLENOL-CO 00:00: mouth [place] DEINE #3) 00 every 4 Medical 300-30 mg (four) Branch tablet hours as needed for Pain (scale 7-10). amoxicillin 2020-0 Yes [id number] 500mg Take 1 [facility] -pot 6-27 tablet by ity of clavulanate 00:00: mouth 3 [place] 500 mg 00 (three) Medical 500-125 mg times Branch tablet daily. clindamycin 2020-0 Yes [id number] 300mg Take 1 [facility] 300 mg 6-27 capsule by ity of capsule 00:00: mouth [place] 00 every 8 Medical (eight) Branch hours. acetaminoph Yes [id number] 1{tbl} Take 1 [facility] en-codeine 6-27 tablet by ity of (TYLENOL-CO 00:00: mouth [place] DEINE #3) 00 every 4 Medical 300-30 mg (four) Branch tablet hours as needed for Pain (scale 7-10). amoxicillin 2019- Yes [id number] 500mg Take 1 [facility] -pot 6-27 tablet by ity of clavulanate 00:00: mouth 3 [place] 500 mg 00 (three) Medical 500-125 mg times Branch tablet daily. clindamycin Yes [id number] 300mg Take 1 [facility] 300 mg 6-27 capsule by ity of capsule 00:00: mouth [place] 00 every 8 Medical (eight) Branch hours. acetaminoph Yes [id number] 1{tbl} Take 1 [facility] en-codeine 6-27 tablet by ity of (TYLENOL-CO 00:00: mouth [place] DEINE #3) 00 every 4 Medical 300-30 mg (four) Branch tablet hours as needed for Pain (scale 7-10). amoxicillin 2020- No [id number] 500mg Take 1 [facility] -pot 6-27 03-02 tablet by ity of clavulanate 00:00: 00:00 mouth 3 [place] 500 mg 00 :00 (three) Medical 500-125 mg times Branch tablet daily. clindamycin 2020- No [id number] 300mg Take 1 [facility] 300 mg 6-27 03-02 capsule by ity of capsule 00:00: 00:00 mouth [place] 00 :00 every 8 Medical (eight) Branch hours. acetaminoph 2020- No [id number] 1{tbl} Take 1 [facility] en-codeine 6-27 03-02 tablet by ity of (TYLENOL-CO 00:00: 00:00 [place] DEINE #3) 00 :00 every 4 Medical 300-30 mg (four) Branch tablet hours as needed for Pain (scale 7-10). traMADol 50 2018-09 Yes [id number] 50mg Take 1 [facility] mg tablet 2-27 tablet by ity o f 00:00: mouth [place] 00 every 6 Medical (six) Branch hours as needed (pain). proMETHazin 2018- Yes [id number] 25mg Take 1 [facility] e 25 mg 2-27 tablet by ity of tablet 00:00: mouth [place] 00 every 6 Medical (six) Branch hours as needed for Nausea and Vomiting (N/V). silver 2018-09 Yes [id number] Apply to [facility] vers sulfADIAZIN 2-27 area(s) 2 ity of E 1 % cream 00:00: (two) [place] 00 times Medical daily. Branch traMADol 50 2018-09 Yes [id number] 50mg Take 1 [facility] mg tablet 2-27 tablet by ity o f 00:00: mouth [place] 00 every 6 Medical (six) Branch hours as needed (pain). proMETHazin 2018-09 Yes [id number] 25mg Take 1 [facility] e 25 mg 2-27 tablet by ity of tablet 00:00: mouth [place] 00 every 6 Medical (six) Branch hours as needed for Nausea and Vomiting (N/V). silver 2018-09 Yes [id number] Apply to [facility] vers sulfADIAZIN 2-27 area(s) 2 ity of E 1 % cream 00:00: (two) [place] 00 times Medical daily. Branch traMADol 50 2018-09 Yes [id number] 50mg Take 1 [facility] mg tablet 2-27 tablet by ity o f 00:00: mouth [place] 00 every 6 Medical (six) Branch hours as needed (pain). proMETHazin 2018-09 Yes [id number] 25mg Take 1 [facility] e 25 mg 2-27 tablet by ity of tablet 00:00: mouth [place] 00 every 6 Medical (six) Branch hours as needed for Nausea and Vomiting (N/V). silver 2018- Yes [id number] Apply to [facility] vers sulfADIAZIN 2-27 area(s) 2 ity of E 1 % cream 00:00: (two) [place] 00 times Medical daily. Branch traMADol 50 2018-09 Yes [id number] 50mg Take 1 [facility] mg tablet 2-27 tablet by ity o f 00:00: mouth [place] 00 every 6 Medical (six) Branch hours as needed (pain). proMETHazin 2018- Yes [id number] 25mg Take 1 [facility] e 25 mg 2-27 tablet by ity of tablet 00:00: mouth [place] 00 every 6 Medical (six) Branch hours as needed for Nausea and Vomiting (N/V). silver 2018-1 Yes [id number] Apply to [facility] vers sulfADIAZIN 2-27 area(s) 2 ity of E 1 % cream 00:00: (two) [place] 00 times Medical daily. Branch traMADol 50 2018-09 Yes [id number] 50mg Take 1 [facility] mg tablet 2-27 tablet by ity o f 00:00: mouth [place] 00 every 6 Medical (six) Branch hours as needed (pain). proMETHazin 2018- Yes [id number] 25mg Take 1 [facility] e 25 mg 2-27 tablet by ity of tablet 00:00: mouth [place] 00 every 6 Medical (six) Branch hours as needed for Nausea and Vomiting (N/V). silver 2018-09 Yes [id number] Apply to [facility] vers sulfADIAZIN 2-27 area(s) 2 ity of E 1 % cream 00:00: (two) [place] 00 times Medical daily. Branch traMADol 50 2018-09 Yes [id number] 50mg Take 1 [facility] mg tablet 2-27 tablet by ity o f 00:00: mouth [place] 00 every 6 Medical (six) Branch hours as needed (pain). proMETHazin 2018-09 Yes [id number] 25mg Take 1 [facility] e 25 mg 2-27 tablet by ity of tablet 00:00: mouth [place] 00 every 6 Medical (six) Branch hours as needed for Nausea and Vomiting (N/V). silver 2018-09 Yes [id number] Apply to [facility] vers sulfADIAZIN 2-27 area(s) 2 ity of E 1 % cream 00:00: (two) [place] 00 times Medical daily. Branch traMADol 50 2018-09 Yes [id number] 50mg Take 1 [facility] mg tablet 2-27 tablet by ity o f 00:00: mouth [place] 00 every 6 Medical (six) Branch hours as needed (pain). proMETHazin 2018-09 Yes [id number] 25mg Take 1 [facility] e 25 mg 2-27 tablet by ity of tablet 00:00: mouth [place] 00 every 6 Medical (six) Branch hours as needed for Nausea and Vomiting (N/V). silver 2018-09 Yes [id number] Apply to [facility] vers sulfADIAZIN 2-27 area(s) 2 ity of E 1 % cream 00:00: (two) [place] 00 times Medical daily. Branch traMADol 50 2018-09 Yes [id number] 50mg Take 1 [facility] mg tablet 2-27 tablet by ity o f 00:00: mouth [place] 00 every 6 Medical (six) Branch hours as needed (pain). proMETHazin 2018- Yes [id number] 25mg Take 1 [facility] e 25 mg 2-27 tablet by ity of tablet 00:00: mouth [place] 00 every 6 Medical (six) Branch hours as needed for Nausea and Vomiting (N/V). silver 2018-09 Yes [id number] Apply to [facility] vers sulfADIAZIN 2-27 area(s) 2 ity of E 1 % cream 00:00: (two) [place] 00 times Medical daily. Branch traMADol 50 2018-09 Yes [id number] 50mg Take 1 [facility] mg tablet 2-27 tablet by ity o f 00:00: mouth [place] 00 every 6 Medical (six) Branch hours as needed (pain). proMETHazin 2018- Yes [id number] 25mg Take 1 [facility] e 25 mg 2-27 tablet by ity of tablet 00:00: mouth [place] 00 every 6 Medical (six) Branch hours as needed for Nausea and Vomiting (N/V). silver 2018-09 Yes [id number] Apply to [facility] vers sulfADIAZIN 2-27 area(s) 2 ity of E 1 % cream 00:00: (two) [place] 00 times Medical daily. Branch traMADol 50 2018-09 Yes [id number] 50mg Take 1 [facility] mg tablet 2-27 tablet by ity o f 00:00: mouth [place] 00 every 6 Medical (six) Branch hours as needed (pain). proMETHazin 2018-09 Yes [id number] 25mg Take 1 [facility] e 25 mg 2-27 tablet by ity of tablet 00:00: mouth [place] 00 every 6 Medical (six) Branch hours as needed for Nausea and Vomiting (N/V). silver 2018-09 Yes [id number] Apply to [facility] vers sulfADIAZIN 2-27 area(s) 2 ity of E 1 % cream 00:00: (two) [place] 00 times Medical daily. Branch traMADol 50 2018-09 Yes [id number] 50mg Take 1 [facility] mg tablet 2-27 tablet by ity o f 00:00: mouth [place] 00 every 6 Medical (six) Branch hours as needed (pain). proMETHazin 2018-09 Yes [id number] 25mg Take 1 [facility] e 25 mg 2-27 tablet by ity of tablet 00:00: mouth [place] 00 every 6 Medical (six) Branch hours as needed for Nausea and Vomiting (N/V). silver 2018- Yes [id number] Apply to [facility] vers sulfADIAZIN 2-27 area(s) 2 ity of E 1 % cream 00:00: (two) [place] 00 times Medical daily. Branch traMADol 50 2018-09 Yes [id number] 50mg Take 1 [facility] mg tablet 2-27 tablet by ity o f 00:00: mouth [place] 00 every 6 Medical (six) Branch hours as needed (pain). proMETHazin 2018- Yes [id number] 25mg Take 1 [facility] e 25 mg 2-27 tablet by ity of tablet 00:00: mouth [place] 00 every 6 Medical (six) Branch hours as needed for Nausea and Vomiting (N/V). silver 2018-09 Yes [id number] Apply to [facility] vers sulfADIAZIN 2-27 area(s) 2 ity of E 1 % cream 00:00: (two) [place] 00 times Medical daily. Branch traMADol 50 2018-09 Yes [id number] 50mg Take 1 [facility] mg tablet 2-27 tablet by ity o f 00:00: mouth [place] 00 every 6 Medical (six) Branch hours as needed (pain). proMETHazin 2018-09 Yes [id number] 25mg Take 1 [facility] e 25 mg 2-27 tablet by ity of tablet 00:00: mouth [place] 00 every 6 Medical (six) Branch hours as needed for Nausea and Vomiting (N/V). silver 2018-09 Yes [id number] Apply to [facility] vers sulfADIAZIN 2-27 area(s) 2 ity of E 1 % cream 00:00: (two) [place] 00 times Medical daily. Branch traMADol 50 2018-09 Yes [id number] 50mg Take 1 [facility] mg tablet 2-27 tablet by ity o f 00:00: mouth [place] 00 every 6 Medical (six) Branch hours as needed (pain). proMETHazin 2018- Yes [id number] 25mg Take 1 [facility] e 25 mg 2-27 tablet by ity of tablet 00:00: mouth [place] 00 every 6 Medical (six) Branch hours as needed for Nausea and Vomiting (N/V). silver 2018- Yes [id number] Apply to [facility] vers sulfADIAZIN 2-27 area(s) 2 ity of E 1 % cream 00:00: (two) [place] 00 times Medical daily. Branch traMADol 50 2018-09 Yes [id number] 50mg Take 1 [facility] mg tablet 2-27 tablet by ity o f 00:00: mouth [place] 00 every 6 Medical (six) Branch hours as needed (pain). proMETHazin 2018- Yes [id number] 25mg Take 1 [facility] e 25 mg 2-27 tablet by ity of tablet 00:00: mouth [place] 00 every 6 Medical (six) Branch hours as needed for Nausea and Vomiting (N/V). silver 2018-09 Yes [id number] Apply to [facility] vers sulfADIAZIN 2-27 area(s) 2 ity of E 1 % cream 00:00: (two) [place] 00 times Medical daily. Branch traMADol 50 2018-09 Yes [id number] 50mg Take 1 [facility] mg tablet 2-27 tablet by ity o f 00:00: mouth [place] 00 every 6 Medical (six) Branch hours as needed (pain). proMETHazin 2018-09 Yes [id number] 25mg Take 1 [facility] e 25 mg 2-27 tablet by ity of tablet 00:00: mouth [place] 00 every 6 Medical (six) Branch hours as needed for Nausea and Vomiting (N/V). silver 2018-09 Yes [id number] Apply to [facility] vers sulfADIAZIN 2-27 area(s) 2 ity of E 1 % cream 00:00: (two) [place] 00 times Medical daily. Branch traMADol 50 2018-09 Yes [id number] 50mg Take 1 [facility] mg tablet 2-27 tablet by ity o f 00:00: mouth [place] 00 every 6 Medical (six) Branch hours as needed (pain). proMETHazin 2018- Yes [id number] 25mg Take 1 [facility] e 25 mg 2-27 tablet by ity of tablet 00:00: mouth [place] 00 every 6 Medical (six) Branch hours as needed for Nausea and Vomiting (N/V). silver 2018- Yes [id number] Apply to [facility] vers sulfADIAZIN 2-27 area(s) 2 ity of E 1 % cream 00:00: (two) [place] 00 times Medical daily. Branch traMADol 50 2018-09 Yes [id number] 50mg Take 1 [facility] mg tablet 2-27 tablet by ity o f 00:00: mouth [place] 00 every 6 Medical (six) Branch hours as needed (pain). proMETHazin 2018- Yes [id number] 25mg Take 1 [facility] e 25 mg 2-27 tablet by ity of tablet 00:00: mouth [place] 00 every 6 Medical (six) Branch hours as needed for Nausea and Vomiting (N/V). silver 2018- Yes [id number] Apply to [facility] vers sulfADIAZIN 2-27 area(s) 2 ity of E 1 % cream 00:00: (two) [place] 00 times Medical daily. Branch traMADol 50 2018-09 Yes [id number] 50mg Take 1 [facility] mg tablet 2-27 [id number] tablet by ity of 00:00: mouth [place] 00 every 6 Medical (six) Branch hours as needed (pain). proMETHazin 2018-09 Yes [id number] 25mg Take 1 [facility] e 25 mg 2-27 [id number] tablet by ity o f tablet 00:00: mouth [place] 00 every 6 Medical (six) Branch hours as needed for Nausea and Vomiting (N/V). silver 2018-09 Yes [id number] Apply to [facility] sulfADIAZIN 2-27 [id number] area(s) 2 i ty of E 1 % cream 00:00: (two) [place] 00 times Medical daily. Branch traMADol 50 2018-09 Yes [id number] 50mg Take 1 [facility] mg tablet 2-27 [id number] tablet by ity of 00:00: mouth [place] 00 every 6 Medical (six) Branch hours as needed (pain). proMETHazin 2018-09 Yes [id number] 25mg Take 1 [facility] e 25 mg 2-27 [id number] tablet by ity o f tablet 00:00: mouth [place] 00 every 6 Medical (six) Branch hours as needed for Nausea and Vomiting (N/V). silver 2018- Yes [id number] Apply to [facility] sulfADIAZIN 2-27 [id number] area(s) 2 i ty of E 1 % cream 00:00: (two) [place] 00 times Medical daily. Branch traMADol 50 2018-09 Yes [id number] 50mg Take 1 [facility] mg tablet 2-27 [id number] tablet by ity of 00:00: mouth [place] 00 every 6 Medical (six) Branch hours as needed (pain). proMETHazin 2018- Yes [id number] 25mg Take 1 [facility] e 25 mg 2-27 [id number] tablet by ity o f tablet 00:00: mouth [place] 00 every 6 Medical (six) Branch hours as needed for Nausea and Vomiting (N/V). silver 2018- Yes [id number] Apply to [facility] sulfADIAZIN 2-27 [id number] area(s) 2 i ty of E 1 % cream 00:00: (two) [place] 00 times Medical daily. Branch proMETHazin 2018-09 Yes [id number] 25mg Take 1 [facility] e 25 mg 2-27 [id number] tablet by ity o f tablet 00:00: mouth [place] 00 every 6 Medical (six) Branch hours as needed for Nausea and Vomiting (N/V). proMETHazin 2018-09 Yes [id number] 25mg Take 1 [facility] e 25 mg 2-27 [id number] tablet by ity o f tablet 00:00: mouth [place] 00 every 6 Medical (six) Branch hours as needed for Nausea and Vomiting (N/V). proMETHazin 2018-09 Yes [id number] 25mg Take 1 [facility] e 25 mg 2-27 [id number] tablet by ity o f tablet 00:00: mouth [place] 00 every 6 Medical (six) Branch hours as needed for Nausea and Vomiting (N/V). proMETHazin 2018-09 Yes [id number] 25mg Take 1 [facility] e 25 mg 2-27 [id number] tablet by ity o f tablet 00:00: mouth [place] 00 every 6 Medical (six) Branch hours as needed for Nausea and Vomiting (N/V). proMETHazin 2018-09 Yes [id number] 25mg Take 1 [facility] e 25 mg 2-27 [id number] tablet by ity o f tablet 00:00: mouth [place] 00 every 6 Medical (six) Branch hours as needed for Nausea and Vomiting (N/V). proMETHazin 2018-09 Yes [id number] 25mg Take 1 [facility] e 25 mg 2-27 [id number] tablet by ity o f tablet 00:00: mouth [place] 00 every 6 Medical (six) Branch hours as needed for Nausea and Vomiting (N/V). proMETHazin 2018-09- No [id number] 25mg Take 1 [facility] e 25 mg 2-27 [id number] tablet by ity of tablet 00:00: 00:00 mouth [place] 00 :00 every 6 Medical (six) Branch hours as needed for Nausea and Vomiting (N/V). traMADol 50 2018-09- No [id number] 50mg Take 1 [facility] mg tablet 2-27 03-02 [id number] tablet by it y of 00:00: 00:00 mouth [place] 00 :00 every 6 Medical (six) Branch hours as needed (pain). silver 2018-09- No [id number] Apply to [facility] sulfADIAZIN 2-27 11-28 [id number] area(s) 2 ity of E 1 % cream 00:00: 00:[place] (two[place] :[place] times Medical daily. Branch traMADol 2018-09 Yes [id number] 50mg Take 1 [facility] vers (ULTRAM) 50 2-22 tablet by ity of mg tablet 00:00: mouth [place] 00 every 8 Medical (eight) Branch hours as needed for Pain (scale 4-6). silver 2018-09 Yes [id number] Apply to [facility] vers sulfADIAZIN 2-22 area(s) 2 ity of E 1 % cream 00:00: (two) [place] 00 times Medical daily. Branch traMADol 2018-09 Yes [id number] 50mg Take 1 [facility] vers (ULTRAM) 50 2-22 tablet by ity of mg tablet 00:00: mouth [place] 00 every 8 Medical (eight) Branch hours as needed for Pain (scale 4-6). redding 2018-09 Yes [id number] Apply to [facility] vers sulfADIAZIN 2-22 area(s) 2 ity of E 1 % cream 00:00: (two) [place] 00 times Medical daily. Branch traMADol 2018-09 Yes [id number] 50mg Take 1 [facility] vers (ULTRAM) 50 2-22 tablet by ity of mg tablet 00:00: mouth [place] 00 every 8 Medical (eight) Branch hours as needed for Pain (scale 4-6). redding 2018-09 Yes [id number] Apply to [facility] vers sulfADIAZIN 2-22 area(s) 2 ity of E 1 % cream 00:00: (two) [place] 00 times Medical daily. Branch traMADol 2018-09 Yes [id number] 50mg Take 1 [facility] vers (ULTRAM) 50 2-22 tablet by ity of mg tablet 00:00: mouth [place] 00 every 8 Medical (eight) Branch hours as needed for Pain (scale 4-6). silver 2018- Yes [id number] Apply to [facility] vers sulfADIAZIN 2-22 area(s) 2 ity of E 1 % cream 00:00: (two) [place] 00 times Medical daily. Branch traMADol 2018- Yes [id number] 50mg Take 1 [facility] vers (ULTRAM) 50 2-22 tablet by ity of mg tablet 00:00: mouth [place] 00 every 8 Medical (eight) Branch hours as needed for Pain (scale 4-6). silver 2018- Yes [id number] Apply to [facility] vers sulfADIAZIN 2-22 area(s) 2 ity of E 1 % cream 00:00: (two) [place] 00 times Medical daily. Branch traMADol 2018-09 Yes [id number] 50mg Take 1 [facility] vers (ULTRAM) 50 2-22 tablet by ity of mg tablet 00:00: mouth [place] 00 every 8 Medical (eight) Branch hours as needed for Pain (scale 4-6). silver 2018- Yes [id number] Apply to [facility] vers sulfADIAZIN 2-22 area(s) 2 ity of E 1 % cream 00:00: (two) [place] 00 times Medical daily. Branch traMADol 2018-09 Yes [id number] 50mg Take 1 [facility] vers (ULTRAM) 50 2-22 tablet by ity of mg tablet 00:00: mouth [place] 00 every 8 Medical (eight) Branch hours as needed for Pain (scale 4-6). silver 2018- Yes [id number] Apply to [facility] vers sulfADIAZIN 2-22 area(s) 2 ity of E 1 % cream 00:00: (two) [place] 00 times Medical daily. Branch traMADol 2018-09 Yes [id number] 50mg Take 1 [facility] vers (ULTRAM) 50 2-22 tablet by ity of mg tablet 00:00: mouth [place] 00 every 8 Medical (eight) Branch hours as needed for Pain (scale 4-6). silver 2018- Yes [id number] Apply to [facility] vers sulfADIAZIN 2-22 area(s) 2 ity of E 1 % cream 00:00: (two) [place] 00 times Medical daily. Branch traMADol 2018-09 Yes [id number] 50mg Take 1 [facility] vers (ULTRAM) 50 2-22 tablet by ity of mg tablet 00:00: mouth [place] 00 every 8 Medical (eight) Branch hours as needed for Pain (scale 4-6). silver 2018- Yes [id number] Apply to [facility] vers sulfADIAZIN 2-22 area(s) 2 ity of E 1 % cream 00:00: (two) [place] 00 times Medical daily. Branch traMADol 2018- Yes [id number] 50mg Take 1 [facility] vers (ULTRAM) 50 2-22 tablet by ity of mg tablet 00:00: mouth [place] 00 every 8 Medical (eight) Branch hours as needed for Pain (scale 4-6). silver 2018- Yes [id number] Apply to [facility] vers sulfADIAZIN 2-22 area(s) 2 ity of E 1 % cream 00:00: (two) [place] 00 times Medical daily. Branch traMADol 2018-09 Yes [id number] 50mg Take 1 [facility] vers (ULTRAM) 50 2-22 tablet by ity of mg tablet 00:00: mouth [place] 00 every 8 Medical (eight) Branch hours as needed for Pain (scale 4-6). silver 2018- Yes [id number] Apply to [facility] vers sulfADIAZIN 2-22 area(s) 2 ity of E 1 % cream 00:00: (two) [place] 00 times Medical daily. Branch traMADol 2018-09 Yes [id number] 50mg Take 1 [facility] vers (ULTRAM) 50 2-22 tablet by ity of mg tablet 00:00: mouth [place] 00 every 8 Medical (eight) Branch hours as needed for Pain (scale 4-6). silver 2018- Yes [id number] Apply to [facility] vers sulfADIAZIN 2-22 area(s) 2 ity of E 1 % cream 00:00: (two) [place] 00 times Medical daily. Branch traMADol 2018-09 Yes [id number] 50mg Take 1 [facility] vers (ULTRAM) 50 2-22 tablet by ity of mg tablet 00:00: mouth [place] 00 every 8 Medical (eight) Branch hours as needed for Pain (scale 4-6). silver 2018- Yes [id number] Apply to [facility] vers sulfADIAZIN 2-22 area(s) 2 ity of E 1 % cream 00:00: (two) [place] 00 times Medical daily. Branch traMADol 2018-09 Yes [id number] 50mg Take 1 [facility] vers (ULTRAM) 50 2-22 tablet by ity of mg tablet 00:00: mouth [place] 00 every 8 Medical (eight) Branch hours as needed for Pain (scale 4-6). silver 2018- Yes [id number] Apply to [facility] vers sulfADIAZIN 2-22 area(s) 2 ity of E 1 % cream 00:00: (two) [place] 00 times Medical daily. Branch traMADol 2018- Yes [id number] 50mg Take 1 [facility] vers (ULTRAM) 50 2-22 tablet by ity of mg tablet 00:00: mouth [place] 00 every 8 Medical (eight) Branch hours as needed for Pain (scale 4-6). silver 2018- Yes [id number] Apply to [facility] vers sulfADIAZIN 2-22 area(s) 2 ity of E 1 % cream 00:00: (two) [place] 00 times Medical daily. Branch traMADol 2018-09 Yes [id number] 50mg Take 1 [facility] vers (ULTRAM) 50 2-22 tablet by ity of mg tablet 00:00: mouth [place] 00 every 8 Medical (eight) Branch hours as needed for Pain (scale 4-6). silver 2018- Yes [id number] Apply to [facility] vers sulfADIAZIN 2-22 area(s) 2 ity of E 1 % cream 00:00: (two) [place] 00 times Medical daily. Branch traMADol 2018-09 Yes [id number] 50mg Take 1 [facility] vers (ULTRAM) 50 2-22 tablet by ity of mg tablet 00:00: mouth [place] 00 every 8 Medical (eight) Branch hours as needed for Pain (scale 4-6). silver 2018- Yes [id number] Apply to [facility] vers sulfADIAZIN 2-22 area(s) 2 ity of E 1 % cream 00:00: (two) [place] 00 times Medical daily. Branch traMADol 2018-09 Yes [id number] 50mg Take 1 [facility] vers (ULTRAM) 50 2-22 tablet by ity of mg tablet 00:00: mouth [place] 00 every 8 Medical (eight) Branch hours as needed for Pain (scale 4-6). silver 2018- Yes [id number] Apply to [facility] vers sulfADIAZIN 2-22 area(s) 2 ity of E 1 % cream 00:00: (two) [place] 00 times Medical daily. Branch traMADol 2018-09 Yes [id number] 50mg Take 1 [facility] vers (ULTRAM) 50 2-22 tablet by ity of mg tablet 00:00: mouth [place] 00 every 8 Medical (eight) Branch hours as needed for Pain (scale 4-6). silver 2018- Yes [id number] Apply to [facility] vers sulfADIAZIN 2-22 area(s) 2 ity of E 1 % cream 00:00: (two) [place] 00 times Medical daily. Branch traMADol 2018- Yes [id number] 50mg Take 1 [facility] vers (ULTRAM) 50 2-22 tablet by ity of mg tablet 00:00: mouth [place] 00 every 8 Medical (eight) Branch hours as needed for Pain (scale 4-6). silver 2018-09 Yes [id number] Apply to [facility] vers sulfADIAZIN 2-22 area(s) 2 ity of E 1 % cream 00:00: (two) [place] 00 times Medical daily. Branch traMADol 2018-09 Yes [id number] 50mg Take 1 [facility] vers (ULTRAM) 50 2-22 tablet by ity of mg tablet 00:00: mouth [place] 00 every 8 Medical (eight) Branch hours as needed for Pain (scale 4-6). silver 2018-09 Yes [id number] Apply to [facility] vers sulfADIAZIN 2-22 area(s) 2 ity of E 1 % cream 00:00: (two) [place] 00 times Medical daily. Branch silver 2018-09- No [id number] Apply to [facility] sulfADIAZIN 2-22 03-02 area(s) 2 it y of E 1 % cream 00:00: 00:00 (two) [place] :00 times Medical daily. Branch traMADol 2018-09- No [id number] 50mg Take 1 [facility] (ULTRAM) 50 2-22 03-02 tablet by it y of mg tablet 00:00: 00:00 mouth [place] 00 :00 every 8 Medical (eight) Branch hours as needed for Pain (scale 4-6). acetaminoph 2018-09 Yes [id number] 1{tbl} Take 1 [facility] en-codeine 1-22 tablet by ity of (TYLENOL-CO 00:00: mouth [place] DEINE #3) 00 every 4 Medical 300-30 mg (four) Branch tablet hours as needed for Pain (scale 7-10). ondansetron 2018-09 Yes [id number] 4mg Take 1 [facility] 4 mg 1-22 tablet by ity of disintegrat 00:00: mouth [place] ing tablet 00 every 8 Medica l (eight) Branch hours as needed for Nausea and Vomiting (N/V). ondansetron 2018-09 Yes [id number] 4mg Take 1 [facility] 4 mg 1-22 tablet by ity of disintegrat 00:00: mouth [place] ing tablet 00 every 8 Medica l (eight) Branch hours as needed for Nausea and Vomiting (N/V). ondansetron 2018-09 Yes [id number] 4mg Take 1 [facility] 4 mg 1-22 tablet by ity of disintegrat 00:00: mouth [place] ing tablet 00 every 8 Medica l (eight) Branch hours as needed for Nausea and Vomiting (N/V). ondansetron 2018-09 Yes [id number] 4mg Take 1 [facility] 4 mg 1-22 tablet by ity of disintegrat 00:00: mouth [place] ing tablet 00 every 8 Medica l (eight) Branch hours as needed for Nausea and Vomiting (N/V). ondansetron 2018-09 Yes [id number] 4mg Take 1 [facility] 4 mg 1-22 tablet by ity of disintegrat 00:00: mouth [place] ing tablet 00 every 8 Medica l (eight) Branch hours as needed for Nausea and Vomiting (N/V). ondansetron 2018-09 Yes [id number] 4mg Take 1 [facility] 4 mg 1-22 tablet by ity of disintegrat 00:00: mouth [place] ing tablet 00 every 8 Medica l (eight) Branch hours as needed for Nausea and Vomiting (N/V). ondansetron 2018-09 Yes [id number] 4mg Take 1 [facility] 4 mg 1-22 tablet by ity of disintegrat 00:00: mouth [place] ing tablet 00 every 8 Medica l (eight) Branch hours as needed for Nausea and Vomiting (N/V). ondansetron 2018-09 Yes [id number] 4mg Take 1 [facility] 4 mg 1-22 tablet by ity of disintegrat 00:00: mouth [place] ing tablet 00 every 8 Medica l (eight) Branch hours as needed for Nausea and Vomiting (N/V). ondansetron 2018-09 Yes [id number] 4mg Take 1 [facility] 4 mg 1-22 tablet by ity of disintegrat 00:00: mouth [place] ing tablet 00 every 8 Medica l (eight) Branch hours as needed for Nausea and Vomiting (N/V). ondansetron 2018-09 Yes [id number] 4mg Take 1 [facility] 4 mg 1-22 tablet by ity of disintegrat 00:00: mouth [place] ing tablet 00 every 8 Medica l (eight) Branch hours as needed for Nausea and Vomiting (N/V). ondansetron 2018-09 Yes [id number] 4mg Take 1 [facility] 4 mg 1-22 tablet by ity of disintegrat 00:00: mouth [place] ing tablet 00 every 8 Medica l (eight) Branch hours as needed for Nausea and Vomiting (N/V). ondansetron 2018-09 Yes [id number] 4mg Take 1 [facility] 4 mg 1-22 tablet by ity of disintegrat 00:00: mouth [place] ing tablet 00 every 8 Medica l (eight) Branch hours as needed for Nausea and Vomiting (N/V). ondansetron 2018-09 Yes [id number] 4mg Take 1 [facility] 4 mg 1-22 tablet by ity of disintegrat 00:00: mouth [place] ing tablet 00 every 8 Medica l (eight) Branch hours as needed for Nausea and Vomiting (N/V). ondansetron 2018-09 Yes [id number] 4mg Take 1 [facility] 4 mg 1-22 tablet by ity of disintegrat 00:00: mouth [place] ing tablet 00 every 8 Medica l (eight) Branch hours as needed for Nausea and Vomiting (N/V). ondansetron 2018-09 Yes [id number] 4mg Take 1 [facility] 4 mg 1-22 tablet by ity of disintegrat 00:00: mouth [place] ing tablet 00 every 8 Medica l (eight) Branch hours as needed for Nausea and Vomiting (N/V). ondansetron 2018-09 Yes [id number] 4mg Take 1 [facility] 4 mg 1-22 tablet by ity of disintegrat 00:00: mouth [place] ing tablet 00 every 8 Medica l (eight) Branch hours as needed for Nausea and Vomiting (N/V). ondansetron 2018-09 Yes [id number] 4mg Take 1 [facility] 4 mg 1-22 tablet by ity of disintegrat 00:00: mouth [place] ing tablet 00 every 8 Medica l (eight) Branch hours as needed for Nausea and Vomiting (N/V). ondansetron 2018-09 Yes [id number] 4mg Take 1 [facility] 4 mg 1-22 tablet by ity of disintegrat 00:00: mouth [place] ing tablet 00 every 8 Medica l (eight) Branch hours as needed for Nausea and Vomiting (N/V). ondansetron 2018-09 Yes [id number] 4mg Take 1 [facility] 4 mg 1-22 tablet by ity of disintegrat 00:00: mouth [place] ing tablet 00 every 8 Medica l (eight) Branch hours as needed for Nausea and Vomiting (N/V). ondansetron 2018-09 Yes [id number] 4mg Take 1 [facility] 4 mg 1-22 tablet by ity of disintegrat 00:00: mouth [place] ing tablet 00 every 8 Medica l (eight) Branch hours as needed for Nausea and Vomiting (N/V). ondansetron 2018-09 Yes [id number] 4mg Take 1 [facility] 4 mg 1-22 tablet by ity of disintegrat 00:00: mouth [place] ing tablet 00 every 8 Medica l (eight) Branch hours as needed for Nausea and Vomiting (N/V). ondansetron 2018-09- No [id number] 4mg Take 1 [facility] 4 mg -22 03-02 tablet by ity of disintegrat 00:00: 00:00 mouth [place] ing tablet 00 :00 every 8 Medica l (eight) Branch hours as needed for Nausea and Vomiting (N/V). acetaminoph 2018-09- No [id number] 1{tbl} Take 1 [facility] en-codeine -20 03-27 tablet by ity of (TYLENOL-CO 00:00: 00:00 mouth [place] DEINE #3) 00 :00 every 4 Medical 300-30 mg (four) Branch tablet hours as needed for Pain (scale 7-10). metFORMIN 2018- Yes 1000mg Take 1,000 [facility] (GLUCOPHAGE 9-28 mg by ity of ) 500 mg 10:13: mouth [place] tablet 03 daily with MD breakfast. [facility] glipiZIDE 2019- Yes 5mg Take 5 mg Uni vers (GLUCOTROL) 9-28 by mouth ity of 5 mg tablet 10:13: every [place] 03 morning MD before [facility] breakfast. [facility] HYDROcodone 2019- Yes Pain of 1{tbl} Take 1 [facility] -acetaminop 9-28 breast tablet by i ty of hen (NORCO) 00:00: mouth [place] 5 mg-325 mg 00 every 8 MD per tablet (eight) [place] o hours as n needed for [facility] pain. lactobacill 2019- Yes [id number] 1{tbl} Take 1 [facility] us 9-27 tablet by ity of acidophilus 00:00: mouth [place] 25 million 00 daily. Medical cell -100 Branch mg captab lactobacill 2019- Yes [id number] 1{tbl} Take 1 [facility] us 9-27 tablet by ity of acidophilus 00:00: mouth [place] 25 million 00 daily. Medical cell -100 Branch mg captab lactobacill 2019- Yes [id number] 1{tbl} Take 1 [facility] us 9-27 tablet by ity of acidophilus 00:00: mouth [place] 25 million 00 daily. Medical cell -100 Branch mg captab lactobacill 2019- Yes [id number] 1{tbl} Take 1 [facility] us 9-27 tablet by ity of acidophilus 00:00: mouth [place] 25 million 00 daily. Medical cell -100 Branch mg captab lactobacill 2019-0 Yes [id number] 1{tbl} Take 1 [facility] us 9-27 tablet by ity of acidophilus 00:00: mouth [place] 25 million 00 daily. Medical cell -100 Branch mg captab lactobacill 2018-0 Yes [id number] 1{tbl} Take 1 [facility] us 9-27 tablet by ity of acidophilus 00:00: mouth [place] 25 million 00 daily. Medical cell -100 Branch mg captab lactobacill 2018- Yes [id number] 1{tbl} Take 1 [facility] us 9-27 tablet by ity of acidophilus 00:00: mouth [place] 25 million 00 daily. Medical cell -100 Branch mg captab lactobacill 2018- Yes [id number] 1{tbl} Take 1 [facility] us 9-27 tablet by ity of acidophilus 00:00: mouth [place] 25 million 00 daily. Medical cell -100 Branch mg captab lactobacill 2018- Yes [id number] 1{tbl} Take 1 [facility] us 9-27 tablet by ity of acidophilus 00:00: mouth [place] 25 million 00 daily. Medical cell -100 Branch mg captab lactobacill 2019- Yes [id number] 1{tbl} Take 1 [facility] us 9-27 tablet by ity of acidophilus 00:00: mouth [place] 25 million 00 daily. Medical cell -100 Branch mg captab lactobacill 2019-0 Yes [id number] 1{tbl} Take 1 [facility] us 9-27 tablet by ity of acidophilus 00:00: mouth [place] 25 million 00 daily. Medical cell -100 Branch mg captab lactobacill 2019-0 Yes [id number] 1{tbl} Take 1 [facility] us 9-27 tablet by ity of acidophilus 00:00: mouth [place] 25 million 00 daily. Medical cell -100 Branch mg captab lactobacill 2018-0 Yes [id number] 1{tbl} Take 1 [facility] us 9-27 tablet by ity of acidophilus 00:00: mouth [place] 25 million 00 daily. Medical cell -100 Branch mg captab lactobacill 2019- Yes [id number] 1{tbl} Take 1 [facility] us 9-27 tablet by ity of acidophilus 00:00: mouth [place] 25 million 00 daily. Medical cell -100 Branch mg captab lactobacill 2019- Yes [id number] 1{tbl} Take 1 [facility] us 9-27 tablet by ity of acidophilus 00:00: mouth [place] 25 million 00 daily. Medical cell -100 Branch mg captab lactobacill 2019- Yes [id number] 1{tbl} Take 1 [facility] us 9-27 tablet by ity of acidophilus 00:00: mouth [place] 25 million 00 daily. Medical cell -100 Branch mg captab lactobacill 2018- Yes [id number] 1{tbl} Take 1 [facility] us 9-27 tablet by ity of acidophilus 00:00: mouth [place] 25 million 00 daily. Medical cell -100 Branch mg captab lactobacill 2018- Yes [id number] 1{tbl} Take 1 [facility] us 9-27 tablet by ity of acidophilus 00:00: mouth [place] 25 million 00 daily. Medical cell -100 Branch mg captab lactobacill 2018- Yes [id number] 1{tbl} Take 1 [facility] us 9-27 tablet by ity of acidophilus 00:00: mouth [place] 25 million 00 daily. Medical cell -100 Branch mg captab lactobacill 2019- Yes [id number] 1{tbl} Take 1 [facility] us 9-27 tablet by ity of acidophilus 00:00: mouth [place] 25 million 00 daily. Medical cell -100 Branch mg captab lactobacill 2019- Yes [id number] 1{tbl} Take 1 [facility] us 9-27 tablet by ity of acidophilus 00:00: mouth [place] 25 million 00 daily. Medical cell -100 Branch mg captab lactobacill 2018-2020- No [id number] 1{tbl} Take 1 [facility] us 9-27 03-02 tablet by ity of acidophilus 00:00: 00:00 mouth [place] 25 [place] 00 :00 daily. Medical cell -100 Branch mg captab clindamycin 2019- Yes [id number] 300mg Take 1 [facility] 300 mg 9-26 capsule by ity of capsule 00:00: mouth [place] 00 every 8 Medical (eight) Branch hours. amoxicillin 2019-0 Yes [id number] 500mg Take 1 [facility] -pot 9-26 tablet by ity of clavulanate 00:00: mouth 3 [place] as 500 mg 00 (three) Medical 500-125 mg times Branch tablet daily. famotidine 2019-0 Yes [id number] 20mg Take 1 U nivers 20 mg 9-26 tablet by ity of tablet 00:00: mouth 2 00 (two) Medical times Branch daily. ondansetron 2019-0 Yes [id number] 4mg Take 1 [facility] (ZOFRAN) 4 9-26 tablet by ity of mg tablet 00:00: mouth [place] 00 every 8 Medical (eight) Branch hours as needed for Nausea and Vomiting (N/V). famotidine 2019-0 Yes [id number] 20mg Take 1 U nivers 20 mg 9-26 tablet by ity of tablet 00:00: mouth 2 (two) Medical times Branch daily. ondansetron 2019-0 Yes [id number] 4mg Take 1 [facility] (ZOFRAN) 4 9-26 tablet by ity of mg tablet 00:00: mouth [place] 00 every 8 Medical (eight) Branch hours as needed for Nausea and Vomiting (N/V). famotidine 2019-0 Yes [id number] 20mg Take 1 U nivers 20 mg 9-26 tablet by ity of tablet 00:00: mouth 2 (two) Medical times Branch daily. ondansetron 2019-0 Yes [id number] 4mg Take 1 [facility] (ZOFRAN) 4 9-26 tablet by ity of mg tablet 00:00: mouth [place] 00 every 8 Medical (eight) Branch hours as needed for Nausea and Vomiting (N/V). famotidine 2019-0 Yes [id number] 20mg Take 1 U nivers 20 mg 9-26 tablet by ity of tablet 00:00: mouth 2 (two) Medical times Branch daily. ondansetron 2019-0 Yes [id number] 4mg Take 1 [facility] (ZOFRAN) 4 9-26 tablet by ity of mg tablet 00:00: mouth [place] 00 every 8 Medical (eight) Branch hours as needed for Nausea and Vomiting (N/V). famotidine 2019-0 Yes [id number] 20mg Take 1 U nivers 20 mg 9-26 tablet by ity of tablet 00:00: mouth (two) Medical times Branch daily. ondansetron 2019-0 Yes [id number] 4mg Take 1 [facility] (ZOFRAN) 4 9-26 tablet by ity of mg tablet 00:00: mouth [place] 00 every 8 Medical (eight) Branch hours as needed for Nausea and Vomiting (N/V). famotidine 2019-0 Yes [id number] 20mg Take 1 U nivers 20 mg 9-26 tablet by ity of tablet 00:00: mouth (two) Medical times Branch daily. ondansetron 2019-0 Yes [id number] 4mg Take 1 [facility] (ZOFRAN) 4 9-26 tablet by ity of mg tablet 00:00: mouth [place] 00 every 8 Medical (eight) Branch hours as needed for Nausea and Vomiting (N/V). famotidine 2019-0 Yes [id number] 20mg Take 1 U nivers 20 mg 9-26 tablet by ity of tablet 00:00: mouth (two) Medical times Branch daily. ondansetron 2019-0 Yes [id number] 4mg Take 1 [facility] (ZOFRAN) 4 9-26 tablet by ity of mg tablet 00:00: mouth [place] 00 every 8 Medical (eight) Branch hours as needed for Nausea and Vomiting (N/V). famotidine 2019-0 Yes [id number] 20mg Take 1 U nivers 20 mg 9-26 tablet by ity of tablet 00:00: mouth (two) Medical times Branch daily. ondansetron 2019-0 Yes [id number] 4mg Take 1 [facility] (ZOFRAN) 4 9-26 tablet by ity of mg tablet 00:00: mouth [place] 00 every 8 Medical (eight) Branch hours as needed for Nausea and Vomiting (N/V). famotidine 2019-0 Yes [id number] 20mg Take 1 U nivers 20 mg 9-26 tablet by ity of tablet 00:00: mouth 2 (two) Medical times Branch daily. ondansetron 2019-0 Yes [id number] 4mg Take 1 [facility] (ZOFRAN) 4 9-26 tablet by ity of mg tablet 00:00: mouth [place] 00 every 8 Medical (eight) Branch hours as needed for Nausea and Vomiting (N/V). famotidine 2019-0 Yes [id number] 20mg Take 1 U nivers 20 mg 9-26 tablet by ity of tablet 00:00: mouth (two) Medical times Branch daily. ondansetron 2019-0 Yes [id number] 4mg Take 1 [facility] (ZOFRAN) 4 9-26 tablet by ity of mg tablet 00:00: mouth [place] 00 every 8 Medical (eight) Branch hours as needed for Nausea and Vomiting (N/V). famotidine 2019-0 Yes [id number] 20mg Take 1 U nivers 20 mg 9-26 tablet by ity of tablet 00:00: mouth (two) Medical times Branch daily. ondansetron 2019-0 Yes [id number] 4mg Take 1 [facility] (ZOFRAN) 4 9-26 tablet by ity of mg tablet 00:00: mouth 00 every 8 Medical (eight) Branch hours as needed for Nausea and Vomiting (N/V). famotidine 2019-0 Yes [id number] 20mg Take 1 U nivers 20 mg 9-26 tablet by ity of tablet 00:00: mouth (two) Medical times Branch daily. ondansetron 2019-0 Yes [id number] 4mg Take 1 [facility] (ZOFRAN) 4 9-26 tablet by ity of mg tablet 00:00: mouth 00 every 8 Medical (eight) Branch hours as needed for Nausea and Vomiting (N/V). famotidine 2019-0 Yes [id number] 20mg Take 1 U nivers 20 mg 9-26 tablet by ity of tablet 00:00: mouth (two) Medical times Branch daily. ondansetron 2019-0 Yes [id number] 4mg Take 1 [facility] (ZOFRAN) 4 9-26 tablet by ity of mg tablet 00:00: mouth [place] 00 every 8 Medical (eight) Branch hours as needed for Nausea and Vomiting (N/V). famotidine 2019-0 Yes [id number] 20mg Take 1 [facility] nivers 20 mg 9-26 tablet by ity of tablet 00:00: mouth (two) Medical times Branch daily. ondansetron 2019-0 Yes [id number] 4mg Take 1 [facility] (ZOFRAN) 4 9-26 tablet by ity of mg tablet 00:00: mouth [place] 00 every 8 Medical (eight) Branch hours as needed for Nausea and Vomiting (N/V). famotidine 2019-0 Yes [id number] 20mg Take 1 [facility] nivers 20 mg 9-26 tablet by ity of tablet 00:00: mouth 2 00 (two) Medical times Branch daily. ondansetron 2019-0 Yes [id number] 4mg Take 1 [facility] (ZOFRAN) 4 9-26 tablet by ity of mg tablet 00:00: mouth [place] 00 every 8 Medical (eight) Branch hours as needed for Nausea and Vomiting (N/V). famotidine 2019-0 Yes [id number] 20mg Take 1 [facility] nivers 20 mg 9-26 tablet by [facility]y of tablet 00:00: mouth 2 (two) Medical times Branch daily. ondansetron 2019-0 Yes [id number] 4mg Take 1 [facility] (ZOFRAN) 4 9-26 tablet by ity of mg tablet 00:00: mouth [place] 00 every 8 Medical (eight) Branch hours as needed for Nausea and Vomiting (N/V). famotidine 2019-0 Yes [id number] 20mg Take 1 [facility]ivers 20 mg 9-26 tablet by ity of tablet 00:00: mouth (two) Medical times Branch daily. ondansetron 2019-0 Yes [id number] 4mg Take 1 [facility] (ZOFRAN) 4 9-26 tablet by ity of mg tablet 00:00: mouth [place] 00 every 8 Medical (eight) Branch hours as needed for Nausea and Vomiting (N/V). famotidine 2019-0 Yes [id number] 20mg Take 1 [facility] 20 mg 9-26 tablet by [facility]y of tablet 00:00: mouth 2 00 (two) Medical times Branch daily. ondansetron 2019-0 Yes [id number] 4mg Take 1 [facility] (ZOFRAN) 4 9-26 tablet by ity of mg tablet 00:00: mouth [place] 00 every 8 Medical (eight) Branch hours as needed for Nausea and Vomiting (N/V). famotidine 2019-0 Yes [id number] 20mg Take 1 [facility] 20 mg 9-26 tablet by [facility] of tablet 00:00: mouth 2 00 (two) Medical times Branch daily. ondansetron 2019- Yes [id number] 4mg Take 1 [facility] (ZOFRAN) 4 9-26 tablet by [facility] of mg tablet 00:00: mouth [place] 00 every 8 Medical (eight) Branch hours as needed for Nausea and Vomiting (N/V). famotidine 2019- Yes [id number] 20mg Take 1 [facility] 20 mg 9-26 tablet by [facility] of tablet 00:00: mouth 2 [place] 00 (two) Medical times Branch daily. ondansetron 2019- Yes [id number] 4mg Take 1 [facility] (ZOFRAN) 4 9-26 tablet by [facility] of mg tablet 00:00: mouth [place] 00 every 8 Medical (eight) Branch hours as needed for Nausea and Vomiting (N/V). famotidine 2019- Yes [id number] 20mg Take 1 [facility] 20 mg 9-26 tablet by [facility] of tablet 00:00: mouth 2 [place] (two) Medical times Branch daily. ondansetron 2019- Yes [id number] 4mg Take 1 [facility] (ZOFRAN) 4 9-26 tablet by ity of mg tablet 00:00: mouth [place] 00 every 8 Medical (eight) Branch hours as needed for Nausea and Vomiting (N/V). famotidine 2018-2020- No [id number] 20mg Take 1 [facility] 20 mg - 03-02 tablet by ity of tablet 00:00: 00:00 mouth 2 [place] 00 :00 (two) Medical times Branch daily. ondansetron 2018-2020- No [id number] 4mg Take 1 [facility] (ZOFRAN) 4 9- 03-02 tablet by ity of mg tablet 00:00: 00:00 mouth [place] 00 :00 every 8 Medical (eight) Branch hours as needed for Nausea and Vomiting (N/V). clindamycin 2018- 2020- No [id number] 300mg Take 1 [facility] 300 mg 06-24- capsule by ity of capsule 00:00: 00:00 mouth [place] 00 :00 every 8 Medical (eight) Branch hours. amoxicillin 2018- 2020- No [id number] 500mg Take 1 [facility] -pot -24 03- tablet by ity of clavulanate 00:00: 00:00 mouth 3 [place] 500 mg 00 :00 (three) Medical 500-125 mg times Branch tablet daily. ibuprofen 2019-0 Yes [id number] 600mg Take 1 [facility] 600 mg 9-21 tablet by ity of tablet 00:00: mouth [place] 00 every 6 Medical (six) Branch hours as needed for Pain (scale 4-6). ibuprofen 2019-0 Yes [id number] 600mg Take 1 [facility] 600 mg 9-21 tablet by [facility] of tablet 00:00: mouth [place] 00 every 6 Medical (six) Branch hours as needed for Pain (scale 4-6). ibuprofen 2018-0 Yes [id number] 600mg Take 1 [facility] 600 mg 9-21 tablet by ity of tablet 00:00: mouth [place] 00 every 6 Medical (six) Branch hours as needed for Pain (scale 4-6). ibuprofen 2018-0 Yes [id number] 600mg Take 1 [facility] 600 mg 9-21 tablet by [facility]y of tablet 00:00: mouth [place] 00 every 6 Medical (six) Branch hours as needed for Pain (scale 4-6). ibuprofen 2018-0 Yes [id number] 600mg Take 1 [facility] 600 mg 9-21 tablet by [facility]y of tablet 00:00: mouth [place] 00 every 6 Medical (six) Branch hours as needed for Pain (scale 4-6). ibuprofen 2018-0 Yes [id number] 600mg Take 1 [facility] 600 mg 9-21 tablet by [facility]y of tablet 00:00: mouth [place] 00 every 6 Medical (six) Branch hours as needed for Pain (scale 4-6). ibuprofen 2019-0 Yes [id number] 600mg Take 1 [facility] 600 mg 9-21 tablet by [facility]y of tablet 00:00: mouth [place] 00 every 6 Medical (six) Branch hours as needed for Pain (scale 4-6). ibuprofen 2019-0 Yes [id number] 600mg Take 1 [facility] 600 mg 9-21 tablet by [facility]y of tablet 00:00: mouth [place] 00 every 6 Medical (six) Branch hours as needed for Pain (scale 4-6). ibuprofen 2019-0 Yes [id number] 600mg Take 1 [facility] 600 mg 9-21 tablet by [facility]y of tablet 00:00: mouth [place] 00 every 6 Medical (six) Branch hours as needed for Pain (scale 4-6). ibuprofen 2019-0 Yes [id number] 600mg Take 1 [facility] 600 mg 9-21 tablet by [facility]y of tablet 00:00: mouth [place] 00 every 6 Medical (six) Branch hours as needed for Pain (scale 4-6). ibuprofen 2019-0 Yes [id number] 600mg Take 1 [facility] 600 mg 9-21 tablet by [facility] of tablet 00:00: mouth [place] 00 every 6 Medical (six) Branch hours as needed for Pain (scale 4-6). ibuprofen 2019-0 Yes [id number] 600mg Take 1 [facility] 600 mg 9-21 tablet by ity of tablet 00:00: mouth [place] 00 every 6 Medical (six) Branch hours as needed for Pain (scale 4-6). ibuprofen 2019-0 Yes [id number] 600mg Take 1 [facility] 600 mg 9-21 tablet by [facility]y of tablet 00:00: mouth [place] 00 every 6 Medical (six) Branch hours as needed for Pain (scale 4-6). ibuprofen 2019-0 Yes [id number] 600mg Take 1 [facility] 600 mg 9-21 tablet by [facility]y of tablet 00:00: mouth [place] 00 every 6 Medical (six) Branch hours as needed for Pain (scale 4-6). ibuprofen 2019-0 Yes [id number] 600mg Take 1 [facility] 600 mg 9-21 tablet by [facility] of tablet 00:00: mouth [place] 00 every 6 Medical (six) Branch hours as needed for Pain (scale 4-6). ibuprofen 2019-0 Yes [id number] 600mg Take 1 [facility] 600 mg 9-21 tablet by [facility] of tablet 00:00: mouth [place] 00 every 6 Medical (six) Branch hours as needed for Pain (scale 4-6). ibuprofen 2019-0 Yes [id number] 600mg Take 1 [facility] 600 mg 9-21 tablet by [facility] of tablet 00:00: mouth [place] 00 every 6 Medical (six) Branch hours as needed for Pain (scale 4-6). ibuprofen 2019-0 Yes [id number] 600mg Take 1 [facility] 600 mg 9-21 tablet by [facility] of tablet 00:00: mouth [place] 00 every 6 Medical (six) Branch hours as needed for Pain (scale 4-6). ibuprofen 2019-0 Yes [id number] 600mg Take 1 [facility] 600 mg 9-21 tablet by [facility] of tablet 00:00: mouth [place] 00 every 6 Medical (six) Branch hours as needed for Pain (scale 4-6). ibuprofen 2019-0 Yes [id number] 600mg Take 1 [facility] 600 mg 9-21 tablet by [facility] of tablet 00:00: mouth [place] 00 every 6 Medical (six) Branch hours as needed for Pain (scale 4-6). ibuprofen 2019-0 Yes [id number] 600mg Take 1 [facility] 600 mg 9-21 tablet by [facility] of tablet 00:00: mouth [place] 00 every 6 Medical (six) Branch hours as needed for Pain (scale 4-6). ibuprofen 2019-0 Yes [id number] 600mg Take 1 [facility] 600 mg 9-21 tablet by [facility] of tablet 00:00: mouth [place] 00 every 6 Medical (six) Branch hours as needed for Pain (scale 4-6). ibuprofen 2018-0 Yes [id number] 600mg Take 1 [facility] 600 mg 9-21 tablet by [facility] of tablet 00:00: mouth [place] 00 every 6 Medical (six) Branch hours as needed for Pain (scale 4-6). ibuprofen 2018-0 Yes [id number] 600mg Take 1 [facility] 600 mg 9-21 tablet by ity of tablet 00:00: mouth [place] 00 every 6 Medical (six) Branch hours as needed for Pain (scale 4-6). ibuprofen 2018-0 Yes [id number] 600mg Take 1 [facility] 600 mg 9-21 tablet by [facility] of tablet 00:00: mouth [place] 00 every 6 Medical (six) Branch hours as needed for Pain (scale 4-6). ibuprofen 2019-0 Yes [id number] 600mg Take 1 [facility] 600 mg 9-21 tablet by [facility] of tablet 00:00: mouth [place] 00 every 6 Medical (six) Branch hours as needed for Pain (scale 4-6). ibuprofen 2019-0 Yes [id number] 600mg Take 1 [facility] 600 mg 9-21 tablet by [facility] of tablet 00:00: mouth [place] 00 every 6 Medical (six) Branch hours as needed for Pain (scale 4-6). ibuprofen 2018-2020- No [id number] 600mg Take 1 [facility] 600 mg 9-21 07- tablet by ity of tablet 00:00: 00:00 mouth [place] 00 :00 every 6 Medical (six) Branch hours as needed for Pain (scale 4-6). metFORMIN 2018-0 Yes [id number] 850mg Take 1 [facility] 850 mg 9-20 tablet by [facility] of tablet 00:00: mouth (three) Medical times Branch daily with meals. metFORMIN 2018-0 Yes [id number] 850mg Take 1 [facility] 850 mg 9-20 tablet by [facility] of tablet 00:00: mouth (three) Medical times Branch daily with meals. metFORMIN 2018-0 Yes [id number] 850mg Take 1 [facility] 850 mg 9-20 tablet by ity of tablet 00:00: mouth (three) Medical times Branch daily with meals. metFORMIN 2018-0 Yes [id number] 850mg Take 1 [facility] 850 mg 9-20 tablet by [facility]y of tablet 00:00: mouth (three) Medical times Branch daily with meals. metFORMIN 2018-0 Yes [id number] 850mg Take 1 [facility] 850 mg 9-20 tablet by [facility]y of tablet 00:00: mouth () Medical times Branch daily with meals. metFORMIN 2018-0 Yes [id number] 850mg Take 1 [facility] 850 mg 9-20 tablet by [facility] of tablet 00:00: mouth () Medical times Branch daily with meals. metFORMIN 2018-0 Yes [id number] 850mg Take 1 [facility] 850 mg 9-20 tablet by [facility] of tablet 00:00: mouth () Medical times Branch daily with meals. metFORMIN 2018-0 Yes [id number] 850mg Take 1 [facility] 850 mg 9-20 tablet by [facility] of tablet 00:00: mouth (three) Medical times Branch daily with meals. metFORMIN 2018-0 Yes [id number] 850mg Take 1 [facility] 850 mg 9-20 tablet by [facility] of tablet 00:00: mouth (three) Medical times Branch daily with meals. metFORMIN 2018-0 Yes [id number] 850mg Take 1 [facility] 850 mg 9-20 tablet by [facility] of tablet 00:00: mouth (three) Medical times Branch daily with meals. metFORMIN 2018-0 Yes [id number] 850mg Take 1 [facility] 850 mg 9-20 tablet by ity of tablet 00:00: mouth (three) Medical times Branch daily with meals. metFORMIN 2018-0 Yes [id number] 850mg Take 1 [facility] 850 mg 9-20 tablet by ity of tablet 00:00: mouth () Medical times Branch daily with meals. metFORMIN 2017- Yes [id number] 850mg Take 1 [facility] 850 mg 9-20 tablet by [facility] of tablet 00:00: mouth () Medical times Branch daily with meals. metFORMIN 2017-0 Yes [id number] 850mg Take 1 [facility] 850 mg 9-20 tablet by ity of tablet 00:00: mouth () Medical times Branch daily with meals. metFORMIN 2017- Yes [id number] 850mg Take 1 [facility] 850 mg 9-20 tablet by it[facility] of tablet 00:00: mouth () Medical times Branch daily with meals. metFORMIN 2017-0 Yes [id number] 850mg Take 1 [facility] 850 mg 9-20 tablet by it[facility] of tablet 00:00: mouth () Medical times Branch daily with meals. metFORMIN 2017- Yes [id number] 850mg Take 1 [facility] 850 mg 9-20 tablet by it[facility] of tablet 00:00: mouth () Medical times Branch daily with meals. metFORMIN Yes [id number] 850mg Take 1 [facility] 850 mg 9-20 tablet by ity of tablet 00:00: mouth () Medical times Branch daily with meals. metFORMIN 2017- Yes [id number] 850mg Take 1 [facility] 850 mg 9-20 tablet by ity of tablet 00:00: mouth () Medical times Branch daily with meals. metFORMIN 2017- Yes [id number] 850mg Take 1 [facility] 850 mg 9-20 tablet by ity of tablet 00:00: mouth () Medical times Branch daily with meals. metFORMIN 2017- Yes [id number] 850mg Take 1 [facility] 850 mg 9-20 tablet by ity of tablet 00:00: mouth () Medical times Branch daily with meals. metFORMIN 2020- No [id number] 850mg Take 1 [facility] 850 mg 9-20 03-02 tablet by ity of tablet 00:00: 00:00 mouth 3 00 :00 (three) Medical times Branch daily with meals. glipiZIDE 2017- Yes [id number] 10mg Take 1 U nivers XL 10 mg 24 9-19 tablet by ity of hr tablet 00:00: mouth (two) Medical times Branch daily. glipiZIDE 2018-0 Yes [id number] 10mg Take 1 [facility] nivers XL 10 mg 24 9-19 tablet by ity of hr tablet 00:00: mouth (two) Medical times Branch daily. glipiZIDE 2018-0 Yes [id number] 10mg Take 1 [facility] n[facility] XL 10 mg 24 9-19 tablet by ity of hr tablet 00:00: mouth (two) Medical times Branch daily. glipiZIDE 2017-0 Yes [id number] 10mg Take 1 [facility] nivers XL 10 mg 24 9-19 tablet by ity of hr tablet 00:00: mouth (two) Medical times Branch daily. glipiZIDE 2017-0 Yes [id number] 10mg Take 1 U nivers XL 10 mg 24 9-19 tablet by ity of hr tablet 00:00: mouth (two) Medical times Branch daily. glipiZIDE 2017-0 Yes [id number] 10mg Take 1 U nivers XL 10 mg 24 9-19 tablet by ity of hr tablet 00:00: mouth (two) Medical times Branch daily. glipiZIDE 2017-0 Yes [id number] 10mg Take 1 U nivers XL 10 mg 24 9-19 tablet by ity of hr tablet 00:00: mouth (two) Medical times Branch daily. glipiZIDE 2017-0 Yes [id number] 10mg Take 1 U nivers XL 10 mg 24 9-19 tablet by ity of hr tablet 00:00: mouth (two) Medical times Branch daily. glipiZIDE 2017-0 Yes [id number] 10mg Take 1 U nivers XL 10 mg 24 9-19 tablet by ity of hr tablet 00:00: mouth (two) Medical times Branch daily. glipiZIDE 2018-0 Yes [id number] 10mg Take 1 U nivers XL 10 mg 24 9-19 tablet by ity of hr tablet 00:00: mouth (two) Medical times Branch daily. glipiZIDE 2018-0 Yes [id number] 10mg Take 1 U nivers XL 10 mg 24 9-19 tablet by ity of hr tablet 00:00: mouth (two) Medical times Branch daily. glipiZIDE 2018-0 Yes [id number] 10mg Take 1 U nivers XL 10 mg 24 9-19 tablet by ity of hr tablet 00:00: mouth (two) Medical times Branch daily. glipiZIDE 2018-0 Yes [id number] 10mg Take 1 U nivers XL 10 mg 24 9-19 tablet by ity of hr tablet 00:00: mouth (two) Medical times Branch daily. glipiZIDE 2018-0 Yes [id number] 10mg Take 1 U n[facility] XL 10 mg 24 9-19 tablet by ity of hr tablet 00:00: mouth (two) Medical times Branch daily. glipiZIDE 2018-0 Yes [id number] 10mg Take 1 U nivers XL 10 mg 24 9-19 tablet by ity of hr tablet 00:00: mouth (two) Medical times Branch daily. glipiZIDE 2017-0 Yes [id number] 10mg Take 1 U nivers XL 10 mg 24 9-19 tablet by ity of hr tablet 00:00: mouth (two) Medical times Branch daily. glipiZIDE 2017-0 Yes [id number] 10mg Take 1 U nivers XL 10 mg 24 9-19 tablet by ity of hr tablet 00:00: mouth (two) Medical times Branch daily. glipiZIDE 2017-0 Yes [id number] 10mg Take 1 U nivers XL 10 mg 24 9-19 tablet by ity of hr tablet 00:00: mouth (two) Medical times Branch daily. glipiZIDE 2018-0 Yes [id number] 10mg Take 1 [facility] nivers XL 10 mg 24 9-19 tablet by ity of hr tablet 00:00: mouth (two) Medical times Branch daily. glipiZIDE 2018-0 Yes [id number] 10mg Take 1 U nivers XL 10 mg 24 9-19 tablet by ity of hr tablet 00:00: mouth (two) Medical times Branch daily. glipiZIDE 2018-0 Yes [id number] 10mg Take 1 U nivers XL 10 mg 24 9-19 tablet by ity of hr tablet 00:00: mouth (two) Medical times Branch daily. glipiZIDE 2017-1- No [id number] 10mg Take 1 [facility] XL 10 mg 24 06-17 tablet by it y of hr tablet 00:00: 00:00 mouth 2 [place] :00 (two) Medical times Branch daily. Vital Signs Vital Name Observation Time Observation Value Comments Source Systolic blood 2023-05-07 23:59:51 143 mm[Hg] Univer sity of pressure [facility] Diastolic blood 2023-05-07 23:59:51 96 mm[Hg] Unive rsity of pressure [facility] Heart rate 2023-05-07 23:59:51 99 /min [facility] of [facility] Body temperature 2023-05-07 23:59:51 36.56 [facility] ers[facility] of [facility] Respiratory rate 2023-05-07 23:59:51 20 /min Univ ersity of [facility] Body height 2023-05-07 22:43:00 149.9 cm [facility] [place] [facility] [place] Body weight 2023-05-07 22:43:00 66.906 kg [facility] [place] [facility] [place] BMI 2023-05-07 22:43:00 29.79 kg/m2 [facility] of [facility] Oxygen saturation in 2023-05-07 22:43:00 98 /min [facility] Arterial blood by [facility] Pulse oximetry Branch Systolic blood 2022-06-19 22:02:00 127 mm[Hg] Univer sity of [facility] Diastolic blood 2022-06-19 22:02:00 66 mm[Hg] Unive rsity of [facility] Heart rate 2022-06-19 22:02:00 100 /min [facility] [place] [facility] [place] Body temperature 2022-06-19 22:02:00 37.83 [facility] Univ ersity [facility] Respiratory rate 2022-06-19 22:02:00 20 /min Univ ersity of [facility] Body height 2022-06-19 22:02:00 149.9 cm [facility] [place] [facility] [place] Body weight 2022-06-19 22:02:00 68.04 kg [facility] [place] [facility] [place] [facility] BMI 2022-06-19 22:02:00 30.30 kg/m2 [facility] of [facility] Oxygen saturation in 2022-06-19 22:02:00 99 /min University of Arterial blood by [facility] Pulse oximetry Branch Systolic blood 2022-06-07 [...] 99 /min [facility] of Arterial blood by [facility] Pulse oximetry Branch Body temperature 2022-06-07 12:37:00 37 [facility] [facility] [place] [facility] Body weight 2022-06-07 12:37:00 68.04 kg [facility] [place] [facility] BMI 2022-06-07 12:37:00 30.30 kg/m2 [facility] [place] [facility] Systolic blood 2022-04-01 07:00:00 101 mm[Hg] Univer sity of pressure [place] [facility] Diastolic blood 2022-04-01 07:00:00 61 mm[Hg] Unive rsity of pressure [place] [facility] Heart rate 2022-04-01 07:00:00 83 /min [facility] [place] [facility] Respiratory rate 2022-04-01 07:00:00 21 /min [facility] [place] [facility] Oxygen saturation in 2022-04-01 07:00:00 100 /min [facility] of Arterial blood by [facility] Pulse oximetry Branch Body temperature 2022-04-01 05:44:00 38 [facility] [facility] [place] [facility] Body height 2022-04-01 04:37:00 149.9 cm [facility] [place] [facility] Body weight 2022-04-01 04:37:00 68.04 kg [facility] [place] [facility] BMI 2022-04-01 04:37:00 30.30 kg/m2 [facility] [place] [facility] Systolic blood 2022-01-05 22:00:00 106 mm[Hg] Univer sity of pressure [place] [facility] Diastolic blood 2022-01-05 22:00:00 62 mm[Hg] Unive rsity of pressure [place] [facility] Heart rate 2022-01-05 22:00:00 77 /min [facility] [place] [facility] Respiratory rate 2022-01-05 22:00:00 16 /min [facility] ers[facility] [place] [facility] Oxygen saturation in 2022-01-05 22:00:00 99 /min [facility] of Arterial blood by [facility] Pulse oximetry Branch Body temperature 2022-01-05 20:01:00 37.39 [facility] [place] [facility] Body weight 2022-01-05 20:01:00 74.844 kg [facility] [place] [facility] BMI 2022-01-05 20:01:00 33.33 kg/m2 [facility] [place] [facility] Systolic blood 2021-09-14 21:00:00 122 mm[Hg] Univer sity of pressure [place] [facility] Diastolic blood 2021-09-14 21:00:00 74 mm[Hg] Unive rsity of pressure [place] [facility] Heart rate 2021-09-14 21:00:00 98 /min [facility] [place] [facility] Body temperature 2021-09-14 21:00:00 37.61 [facility] [place] [facility] Respiratory rate 2021-09-14 21:00:00 21 /min [facility] [place] [facility] Oxygen saturation in 2021-09-14 21:00:00 97 /min [facility] of Arterial blood by [facility] Pulse oximetry Branch Body weight 2021-09-14 17:11:00 66.679 kg [facility] [place] [facility] BMI 2021-09-14 17:11:00 29.69 kg/m2 [facility] [place] [facility] Systolic blood 2021-09-03 03:55:00 111 mm[Hg] Univer sity of pressure [place] [facility] Diastolic blood 2021-09-03 03:55:00 72 mm[Hg] Unive rsity of pressure [place] [facility] Heart rate 2021-09-03 03:55:00 81 /min [facility] [place] [facility] Respiratory rate 2021-09-03 03:55:00 17 /min [facility] [place] [facility] Oxygen saturation in 2021-09-03 03:55:00 98 /min [facility] of Arterial blood by [facility] Pulse oximetry Branch Body temperature 2021-09-03 02:09:20 37.22 [facility] [place] [facility] Body height 2021-09-02 23:49:00 149.9 cm [facility] [place] [facility] Body weight 2021-09-02 23:49:00 66.679 kg [facility] [place] [facility] BMI 2021-09-02 23:49:00 29.69 kg/m2 [facility] [place] [facility] Systolic blood 2021-03-30 01:00:00 121 mm[Hg] Univer sity of pressure [place] [facility] Diastolic blood 2021-03-30 01:00:00 73 mm[Hg] Unive rsity of pressure [place] [facility] Heart rate 2021-03-30 01:00:00 77 /min [facility] [place] [facility] Respiratory rate 2021-03-30 00:00:00 24 /min Univ ersity of [place] [facility] Oxygen saturation in 2021-03-30 00:00:00 100 /min [facility] of Arterial blood by [place] [employer] carmen Pulse oximetry Branch Body temperature 2021-03-29 19:12:00 37.56 [facility] [place] [facility] Body height 2021-03-29 19:12:00 149.9 cm [facility] [place] [facility] Body weight 2021-03-29 19:12:00 61.236 kg [facility] [place] [facility] BMI 2021-03-29 19:12:00 27.27 kg/m2 [facility] [place] [facility] Systolic blood 2021-01-02 14:30:00 119 mm[Hg] Univer sity of pressure [place] [facility] Diastolic blood 2021-01-02 14:30:00 63 mm[Hg] Unive rsity of pressure [place] [facility] Heart rate 2021-01-02 14:30:00 79 /min [facility] [place] [facility] Respiratory rate 2021-01-02 14:30:00 17 /min Univ ersity of [place] [facility] Oxygen saturation in 2021-01-02 14:30:00 98 /min [facility] of Arterial blood by [place] [employer] carmen Pulse oximetry Branch Body temperature 2021-01-02 13:12:00 36.44 Shahana [facility] [place] [facility] Body height 2021-01-02 13:12:00 149.9 cm [facility] [place] [facility] Body weight 2021-01-02 13:12:00 64.411 kg [facility] [place] [facility] BMI 2021-01-02 13:12:00 28.68 kg/m2 [facility] [place] [facility] Systolic blood 2020-12-17 01:35:00 107 mm[Hg] Univer sity of pressure [place] [facility] Diastolic blood 2020-12-17 01:35:00 67 mm[Hg] Unive rsity of pressure [place] [facility] Heart rate 2020-12-17 01:35:00 89 /min [facility] [place] [facility] Respiratory rate 2020-12-17 01:35:00 16 /min Univ ersity of [place] [facility] Oxygen saturation in 2020-12-17 01:35:00 100 /min [facility] of Arterial blood by [employer] carmen Pulse oximetry Branch Body temperature 2020-12-16 23:22:01 37.72 Shahana [facility] [place] [facility] Body height 2020-12-16 23:19:00 149.9 cm [facility] [place] [facility] Body weight 2020-12-16 23:19:00 65.772 kg [facility] [place] [facility] BMI 2020-12-16 23:19:00 29.29 kg/m2 [facility] [place] [facility] Systolic blood 2020-12-15 15:11:00 129 mm[Hg] Univer sity of pressure [place] [facility] Diastolic blood 2020-12-15 15:11:00 62 mm[Hg] Unive rsity of pressure [place] [facility] Heart rate 2020-12-15 15:11:00 83 /min [facility] [place] [facility] Body temperature 2020-12-15 15:11:00 36.56 [facility] [place] [facility] Respiratory rate 2020-12-15 15:11:00 18 /min Univ ers[facility] [place] [facility] Body weight 2020-12-15 15:11:00 66.225 kg [facility] [place] [facility] BMI 2020-12-15 15:11:00 29.49 kg/m2 [facility] [place] [facility] Oxygen saturation in 2020-12-15 15:11:00 100 /min [facility] of Arterial blood by [employer] carmen Pulse oximetry Branch Systolic blood 2020-11-28 22:47:00 102 mm[Hg] Univer sity of pressure [place] [facility] Diastolic blood 2020-11-28 22:47:00 85 mm[Hg] Unive rsity of pressure [place] [facility] Heart rate 2020-11-28 22:47:00 77 /min [facility] [place] [facility] Body temperature 2020-11-28 22:47:00 37.11 [facility] [place] [facility] Respiratory rate 2020-11-28 22:47:00 18 /min Univ [facility] Oxygen saturation in 2020-11-28 22:47:00 100 /min University of Arterial blood by [facility] carmen Pulse oximetry Branch Body weight 2020-11-27 09:27:00 66.497 kg [facility] BMI 2020-11-27 09:27:00 29.61 kg/m2 [facility] Body height 2020-11-27 00:19:00 149.9 cm [facility] Systolic blood 2020-11-20 06:00:00 133 mm[Hg] [facility] Diastolic blood 2020-11-20 06:00:00 88 mm[Hg] [facility] Heart rate 2020-11-20 06:00:00 85 /min [facility] Respiratory rate 2020-11-20 06:00:00 17 /min [facility] Oxygen saturation in 2020-11-20 06:00:00 100 /min [facility] Arterial blood by [facility] Pulse oximetry Branch Body temperature 2020-11-20 05:18:00 37.28 Shahana Univ [facility] Body height 2020-11-20 05:18:00 149.9 cm [facility] Body weight 2020-11-20 05:18:00 68.04 kg [facility] BMI 2020-11-20 05:18:00 30.30 kg/m2 [facility] Systolic blood 2020-03-28 18:20:00 106 mm[Hg] [facility] Diastolic blood 2020-03-28 18:20:00 64 mm[Hg] [facility] Heart rate 2020-03-28 18:20:00 83 /min [facility] Body temperature 2020-03-28 18:20:00 36.56 Shahana [facility] Respiratory rate 2020-03-28 18:20:00 18 /min [facility] Body weight 2020-03-28 18:20:00 67.223 kg [facility] BMI 2020-03-28 18:20:00 29.93 kg/m2 [facility] Systolic blood 2020-03-28 00:00:00 103 mm[Hg] [facility] Diastolic blood 2020-03-28 00:00:00 75 mm[Hg] [facility] Heart rate 2020-03-28 00:00:00 67 /min [facility] Oxygen saturation in 2020-03-28 00:00:00 100 /min [facility] Arterial blood by [place] [employer] carmen Pulse oximetry Branch Respiratory rate 2020-03-27 22:00:00 18 /min Univ [facility] [place] Body temperature 2020-03-27 20:22:00 37.5 Shahana [facility] Body weight 2020-03-27 20:22:00 65.772 kg [facility] BMI 2020-03-27 20:22:00 29.29 kg/m2 [facility] Systolic blood 2020-03-25 20:00:00 109 mm[Hg] [facility] Diastolic blood 2020-03-25 20:00:00 65 mm[Hg] [facility] [place] Heart rate 2020-03-25 20:00:00 75 /min [facility] Respiratory rate 2020-03-25 20:00:00 18 /min Univ [facility] Oxygen saturation in 2020-03-25 20:00:00 99 /min [facility] Arterial blood by [place] [employer] carmen Pulse oximetry Branch Body temperature 2020-03-25 18:38:00 37.39 Shahana Univ [facility] Body height 2020-03-25 18:38:00 149.9 cm [facility] Body weight 2020-03-25 18:38:00 68.04 kg [facility] BMI 2020-03-25 18:38:00 30.30 kg/m2 [facility] Procedures Procedure Date / Time Performing Clinician Source Performed RAPID INFLUENZA A/B 2023-05-07 22:57:00 Mercedez Manuel [facility] COVID-19 (ID NOW RAPID 2023-05-07 22:57:00 Mercedez Manuel Un [facility] TESTING) Medical Branch CONSENT/REFUSAL FOR 2023-05-07 22:34:41 Doctor Anjanabhavya [facility] DIAGNOSIS AND TREAT[facility] CO I&D BARTHOLIN GLAND 2022-06-19 23:09:13 Martínez Louis [facility] ABSCESS [facility] CONSENT/REFUSAL FOR 2022-06-19 21:55:57 Doctor Leticia [facility] DIAGNOSIS [facility] CT ABDOMEN PELVIS W 2022-06-07 15:47:47 Keely Fontana [facility] CONTRAST [facility] LIPASE 2022-06-07 14:19:[address] [facility] HEPATIC FUNCTION PANEL 2022-06-07 14:19:00 Keely Fontana [facility] ([id number]) (ALB,T.PRO,BILI Medical Branch T,BU/BC,ALT,AST,ALK PHOS) BASIC METABOLIC PANEL 2022-06-07 14:19:00 Keely Fontana [facility] (NA, K, CL, CO2, GLUCOSE, Medica l Branch BUN, CREATININE, CA) CBC WITH DIFF 2022-06-07 14:19:[address] [facility] URINALYSIS 2022-06-07 14:19:[address] [facility] POCT TEST 2022-06-07 14:19:00 Keely Fontana [facility] CONSENT/REFUSAL FOR 2022-06-07 12:34:29 Doctor Leticia [facility] DIAGNOSIS AND TREATMENT [facility] EKG-12 LEAD 2022-04-01 07:27:37 Wang Leyva [facility] RAPID INFLUENZA A/B 2022-04-01 05:47:00 Wang Leyva [facility] XR CHEST 1 VW 2022-04-01 04:59:17 Wang Leyva [facility] TROPONIN I 2022-04-01 04:50:00 Wang Leyva [facility] COMP. METABOLIC PANEL 2022-04-01 04:50:00 Wang Leyva [facility] ([id number]) [facility] CBC WITH DIFF 2022-04-01 04:50:00 Wang Leyva [facility] URINALYSIS 2022-04-01 04:50:00 Wang Leyva [facility] N-TERMINAL PRO-BNP 2022-04-01 04:50:00 Wang Leyva [facility] COVID-19 (ID NOW RAPID 2022-04-01 04:50:00 Wang Leyva [facility] TESTING) [facility] CONSENT/REFUSAL FOR 2022-04-01 04:25:39 Doctor Kelly [facility] DIAGNOSIS AND TREATMENT [facility] INSURANCE CORRESPONDENCE 2022-01-21 05:01:00 Doctor Kelly [facility] Name [facility] XR FOOT <3 VW LEFT 2022-01-05 20:28:03 Carlotta Gamez [facility] POCT GLUCOSE (AUTOMATED) 2022-01-05 20:28:00 Carlotta Gamez [facility] COMP. METABOLIC PANEL 2022-01-05 20:21:[address] [facility] ([id number]) [facility] SEDIMENTATION RATE 2022-01-05 20:21:00 Carlotta Gamez [facility] CBC WITH DIFF 2022-01-05 20:21:00 Carlotta Gamez [facility] CONSENT/REFUSAL FOR 2022-01-05 19:52:57 Doctor Kelly [facility] DIAGNOSIS AND TREATMENT [facility] URINALYSIS 2021-09-14 18:21:00 Kodi Lyons [facility] POCT TEST 2021-09-14 18:21:00 Kodi Lyons [facility] CONSENT/REFUSAL FOR 2021-09-14 17:00:07 Doctor Leticia [facility] DIAGNOSIS AND TREATMENT [place] [place] XR CHEST 1 VW 2021-09-03 03:31:[address] [facility] POCT TEST 2021-09-03 02:11:00 Devika Rizzo [facility] Medical Branch LIPASE 2021-09-03 01:51:[address] [facility] MAGNESIUM 2021-09-03 01:51:00 Devika Rizzo [facility] TROPONIN I 2021-09-03 01:51:00 Devika Rizzo [facility] COMP. METABOLIC PANEL 2021-09-03 01:51:00 Devika Rizzo [facility] ([id number]) Medical Branch CBC WITH DIFF 2021-09-03 01:51:[address] [facility] COVID-19 (ID NOW RAPID 2021-09-03 01:51:00 Devika Rizzo [facility] TESTING) Medical Branch URINALYSIS 2021-09-03 01:50:[address] [facility] NOTICE OF PRIVACY 2021-09-02 23:35:44 Doctor Leticia, [facility] PRACTICES [facility] [place] CONSENT/REFUSAL FOR 2021-09-02 23:35:29 Doctor Leticia, [facility] DIAGNOSIS AND TREATMENT [facility] [place] CT CHEST PULMONARY 2021-03-29 23:01:57 Melyssa Peters [facility] ANGIOGRAM Medical Branch LIPASE 2021-03-29 21:06:00 Melyssa Peters [facility] TROPONIN I 2021-03-29 21:06:00 Melyssa Peters [facility] HEPATIC FUNCTION PANEL 2021-03-29 21:06:00 Melyssa Peters [facility] ([id number]) (ALB,T.PRO,BIL Medical Branch T,BU/BC,ALT,AST,ALK PHOS) BASIC METABOLIC PANEL 2021-03-29 21:06:00 Melyssa Peters [facility] (NA, K, CL, CO2, GLUCOSE, Medica l Branch BUN, CREATININE, CA) CBC WITH DIFF 2021-03-29 21:06:00 Melyssa Peters [facility] D-DIMER 2021-03-29 21:06:00 Melyssa Peters [facility] XR CHEST 2 VW 2021-03-29 20:54:38 Melyssa Peters [facility] POCT TEST 2021-03-29 20:19:00 Melyssa Peters [facility] HB ECG ROUTINE & RHYTHM 2021-03-29 19:32:20 Shonda Lang [facility] CONSENT/REFUSAL FOR 2021-03-29 19:05:27 Doctor Unassbhavya, [facility] DIAGNOSIS AND TREATMENT [facility] US OVARY TORSION 2021-01-02 15:20:44 Shonda Lang [facility] CT ABDOMEN PELVIS WO 2021-01-02 14:03:26 Shonda Lang [facility] LIPASE 2021-01-02 13:18:[address] [facility] COMP. METABOLIC PANEL 2021-01-02 13:18:00 Shonda Lang [facility] ([id number]) [facility] [place] CBC WITH DIFF 2021-01-02 13:18:[address] [facility] URINALYSIS 2021-01-02 13:18:[address] [facility] POCT TEST 2021-01-02 13:17:00 Shonda Lang [facility] NOTICE OF PRIVACY 2021-01-02 13:01:00 Doctor Unajimbo, [facility] PRACTICES [facility] CONSENT/REFUSAL FOR 2021-01-02 13:00:45 Doctor Leticia, [facility] DIAGNOSIS AND TREATMENT [facility] CT TEMPORAL BONES W 2020-12-17 00:56:58 Melyssa Peters [facility] HEPATIC FUNCTION PANEL 2020-12-17 00:01:00 Melyssa Peters [facility] ([id number]) (ALB,T.PRO,BILI Medical Branch T,BU/BC,ALT,AST,ALK PHOS) BASIC METABOLIC PANEL 2020-12-17 00:01:00 Melyssa Peters [facility] (NA, K, CL, CO2, GLUCOSE, Medica l Branch BUN, CREATININE, CA) SEDIMENTATION RATE 2020-12-17 00:01:00 Melyssa Peters [facility] CBC WITH DIFF 2020-12-17 00:01:00 Melyssa Peters [facility] CONSENT/REFUSAL FOR 2020-12-16 23:16:15 Doctor Unassigned, [facility] DIAGNOSIS AND TREATMENT [place] [facility] CONSENT/REFUSAL FOR 2020-12-15 15:06:54 Doctor Unassigned, [facility] DIAGNOSIS AND TREATMENT [place] [facility] POCT GLUCOSE (AUTOMATED) 2020-11-28 22:46:00 Flaco Hoang [facility] NM MYOCARDIUM PERFUSION 2020-11-28 20:03:49 Preston Kerns [facility] STRESS AND REST [facility] POCT GLUCOSE (AUTOMATED) 2020-11-28 17:40:[address] [facility] POCT GLUCOSE (AUTOMATED) 2020-11-28 13:36:[address] [facility] POCT GLUCOSE (AUTOMATED) 2020-11-27 22:20:[address] [facility] POCT GLUCOSE (AUTOMATED) 2020-11-27 17:31:00 Flaco Hoang [facility] ECHO ROUTINE W/DOPPLER 2020-11-27 16:58:05 [facility] COLOR [facility] POCT GLUCOSE (AUTOMATED) 2020-11-27 13:29:00 Flaco Hoang [facility] MAGNESIUM 2020-11-27 09:33:[address] [facility] TROPONIN I 2020-11-27 09:33:00 Trung [facility] BASIC METABOLIC PANEL 2020-11-27 09:33:00 Flaco Hoang [facility] (NA, K, CL, CO2, GLUCOSE, Medica l Branch BUN, CREATININE, CA) CBC WITH DIFF 2020-11-27 09:33:00 [facility]-BNP 2020-11-27 09:33:00 Israel Nino [facility] TROPONIN I 2020-11-27 04:27:00 Viktor [facility] THYROID STIMULATING 2020-11-27 04:27:00 Israel Nino [facility] HORMONE [facility] LIPID PANEL ([id number])(TOTAL 2020-11-27 04:27:00 Israel Nino [facility] CHOLESTEROL, [facility] TRIGLYCERIDES, HDL) GLYCOSYLATED HEMOGLOBIN 2020-11-27 04:27:00 Prem Agosto [facility] (A1C) [facility] POCT GLUCOSE (AUTOMATED) 2020-11-27 02:09:[address] [facility] TROPONIN I 2020-11-27 00:06:[address] [facility] CT CHEST PULMONARY 2020-11-26 20:59:00 Rickey Shonda [facility] ANGIOGRAM Medical Branch XR NECK SOFT TISSUE 2020-11-26 20:33:05 Shonda Lang [facility] POCT TEST 2020-11-26 19:51:00 Shonda Lang [facility] PHOSPHORUS 2020-11-26 19:44:00 Viktor [facility] MAGNESIUM 2020-11-26 19:44:00 Viktor [facility] TROPONIN I 2020-11-26 19:44:00 Rickey [facility] HEPATIC FUNCTION PANEL 2020-11-26 19:44:00 Shonda Lang [facility] ([id number]) (ALB,T.PRO,BILI Medical Branch T,BU/BC,ALT,AST,ALK PHOS) BASIC METABOLIC PANEL 2020-11-26 19:44:00 Shonda Lang [facility] (NA, K, CL, CO2, GLUCOSE, Medica l Branch BUN, CREATININE, CA) CBC WITH DIFF 2020-11-26 19:44:00 Rickey [facility] PROTHROMBIN TIME / INR 2020-11-26 19:44:00 Shonda Lang [facility] D-DIMER 2020-11-26 19:44:00 Shonda Lang [place] [facility] ACTIVATED PARTIAL 2020-11-26 19:44:00 Shonda Lang [facility] THRMPLAS CAM [facility] N-TERMINAL PRO-BNP 2020-11-26 19:44:00 Shonda Lang [facility] COVID-19 (ID NOW RAPID 2020-11-26 19:44:00 Shonda Lang [facility] TESTING) Medical Branch HB ECG ROUTINE & RHYTHM 2020-11-26 19:23:27 Shonda Lang [facility] NOTICE OF PRIVACY 2020-11-26 19:15:00 Doctor Unassigned, [facility] PRACTICES [place] [facility] CONSENT/REFUSAL FOR 2020-11-26 19:10:31 Doctor Unajimbo, [facility] DIAGNOSIS AND TREATMENT [place] [facility] [place] POCT TEST 2020-11-20 05:40:00 Kodi Lyons [facility] NOTICE OF PRIVACY 2020-11-20 05:04:44 Doctor Unassigned, [facility] PRACTICES [place] [facility] CONSENT/REFUSAL FOR 2020-11-20 05:04:30 Doctor Leticia, [facility] DIAGNOSIS AND TREATMENT [place] [facility] BI ULTRASOUND BREAST 2020-04-18 14:38:21 Ludivina Colunga [facility] LEFT Medical Branch BI DIAGNOSTIC MAMMOGRAM 2020-04-18 14:10:00 Ludivina Colunga [facility] BILATERAL Medical Branch BI ULTRASOUND BREAST 2020-03-27 21:42:26 Wang Leyva [facility] LEFT Medical [place] XR CHEST 2 VW 2020-03-27 21:15:38 Wang Leyva [facility] POCT TEST 2020-03-27 20:58:00 Wang Leyva [facility] BLOOD CULTURE SCREEN 2020-03-27 20:57:00 Wang Leyva [facility] COVID-19 (ID NOW RAPID 2020-03-27 20:56:00 Wang Leyva [facility] TESTING) Medical Branch URINALYSIS 2020-03-27 20:54:00 Wang Leyva [facility] TROPONIN I 2020-03-27 20:53:00 Wang Leyva [facility] COMP. METABOLIC PANEL 2020-03-27 20:53:00 Wang Leyva [facility] ([id number]) [facility] N-TERMINAL PRO-BNP 2020-03-27 20:53:00 Wang Leyva [facility] BLOOD CULTURE SCREEN 2020-03-27 20:51:00 Wang Leyva [facility] CBC WITH DIFFERENTIAL 2020-03-27 20:50:00 Wang Leyva [facility] LACTIC ACID WHOLE BLOOD 2020-03-27 20:49:[address] [facility] BASIC METABOLIC PANEL 2020-03-25 19:12:00 Cezar Tovar [facility] (NA, K, CL, CO2, GLUCOSE, Medica l Branch BUN, CREATININE, CA) CBC WITH DIFFERENTIAL 2020-03-25 19:12:00 Cezar Tovar [facility] NOTICE OF PRIVACY 2020-03-25 18:19:19 Doctor Unassigned, [facility] PRACTICES [place] [facility] CONSENT/REFUSAL FOR 2020-03-25 18:19:02 Doctor Unajimbo, [facility] DIAGNOSIS AND TREATMENT [place] [facility] [place] Encounters Start End Encounter Admission Attending Care Care Encounter Source Date/Time Date/Time Type Type Clinicians Facility Department ID 2021-07-30 Emergency [facility] [id number] Univers 05:23:34 ity of [facility] 2021-07-29 Emergency [facility] [id number] Univers 10:54:29 it of [facility] 2021-07-29 Emergency [facility] [id number] Univers 07:21:50 it of [facility] 2021-07-29 Emergency [facility] [id number] Univers 07:07:[facility] 2021-07-29 Emergency [facility] [id number] Univers 01:56:02 [facility] 2021-07-29 Emergency [facility] [id number] Univers 00:20:57 ity of [facility] 2021-07-27 Emergency [facility] [id number] Univers 03:31:32 ity of [facility] 2021-07-27 Emergency [facility] [id number] Univers 03:15:24 ity [facility] 2023-05-07 2023-05-07 Emergency X KALEB [facility] ERT [id number] Univers 17:45:00 19:02:00 MERCEDEZ ity [facility] 2023-05-07 2023-05-07 [facility] [id number] Univers 17:45:00 19:02:00 Mercedez BLANK [id number] i ty of [place] [id number] [facility] [id number] [address] 2022-06-19 2022-06-19 Emergency X [facility] ERT [id number] Univers 17:03:00 18:34:00 MARTÍNEZ itrenee [facility] 2022-06-19 2022-06-19 Emergency [facility] [id number] Univers 17:03:00 18:34:00 Martínez BLANK [id number] i ty of [place] 4.2.7.2.6 [facility] [id number] [address] 2022-06-07 2022-06-07 Emergency [facility] [id number] Univers 07:39:00 11:51:00 KEELY ity [facility] 2022-06-07 2022-06-07 Emergency [facility] [id number] Univers 07:39:00 11:51:00 Keely BLANK [id number] i ty of [place] [id number] [facility] [id number] [address] 2022-03-31 2022-04-01 Emergency [facility] [id number] Univers 23:43:00 02:34:00 WANG ity [facility] 2022-03-31 2022-04-01 Emergency [facility] [id number] Univers 23:43:00 02:34:00 Wangjoão BLANK [id number] i ty of [facility] [id number] [facility] [id number] [address] 2022-01-21 2022-01-21 Orders Doctor KYRA [id number] Univers 00:00:00 00:00:00 Only Unassigned, LONNIE [id number] ity of [facility] [id number] Enrique as [id number] [address] 2022-01-05 2022-01-05 Emergency [facility]RT [id number] Univers 15:09:00 17:27:00 CARLOTTA brenda [facility] 2022-01-05 2022-01-05 Emergency [facility] [id number] Univers 15:09:00 17:27:00 Carlotta BLANK [id number] ity of [place] [id number] [facility] [id number] [address] 2022-01-05 2022-01-05 Orders Doctor KYRA [id number] Univers 00:00:00 00:00:00 Only Unassigned, LONNIE [id number] ity of [facility] [id number] Enrique as [id number] [address] 2021-09-28 2021-09-28 Outpatient R MELISA [facility] [id number] Univers 10:30:00 11:36:58 VIKKI [facility] 2021-09-28 2021-09-28 Laboratory Only, Ang Db Test [facility] 1.2.8 [id number] Univers 10:30:00 10:45:00 Only Vikki Vincent [facility] [id number] ity of [place] [id number] Enrique as EMELYN?BLEA [phone] [address] MEDICAL OFFICE BUILDING 2021-09-28 2021-09-28 Letter Doctor KYRA [id number] Univers 00:00:00 00:00:00 (Out) Unassigned, LONNIE [id number] ity of [facility] [id number] Enrique as [id number] [facility] 044 Branch 2021-09-14 2021-09-14 Emergency X [facility] ERT [id number] Univers 11:13:00 15:21:00 WAKILI ity of [facility] 2021-09-14 2021-09-14 Emergency Replaced by [facility] [id number] Univers 11:13:00 15:21:00 Kodi Sanon ROSAMARIA [id number] [id number] [id number] [address] 2021-09-14 2021-09-14 Orders Doctor KYRA 1.2.840.114 [id number] Univers 00:00:00 00:00:00 Only Unassigned, LONNIE [id number] ity of [facility] [id number] Enrique as [phone] [facility] 009 Branch 2021-09-02 2021-09-02 Emergency X TACO, K [facility] ERT [id number] Univers 17:52:00 22:13:00 ity of [facility] 2021-09-02 2021-09-02 Emergency Taco, K [facility] 1.2.840.114 [id number] Univers 17:52:00 22:13:00 Gudelia BLANK [id number] i ty of [facility] [id number] [id number] [address] 2021-03-29 2021-03-29 Emergency [facility] [id number] Univers 14:53:00 20:06:00 Melyssa Blank [id number] ity of [id number] [id number] [address] 2021-01-02 2021-01-02 Emergency Lang, [facility] [id number] Univers 08:04:00 11:04:00 Shonda Blank [id number] i ty of [place] 4.2.7.2.686 [facility] [phone] [facility] 084 Branch 2020-12-16 2020-12-16 Emergency Justo, [facility] [id number] Univers 18:20:00 21:05:00 Melyssa Blank [id number] ity of [place] 4.2.7.2.686 [facility] [id number] [place] [address] Branch 2020-12-15 2020-12-15 Emergency Justo, [facility] [id number] Univers 10:13:00 10:45:00 Melyssa Blank [id number] ity of [place] 4.2.7.2.686 [facility] [id number] [facility] 084 Branch 2020-12-15 2020-12-15 Orders Doctor RAE 1.2.840.114 [id number] Univers 00:00:00 00:00:00 Only Unassigned, LONNIE [id number] ity of [place] [facility] 4.2.7.2.686 Enrique as [phone] [facility] 009 Branch 2020-12-08 2020-12-08 Nurse KYRA Payne 1.2.840.114 [id number] Univers 00:00:00 00:00:00 Triage Samira FLEMING [id number] i ty of [facility] 4.2.7.2.686 Enrique as [phone] [facility] 019 Branch 2020-11-26 2020-11-28 Emergency RickeyShonda [facility] 1.2.840. 114 [id number] Univers 13:22:00 18:14:00 Flaco Hoang [id number] ity of [place] 4.2.7.2.686 [facility] [id number] [facility] 081 Branch 2020-11-26 2020-11-26 Orders Doctor KYRA 1.2.840.114 [id number] Univers 00:00:00 00:00:00 Only Unassigned, LONNIE [id number] ity of [facility] 4.2.7.2.686 Enrique as [id number] [address] 2020-11-19 2020-11-20 Emergency Replaced by [facility] [id number] Univers 23:22:00 01:48:00 Kodi Blank [id number] ity of [place] [phone] [place] [id number] [place] 2020-11-19 2020-11-19 Orders Doctor KYRA 1.2.840.114 [id number] Univers 00:00:00 00:00:00 Only Unassigned, LONNIE [id number] ity of [facility] 4.2.7.2.686 Enrique as [id number] [address] 2020-03-28 2020-05-15 Office [facility] [id number] Univers 13:15:03 12:49:17 Visit Ludivina Blank [id number] i ty of [place] [facility] [id number] [address] 2020-04-25 2020-04-25 Out[facility] [id number] Univers 14:30:00 14:30:00 LUDIVINA ity of [facility] 2020-04-18 2020-04-18 [facility] 1.2.840.114 [id number] Univers 07:58:00 23:59:00 Encounter Ludivina Blank [id number] ity of [place] [id number] [address] 2020-04-18 2020-04-18 [facility] 1.2.840.114 [id number] Univers 07:56:00 07:57:00 Encounter Ludivina Blank [id number] [place] [phone] [facility] [address] 2020-04-18 2020-04-18 [facility] [id number] Univers 00:00:00 00:00:00 LUDIVINA [facility] 2020-04-13 2020-04-13 Telephone [facility] 1.2.840.114 [id number] Univers 00:00:00 00:00:00 Ludivina Blank 350.1.13.10 i [place] [phone] [facility] 377 [facility] 2020-04-06 2020-04-06 Telephone Pob1, Acute [facility] 1.2.840.114 [id number] Univers 00:00:00 00:00:00 [facility] 350.1.13.10 ity of [place] 4.2.7.2.686 Enrique as Professio [phone] [facility] [address] 2020-04-04 2020-04-04 Telephone Pob1, Acute [facility] 1.2.840.114 [id number] Univers 00:00:00 00:00:00 [facility] 350.1.13.10 ity of [place] 4.2.7.2.686 Enrique as Professio [phone] [facility] [address] [facility] 2020-03-28 2020-03-28 Outpatient R [facility] [id number] Univers 13:00:00 13:00:00 LUDIVINA [facility] 2020-03-27 2020-03-27 Emergency [facility] 1.2.840.114 [id number] Univers 15:24:34 20:17:00 Wang Blank 350.1.13.10 [place] [phone] [facility] [address] 2020-03-25 2020-03-25 Emergency [facility] 1.2.840.114 [id number] Univers 13:39:44 16:05:00 Cezar Blank 350.1.13.10 i ty of [place] 4.2.7.2.686 [facility] [phone] [facility] [address] 2020-03-25 2020-03-25 Orders Doctor KYRA 1.2.840.114 [id number] 00:00:00 00:00:00 Only Unassigned, LONNIE 350.1.13.10 ity of [place] [facility] 4.2.7.2.686 Enrique [phone] [facility] [address] Results Test Description Test Time Test Comments Results Result Comments Source HEPATIC FUNCTION PANEL ([id number]) (ALB,T.PRO,BILI 2022-06-07 14 :47:26 T,BU/BC,ALT,AST,ALK PHOS) Test Item Value Reference Range Interpretation Comme nts TOTAL BILI (test code = 2295943333) 0.5 mg/dL 0.1-1.1 BILI UNCON (test code = 1222212816) 0.4 mg/dL 0.1-1.1 BILI CONJ (test code = 6011934330) 0.0 mg/dL 0-0.3 T PROTEIN (test code = 6788746308) 7.7 g/dL 6.3-8.2 ALBUMIN (test code = 9165798522) 4.8 g/dL 3.5-5 ALK PHOS (test code = 0504865541) 81 U/L 34-122 ALTv (test code = 1742-6) 16 U/L 5-35 AST(SGOT) (test code = 1187665817) 22 U/L 13-40 Lab Interpretation (test code = 97479-7) Normal [facility] (NA, K, CL, CO2, GLUCOSE, BUN, CREATININE, CA)2022-06-07 14:47:06 Test Item Value Reference Range Interpretation Comments NA (test code = 137 mmol/L 135-145 0141278049) K (test code = 4.4 mmol/L 3.5-5 2605241811) CL (test code = 104 mmol/L 98-108 7140751387) CO2 TOTAL (test code = 25 mmol/L 23-31 4008167202) AGAP (test code = 2-16 3069972019) BUN (test code = 11 mg/dL 7-23 4099973382) GLUCOSE (test code = 312 mg/dL 70-110 H 0736364709) CREATININE (test code = 0.58 mg/dL 0.5-1.04 4833626251) CALCIUM (test code = 9.1 mg/dL 8.6-10.6 8887967257) eGFR (test code = mL/min/1.73m2 5809336952) MARLIN (test code = MARLIN) Association of [...] tests). Lab Interpretation Abnormal (test code = 20906-7) [facility] 14:47:06 Test Item Value Reference Range Interpretation Comments LIPASE (test code = 6369533727) 117 U/L 0-220 Lab Interpretation (test code = Normal 86829-0) [facility] WITH [id number] 14:31:02 Test Item Value Reference Range Interpretation [...] RDW-SD (test code = 45.3 fL 39-49.9 89599-8) RDW-CV (test code = 14.8 % 12-15.5 788-0) PLT (test code = See_Comment L [Automated 777-3) message] The sy stem which generated this result transmitted reference range : 166 - 358 10*3/ ?L. The reference r charity was not used to interpret this result as normal/abnormal . MPV (test code = 11.9 fL 9.5-12.9 13082-8) NRBC/100 WBC (test See_Comment [Automat ed code = 0123231778) message] The system which generated this result transmitted reference range : 0.0 - 10.0 /100 WBCs. The refer ence range was not u sed to interpret th is result as normal/abnormal . NRBC x10^3 (test code See_Comment [Auto mated = 7262151274) message] The s ystem which generated this result transmitted reference range : 10*3/?L. The reference range was not used to interpret this result as normal/abnormal . GRAN MAT (NEUT) % 84.9 % (test code = 770-8) IMM GRAN % (test code 0.40 % = 6874530853) LYMPH % (test code = 12.1 % 736-9) MONO % (test code = 2.2 % 5905-5) EOS % (test code = 0.0 % 713-8) BASO % (test code = 0.4 % 706-2) GRAN MAT x10^3(ANC) 6.65 10*3/uL 1.88-7.09 (test code = 3907103350) IMM GRAN x10^3 (test 0.03 10*3/uL 0-0.06 code = 5491629171) LYMPH x10^3 (test code 0.95 10*3/uL 1.32-3.29 L = 731-0) MONO x10^3 (test code 0.17 10*3/uL 0.33-0.92 L = 742-7) EOS x10^3 (test code = 0.03-0.39 L 711-2) BASO x10^3 (test code 0.03 10*3/uL 0.01-0.07 = 704-7) Lab Interpretation Abnormal (test code = 77188-7) [facility] [id number] 14:19:00 Test Item Value Reference Range Interpretation Comments POCT PREG (test code = 1605) negative On board controls acceptable with present C Line (test code = 3574) POCT PREG LOT # (test code = 3575) [id number] POCT PREG TEST DATE (test code = 3576) Lab Interpretation (test code = Normal 73129-2) [facility]iscoTROPONIN [id number] 05:28:05 Test Item Value Reference Interpretation Comments Range TROPONIN I (test 0.023 ng/mL See_Comment [Automated code = 9577654466) message] The system which generated this result [...] biotin. Lab Interpretation Normal (test code = 95097-1) [facility]isco[facility]-TERMINAL [id number] 05:25:04 Test Item Value Reference Range Interpretation Comments NT-proBNP (test code 36 pg/mL See_Comment [Autom ated = 1785678523) message] The system which generated this result transmitted reference range : <=125. The reference range was not used to interpret this result as normal/abnormal . MARLIN (test code = MARLIN) Biotin has been reported to cause a negative bias, interpret results relative to patient's use of biotin. Lab Interpretation Normal (test code = 94815-5) [facility] METABOLIC PANEL (32859)2022-04-01 05:16:43 Test Item Value Reference Range Interpretation Comments NA (test code = 137 mmol/L 135-145 2081113628) K (test code = 3.7 mmol/L 3.5-5.0 0528050494) CL (test code = 104 mmol/L 98-108 3034478173) CO2 TOTAL (test code = 19 mmol/L 23-31 L 3433241393) AGAP (test code = 2-16 7628288427) BUN (test code = 8 mg/dL 7-23 4676327935) GLUCOSE (test code = 308 mg/dL 70-110 H 4378061811) CREATININE (test code = 0.54 mg/dL 0.50-1.04 9557387782) TOTAL BILI (test code = 0.8 mg/dL 0.1-1.3 8854052438) CALCIUM (test code = 9.0 mg/dL 8.6-10.6 3310677967) T PROTEIN (test code = 7.5 g/dL 6.3-8.2 8145607075) ALBUMIN (test code = 4.4 g/dL 3.5-5.0 0434108223) ALK PHOS (test code = 78 U/L 34-122 0794872530) ALTv (test code = 10 U/L 5-35 1742-6) AST(SGOT) (test code = 14 U/L 13-40 1002135229) eGFR (test code = mL/min/1.73m2 6828833587) MARLIN (test code = MARLIN) Association of [...] tests). Lab Interpretation Abnormal (test code = 10425-8) [facility] WITH [id number] 05:07:57 Test Item Value Reference Range Interpretation Comments WBC (test code = See_Comment [Automated 5710-2) message] The sy stem which generated this result transmitted reference range : 4.30 - 11.10 10*3/?L. The reference range was not used to interpret this result as normal/abnormal . RBC (test code = See_Comment [Automated 826-6) message] The sy stem which generated this [...] (test code = 52.1 fL 39.0-49.9 H 39516-4) RDW-CV (test code = 17.1 % 12.0-15.5 H 788-0) PLT (test code = See_Comment L [Automated 777-3) message] The sy stem which generated this result transmitted reference range : 166 - 358 10*3/ ?L. The reference r charity was not used to interpret this result as normal/abnormal . MPV (test code = 13.1 fL 9.5-12.9 H 31493-0) IPF % (test code = 10.5 % 1.3-7.7 H Platelet count 0472952793) measured by fluorescence method. NRBC/100 WBC (test See_Comment [Automat ed code = 6347674376) message] The system which generated this result transmitted reference range : 0.0 - 10.0 /100 WBCs. The refer ence range was not u sed to interpret th is result as normal/abnormal . NRBC x10^3 (test code <0.01 See_Comment [Auto mated = 0803274567) message] The s ystem which generated this result transmitted reference range : 10*3/?L. The reference range was not used to interpret this result as normal/abnormal . GRAN MAT (NEUT) % 81.8 % (test code = 770-8) IMM GRAN % (test code 0.40 % = 4879550355) LYMPH % (test code = 10.4 % 736-9) MONO % (test code = 7.1 % 5905-5) EOS % (test code = 0.1 % 713-8) BASO % (test code = 0.2 % 706-2) GRAN MAT x10^3(ANC) 7.88 10*3/uL 1.88-7.09 H (test code = 4945933881) IMM GRAN x10^3 (test 0.04 10*3/uL 0.00-0.06 code = 1220463249) LYMPH x10^3 (test code 1.00 10*3/uL 1.32-3.29 L = 731-0) MONO x10^3 (test code 0.68 10*3/uL 0.33-0.92 = 742-7) EOS x10^3 (test code = <0.03 0.03-0.39 L 711-2) BASO x10^3 (test code <0.03 0.01-0.07 = 704-7) Lab Interpretation Abnormal (test code = 19983-7) [facility]iscoSEDIMENTATION [id number] 21:28:36 Test Item Value Reference Range Interpretation Comments ESR (test code = See_Comment H [Automated message] 8219065585) The system [employer] generated this result transmitted ref erence range: 0 - 20 m m/HR. The reference r charity was not used to interpret this result as normal/abnor mal. Lab Interpretation (test Abnormal code = 18496-1) [facility]. METABOLIC PANEL (59175)2022-01-05 20:59:10 Test Item Value Reference Range Interpretation Comments NA (test code = 139 mmol/L 135-145 1415391022) K (test code = 3.6 mmol/L 3.5-5.0 7475101588) CL (test code = 105 mmol/L 98-108 3603230048) CO2 TOTAL (test code = 21 mmol/L 23-31 L 6949662324) AGAP (test code = 2-16 6430887839) BUN (test code = 9 mg/dL 7-23 6529593218) GLUCOSE (test code = 247 mg/dL 70-110 H 3890384428) CREATININE (test code = 0.47 mg/dL 0.50-1.04 L 2208358250) TOTAL BILI (test code = 0.6 mg/dL 0.1-1.4 8299155059) CALCIUM (test code = 9.1 mg/dL 8.6-10.6 2733800812) T PROTEIN (test code = 8.0 g/dL 6.3-8.2 3339383799) ALBUMIN (test code = 4.7 g/dL 3.5-5.0 3507207339) ALK PHOS (test code = 79 U/L 34-122 6043655511) ALTv (test code = 10 U/L 5-35 1742-6) AST(SGOT) (test code = 17 U/L 13-40 9342413731) eGFR (test code = mL/min/1.73m2 9969053065) MARLIN (test code = MARLIN) Association of [...] tests). Lab Interpretation Abnormal (test code = 30868-4) [facility] WITH [id number] 20:52:29 Test Item Value Reference Range Interpretation Comments WBC (test code = See_Comment [Automated 0890-2) message] The sy stem which generated this [...] RDW-SD (test code = 45.4 fL 39.0-49.9 65356-7) RDW-CV (test code = 15.9 % 12.0-15.5 H 788-0) PLT (test code = See_Comment L [Automated 777-3) message] The sy stem which generated this result transmitted reference range : 166 - 358 10*3/ ?L. The reference r charity was not used to interpret this result as normal/abnormal . MPV (test code = 12.5 fL 9.5-12.9 82531-4) NRBC/100 WBC (test See_Comment [Automat ed code = 3189029605) message] The system which generated this result transmitted reference range : 0.0 - 10.0 /100 WBCs. The refer ence range was not u sed to interpret th is result as normal/abnormal . NRBC x10^3 (test code <0.01 See_Comment [Auto mated = 8259508174) message] The s ystem which generated this result transmitted reference range : 10*3/?L. The reference range was not used to interpret this result as normal/abnormal . GRAN MAT (NEUT) % 63.8 % (test code = 770-8) IMM GRAN % (test code 0.30 % = 7083440128) LYMPH % (test code = 28.1 % 736-9) MONO % (test code = 6.5 % 5905-5) EOS % (test code = 0.8 % 713-8) BASO % (test code = 0.5 % 706-2) GRAN MAT x10^3(ANC) 4.11 10*3/uL 1.88-7.09 (test code = 3911632969) IMM GRAN x10^3 (test <0.03 0.00-0.06 code = 4150147541) LYMPH x10^3 (test code 1.81 10*3/uL 1.32-3.29 = 731-0) MONO x10^3 (test code 0.42 10*3/uL 0.33-0.92 = 742-7) EOS x10^3 (test code = 0.05 10*3/uL 0.03-0.39 711-2) BASO x10^3 (test code 0.03 10*3/uL 0.01-0.07 = 704-7) Lab Interpretation Abnormal (test code = 46169-8) [facility] GLUCOSE (AUTOMATED)2022-01-05 20:33:46 Test Item Value Reference Range Interpretation Comments POCT GLU (test code = 4289582568) 250 mg/dL 70-110 H Lab Interpretation (test code = Abnormal 43817-6) [facility] [id number] 18:21:00 Test Item Value Reference Range Interpretation Comments POCT PREG (test code = 1605) negative On board controls acceptable with present C Line (test code = 3574) POCT PREG LOT # (test code = 3575) [id number] POCT PREG TEST DATE (test code = 3576) Lab Interpretation (test code = Normal 20303-5) [facility] [id number] 02:31:10 Test Item Value Reference Interpretation Comments Range TROPONIN I (test 0.048 ng/mL See_Comment H [Automated code = 1521849629) message] The system which generated this result [...] biotin. Lab Interpretation Abnormal (test code = 23279-6) [facility] WITH [id number] 02:21:47 Test Item Value Reference Range Interpretation [...] RDW-SD (test code = 45.1 fL 39.0-49.9 06665-6) RDW-CV (test code = 15.9 % 12.0-15.5 H 788-0) PLT (test code = See_Comment L [Automated 777-3) message] The sy stem which generated this result transmitted reference range : 166 - 358 10*3/ ?L. The reference r charity was not used to interpret this result as normal/abnormal . MPV (test code = 13.3 fL 9.5-12.9 H 46515-0) NRBC/100 WBC (test See_Comment [Automat ed code = 3509019293) message] The system which generated this result transmitted reference range : 0.0 - 10.0 /100 WBCs. The refer ence range was not u sed to interpret th is result as normal/abnormal . NRBC x10^3 (test code <0.01 See_Comment [Auto mated = 4464167857) message] The s ystem which generated this result transmitted reference range : 10*3/?L. The reference range was not used to interpret this result as normal/abnormal . GRAN MAT (NEUT) % 40.9 % (test code = 770-8) IMM GRAN % (test code 0.30 % = 5668090326) LYMPH % (test code = 47.0 % 736-9) MONO % (test code = 10.5 % 5905-5) EOS % (test code = 1.0 % 713-8) BASO % (test code = 0.3 % 706-2) GRAN MAT x10^3(ANC) 1.29 10*3/uL 1.88-7.09 L (test code = 9768405385) IMM GRAN x10^3 (test <0.03 0.00-0.06 code = 8724398956) LYMPH x10^3 (test code 1.48 10*3/uL 1.32-3.29 = 731-0) MONO x10^3 (test code 0.33 10*3/uL 0.33-0.92 = 742-7) EOS x10^3 (test code = 0.03 10*3/uL 0.03-0.39 711-2) BASO x10^3 (test code <0.03 0.01-0.07 = 704-7) Lab Interpretation Abnormal (test code = 17447-4) [facility] 02:20:06 Test Item Value Reference Range Interpretation Comments MAGNESIUM (test code = 3035690489) 1.5 mg/dL 1.7-2.4 L Lab Interpretation (test code = Abnormal 09576-5) [facility] MET[facility]OL[facility] PANEL (68056)2021-09-03 02:19:46 Test Item Value Reference Range Interpretation Comments NA (test code = 136 mmol/L 135-145 9481161846) K (test code = 3.6 mmol/L 3.5-5.0 5918812424) CL (test code = 101 mmol/L 98-108 7725992934) CO2 TOTAL (test code = 25 mmol/L 23-31 2200536688) AGAP (test code = 2-16 4121562389) BUN (test code = 7 mg/dL 7-23 5300588875) GLUCOSE (test code = 241 mg/dL 70-110 H 6316701374) CREATININE (test code = 0.51 mg/dL 0.50-1.04 1595910745) TOTAL BILI (test code = 0.2 mg/dL 0.1-1.1 7664164252) CALCIUM (test code = 9.1 mg/dL 8.6-10.6 3681828612) T PROTEIN (test code = 7.3 g/dL 6.3-8.2 4464079031) ALBUMIN (test code = 4.1 g/dL 3.5-5.0 4845071357) ALK PHOS (test code = 82 U/L 34-122 3617998667) ALTv (test code = 13 U/L 5-35 1742-6) AST(SGOT) (test code = 20 U/L 13-40 4214772001) eGFR (test code = mL/min/1.73m2 2975861447) MARLIN (test code = MARLIN) Association of [...] tests). Lab Interpretation Abnormal (test code = 54043-4) [facility]2021-[facility]-06 02:19:46 Test Item Value Reference Range Interpretation Comments LIPASE (test code = 9793123257) 80 U/L 0-220 Lab Interpretation (test code = Normal 37645-2) [facility] [id number] 02:11:00 Test Item Value Reference Range Interpretation Comments POCT PREG (test code = 1605) negative On board controls acceptable with yes C Line (test code = 3574) POCT PREG LOT # (test code = 3575) [id number] POCT PREG TEST DATE (test 10/29/2022 code = 3576) Lab Interpretation (test code = Normal 90071-9) [facility] CHEST PULMONARY [id number] 23:58:06Impression: 1. No acute abnormalities evident. Specifically, negative for pulmonaryembolus.2. Small pulmonary nodules are stable from a October study. Per [facility] guidelines, no follow-up isrequired if this patient is at low riskfor malignancy. If the patient is at high risk for malignancy, considerfollow-up CT in 12 months.3. Cholecystectomy. RL: 460 End of Report Ordering Physician: MELYSSA PETERS Clinical history: Pulmonary embolus suspected, with [...] nodule within the right upper lobe on , image 29 is unchanged. An additional small nodulewithin the left upperlobe on image 46 is unchanged as well. No pleural effusions are present. Nointrathoracic lymphadenopathy is noted. The patient is status post cholecystectomy. There are calcified granulomasof the spleen. No acute abnormalities are seen within the included upperabdomen. There are degenerative changes of the spine. No acute bonyabnormalities are evident. [facility], Radiant Results Inft User - 03/29/2021 6:59 PM CDT Ordering Physician: MELYSSA PETERSClinical history: Pulmonary embolus suspected, with high pretestprobability.Technique: [...] nodule within the right upper lobe on [id number], image 29 is unchanged. An additional small [...] are stable from a October study. Per [facility] guidelines, no follow-up is required if this patient is at low riskfor malignancy. If the patient is at high risk for malignancy, considerfollow-up CT in 12 months.3. Cholecystectomy.RL: 460End of Report [facility]-[id number] 22:29:07 Test Item Value Reference Interpretation Comments Range D-DIMER (test code = See_Comment H [Autom ated 4010570615) message] The system which generated this result [...] diagnosis. Lab Interpretation Abnormal (test code = 73037-1) [facility] with [id number] 22:16:28 Test Item Value Reference Range Interpretation Comments WBC (test code = See_Comment [Automated 5832-2) message] The sy stem which generated this result transmitted reference range : 4.30 - 11.10 10*3/?L. The reference range was not used to interpret this result as normal/abnormal . RBC (test code = See_Comment [Automated 339-8) message] The sy stem which generated this [...] RDW-SD (test code = 46.3 fL 39.0-49.9 91077-2) RDW-CV (test code = 15.9 % 12.0-15.5 H 788-0) PLT (test code = See_Comment L [Automated 777-3) message] The sy stem which generated this result transmitted reference range : 166 - 358 10*3/ ?L. The reference r charity was not used to interpret this result as normal/abnormal . MPV (test code = 13.5 fL 9.5-12.9 H 36591-9) IPF % (test code = 10.4 % 1.3-7.7 H Platelet count 5517953825) measured by fluorescence method. NRBC/100 WBC (test See_Comment [Automat ed code = 8320898567) message] The system which generated this result transmitted reference range : 0.0 - 10.0 /100 WBCs. The refer ence range was not u sed to interpret th is result as normal/abnormal . NRBC x10^3 (test code <0.01 See_Comment [Auto mated = 4848779008) message] The s ystem which generated this result transmitted reference range : 10*3/?L. The reference range was not used to interpret this result as normal/abnormal . GRAN MAT (NEUT) % 64.7 % (test code = 770-8) IMM GRAN % (test code 0.20 % = 4142223796) LYMPH % (test code = 27.1 % 736-9) MONO % (test code = 6.3 % 5905-5) EOS % (test code = 1.1 % 713-8) BASO % (test code = 0.6 % 706-2) GRAN MAT x10^3(ANC) 5.20 10*3/uL 1.88-7.09 (test code = 5636786391) IMM GRAN x10^3 (test <0.03 0.00-0.06 code = 5529997779) LYMPH x10^3 (test code 2.18 10*3/uL 1.32-3.29 = 731-0) MONO x10^3 (test code 0.51 10*3/uL 0.33-0.92 = 742-7) EOS x10^3 (test code = 0.09 10*3/uL 0.03-0.39 711-2) BASO x10^3 (test code 0.05 10*3/uL 0.01-0.07 = 704-7) Lab Interpretation Abnormal (test code = 31067-1) [facility]iscoTroponin [id number] 21:48:40 Test Item Value Reference Interpretation Comments Range TROPONIN I (test 0.026 ng/mL See_Comment [Automated code = 8469629877) message] The system which generated this result [...] biotin. Lab Interpretation Normal (test code = 60670-6) [facility] 2 Shacp6713-09-72 21:39:28 No acute cardiopulmonary process. Preliminary Report [...] reviewed this study and agree with the abovereport.[facility] (NA, K, CL, CO2, GLUCOSE, BUN, CREATININE, CA)2021-03-29 21:37:37 Test Item Value Reference Range Interpretation Comments NA (test code = 136 mmol/L 135-145 8799709064) K (test code = 3.7 mmol/L 3.5-5.0 6184701845) CL (test code = 103 mmol/L 98-108 4714918038) CO2 TOTAL (test code = 20 mmol/L 23-31 L 5347296626) AGAP (test code = 2-16 0484634831) BUN (test code = 12 mg/dL 7-23 0525769413) GLUCOSE (test code = 283 mg/dL 70-110 H 3693361342) CREATININE (test code = 0.59 mg/dL 0.50-1.04 9100357893) CALCIUM (test code = 9.7 mg/dL 8.6-10.6 3868991348) eGFR (test code = mL/min/1.73m2 8186266333) MARLIN (test code = MARLIN) Association of [...] tests). Lab Interpretation Abnormal (test code = 87732-5) [facility] Function [facility] (ALB, T.PRO, BILI T, BU/BC, ALT, AST, ALK PHOS)2021-03-29 21:37:37 Test Item Value Reference Range Interpretation Comments TOTAL BILI (test code = 4025388553) 0.5 mg/dL 0.1-1.1 BILI UNCON (test code = 3058633221) 0.3 mg/dL 0.1-1.1 BILI CONJ (test code = 9298478349) 0.0 mg/dL 0.0-0.3 T PROTEIN (test code = 6925892514) 8.8 g/dL 6.3-8.2 H ALBUMIN (test code = 4983015231) 4.9 g/dL 3.5-5.0 ALK PHOS (test code = 4786123697) 88 U/L 34-122 ALTv (test code = 1742-6) 16 U/L 5-35 AST(SGOT) (test code = 6613828934) 20 U/L 13-40 Lab Interpretation (test code = Abnormal 77032-0) [facility]isco[facility] [id number] 21:37:17 Test Item Value Reference Range Interpretation Comments LIPASE (test code = 0251248344) 125 U/L 0-220 Lab Interpretation (test code = Normal 45964-6) [facility] [id number] 20:19:00 Test Item Value Reference Range Interpretation Comments POCT PREG (test code = 1605) negative On board controls acceptable with present C Line (test code = 3574) POCT PREG LOT # (test code = 3575) [id number] POCT PREG TEST DATE (test 09/28/2022 code = 3576) Lab Interpretation (test code = Normal 31240-5) [facility] OVARY [id number] 15:39:00HISTORY: Rule out ovarian torsion. TECHNIQUE: Both [...] endometrial polyps. Minimal free fluid noted in riivmv-oc-tnr. Right ovary is 2.2 x 2.6 x [...] simple cyst. No sonographic evidence of ovariantorsion. [facility], Radiant Results Inft User - 01/02/2021 10:40 [...] endometrial polyps. Minimal free fluid noted in [id number]-[id number]-dpm. Right ovary is 2.2 x 2.6 x [...] left ovarian simplecyst. No sonographic evidence of ovariantorsion.[facility] WO [id number] 14:10:58CT Abdomen and Pelvis without contrast. CLINICAL [...] left ovary due to multiple cystic lesions.3. Constipation.[facility]ysis[facility] 13:41:55 Test Item Value Reference Range Interpretation Comments APPEARANCE (test code = Hazy Clear A [id number]) COLOR (test code = Yellow Yellow [id number]) PH (test code = 4.8-8.0 [id number]) SP GRAVITY (test code = 1.003-1.030 [id number]) GLU U QUAL (test code = Normal Normal [id number]) BLOOD (test code = Negative Negative [id number]) KETONES (test code = Negative Negative [id number]) PROTEIN (test code = Negative Negative 2887-8) UROBILIN (test code = Normal Normal 6121156596) BILIRUBIN (test code = Negative Negative 5427749574) NITRITE (test code = Negative Negative 3501628421) LEUK NESTOR (test code = Negative Negative 3689297590) RBC/HPF (test code = See_Comment H [Autom ated message] 6562735073) The system Handango generated this result transmitted ref erence range: 0 - 3 HP F. The reference range was not used to int erpret this result as normal/abnormal . WBC/HPF (test code = See_Comment [Autom ated message] 7851456707) The system [employer] generated this result transmitted ref erence range: 0 - 5 HP F. The reference range was not used to int erpret this result as normal/abnormal . BACTERIA (test code = Few Negative A 6776292990) MUCOUS (test code = Slight Negative LPF A 3364412721) SQ EPITH (test code = HPF 8450788649) Lab Interpretation (test Abnormal code = 43147-1) [facility] [id number] 13:40:24 Test Item Value Reference Range Interpretation Comments NA (test code = 139 mmol/L 135-145 3808220417) K (test code = 3.9 mmol/L 3.5-5.0 8780264150) CL (test code = 107 mmol/L 98-108 7933738386) CO2 TOTAL (test code = 24 mmol/L 23-31 9866955665) AGAP (test code = 2-16 9814990911) BUN (test code = 9 mg/dL 7-23 0293821719) GLUCOSE (test code = 120 mg/dL 70-110 H 1911377598) CREATININE (test code = 0.50 mg/dL 0.50-1.04 8721447680) TOTAL BILI (test code = 0.4 mg/dL 0.1-1.1 5605734936) CALCIUM (test code = 9.2 mg/dL 8.6-10.6 7635588203) T PROTEIN (test code = 7.4 g/dL 6.3-8.2 6537408355) ALBUMIN (test code = 4.4 g/dL 3.5-5.0 9072080172) ALK PHOS (test code = 61 U/L 34-122 7248839939) ALTv (test code = 10 U/L 5-35 1742-6) AST(SGOT) (test code = 19 U/L 13-40 5857164120) eGFR (test code = mL/min/1.73m2 8908410038) MARLIN (test code = MARLIN) Association of [...] tests). Lab Interpretation Abnormal (test code = 73454-3) [facility], [id number] 13:40:04 Test Item Value Reference Range Interpretation Comments LIPASE (test code = 4415310785) 171 U/L 0-220 Lab Interpretation (test code = Normal 26104-1) [facility] with Ibwyskarepwh7884-05-72 13:31:02 Test Item Value Reference Range Interpretation Comments WBC (test code = See_Comment [Automated 2390-2) message] The sy stem which generated this result transmitted reference range : 4.30 - 11.10 10*3/?L. The reference range was not used to interpret this result as normal/abnormal . RBC (test code = See_Comment [Automated 486-8) message] The sy stem which generated this [...] (test code = 52.9 fL 39.0-49.9 H 00412-7) RDW-CV (test code = 18.2 % 12.0-15.5 H 788-0) PLT (test code = See_Comment [Automated 777-3) message] The sy stem which generated this result transmitted reference range : 166 - 358 10*3/ ?L. The reference r charity was not used to interpret this result as normal/abnormal . MPV (test code = 12.3 fL 9.5-12.9 58070-1) NRBC/100 WBC (test See_Comment [Automat ed code = 6271033377) message] The system which generated this result transmitted reference range : 0.0 - 10.0 /100 WBCs. The refer ence range was not u sed to interpret th is result as normal/abnormal . NRBC x10^3 (test code <0.01 See_Comment [Auto mated = 5258258580) message] The s ystem which generated this result transmitted reference range : 10*3/?L. The reference range was not used to interpret this result as normal/abnormal . GRAN MAT (NEUT) % 53.9 % (test code = 770-8) IMM GRAN % (test code 0.30 % = 0021823275) LYMPH % (test code = 36.7 % 736-9) MONO % (test code = 6.6 % 5905-5) EOS % (test code = 1.6 % 713-8) BASO % (test code = 0.9 % 706-2) GRAN MAT x10^3(ANC) 3.12 10*3/uL 1.88-7.09 (test code = 1657869319) IMM GRAN x10^3 (test <0.03 0.00-0.06 code = 6017587035) LYMPH x10^3 (test code 2.12 10*3/uL 1.32-3.29 = 731-0) MONO x10^3 (test code 0.38 10*3/uL 0.33-0.92 = 742-7) EOS x10^3 (test code = 0.09 10*3/uL 0.03-0.39 711-2) BASO x10^3 (test code 0.05 10*3/uL 0.01-0.07 = 704-7) Lab Interpretation Abnormal (test code = 54931-4) [facility] [id number] 13:17:00 Test Item Value Reference Range Interpretation Comments POCT PREG (test code = 1605) negative On board controls acceptable with C present Line (test code = 3574) Lab Interpretation (test code = Normal 30468-0) [facility]iscoCT TEMPORAL BONES W [id number] 01:50:01 Soft tissue thickening is noted along [...] cysts are noted in the leftmaxillary sinus. [facility], Radiant Results Inft User - 12/16/2020 8:51 [...] this study and agree with the abovereport. [facility]iscoSEDIMENTATION [id number] 01:14:15 Test Item Value Reference Range Interpretation Comments ESR (test code = See_Comment H [Automated message] 9270033090) The system [employer] generated this result transmitted ref erence range: 0 - 20 m m/HR. The reference r charity was not used to interpret this result as normal/abnor mal. Lab Interpretation (test Abnormal code = 37785-6) [facility] Metabolic Panel (NA, K, CL, CO2, GLUCOSE, BUN, CREATININE, CA)2020-12-17 00:32:58 Test Item Value Reference Range Interpretation Comments NA (test code = 136 mmol/L 135-145 9103160306) K (test code = 4.3 mmol/L 3.5-5.0 7841049904) CL (test code = 103 mmol/L 98-108 7488221414) CO2 TOTAL (test code = 23 mmol/L 23-31 0211602035) AGAP (test code = 2-16 2061211461) BUN (test code = 12 mg/dL 7-23 9859858568) GLUCOSE (test code = 210 mg/dL 70-110 H 7877149045) CREATININE (test code = 0.56 mg/dL 0.50-1.04 8270950500) CALCIUM (test code = 8.8 mg/dL 8.6-10.6 0006081891) eGFR Calculation mL/min/1.73m2 (Non-) (test code = 7640662476) eGFR Calculation mL/min/1.73m2 () (test code = 5416589401) MARLIN (test code = MARLIN) Association of [...] tests). Lab Interpretation Abnormal (test code = 56018-1) [facility] Function [facility] (ALB, T.PRO, BILI T, BU/BC, ALT, AST, ALK PHOS)2020-12-17 00:32:38 Test Item Value Reference Range Interpretation Comments TOTAL BILI (test code = 5511551090) 0.6 mg/dL 0.1-1.1 BILI UNCON (test code = 9314099825) 0.5 mg/dL 0.1-1.1 BILI CONJ (test code = 8841905413) 0.0 mg/dL 0.0-0.3 T PROTEIN (test code = 7475478708) 7.8 g/dL 6.3-8.2 ALBUMIN (test code = 5537694102) 4.6 g/dL 3.5-5.0 ALK PHOS (test code = 0661430747) 75 U/L 34-122 ALTv (test code = 1742-6) 11 U/L 5-35 AST(SGOT) (test code = 3336143482) 20 U/L 13-40 Lab Interpretation (test code = Normal 97624-1) [facility] with Whhkpcpqzyto9359-71-87 00:31:43 Test Item Value Reference Range Interpretation Comments WBC (test code = See_Comment [Automated 8268-2) message] The sy stem which generated this result transmitted reference range : 4.30 - 11.10 10*3/?L. The reference range was not used to interpret this result as normal/abnormal . RBC (test code = See_Comment [Automated 072-8) message] The sy stem which generated this [...] (test code = 57.0 fL 39.0-49.9 H 27645-2) RDW-CV (test code = 19.5 % 12.0-15.5 H 788-0) PLT (test code = See_Comment L [Automated 777-3) message] The sy stem which generated this result transmitted reference range : 166 - 358 10*3/ ?L. The reference r charity was not used to interpret this result as normal/abnormal . MPV (test code = 13.0 fL 9.5-12.9 H 02069-3) NRBC/100 WBC (test See_Comment [Automat ed code = 2246192221) message] The system which generated this result transmitted reference range : 0.0 - 10.0 /100 WBCs. The refer ence range was not u sed to interpret th is result as normal/abnormal . NRBC x10^3 (test code <0.01 See_Comment [Auto mated = 4935792660) message] The s ystem which generated this result transmitted reference range : 10*3/?L. The reference range was not used to interpret this result as normal/abnormal . GRAN MAT (NEUT) % 87.6 % (test code = 770-8) IMM GRAN % (test code 0.20 % = 3624382423) LYMPH % (test code = 6.7 % 736-9) MONO % (test code = 4.9 % 5905-5) EOS % (test code = 0.4 % 713-8) BASO % (test code = 0.2 % 706-2) GRAN MAT x10^3(ANC) 7.11 10*3/uL 1.88-7.09 H (test code = 3972841809) IMM GRAN x10^3 (test <0.03 0.00-0.06 code = 2824446889) LYMPH x10^3 (test code 0.54 10*3/uL 1.32-3.29 L = 731-0) MONO x10^3 (test code 0.40 10*3/uL 0.33-0.92 = 742-7) EOS x10^3 (test code = 0.03 10*3/uL 0.03-0.39 711-2) BASO x10^3 (test code <0.03 0.01-0.07 = 704-7) Lab Interpretation Abnormal (test code = 12275-5) [facility] MYOCARDI[facility] PERFUSION STRESS AND REST 2020-11-28 23:21:47Impression: [...] ESV = 17 mL; EF = 68%. [facility], Radiant Results Inft User - 11/28/2020 5:22 [...] ratio 1.05.I was present for the stress procedure.[facility] GLUCOSE (AUTOMATED)2020-11-28 23:04:00 Test Item Value Reference Range Interpretation Comments POCT GLU (test code = 8214526585) 292 mg/dL 70-110 H Lab Interpretation (test code = Abnormal 40383-0) [facility] GLUCOSE (AUTOMATED)2020-11-28 17:44:00 Test Item Value Reference Range Interpretation Comments POCT GLU (test code = 8143978232) 182 mg/dL 70-110 H Lab Interpretation (test code = Abnormal 58818-6) [facility] GLUCOSE (AUTOMATED)2020-11-28 13:40:00 Test Item Value Reference Range Interpretation Comments POCT GLU (test code = 3096110185) 131 mg/dL 70-110 H Lab Interpretation (test code = Abnormal 69591-1) [facility] GLUCOSE (AUTOMATED)2020-11-27 23:04:00 Test Item Value Reference Range Interpretation Comments POCT GLU (test code = 9231386239) 123 mg/dL 70-110 H Lab Interpretation (test code = Abnormal 91232-9) [facility] GLUCOSE (AUTOMATED)2020-11-27 17:42:00 Test Item Value Reference Range Interpretation Comments POCT GLU (test code = 3369872892) 97 mg/dL 70-110 Lab Interpretation (test code = Normal 52327-6) [facility] GLUCOSE (AUTOMATED)2020-11-27 13:51:00 Test Item Value Reference Range Interpretation Comments POCT GLU (test code = 2064595535) 233 mg/dL 70-110 H Lab Interpretation (test code = Abnormal 28143-7) [facility] GLUCOSE (AUTOMATED)2020-11-27 13:51:00 Test Item Value Reference Range Interpretation Comments POCT GLU (test code = 7480040551) 197 mg/dL 70-110 H Lab Interpretation (test code = Abnormal 72237-4) [facility]iscoTROPONIN [id number] 12:35:00 Test Item Value Reference Range Interpretation Comments TROPONIN I (test 0.042 ng/mL See_Comment H [Automated code = 2241706391) message] The system which generated this result [...] ? Lab Interpretation Abnormal (test code = 41450-5) [facility] with Ctdszoukytzu3735-30-57 12:31:00 Test Item Value Reference Range Interpretation Comments WBC (test code = See_Comment [Automated 7890-2) message] The sy stem which generated this result transmitted reference range : 4.30 - 11.10 10*3/?L. The reference range was not used to interpret this result as normal/abnormal . RBC (test code = See_Comment [Automated 829-8) message] The sy stem which generated this [...] (test code = 50.5 fL 39-49.9 H 33953-6) RDW-CV (test code = 18.2 % 12-15.5 H 788-0) PLT (test code = See_Comment L [Automated 777-3) message] The sy stem which generated this result transmitted reference range : 166 - 358 10*3/ ?L. The reference r charity was not used to interpret this result as normal/abnormal . MPV (test code = Not Measure d 91255-0) NRBC/100 WBC (test See_Comment [Automat ed code = 3253732637) message] The system which generated this result transmitted reference range : 0.0 - 10.0 /100 WBCs. The refer ence range was not u sed to interpret th is result as normal/abnormal . NRBC x10^3 (test code <0.01 See_Comment [Auto mated = 4198564798) message] The s ystem which generated this result transmitted reference range : 10*3/?L. The reference range was not used to interpret this result as normal/abnormal . GRAN MAT (NEUT) % 40.9 % (test code = 770-8) IMM GRAN % (test code 0.20 % = 9662685710) LYMPH % (test code = 49.8 % 736-9) MONO % (test code = 6.1 % 5905-5) EOS % (test code = 2.4 % 713-8) BASO % (test code = 0.6 % 706-2) GRAN MAT x10^3(ANC) 2.09 10*3/uL 1.88-7.09 (test code = 9733565439) IMM GRAN x10^3 (test <0.03 0-0.06 code = 7902710841) LYMPH x10^3 (test code 2.54 10*3/uL 1.32-3.29 = 731-0) MONO x10^3 (test code 0.31 10*3/uL 0.33-0.92 L = 742-7) EOS x10^3 (test code = 0.12 10*3/uL 0.03-0.39 711-2) BASO x10^3 (test code 0.03 10*3/uL 0.01-0.07 = 704-7) Lab Interpretation Abnormal (test code = 92078-4) [facility]-TERMINAL [id number]-[id number] 12:31:00 Test Item Value Reference Range Interpretation Comments NT-proBNP (test code 127 pg/mL See_Comment H [Autom ated = 0273597063) message] The system which generated this result transmitted reference range : <=125. The reference range was not used to interpret this result as normal/abnormal . MARLIN (test code = MARLIN) Biotin has been reported to cause a negative bias, interpret results relative to patient's use of biotin. Lab Interpretation Abnormal (test code = 99846-1) [facility]MAGNESIUM2021-03-01 12:23:00 Test Item Value Reference Range Interpretation Comments MAGNESIUM (test code = 4299079096) 1.4 mg/dL 1.7-2.4 L Lab Interpretation (test code = Abnormal 75446-9) [facility]iscoBasi Metabolic Panel (NA, K, CL, CO2, GLUCOSE, BUN, CREATININE, CA)2020-11-27 12:22:00 Test Item Value Reference Range Interpretation Comments NA (test code = 135 mmol/L 135-145 2937524614) K (test code = 3.8 mmol/L 3.5-5 5112607549) CL (test code = 105 mmol/L 98-108 3799963443) CO2 TOTAL (test code = 24 mmol/L 23-31 4891125216) AGAP (test code = 2-16 8933639812) BUN (test code = 9 mg/dL 7-23 0242494077) GLUCOSE (test code = 169 mg/dL 70-110 H 7031142146) CREATININE (test code = 0.46 mg/dL 0.5-1.04 L 0644995812) CALCIUM (test code = 8.5 mg/dL 8.6-10.6 L 1754853122) eGFR Calculation mL/min/1.73m2 (Non-) (test code = 1597404427) eGFR Calculation mL/min/1.73m2 () (test code = 5318518416) MARLIN (test code = MARLIN) Association of [...] tests). Lab Interpretation Abnormal (test code = 86450-6) [facility]iscoTHYROID STIMULATING [id number] 10:32:00 Test Item Value Reference Range Interpretation Comments TSH (test code = See_Comment [Automated message] 0263483704) The system [employer] generated this result transmitted ref erence range: 0.45 - 4 .70 mIU/L. The refe rence range was not u sed to interpret this result as normal/abnor mal. Lab Interpretation (test Normal code = 95603-6) [facility]iscoLIPID PANEL (13771)(TOTAL CHOLESTEROL, TRIGLYCERIDES, HDL)2020-11-27 10:00:00 Test Item Value Reference Range Interpretation Comments CHOL (test code = 128 mg/dL 120-200 4137162765) HDL (test code = 34 mg/dL >50 L 2273358477) HDLC RATIO (test code = See_Comment [Au tomated message] 8345693952) The system [employer] generated this result transmit wilfredo reference range : <=4.5. The refe rence range was not u sed to interpret th is result as normal/abnormal . TRIG (test code = 154 mg/dL 30-170 9400859298) LDL CHOL (test code = 63 mg/dL See_Comment [Auto mated message] 00966-6) The system [employer] generated this result transmit wilfredo reference range : <=160. The refe rence range was not u sed to interpret th is result as normal/abnormal . VLDL (test code = 31 mg/dL 5-60 5938690881) Lab Interpretation (test Abnormal code = 83528-3) [facility] [id number] 04:59:00 Test Item Value Reference Range Interpretation Comments TROPONIN I (test 0.044 ng/mL See_Comment H [Automated code = 1831905835) message] The system which generated this result [...] ? Lab Interpretation Abnormal (test code = 10026-6) [facility]iscoGLYCOSYLATED HEMOGLOBIN (A1C)2020-11-27 04:44:00 Test Item Value Reference Range Interpretation Comments HGB A1C (test code = 8.9 % 4-6 H 4548-4) MARLIN (test code = MARLIN) %A1C (NGSP) Interpretation (ADA)4.8-5.6 ? ? Normal or (Non-Diabetic Range)5.7-6.4 ? ? Increased Risk (Pre-Diabetic)>6.5 ?Diabetes Indicated Lab Interpretation Abnormal (test code = 24101-5) [facility]iscoTROPONIN [id number] 00:43:00 Test Item Value Reference Range Interpretation Comments TROPONIN I (test 0.039 ng/mL See_Comment H [Automated code = 3772500261) message] The system which generated this result [...] ? Lab Interpretation Abnormal (test code = 96408-3) [facility] PUL[facility] [id number] 23:41:15 1. ?No pulmonary embolism to the [...] Preliminary Report Dictated by Resident: Elias Burns ?MD Bill., have reviewed this study and agree withthe [...] reviewed this study and agree withthe above report.[facility] 22:24:00 Test Item Value Reference Range Interpretation Comments MAGNESIUM (test code = 5755149239) 1.4 mg/dL 1.7-2.4 L Lab Interpretation (test code = Abnormal 24101-5) [facility]iscoPHOSPHORUS2021-02-28 22:24:00 Test Item Value Reference Range Interpretation Comments PHOSPHORUS (test code = 5584145076) 3.1 mg/dL 2.5-5 Lab Interpretation (test code = Normal 27297-9) [facility] with Qgpryufdxifd7398-48-10 21:05:00 Test Item Value Reference Range Interpretation [...] RDW-SD (test code = 49.7 fL 39-49.9 17201-5) RDW-CV (test code = 18.3 % 12-15.5 H 788-0) PLT (test code = See_Comment L [Automated 777-3) message] The sy stem which generated this result transmitted reference range : 166 - 358 10*3/ ?L. The reference r charity was not used to interpret this result as normal/abnormal . MPV (test code = 12.2 fL 9.5-12.9 78683-3) NRBC/100 WBC (test See_Comment [Automat ed code = 0629801041) message] The system which generated this result transmitted reference range : 0.0 - 10.0 /100 WBCs. The refer ence range was not u sed to interpret th is result as normal/abnormal . NRBC x10^3 (test code <0.01 See_Comment [Auto mated = 9250654764) message] The s ystem which generated this result transmitted reference range : 10*3/?L. The reference range was not used to interpret this result as normal/abnormal . GRAN MAT (NEUT) % 49.5 % (test code = 770-8) IMM GRAN % (test code 0.50 % = 4952526033) LYMPH % (test code = 41.9 % 736-9) MONO % (test code = 5.1 % 5905-5) EOS % (test code = 2.1 % 713-8) BASO % (test code = 0.9 % 706-2) GRAN MAT x10^3(ANC) 2.13 10*3/uL 1.88-7.09 (test code = 2644437810) IMM GRAN x10^3 (test <0.03 0-0.06 code = 5061614595) LYMPH x10^3 (test code 1.80 10*3/uL 1.32-3.29 = 731-0) MONO x10^3 (test code 0.22 10*3/uL 0.33-0.92 L = 742-7) EOS x10^3 (test code = 0.09 10*3/uL 0.03-0.39 711-2) BASO x10^3 (test code 0.04 10*3/uL 0.01-0.07 = 704-7) Lab Interpretation Abnormal (test code = 03160-9) [facility]-[id number] 21:01:00 Test Item Value Reference Interpretation Comments Range D-DIMER (test code = See_Comment H [Autom ated 8017665344) message] The system which generated this result [...] diagnosis. Lab Interpretation Abnormal (test code = 63331-7) [facility]aPTT2021-02-28 20:54:00 Test Item Value Reference Range Interpretation Comments APTT Patient (test See_Comment [Automat ed code = 3173-2) message] The system which generated this result transmitted reference range : 23 - 38 Seconds . The reference range was not used to interpr et this result as normal/abnormal . MARLIN (test code = MARLIN) The [facility] patient population mean normal value for aPTT is 30 seconds. Lab Interpretation Normal (test code = 43633-0) [facility] FriscoTroponin [id number] 20:53:00 Test Item Value Reference Range Interpretation Comments TROPONIN I (test 0.038 ng/mL See_Comment H [Automated code = 0975609213) message] The system which generated this result [...] ? Lab Interpretation Abnormal (test code = 99575-7) [facility] FriscoProthrombin Time (PT) / [id number] 20:52:00 Test Item Value Reference Range Interpretation [...] tions. Lab Interpretation (test Normal code = 64286-9) [facility]iscoN-TERMINAL [id number] 20:50:00 Test Item Value Reference Range Interpretation Comments NT-proBNP (test code 163 pg/mL See_Comment H [Autom ated = 0702888003) message] The system which generated this result transmitted reference range : <=125. The reference range was not used to interpret this result as normal/abnormal . MARLIN (test code = MARLIN) Biotin has been reported to cause a negative bias, interpret results relative to patient's use of biotin. Lab Interpretation Abnormal (test code = 70819-7) [facility] FriscoXR NECK SOFT [id number] 20:48:14 Normal cervical soft tissues.. The upper [...] soft tissues.. The upper airway as visualized isunremarkable.[facility]iscoCOVID-19 (ID NOW RAPID TESTING)2020-11-26 20:43:00 Test Item Value Reference Range Interpretation Comments SARS-CoV-2 Rapid ID NOW Not Detected Not Detected (test code = 76160-8) MARLIN (test code = MARLIN) ID NOW COVID-19 Assay is an isothermal nucleic acid amplification test intended for the qualitative detection of nucleic acid from SARS-CoV-2 viral RNA in nasopharyngeal ([employer]) specimens. It is used under Emergency Use [...] indicated. Lab Interpretation Normal (test code = 54647-4) [facility] Met[facility] (NA, K, CL, CO2, GLUCOSE, BUN, CREATININE, CA)2020-11-26 20:41:00 Test Item Value Reference Range Interpretation Comments NA (test code = 140 mmol/L 135-145 3835009578) K (test code = 3.3 mmol/L 3.5-5 L 3888258315) CL (test code = 106 mmol/L 98-108 7143575777) CO2 TOTAL (test code = 24 mmol/L 23-31 6195326170) AGAP (test code = 2-16 8390769185) BUN (test code = 9 mg/dL 7-23 0184751478) GLUCOSE (test code = 291 mg/dL 70-110 H 7779391892) CREATININE (test code = 0.54 mg/dL 0.5-1.04 0052500610) CALCIUM (test code = 9.1 mg/dL 8.6-10.6 6548019078) eGFR Calculation mL/min/1.73m2 (Non-) (test code = 7490923275) eGFR Calculation mL/min/1.73m2 () (test code = 3494691801) MARLIN (test code = MARLIN) Association of [...] tests). Lab Interpretation Abnormal (test code = 01989-6) [facility]iscoHepatic Function Panel (ALB, T.PRO, BILI T, BU/BC, ALT, AST, ALK PHOS)2020-11-26 20:41:00 Test Item Value Reference Range Interpretation Comments TOTAL BILI (test code = 7289573016) 0.4 mg/dL 0.1-1.1 BILI UNCON (test code = 6313499262) 0.3 mg/dL 0.1-1.1 BILI CONJ (test code = 9545339064) 0.0 mg/dL 0-0.3 T PROTEIN (test code = 2353058857) 7.2 g/dL 6.3-8.2 ALBUMIN (test code = 1107293131) 4.3 g/dL 3.5-5 ALK PHOS (test code = 9194452657) 75 U/L 34-122 ALTv (test code = 1742-6) 10 U/L 5-35 AST(SGOT) (test code = 5567727707) 17 U/L 13-40 Lab Interpretation (test code = Normal 37214-4) [facility] [id number] 19:51:00 Test Item Value Reference Range Interpretation Comments POCT PREG (test code = 1605) negative POCT PREG LOT # (test code = 3575) [id number] POCT PREG TEST DATE (test 06/28/2022 code = 3576) Lab Interpretation (test code = Normal 75572-1) [facility] [id number] 05:40:00 Test Item Value Reference Range Interpretation Comments POCT PREG (test code = 1605) negative On board controls acceptable with present C Line (test code = 3574) POCT PREG LOT # (test code = 3575) [id number] POCT PREG TEST DATE (test 05/29/22 code = 3576) Lab Interpretation (test code = Normal 09824-8) [facility] DIAGNOSTIC MAMMOGRAM [id number] 16:55:29Examination:BI DIAGNOSTIC MAMMOGRAM BILATERAL History:Patient is 44 [...] BenignOverall: 0 - Incomplete: Needs Additional [facility] ULTR[facility] BREAST LIMITED OZUU2612-02-29 14:42:00Examination:BI ULTRASOUND BREAST LIMITED LEFT History:Patient is [...] Left ? BI-RADS Category: [facility] 2 [facility] 2 Vfint5363-84-63 00:55:46 No acute cardiopulmonary process. Preliminary Report [...] reviewed this study and agree with the abovereport.[facility]iscoBI ULTRASOUND BREAST LIMITED [id number] 21:48:28Complex fluid collection within the left breast, [...] measures approximat genaro 29 x 31 mm. [facility], Radiant Results Inft User - 03/27/2020 4:49 [...] should beperformed at a dedicated women's Center. [facility] 2020-03-27 21:35:00 Test Item Value Reference Range Interpretation Comments TROPONIN I (test 0.016 ng/mL See_Comment [Automated code = 2343981332) message] The system which generated this result [...] ? Lab Interpretation Normal (test code = 62568-6) [facility]N-[facility]MINAL [id number] 21:32:00 Test Item Value Reference Range Interpretation Comments NT-proBNP (test code 33 pg/mL See_Comment [Autom ated = 1352904824) message] The system which generated this result transmitted reference range : <=125. The reference range was not used to interpret this result as normal/abnormal . MARLIN (test code = MARLIN) Biotin has been reported to cause a negative bias, interpret results relative to patient's use of biotin. Lab Interpretation Normal (test code = 96414-3) [facility]2020-03-27 21:25:00 Test Item Value Reference Range Interpretation Comments SARS-CoV-2 Rapid ID NOW Not Detected Not Detected (test code = 57984-0) MARLIN (test code = MARLIN) ID NOW COVID-19 Assay is an isothermal nucleic acid amplification test intended for the qualitative detection of nucleic acid from SARS-CoV-2 viral RNA in nasopharyngeal (L[employer]RIC[employer]) specimens. It is used under Emergency Use [...] indicated. Lab Interpretation Normal (test code = 20773-1) [facility]. METABOLIC PANEL (60756)2020-03-27 21:23:00 Test Item Value Reference Range Interpretation Comments NA (test code = 135 mmol/L 135-145 5078470447) K (test code = 3.5 mmol/L 3.5-5 1574412414) CL (test code = 103 mmol/L 98-108 4683355255) CO2 TOTAL (test code = 23 mmol/L 23-31 6897545247) AGAP (test code = 2-16 9405129599) BUN (test code = 8 mg/dL 7-23 4432905863) GLUCOSE (test code = 288 mg/dL 70-110 H 8034422443) CREATININE (test code = 0.53 mg/dL 0.5-1.04 9233069224) TOTAL BILI (test code = 0.5 mg/dL 0.1-1.3 7149001762) CALCIUM (test code = 9.2 mg/dL 8.6-10.6 5467227233) T PROTEIN (test code = 8.4 g/dL 6.3-8.2 H 3652291820) ALBUMIN (test code = 4.6 g/dL 3.5-5 9673258697) ALK PHOS (test code = 76 U/L 34-122 4564692588) ALTv (test code = 11 U/L 5-35 1742-6) AST(SGOT) (test code = 20 U/L 13-40 3331222448) eGFR Calculation mL/min/1.73m2 (Non-) (test code = 4972982363) eGFR Calculation mL/min/1.73m2 () (test code = 1000447742) MARLIN (test code = MARLIN) Association of [...] tests). Lab Interpretation Abnormal (test code = 50743-3) [facility]00 Test Item Value Reference Range Interpretation Comments APPEARANCE (test code = Hazy Clear A 9072177639) COLOR (test code = Yellow Yellow 3380119606) PH (test code = 4.8-8.0 3232935002) SP GRAVITY (test code = 1.003-1.030 0968979296) GLU U QUAL (test code = 500 mg/dL Normal A 2185457953) BLOOD (test code = 1+ Negative A 1729756346) KETONES (test code = 80 mg/dL Negative A 5764297893) PROTEIN (test code = Negative Negative 2887-8) UROBILIN (test code = Normal Normal 0859814518) BILIRUBIN (test code = Negative Negative 0534903053) NITRITE (test code = Negative Negative 6265947479) LEUK NESTOR (test code = Negative Negative 6918954760) RBC/HPF (test code = See_Comment H [Autom ated message] 8390746005) The system whic h generated this result transmit wilfredo reference range : 0 - 3 HPF. The refe rence range was not u sed to interpret th is result as normal/abnormal . WBC/HPF (test code = See_Comment [Autom ated message] 5053791333) The system Active Scal[employer] h generated this result transmit wilfredo reference range : 0 - 5 HPF. The refe rence range was not u sed to interpret th is result as normal/abnormal . BACTERIA (test code = Few Negative A 9920834380) MUCOUS (test code = Slight Negative LPF A 9977356483) SQ EPITH (test code = HPF 0243041943) Lab Interpretation (test Abnormal code = 59463-7) [facility] WITH [id number] 21:13:00 Test Item Value Reference Range Interpretation [...] RDW-SD (test code = 47.1 fL 39-49.9 81519-3) RDW-CV (test code = 17.8 % 12-15.5 H 788-0) PLT (test code = See_Comment [Automated 777-3) message] The sy stem which generated this result transmitted reference range : 166 - 358 10*3/ ?L. The reference r charity was not used to interpret this result as normal/abnormal . MPV (test code = 12.0 fL 9.5-12.9 95450-8) NRBC/100 WBC (test See_Comment [Automat ed code = 8364299653) message] The system which generated this result transmitted reference range : 0.0 - 10.0 /100 WBCs. The refer ence range was not u sed to interpret th is result as normal/abnormal . NRBC x10^3 (test code <0.01 See_Comment [Auto mated = 0891207756) message] The s ystem which generated this result transmitted reference range : 10*3/?L. The reference range was not used to interpret this result as normal/abnormal . GRAN MAT (NEUT) % 67.3 % (test code = 770-8) IMM GRAN % (test code 0.40 % = 8626490754) LYMPH % (test code = 25.0 % 736-9) MONO % (test code = 5.8 % 5905-5) EOS % (test code = 1.1 % 713-8) BASO % (test code = 0.4 % 706-2) GRAN MAT x10^3(ANC) 3.12 10*3/uL 1.88-7.09 (test code = 0662035096) IMM GRAN x10^3 (test <0.03 0-0.06 code = 9769844171) LYMPH x10^3 (test code 1.16 10*3/uL 1.32-3.29 L = 731-0) MONO x10^3 (test code 0.27 10*3/uL 0.33-0.92 L = 742-7) EOS x10^3 (test code = 0.05 10*3/uL 0.03-0.39 711-2) BASO x10^3 (test code <0.03 0.01-0.07 = 704-7) Lab Interpretation Abnormal (test code = 69736-0) [id number] 20:58:00 Test Item Value Reference Range Interpretation Comments POCT PREG (test code = 1605) negative On board controls acceptable with present C Line (test code = 3574) POCT PREG LOT # (test code = 3575) [id number] POCT PREG TEST DATE (test 04/28/2021 code = 3576) Lab Interpretation (test code = Normal 06778-0) [facility] Whole [id number] 20:54:00 Test Item Value Reference Range Interpretation Comments LACTIC ACID (test code = 1.37 mmol/L 0.3-2.6 6786084834) [facility] WITH [id number] 20:02:00 Test Item Value Reference Range Interpretation Comments WBC (test code = See_Comment [Automated 9290-2) message] The sy stem which generated this [...] RDW-SD (test code = 47.7 fL 39-49.9 66410-7) RDW-CV (test code = 18.0 % 12-15.5 H 788-0) PLT (test code = See_Comment [Automated 777-3) message] The sy stem which generated this result transmitted reference range : 166 - 358 10*3/ ?L. The reference r charity was not used to interpret this result as normal/abnormal . MPV (test code = Not Measure d 57420-9) NRBC/100 WBC (test See_Comment [Automat ed code = 0623075800) message] The system which generated this result transmitted reference range : 0.0 - 10.0 /100 WBCs. The refer ence range was not u sed to interpret th is result as normal/abnormal . NRBC x10^3 (test code <0.01 See_Comment [Auto mated = 3814063132) message] The s ystem which generated this result transmitted reference range : 10*3/?L. The reference range was not used to interpret this result as normal/abnormal . GRAN MAT (NEUT) % 75.7 % (test code = 770-8) IMM GRAN % (test code 0.30 % = 1218669618) LYMPH % (test code = 17.7 % 736-9) MONO % (test code = 5.0 % 5905-5) EOS % (test code = 0.9 % 713-8) BASO % (test code = 0.4 % 706-2) GRAN MAT x10^3(ANC) 5.30 10*3/uL 1.88-7.09 (test code = 9229816569) IMM GRAN x10^3 (test <0.03 0-0.06 code = 0170837827) LYMPH x10^3 (test code 1.24 10*3/uL 1.32-3.29 L = 731-0) MONO x10^3 (test code 0.35 10*3/uL 0.33-0.92 = 742-7) EOS x10^3 (test code = 0.06 10*3/uL 0.03-0.39 711-2) BASO x10^3 (test code 0.03 10*3/uL 0.01-0.07 = 704-7) Lab Interpretation Abnormal (test code = 35028-6) [facility] METABOLIC PANEL (NA, K, CL, CO2, GLUCOSE, BUN, CREATININE, CA)2020-03-25 19:56:00 Test Item Value Reference Range Interpretation Comments NA (test code = 137 mmol/L 135-145 6185072535) K (test code = 3.7 mmol/L 3.5-5 2856586448) CL (test code = 104 mmol/L 98-108 8937406260) CO2 TOTAL (test code = 24 mmol/L 23-31 1025092221) AGAP (test code = 2-16 5481314978) BUN (test code = 9 mg/dL 7-23 7936746408) GLUCOSE (test code = 329 mg/dL 70-110 H 0343469821) CREATININE (test code = 0.52 mg/dL 0.5-1.04 7442081019) CALCIUM (test code = 9.1 mg/dL 8.6-10.6 4903677866) eGFR Calculation mL/min/1.73m2 (Non-) (test code = 4049116743) eGFR Calculation mL/min/1.73m2 () (test code = 6906691631) MARLIN (test code = MARLIN) Association of [...] tests). Lab Interpretation Abnormal (test code = 08383-5) [facility] Notes Date/Time Note Provider Source 2023-05-07 Formatting of this note is different from the or iginal. [facility] [employer] 18:58:58-00:00 Chief Complaint Patient presents with Viral Syndrome Cough, body aches, runny nose Past Medical History: Diagnosis Date Anemia 11/27/2020 Cellulitis of left breast 06/21/2019 Diabetes in 06/11/2018 Diabetes mellitus STD (sexually transmitted disease) 2018 Trich UTI (urinary tract infection) Patient seen and assessed by MD Kaleb in [facility]. Patient in ER complaining of cough, body aches, chills and runny nose. Patient conscious and alert, with normal/unlabored breathing, and normal color/tone for ethnicity. Oriented to name, time, place, and situation. GCS15. Patient verbalizes no needs at this time. Patient discharged from [facility] [place].Educated on follow up instructions. Questions answered and concerns addressed. Ambulatory with steady gait out of ER. Patient aware of plan of care. Delfina Blair RN 2023-05-07 Formatting of this note might be differe nt from the original. Delfina Blair RN [facility] 17:41:59-00:00 Cough, body aches, sore thro at, runny nose, diarrhea since Friday. Has been taking ibuprofen without relief Denies shortness of breath, fever, chills. [facility] 04/22/2023 Hx - DM 2023-05-07 Formatting of this note is different from the or iginal. [facility] 17:33:00-00:00 [facility] Emergency Department Note Patient Name: Heavenly Longoria Date of : 1975 47 year old female Treatment Room: [facility] FT/[id number] Primary Care Physician: PATIENT DOES NOT HAVE A PCP Patient Escorted by: Self [9] Mode of Arrival: Personal means [1] EMS Treatment Prior to ED Arrival: Travel and Exposure Screening: Symptoms Does patient have any of these symptoms?: (not r ecorded) Exposure Screening Has patient had contact with someone with a communicable disease in the last month?: (not recorded) Diseases exposed to:: (not recorded) Is Patient ?: (not recorded) Exposure Date: (not recorded) Chief Complaint: Chief Complaint Patient presents with Viral Syndrome Cough, body aches, runny nose History of Present Illness: HPI 47yo F presents today with c ough, body aches, runny nose sore throat and diarrhea that started 3-4 days ago. She has intermittent taking ibuprofen which does help but it come right back. She states she has had covid 5 times and is worried its that or the flu. Past Medical History/Immunizations: Past Medical History: Diagnosis Date Anemia 11/27/2020 Cellulitis of left breast 06/21/2019 Diabetes in 06/11/2018 Diabetes mellitus STD (sexually transmitted disease) 2018 Trich UTI (urinary tract infection) Allergies: Allergies Allergen Reactions Aspirin Rash Vancomycin Rash Past Social History: Tobacco Use Former Smokeless Tobacco: Never used smokeless tobacco . Alcohol Use No. Drug Use No. Sexual Activity Sexually active; Partners: Male; Control/ Protection: None. Comments: last intercourse 04/12/2018 Past Surgical History: Past Surgical History: Procedure Laterality Date ANKLE ARTHROPLASTY Right SECTION CHOLECYSTECTOMY Review of Systems: Review of Systems Constitutional: Positive for fatigue. Negative for activity change, diaphoresis and weight gain. HENT: Positive for congestio n and rhinorrhea. Negative for ear pain, sore throat, tinnitus and trouble swallowing. Eyes: Negative for discharge and visual disturba nce. Respiratory: Positive for cough. Negative for ch est tightness. Breasts: Negative for pain. Cardiovascular: Negative for chest pain and palp itations. Gastrointestinal: Negative for abdominal pain, n ausea and vomiting. Genitourinary: Negative for dysuria, hematuria a nd difficulty urinating. Musculoskeletal: Positive for myalgias. Negative for joint swelling. Skin: Negative for rash and wound. Neurological: Negative for dizziness and headach es. Psychiatric/Behavioral: Nega tive for agitation and confusion. The patient is not nervous/anxious. Hematological: Does not bruise/bleed easily. Endocrine: Negative for weight gain. Physical Exam: ED Triage Vitals [05/07/23 1743] Weight 66.9 kg (147 lb 8 oz) Actual or estimated Actual Height 1.499 m (4' 11") BP (!) 143/96 Pulse 112 Resp 18 Temp 36.6 ?C (97.8 ?F) Temp source Oral SpO2 98 % Measured on Room air Physical Exam Vitals reviewed. Constitutional: Appearance: She is well-developed. HENT: Head: Normocephalic and atraumatic. Nose: Congestion present. Mouth/Throat: Mouth: Mucous membranes are moist. Eyes: Conjunctiva/sclera: Conjunctivae normal. Cardiovascular: Rate and Rhythm: Regular rhythm. Tachycardia pr esent. Heart sounds: Normal heart sounds. No murmur h eard. Pulmonary: Effort: Pulmonary effort is normal. Breath sounds: Normal breath sounds. No stridor . Abdominal: General: Bowel sounds are normal. Palpations: Abdomen is soft. Tenderness: There is no abdominal tenderness. Musculoskeletal: General: Normal range of motion. Cervical back: Neck supple. Skin: General: Skin is warm and dry. Capillary Refill: Capillary refill takes less t romero 2 seconds. Neurological: Mental Status: She is alert and oriented to per son, place, and time. Cranial Nerves: No cranial nerve deficit. Psychiatric: Behavior: Behavior normal. Radiology: No orders to display Lab Results: Lab Results COVID-19 (ID NOW RAPID TESTING) - Abnormal Result Value Ref Range SARS-CoV-2 Rapid ID NOW Positive (*) Not Detect ed RAPID INFLUENZA A/B - Normal Rapid Influenza A Negative Negative Rapid Influenza B Negative Negative EKG: If EKG completed, see Procedure Note. Orders and Treatments: Orders Placed This Encounter Procedures COVID-19 (ID NOW TESTING) RAPID INFLUENZA A/B LAB ONLY COVID INTERPRETATION Orders Placed This Encounter Medications ondansetron 4 mg disintegrating tablet benzonatate 100 mg capsule First Provider Eval: ED Events Date/Time Event User Comments 05/07/231744 Medical Screening Begins MERCEDEZ COLLAZO MD -- 05/07/231744 First Provider Evaluation MERCEDEZ DAVIS MD -- No notes of EC Admission Criteria type on file. ED COURSE Diagnosis/Impression as of 05/07/23 1854 Viral infection COVID-19 virus infection Procedures: Procedures MDM: Medical Decision Making Covid positive flu negative Given script for rashaad and mansi anderson discharged Problems Addressed: COVID-19 virus infection: acute illness or injur y Viral infection: acute illness or injury Amount and/or Complexity of Data Reviewed Labs: ordered. Risk Prescription drug management. Flowsheet Documentation: Scoring Tools: No data recorded Disposition/Condition: ED Disposition ED Disposition Disch - Home Condition Stable Comment -- Discharge Medications: Patient's Medications START taking these medications BENZONATATE 100 MG CAPSULE Take 1 capsule by mouth 3 (three) times daily as needed for Cough. ONDANSETRON 4 MG DISINTEGRA TING TABLET Take 1 tablet by mouth every 8 (eight) hours as needed for Nausea and Vomiting (N/V). CONTINUE taking these medications which have NOT CHANGED ALBUTEROL 90 MCG/ACTUATION INHALER Inhale 2 Puffs every 4 (four) hours as needed for Wheezing or Shortness of Breath. AMOXICILLIN-CLAVULANATE 875 -125 MG PER TABLET Take 1 tablet by mouth every 12 (twelve) hours. BENZONATATE 100 MG CAPSULE Take 1 capsule by mouth 3 (three) times daily as needed for Cough. GLIPIZIDE 5 MG TABLET Take 10 mg by mouth 2 (two) times daily before breakfast and dinner. IBUPROFEN 600 MG TABLET Miguelito e 1 tablet by mouth every 6 (six) hours as needed for Pain (scale 4-6). IBUPROFEN 800 MG TABLET Miguelito e 1 tablet by mouth every 8 (eight) hours as needed for Pain (scale 4-6) or Temp > 38.5 C. METFORMIN 500 MG TABLET Take 1,000 mg by mouth 3 (three) times daily. ONDANSETRON 4 MG DISINTEGRA TING TABLET Take 1 tablet by mouth every 8 (eight) hours as needed for Nausea and Vomiting (N/V). START taking Modified Medications as Prescribed No medications on file STOP taking these medications No medications on file Follow-up: Electronically signed by: Mercedez Manuel DO 05/07/23 1966
[2023-05-15] MEDS ORDERED: FLUORESCEIN SODIUM 1 MG/WRAP ONE (15:34)
[2023-05-15] MEDS ORDERED: TETRACAINE HCL 0.5% 4ML OPTH ONE (15:34)
--- NOTE | 2023-05-15 15:41 | EDPHYS ---
Physician Documentation [facility] Name: Heavenly Villar Age: 47 yrs Sex: Female : 1975 Arrival Date: 05/15/2023 Time: 14:36 Bed 5 Private MD: ED Physician Patric Larsen HPI: 05/15 15:43 This 47 yrs old Female presents to ER via Ambulatory with complaints of Eye rt Injury. 15:43 Patient presents to the ED with an injury to the left eye about 7 PM yesterday while at rt work. 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 She reports blurred vision, mild pain and light sensitivity. She denies other acute complaints at this time. Symptoms are mild in severity, aching nature, nonradiating, no other aggravating or alleviating factors.. CT SCAN TECH: 15:49 LMP N/A - Irregular menses ap3 Historical: - Allergies: 15:00 Aspirin; cm10 - Home Meds: 15:00 Metformin Oral [Active]; cm10 - PMHx: 15:00 Diabetes mellitus; cm10 - Immunization history:: Adult Immunizations up to date. - Social history:: Smoking status: Patient denies any tobacco usage or history of. - Family history:: not pertinent. ROS: 15:43 Constitutional: Negative for fever, chills, and weight loss, Skin: Negative for injury, rt rash, and discoloration, Neuro: Negative for headache, weakness, numbness, tingling, and seizure, Psych: Negative for depression, anxiety, suicide ideation, homicidal ideation, and hallucinations. 15:43 Eyes: Positive for blurry vision, foreign body sensation. Exam: 15:43 Constitutional: This is a well developed, well nourished patient who is awake, alert, rt and in no acute distress. Head/Face: Normocephalic, atraumatic. Chest/axilla: Normal chest wall appearance and motion. Nontender with no deformity. No lesions are appreciated. Cardiovascular: Regular rate and rhythm with a normal S1 and S2. No gallops, murmurs, or rubs. Normal PMI, no JVD. No pulse deficits. Respiratory: Lungs have equal breath sounds bilaterally, clear to auscultation and percussion. No rales, rhonchi or wheezes noted. No increased work of breathing, no retractions or nasal flaring. Abdomen/GI: Soft, non-tender, with normal bowel sounds. No distension or tympany. No guarding or rebound. No evidence of tenderness throughout. Skin: Warm, dry with normal turgor. Normal color with no rashes, no lesions, and no evidence of cellulitis. MS/ Extremity: Pulses equal, no cyanosis. Neurovascular intact. Full, normal range of motion. Neuro: Awake and alert, GCS 15, oriented to person, place, time, and situation. Cranial nerves II-XII grossly intact. Motor strength 5/5 in all extremities. Sensory grossly intact. Cerebellar exam normal. Normal gait. Psych: Awake, alert, with orientation to person, place and time. Behavior, mood, and affect are within normal limits. 15:43 Eyes: Conjunctiva normal, extraocular muscles are intact, pupils equally round and reactive to light. Visual acuity as documented by RN. Fluorescein staining shows a small area of focal uptake, Abi sign is negative.. Vital Signs: 14:58 BP 131 / 74; Pulse 86; Resp 16; Temp 98; Pulse Ox 99% ; cm10 Visual Acuity: 15:21 Left Eye Visual acuity 20/100, ; Right Eye Visual acuity 20/50, ; Both Eyes Visual ld1 acuity 20/70; Without Lenses; MDM: 15:00 Patient medically screened. rt 15:43 Differential diagnosis: Corneal abrasion of Corneal ulcer of Foreign body in. Data rt reviewed: vital signs, nurses notes. Test considered but Not performed: CT: Very low suspicion for open globe, CT scan not. ED course: Injury was yesterday, mild area of focal fluorescein uptake, no corneal ulcer noted. At this time, no further emergent interventions are indicated. Patient does not require transfer at this time. I did instruct patient to follow-up with ophthalmology as an outpatient.. 05/15 15: Order name: Visual Acuity; Complete Time: 15:22 rt 05/15 15: Order name: Eye Tray; Complete Time: 15:25 rt 05/15 15: Order name: Fluoresene Opth strip; Complete Time: 15:25 rt Administered Medications: 15:27 Drug: Tetracaine Ophthalmic Drops 0.5 % 1 drops Route: Ophthalmic; Site: left eye; ld1 Disposition Summary: 05/15/23 15:40 Discharge Ordered Location: Home rt Problem: new rt Symptoms: are unchanged rt Condition: Stable rt Diagnosis - Injury of conjunctiva and corneal abrasion without foreign body rt Followup: rt - With: Ambrosio Medel MD - When: 2 - 3 days - Reason: Followup: rt - With: Sulema Adames MD - When: 5 - 6 days - Reason: Discharge Instructions: - Discharge Summary Sheet rt - Corneal Abrasion rt Forms: - Medication Reconciliation Form rt - Thank You Letter rt - Antibiotic Education rt - Prescription Opioid Use rt - Patient Portal Instructions rt - Leadership Thank You Letter rt Prescriptions: - Erythromycin 5 mg/gram (0.5 %) Ophthalmic Ointment - apply 1 ribbon by OPHTHALMIC route every 8 hours for 7 days; 1 Each; Refills: rt 0, Product Selection Permitted Signatures: Mary Ann Ludwig RN RN ld1 Patric Larsen MD MD rt Nataly Marsh RN RN cm10
--- NOTE | 2023-05-15 15:41 | ER ---
Nurse's Notes [facility] Name: Heavenly Villar Age: 47 yrs Sex: Female : 1975 Arrival Date: 05/15/2023 Time: 14:36 Bed 5 Private MD: Diagnosis: Injury of conjunctiva and corneal abrasion without foreign body Presentation: 05/15 14:58 Chief complaint: Patient states: HOT GREASE POPPED IN LEFT EYE LAST PM 1900. cm10 Coronavirus screen: At this time, the client does not indicate any symptoms associated with coronavirus-19. Ebola Screen: No symptoms or risks identified at this time. Mechanism of Injury: Burn by heat. The patient reports a positive loss of vision. The patient's loss of vision began 1 day ago. Initial Sepsis Screen: Does the patient meet any 2 criteria? No. Patient's initial sepsis screen is negative. Does the patient have a suspected source of infection? No. Patient's initial sepsis screen is negative. Risk Assessment: Do you want to hurt yourself or someone else? Patient reports no desire to harm self or others. Onset of symptoms was May 14, 2023 at 19:00. 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 - Social history:: Smoking status: Patient denies any tobacco usage or history of. - Family history:: not pertinent. Screenin:25 [facility] ED Fall Risk Assessment (Adult) History of falling in the last 3 months, ld1 including since admission No falls in past 3 months (0 pts). Abuse screen: Denies threats or abuse. Denies injuries from another. Nutritional screening: No deficits noted. Tuberculosis screening: No symptoms or risk factors identified. Assessment: 15:25 General: Appears in no apparent distress. uncomfortable, Behavior is calm, cooperative, ld1 appropriate for age. Pain: Complains of pain in left eye Pain does not radiate. Pain currently is 9 out of 10 on a pain scale. Quality of pain is described as throbbing. Neuro: Level of Consciousness is awake, alert, obeys commands, Oriented to person, place, time, situation. Cardiovascular: Capillary refill < 3 seconds Patient's skin is warm and dry. Respiratory: Airway is patent Respiratory effort is even, unlabored. GI: Abdomen is flat, non-distended. : No signs and/or symptoms were reported regarding the genitourinary system. EENT: Reports pain in left eye. EENT: Eyes are tearing on left inner canthus Sclera/Cornea are clear in outer aspect of conjuctiva of left eye, iris of left eye and inner aspect of conjunctiva of left eye. Derm: No signs and/or symptoms reported regarding the dermatologic system. Musculoskeletal: No signs and/or symptoms reported regarding the musculoskeletal system. Vital Signs: 14:58 BP 131 / 74; Pulse 86; Resp 16; Temp 98; Pulse Ox 99% ; cm10 Visual Acuity: 15:21 Left Eye Visual acuity 20/100, ; Right Eye Visual acuity 20/50, ; Both Eyes Visual ld1 acuity 20/70; Without Lenses; ED Course: 14:38 Patient arrived in ED. ts1 14:54 Patric Larsen MD is Attending Physician. rt 15:00 Triage completed. cm10 15:00 Arm band placed on. cm10 15:18 Mary Ann Ludwig, GRAY is Primary Nurse. ld1 15:25 Patient has correct armband on for positive identification. Placed in gown. Bed in low ld1 position. Call light in reach. Side rails up X2. school bus monitor on. Pulse ox on. NIBP on. Door closed. Noise minimized. Warm blanket given. 15:25 Assist provider with eye exam of left eye. using fluorescein stain, Performed by Patric Larsen MD. 15:39 Ambrosio Medel MD is Referral Physician. rt 15:39 Sulema Adames MD is Referral Physician. rt 15:49 Provided Education on: discharge instructions. ap3 15:49 Patient did not have IV access during this emergency room visit. ap3 Administered Medications: 15:27 Drug: Tetracaine Ophthalmic Drops 0.5 % 1 drops Route: Ophthalmic; Site: left eye; ld1 Medication: 15:25 VIS not applicable for this client. ld1 Outcome: 15:40 Discharge ordered by . rt 15:49 Discharged to home ambulatory. ap3 15:49 Condition: good 15:49 Discharge instructions given to patient, Instructed on discharge instructions, follow up and referral plans. medication usage, Demonstrated understanding of instructions, follow-up care, medications, Prescriptions given X 1. 15:50 Patient left the ED. ap3 Signatures: Madeleine Goss RN RN ap3 Mary Ann Ludwig RN RN ld1 Patric Larsen MD MD rt Mili Jerez PAS PAS ts1 Nataly Marsh RN RN cm10
[2023-05-15 16:01] VITALS: BP 131/74; TEMP 98; O2SAT 99
[2023-05-15] MEDS ORDERED: PANTOPRAZOLE 40 MG INJ ONE (17:39)
== END 2023-05-15 15:50 | disposition home or self-care (01) ==
LOC: ER 14:36
DX: S05.02XA Injury of conjunctiva and corneal abrasion without foreign body, left eye, initial encounter (principal); E11.9 Type 2 diabetes mellitus without complications; Z88.6 Allergy status to analgesic agent
CPT/HCPCS: 99284; C9113

== ENCOUNTER 2025-07-07 13:35 | Emergency (ER) | payer OTHER ==
--- OUTSIDE RECORDS SUMMARY | 2025-07-07 13:38 | XMS REPORT | Clinical Summary ---
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 Active glipiZIDE (GLUCOTROL) 5 mg tablet Take 5 mg by mouth every morning before breakfast. Active HYDROcodone-luther taminophen (NORCO) 5 mg-325 mg per tabletIndicatio ns:Pain of breast Take 1 tablet by mouth every 8 (eight) hours as needed for moderate pain. 20 tablet 06/26/2019 Active Active Problems Problem Noted Date Diagnosed Date Diabetes mellitus Surgical History Surgery Date [...] 0 (1 standard drink = 0.6 oz pur e alcohol) Comments No Sex and Gender Information Value Date Recorded Sex Assigned at Not on file Legal Sex Female 10:11 AM CDT Gender Identity Not on file Sexual Orientation Not on file Obstetrics History Plan of Treatment Not on file
[2025-07-07 14:18] LABS: Absolute Lymphocytes (CBC) 1.6 K/uL (0.7-4.9); Hematocrit 37.6 % (36.0-45.0); Hemoglobin 12.8 g/dL (12.0-15.0); MCH 31.2 pg (27.0-35.0); MCHC 34.1 g/dL (32.0-36.0); MCV 91.7 fL (80-100); MPV 10.3 fL (7.6-11.3); Nucleated RBC Absolute Count 0.0 (0-0); Nucleated Red Blood Cells % 0.1 % (0-0); RBC Red Blood Cell Count 4.10 M/uL (3.86-4.86); White Blood Count 6.90 thou/uL (4.3-10.9)
[2025-07-07 14:36] LABS: Anion Gap 11.6 mEq/L (5.0-15.0); BUN Blood Urea Nitrogen 16.0 mg/dL (7-18); Glucose Level 258.0 mg/dL (74-106); Potassium 3.6 mEq/L (3.5-5.1); Troponin High Sensitivity 47.7 pg/mL (<58.9)
--- NOTE | 2025-07-07 15:20 | RAD REPORT ---
EXAMINATION: ONE VIEW CHEST XR CLINICAL INDICATION: Female, 49 years old.,CHEST PAIN TECHNIQUE: Frontal chest projection is submitted. Examination is limited by patient positioning and t echnique. COMPARISON: 11/27/2022 FINDINGS: The lungs are well inflated and clear. No pneumothorax or sizable effusion. The heart is normal in s ize. Mediastinal contours are unremarkable. IMPRESSION: No acute intrathoracic abnormalities.
--- NOTE | 2025-07-07 15:53 | P.CNS ---
Date of Consult: 07/07/25 Reason for Consult: Chest pain Requesting Physician: CHRISTA CRANE Chief Complaint: Chest pain History of Present Illness: 49-year-old female with PMH ex-smoker, DM (on metformin), [place] ~1 year ago (treated at OSH, no stents per patient), who presents for chest pain. While at work, patient states that she was cleaning the floor when she felt acute onset of midsternal chest discomfort, described as sharp and pressure, with radiation to the left hand. Reports inability to move the left hand for several minutes. Chest pain resolved after 30 minutes. High-sensitivity cardiac troponin 47. ECG with no significant ischemic change. Creatinine 1.19, potassium 3.6, hemoglobin 12.8, platelets 100K. No prior records available for review. Patient is chest pain free at this time. Update: After speaking with patient's primary surgical consultant, Dr Valadez, recommended repeat trop and ECG, and outpatient follow-up for ischemic evaluation. Allergies aspirin Allergy (Unverified 01/17/17 22:57) Unknown Home medications list reviewed: Yes - Past Medical/Surgical History Diabetic: Yes -: Diabetes -: [place] - Social History Smoking Status: Former smoker Physical Examination Reviewed General: Alert, In no apparent distress, Oriented x3, Other (Anxious) HEENT: Atraumatic, Normocephalic, EOMI Neck: JVD not distended Cardiovascular: Normal S1 S2, No murmurs Capillary refill: <2 Seconds Gastrointestinal: Normal bowel sounds Musculoskeletal: No clubbing, No swelling Integumentary: No rashes Neurological: Normal speech Laboratory Data (last 24 hrs) 07/07/25 07/07/25 14:08 14:08 WBC 6.90 Hgb 12.8 Hct 37.6 Plt Count 100 L Sodium 137 Potassium 3.6 BUN 16 Creatinine 1.19 H Glucose 258 H Imagings Data: ECG and imaging reviewed - Problems (1) Unstable angina Current Visit: Yes Status: Acute Plan: Trend cardiac troponins and repeat ECG as per protocol. Continue aspirin and statin. Update: Spoke to patient's primary surgical consultant, Dr Valadez, recommended repeat trop and ECG, and outpatient follow-up for ischemic evaluation. I will sign off for now. Please call with any questions. (2) Diabetes Current Visit: Yes Status: Acute Plan: Reinforce glycemic control. Follow-up with PCP. 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
--- NOTE | 2025-07-07 16:22 | P.CNS ---
Date of Consult: 07/07/25 Chief Complaint: Chest pain History of Present Illness: Patient with PMH of HTN, DM, history of tobacco use, presented today with chest pain, mid chest, sharp in nature, no radiation, associated with left fingers cramps, lasted for 15 minutes, denies any other cardiac symptoms. Allergies aspirin Allergy (Unverified 01/17/17 22:57) Unknown Home medications list reviewed: Yes - Past Medical/Surgical History Diabetic: Yes -: Diabetes -: [place] - Social History Smoking Status: Former smoker Review of Systems 10-point ROS is otherwise unremarkable Physical Examination General: Alert, In no apparent distress HEENT: Atraumatic, PERRLA, Mucous membr. moist/pink, EOMI, Sclerae nonicteric Neck: Supple, 2+ carotid pulse no bruit, No LAD, Without JVD or thyroid abnormality Respiratory: Clear to auscultation bilaterally, Normal air movement Cardiovascular: Regular rate/rhythm, Normal S1 S2 Gastrointestinal: Normal bowel sounds, No tenderness Musculoskeletal: No tenderness Integumentary: No rashes Neurological: Normal gait, Normal speech, Normal tone, Normal affect Lymphatics: No axilla or inguinal lymphadenopathy Laboratory Data (last 24 hrs) 07/07/25 07/07/25 14:08 14:08 WBC 6.90 Hgb 12.8 Hct 37.6 Plt Count 100 L Sodium 137 Potassium 3.6 BUN 16 Creatinine 1.19 H Glucose 258 H - Problems (1) Chest pain Current Visit: Yes Status: Acute Plan: atypical, normal EKG and negative troponin x1, continue to trend troponin, if next set is negative then patient can be discharged home and follow up with cardiology for cardiac PET ASA 81 mg daily Crestor 20 mg daily
--- NOTE | 2025-07-07 17:28 | RAD REPORT ---
EXAM: CT Head Brain Wo Cont HISTORY: WEAKNESS COMPARISON: None TECHNIQUE: Multiple contiguous axial images were obtained for a CT of the brain without contrast. Sag ittal and coronal reformats were performed. One or more of the following dose reduction techniques were used: Automated exposure control, adjus tment of the mA and kV according to patient size, and iterative reconstruction. Unless otherwise specified, incidental findings do not require dedicated imaging follow-up. FINDINGS: No evidence of hydrocephalus, intracranial hemorrhage, or extra-axial fluid collection. The brain is normal in morphology. The calvarium is intact. Left maxillary sinus mucus retention cysts. Mastoid air cells are essentiall y clear. IMPRESSION: No evidence of acute intracranial abnormality.
--- NOTE | 2025-07-07 18:24 | ER ---
Nurse's Notes [facility] Name: Heavenly Villar Age: 49 yrs Sex: Female : 1975 Arrival Date: 07/07/2025 Time: 13:35 Bed 26 Private MD: Diagnosis: Chest pain, unspecified Presentation: 07/07 13:43 Chief complaint: EMS states: patient started having chest pain \T\ pressure while at work.iw 13:43 Coronavirus screen: Client denies travel out of the [place] in the last 14 days. Ebola iw Screen: Patient negative for fever greater than or equal to 101.5 degrees Fahrenheit, and additional compatible Ebola Virus Disease symptoms Patient denies exposure to infectious person. Patient denies travel to an Ebola-affected area in the 21 days before illness onset. Initial Sepsis Screen: Does the patient meet any 2 criteria? No. Patient's initial sepsis screen is negative. Does the patient have a suspected source of infection? No. Patient's initial sepsis screen is negative. Risk Assessment: Do you want to hurt yourself or someone else? Patient reports no desire to harm self or others. Onset of symptoms was July 07, 2025. Care prior to arrival: Medication(s) given: ASA, 81 mg, x 4, IV initiated. 20 GA, in the right antecubital area. Activity prior to arrival: chest pain. 13:43 Method Of Arrival: EMS: [facility] iw 13:43 Acuity: AYAKA 3 iw Triage Assessment: 13:52 General: Appears in no apparent distress. Behavior is calm, cooperative, appropriate iw for age. Pain: Denies pain. EENT: No deficits noted. Neuro: Level of Consciousness is awake, alert, obeys commands, Reports numbness in left hand. Cardiovascular: Reports chest pain, Patient's skin is warm and dry. Rhythm is sinus rhythm. Respiratory: Airway is patent Trachea midline Respiratory effort is even, unlabored, Respiratory pattern is regular. GI: No signs and/or symptoms were reported involving the gastrointestinal system. Abdomen is round non-distended. : No signs and/or symptoms were reported regarding the genitourinary system. Derm: Skin is intact, Skin is dry, Skin is normal, Skin temperature is warm. Musculoskeletal: Circulation, motion, and sensation intact. Range of motion: intact in all extremities. 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 - Infectious Disease History:: Denies. - Social history:: Smoking status: Patient denies any tobacco usage or history of. Screenin:56 [facility] ED Fall Risk Assessment (Adult) History of falling in the last 3 months, iw including since admission No falls in past 3 months (0 pts) Confusion or Disorientation No (0 pts) Intoxicated or Sedated No (0 pts) Impaired Gait No (0 pts) Mobility Assist Device Used No (0 pt) Altered Elimination No (0 pt) Score/Fall Risk Level 0 - 2 = Low Risk Oriented to surroundings, Maintained a safe environment. Abuse screen: Denies threats or abuse. Nutritional screening: No deficits noted. Tuberculosis screening: No symptoms or risk factors identified. Assessment: 13:56 General: Appears in no apparent distress. Pain: Complains of pain in chest Pain iw radiates to left arm Quality of pain is described as aching, pressure, Pain began 1 hour ago. Neuro: Level of Consciousness is awake, alert, obeys commands, Oriented to person, place, time. 14:20 Reassessment: Patient and/or family updated on plan of care and expected duration. Pain rg5 level reassessed. Patient is alert, oriented x 3, equal unlabored respirations, skin warm/dry/pink. 14:20 General: Appears in no apparent distress. comfortable. rg5 15:45 Reassessment: Patient and/or family updated on plan of care and expected duration. Pain rg5 level reassessed. Patient is alert, oriented x 3, equal unlabored respirations, skin warm/dry/pink. 16:30 Reassessment: Patient and/or family updated on plan of care and expected duration. Pain rg5 level reassessed. Patient is alert, oriented x 3, equal unlabored respirations, skin warm/dry/pink. Patient states symptoms have improved. 18:22 Reassessment: Patient and/or family updated on plan of care and expected duration. Pain rg5 level reassessed. Patient is alert, oriented x 3, equal unlabored respirations, skin warm/dry/pink. Vital Signs: 13:45 BP 102 / 67; Pulse 86; Resp 18; Temp 98; Pulse Ox 99% ; Weight 57.61 kg; Height 4 ft. iw 11 in. ; Pain 0/10; 14:45 BP 103 / 60; Pulse 72; Resp 18; Pulse Ox 100% ; Pain 0/10; rg5 15:35 BP 97 / 78; Pulse 76; Resp 18; Pulse Ox 100% ; Pain 0/10; rg5 16:45 BP 136 / 77; Pulse 80; Resp 18; Pulse Ox 100% ; Pain 0/10; rg5 17:20 BP 104 / 69; Pulse 71; Resp 18; Pulse Ox 100% ; Pain 0/10; rg5 18:23 BP 109 / 79; Pulse 78; Resp 18; Pulse Ox 100% ; rg5 13:45 Body Mass Index 25.65 (57.61 kg, 149.86 cm) iw 13:45 Pain Scale: Adult iw 14:45 Pain Scale: Adult rg5 15:35 Pain Scale: Adult rg5 16:45 Pain Scale: Adult rg5 17:20 Pain Scale: Adult rg5 ED Course: 13:43 Patient arrived in ED. iw 13:43 Derik Chakraborty NP is PHCP. cr8 13:43 Les Ludwig DO is Attending Physician. cr8 13:45 Arm band placed on. EKG completed in triage. Results shown to MD. iw 13:49 Rachael Garcia, RN is Primary Nurse. iw 13:52 Triage completed. iw 13:55 EKG done, by ED staff, reviewed by Derik Chakraborty NP. rk3 13:56 No provider procedures requiring assistance completed. Maintain EMS IV. Dressing iw intact. Good blood return noted. Site clean \T\ dry. Gauge \T\ site: 20g right AC. Flushed with 10 mL NS. Patient maintains SpO2 saturation greater than 95% on room air. 13:56 Patient has correct armband on for positive identification. Client placed on continuous iw cardiac and pulse oximetry monitoring. NIBP monitoring applied. technology education instructor on. Pulse ox on. NIBP on. Door closed. Noise minimized. Warm blanket given. 14:38 XRAY Chest (1 view) In Process Unspecified. EDMS 15:50 Douglas Sellers, RN is Primary Nurse. rg5 16:06 CT Head Brain wo Cont In Process Unspecified. EDMS 18:34 IV discontinued, bleeding controlled, No redness/swelling at site. Pressure dressing rg5 applied. Administered Medications: No medications were administered Medication: 13:56 VIS not applicable for this client. iw Outcome: 18:23 Discharge ordered by . [email or web address] 18:34 Discharged to home ambulatory, rg5 18:34 Condition: stable 18:34 Discharge instructions given to patient, Instructed on discharge instructions, Demonstrated understanding of instructions, follow-up care, 18:34 Patient left the ED. rg5 Signatures: Dispatcher [employer] Rachael Rosario, RN Douglas Feliz RN RN rg5 Marc Tolliver rk3 Derik Chakraborty NP RAILROAD WORKER cr8 Corrections: (The following items were deleted from the chart) 13:53 13:52 Allergies: Aspirin; iw iw
--- NOTE | 2025-07-07 18:24 | EDPHYS ---
Physician Documentation [facility] Name: Heavenly Villar Age: 49 yrs Sex: Female : 1975 Arrival Date: 07/07/2025 Time: 13:35 Bed 26 Private MD: ED Physician Les Ludwig HPI: 07/07 15:05 This 49 yrs old Female presents to ER via EMS with complaints of Chest Pain. 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 She reported that about 3045 minutes prior to arrival she had crushing pain like somebody was sitting on her chest. Reports that she started becoming scared and anxious and having numbness and tingling. Reports her left arm locked up. Patient reports the chest pain resolved prior to her arrival here. Currently pain-free. No dyspnea at this time. Neurologically intact.. 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 - Infectious Disease History:: Denies. - Social history:: Smoking status: Patient denies any tobacco usage or history of. ROS: 15:05 Constitutional: as per [facility] cr8 Exam: 15:05 Constitutional: This is a well developed, well nourished patient who is awake, alert, cr8 and in no acute distress. Cardiovascular: Regular rate and rhythm with a normal S1 and S2. No gallops, murmurs, or rubs. Respiratory: Lungs have equal breath sounds bilaterally, clear to auscultation. No rales, rhonchi or wheezes noted. No increased work of breathing. Abdomen/GI: Soft, non-tender, with normal bowel sounds. No distension. No guarding or rebound. Skin: Warm, dry with normal turgor. Normal color with no rashes, no lesions, and no evidence of cellulitis. MS/ Extremity: Pulses equal, no cyanosis. Neurovascular intact. Full, normal range of motion. Neuro: Awake and alert, GCS 15, oriented to person, place, time, and situation. Cranial nerves II-XII grossly intact. Motor strength 5/5 in all extremities. Sensory grossly intact. 15:05 ECG was reviewed by the Attending Physician. cr8 Vital Signs: 13:45 BP 102 / 67; Pulse 86; Resp 18; Temp 98; Pulse Ox 99% ; Weight 57.61 kg; Height 4 ft. iw 11 in. ; Pain 0/10; 14:45 BP 103 / 60; Pulse 72; Resp 18; Pulse Ox 100% ; Pain 0/10; rg5 15:35 BP 97 / 78; Pulse 76; Resp 18; Pulse Ox 100% ; Pain 0/10; rg5 16:45 BP 136 / 77; Pulse 80; Resp 18; Pulse Ox 100% ; Pain 0/10; rg5 17:20 BP 104 / 69; Pulse 71; Resp 18; Pulse Ox 100% ; Pain 0/10; rg5 18:23 BP 109 / 79; Pulse 78; Resp 18; Pulse Ox 100% ; rg5 13:45 Body Mass Index 25.65 (57.61 kg, 149.86 cm) iw 13:45 Pain Scale: Adult iw 14:45 Pain Scale: Adult rg5 15:35 Pain Scale: Adult rg5 16:45 Pain Scale: Adult rg5 17:20 Pain Scale: Adult rg5 MDM: 13:43 Medical Screening Exam initiated cr8 18:28 Data reviewed: vital signs, nurses notes, EMS record, lab test result(s), EKG, cr8 radiologic studies. Consideration of Admission/Observation Patient was admitted/placed on observation. Management of patient was discussed with the following: Quality Assurance Director: Dr. Mejias. Counseling: I had a detailed discussion with the patient and/or guardian regarding the historical points, exam findings, and any diagnostic results supporting the discharge/admit diagnosis, lab results, radiology results, the need for outpatient follow up. ED course: Exam without evidence of volume overload so doubt heart failure. EKG without signs of active ischemia. Given the timing of pain to ER presentation, delta troponin was negative so doubt NSTEMI. Presentation not consistent with acute PE (Wells low risk PERC negative),pneumothorax (not visualized on chest xr), thoracic aortic dissection, pericarditis, tamponade, pneumonia (no infectious symptoms, clear chest xr), myocarditis (no recent illness, neg trop). HEART score:4 so plan to discharge patient home with PMD follow up. Orchid Hand saw the patient in the emergency room. He discussed her presentation assessment and workup with her. They came up with a treatment plan to have her follow-up closely in the office with stress test. Calculator from https://www.emrap.org/corependium/calculator/heart-score on 07/07/2025, 06:30 PM All calculations should be rechecked by clinician prior to use RESULT SUMMARY: +4 Moderate Score Risk of major cardiac event in next six weeks is 12 to 16.6%, based on the Aliya et al HEART score 2013 validation study. INPUTS: History -> Moderately suspicious ECG -> Normal Age -> 45 - 64 Risk factors -> = 3 risk factors or CAD Troponin -> Normal. 07/07 13:46 Order name: Basic Metabolic Panel; Complete Time: 14:38 cr8 07/07 13:46 Order name: CBC with Diff; Complete Time: 14:29 cr8 07/07 13:46 Order name: Troponin HS; Complete Time: 14:38 cr8 07/07 17:15 Order name: Troponin HS; Complete Time: 17:55 cr8 07/07 13:46 Order name: XRAY Chest (1 view); Complete Time: 15:22 cr8 07/07 15:39 Order name: CT Head Brain wo Cont; Complete Time: 17:44 cr8 07/07 13:46 Order name: EKG; Complete Time: 13:46 cr8 07/07 13:46 Order name: Cardiac monitoring; Complete Time: 13:55 cr8 07/07 13:46 Order name: EKG - Nurse/Tech; Complete Time: 13:55 cr8 07/07 13:46 Order name: IV Saline Lock; Complete Time: 13:55 cr8 07/07 13:46 Order name: O2 Per Protocol; Complete Time: 13:55 cr8 07/07 13:46 Order name: O2 Sat Monitoring; Complete Time: 13:55 cr8 07/07 17:15 Order name: Labs collected and sent; Complete Time: 17:23 cr8 EC:50 Rate is 75 beats/min. Rhythm is regular. QRS [place] is Normal. GA interval is normal. QRS cr8 interval is normal. QT interval is normal. T waves are Normal. No ST changes noted. Clinical impression: Normal ECG. Interpreted by me. Administered Medications: No medications were administered Disposition: :22 I was immediately available on-site in the Emergency Department for consultation in the ms3 care of the patient. Disposition Summary: 07/07/25 18:23 Discharge Ordered Notes: Location: Home cr8 Condition: Stable cr8 Diagnosis - Chest pain, unspecified cr8 Followup: cr8 - With: Emergency Department - When: As needed - Reason: Trouble breathing, Worsening of condition Followup: cr8 - With: Private Physician - When: 2 - 3 days - Reason: Recheck today's complaints, Continuance of care, Re-evaluation by your physician Discharge Instructions: - Discharge Summary Sheet cr8 - Nonspecific Chest Pain, Adult cr8 Forms: - Medication Reconciliation Form cr8 - Patient Portal Instructions cr8 - Leadership Thank You Letter cr8 Signatures: Dispatcher [employer] Rachael Rosario, Les Dozier RN, DO ms3 Derik Chakraborty NP [employer] cr8 Corrections: (The following items were deleted from the chart) 13:53 13:52 Allergies: Aspirin; kevin
[2025-07-07 19:27] VITALS: TEMP 98
[2025-07-07 19:29] VITALS: O2SAT 100
[2025-07-07 19:34] VITALS: BP 109/79
== END 2025-07-07 18:34 | disposition home or self-care (01) ==
LOC: ER 13:35
DX: R07.9 Chest pain, unspecified (principal); I25.2 Old myocardial infarction
CPT/HCPCS: 36415; 70450; 71045; 80048; 84484; 85025; 93005; 99284